=== PATIENT | male | born 1940 | race Caucasian/White ===

== ENCOUNTER 2021-04-29 02:09 | Observation (INO) ==
[2021-04-29] MEDS ORDERED: PANTOPRAZOLE 40 MG VIAL IV ONE (02:29)
--- NOTE | 2021-04-29 02:36 | Emergency Department Note ---
GI Bleed HPI General Chief complaint: Rectal Bleed Stated complaint: GI bleed Time Seen by Provider: 04/29/21 02:15 Source: patient Mode of arrival: ambulatory Limitations: no limitations History of Present Illness HPI Narrative: Narrative: 80 yo M w/ h/o mutiple GI polyps, AF on eliquis p/w GI bleeding. Pt reports onset of BRBPR around 1530 yesterday. Since onset, he has had 10-12 episodes of hematochezia that have filled the bowl. He feels generally unwell, but does not have lightheadedness, weakness, near-syncopal symptoms. He has never had any previous GI bleeding. He reports that he just underwent EGD and colonoscopy by Dr Billingsley on the and respectively, and had multiple polyps removed. He has had scopes done Q3-5 years for some time now 2/2 multiple polyps. Related Data Home Medications Medication Instructions Recorded Confirmed amiodarone 200 mg tablet 200 mg PO BID tab 10/22/17 01/23/21 amitriptyline 25 mg tablet 25 mg PO QDAY tab 10/22/17 01/23/21 amlodipine 10 mg tablet 10 mg PO QDAY 10/22/17 01/23/21 atorvastatin 20 mg tablet 20 mg PO QHS tab 10/22/17 01/23/21 doxazosin 4 mg tablet 4 mg PO QDAY 10/22/17 01/23/21 lisinopril 10 mg tablet 10 mg PO QDAY 10/22/17 01/23/21 magnesium oxide 420 mg tablet 420 mg PO QDAY tab 10/22/17 01/23/21 metoprolol tartrate 25 mg tablet 37.5 mg PO BID 10/22/17 01/23/21 multivitamin with minerals 1 cap PO QAM cap 10/22/17 01/23/21 naloxone 4 mg/actuation nasal spray 4 mg INTRANASAL ONCE PRN 10/22/17 01/23/21 warfarin 5 mg tablet 5 mg PO QDAY 10/22/17 01/23/21 Previous Rx's Medication Instructions Recorded finasteride 5 mg tablet 5 mg PO QDAY #90 tab 06/03/18 lidocaine 5 % topical patch 1 patch TOPICAL QDAY #15 ea 01/23/21 Allergies Allergy/AdvReac Type Severity Reaction Status Date / Time acetaminophen [From Percocet] Allergy Unknown Unknown Verified 04/29/21 02:13 codeine Allergy Unknown Unknown Verified 04/29/21 02:13 oxycodone [Oxycodone] Allergy Unknown Unknown Verified 04/29/21 02:13 Review of Systems ROS ROS Narrative: Narrative: All systems ED: reviewed and negative except as stated. [facility] Narrative Patient History Narrative: Narrative: Medical/Surgical/Family History All Active Problems (Updated 04/29/21 @ 04:25 by Ramesh Quiles MD) Hematochezia (Acute) Atrial fibrillation (Acute) Acute lower gastrointestinal bleeding (Acute) Intestinal polyps (Acute) Shingles outbreak (Acute) Finger laceration (Acute) Finger fracture, left (Acute) Chest pain (Acute) CHF (congestive heart failure) (Chronic) Dysrhythmias (Chronic) Atrial fibrillation (Chronic) Abnormal fasting glucose (Chronic) Insomnia, unspecified (Chronic) CVA (cerebral vascular accident) (Chronic) Benign prostatic hyperplasia (Chronic) Essential hypertension (Chronic) Polyp of colon (Chronic) Diverticulosis (Chronic) Urgency of urination (Chronic) Iatrogenic pulmonary embolism and infarction (Chronic) FPC current use of anticoagulant (Chronic) Osteoarthritis (Chronic) 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) Knee pain (Chronic) Skin lesion (Chronic) Actinic keratosis (Chronic) Hyperlipidemia (Chronic) Chest pain (Chronic) Pulmonary embolism (Chronic) Tachycardia (Chronic) Headache (Chronic) Microscopic hematuria (Chronic) Medical History (Updated 04/29/21 @ 04:25 by Ramesh Quiles MD) Abnormal fasting glucose Actinic keratosis Atrial fibrillation Benign prostatic hyperplasia 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 Chest pain CHF (congestive heart failure) CVA (cerebral vascular accident) Diverticulosis Dysrhythmias Essential hypertension Headache Hyperlipidemia Iatrogenic pulmonary embolism and infarction Insomnia, unspecified Knee pain FPC current use of anticoagulant Microscopic hematuria Neoplasm of uncertain behavior of skin Osteoarthritis Polyp of colon Pulmonary embolism Skin lesion Tachycardia Urgency of urination Surgical History History of knee surgery No pertinent past surgical history Family History Mother , at age 56 from lung cancer Lung cancer Heart disease Father , at age 54 of CAD CAD (coronary artery disease) Heart disease Brother Parkinson's disease Lung cancer Family/Other , at age 53 of lung cancer Lung cancer Nephew Other Family history of cardiac disorder Family history of rheumatic fever Social History Smoking Status: Former smoker Alcohol Intake Frequency: does not drink Substance Use: does not use Exam Narrative Narrative: Narrative: General Limitations: no limitations General appearance: Present alert and in no apparent distress Head Head: Present atraumatic and normocephalic ENT ENT: Present normal oropharynx and mucous membranes moist Chest Chest: Present normal inspection and symmetric chest wall rise Respiratory Respiratory: Present normal lung sounds bilaterally Cardiovascular Cardiovascular: Present regular rate, normal rhythm, +S1 and +S2 Adbominal Abdominal: Present soft, normal bowel sounds and other; Absent distention and tenderness Rectal Rectal: Present normal rectal tone, heme (+) stool and bloody stool Extremities Extremities: Absent pedal edema Neurological Neurological: Present alert and oriented X3 Psychiatric Psychiatric: Present normal affect Skin Skin: Present warm (WNL) and dry Course Vital Signs Vital signs: Vital Signs Temperature 96.9 F L 04/29/21 02:10 Pulse Rate 54 L 04/29/21 02:10 Respiratory Rate 16 04/29/21 02:10 Blood Pressure 136/113 04/29/21 02:10 Pulse Oximetry (%) 94 04/29/21 02:10 Temperature 96.9 F L 04/29/21 02:10 Pulse Rate 50 L 04/29/21 06:21 Respiratory Rate 16 04/29/21 02:10 Blood Pressure 123/65 04/29/21 06:21 Pulse Oximetry (%) 99 04/29/21 06:21 [facility] MDM Narrative Medical decision making narrative: Narrative: 80 yo M on eliquis p/w GI bleeding after EGD and colonoscopy. DDX - hemorrhagic shock, symptomatic anemia, GI bleed, coagulopathy, bowel perforation Pt presented stable, w/ no active bleeding, no hypotensive, negative shock index. Hemorrhagic shock was unlikely. GI bleed was confirmed w/ Hx, PE, and hemoccult. Most likely etiology was bleeding post polypectomy w/ underlying coagulopathy 2/2 eliquis. He had no abd pain, no TTP making bowel perforation unlikely. Hgb was 12.9, c/w anemia 2/2 GI bleed, although there is no recent comparison available. I reached out to Dr Detwiller w/o success. I then contacted Dr Barclay, who stated that he would be happy to consult on pt, and requested hospitalist admission. He stated that pt would not likely need repeat scope, but rather expected him to improve w/ a pause in his anticoagulation. I d/w the pt, and he is agreeable to local admission. At this time however, beds are not available. Will monitor pt in the ED until a bed opens up later this AM. Lab Data Lab results reviewed: Yes I reviewed the patient's lab results. Result diagrams: 04/29/21 02:43 04/29/21 02:43 Labs: Lab Results 04/29/21 04/29/21 04/29/21 Range/Units 02:43 02:43 02:43 WBC 10.3 (4.5-11.0) K/mcL RBC 3.93 L (4.50-5.90) M/mcL Hgb 12.9 L (13.5-16.5) g/dL Hct 38.0 L (41.0-55.0) % MCV 96.7 (80.0-100.0) fL MCH 32.8 (26.0-34.0) pg MCHC 33.9 (31.0-36.0) g/dL RDW 12.7 (11.5-14.5) % Plt Count 191 (140-440) K/mcL MPV 10.6 H (7.4-10.4) fL Neut % (Auto) 68.5 (38.0-78.0) % Lymph % (Auto) 17.9 (15.0-49.0) % [place] % (Auto) 10.8 (1.0-12.0) % Eos % (Auto) 2.4 (0.0-7.0) % Baso % (Auto) 0.4 (0.0-2.0) % Lymph # (Auto) 1.84 (1.50-4.80) K/mcL [place] # (Auto) 1.11 H (0.10-0.90) K/mcL Eos # (Auto) 0.25 (0.00-0.70) K/mcL Baso # (Auto) 0.04 (0.00-0.20) K/mcL Absolute Neutrophils 7.05 (1.80-8.00) K/mcL PT 17.8 H (11.9-14.5) sec INR 1.4 H (0.9-1.1) APTT 39.1 H (20.0-37.0) sec Sodium 143 (133-145) mmol/L Potassium 3.8 (3.3-5.1) mmol/L Chloride 108 (96-108) mmol/L Carbon Dioxide 26 (22-30) mmol/L Anion Gap 9.0 (8.0-16.0) BUN 31 H (8-23) mg/dL Creatinine 1.1 (0.7-1.2) mg/dL GFR Calculation 63 Glucose 93 (70-105) mg/dL Calcium 9.1 (8.6-10.4) mg/dL Total Bilirubin 0.6 (0.1-1.0) mg/dL AST 21 (<40) U/L ALT 11 (<40) U/L Alkaline Phosphatase 78 (39-117) U/L Total Protein 6.0 (5.9-8.4) gm/dL Albumin 3.7 (3.2-5.2) gm/dL Globulin 2.3 (2.2-3.7) gm/dL Albumin/Globulin Ratio 1.6 (1.0-2.3) ED POC Tests ED POC Tests: KRISTI - SARS Antigen Negative Discharge Plan Patient/Caregiver Discharge Instructions Pt seen by [employer]/PA only: No Clinical Impression: Hematochezia, Atrial fibrillation, Acute lower gastrointestinal bleeding, Intestinal polyps Patient Disposition: Xfer As Inpt ([facility]) Condition: Serious Follow up with: Robbin Horan ARNP [Primary Care Provider] - Prescriptions: No Action amiodarone 200 mg tablet 200 mg PO BID RF: 0 amitriptyline 25 mg tablet 25 mg PO QDAY RF: 0 amlodipine 10 mg tablet 10 mg PO QDAY RF: 0 atorvastatin 20 mg tablet 20 mg PO QHS RF: 0 doxazosin 4 mg tablet 4 mg PO QDAY RF: 0 lisinopril 10 mg tablet 10 mg PO QDAY RF: 0 metoprolol tartrate 25 mg tablet 37.5 mg PO BID RF: 0 naloxone 4 mg/actuation spray,non-aerosol 4 mg INTRANASAL ONCE PRNRF: 0 warfarin 5 mg tablet 5 mg PO QDAY RF: 0 magnesium oxide 420 mg tablet 420 mg PO QDAY RF: 0 multivitamin with minerals capsule 1 cap PO QAM RF: 0 lidocaine [Lidoderm] 5 % adhesive patch,medicated 1 patch topical QDAY Qty: 15 RF: 0 finasteride [Proscar] 5 mg tablet 5 mg PO QDAY Qty: 90 RF: 1
[2021-04-29 03:40] LABS: Basophils # (Auto) 0.04 K/mcL (0.00-0.20); Basophils % (Auto) 0.4 % (0.0-2.0); Eosinophils # (Auto) 0.25 K/mcL (0.00-0.70); Eosinophils % (Auto) 2.4 % (0.0-7.0); Hemoglobin 12.9 g/dL (13.5-16.5); Lymphocytes # (Auto) 1.84 K/mcL (1.50-4.80); Lymphocytes % (Auto) 17.9 % (15.0-49.0); Mean Cell Volume 96.7 fL (80.0-100.0); Mean Corpuscular HGB Conc 33.9 g/dL (31.0-36.0); Mean Platelet Volume 10.6 fL (7.4-10.4); Monocytes # (Auto) 1.11 K/mcL (0.10-0.90); Monocytes % (Auto) 10.8 % (1.0-12.0); Neutrophils % (Auto) 68.5 % (38.0-78.0); Platelet Count 191 K/mcL (140-440); RBC 3.93 M/mcL (4.50-5.90); Red Cell Distribution Width 12.7 % (11.5-14.5); WBC 10.3 K/mcL (4.5-11.0)
[2021-04-29 03:59] LABS: ALT/SGPT 11 U/L (<40); AST/SGOT 21 U/L (<40); Albumin 3.7 gm/dL (3.2-5.2); Albumin/Globulin Ratio 1.6 (1.0-2.3); Alkaline Phosphatase 78 U/L (39-117); Bilirubin,Total 0.6 mg/dL (0.1-1.0); Blood Urea Nitrogen 31 mg/dL (8-23); Calcium 9.1 mg/dL (8.6-10.4); Carbon Dioxide 26 mmol/L (22-30); Chloride 108 mmol/L (96-108); Globulin 2.3 gm/dL (2.2-3.7); Glomerular Filtration Rate 63; Glucose 93 mg/dL (70-105)
[2021-04-29 04:02] LABS: INR 1.4 (0.9-1.1); Partial Thromboplastin Time 39.1 sec (20.0-37.0); Prothrombin Time 17.8 sec (11.9-14.5)
[2021-04-29] MEDS ORDERED: DEXTROSE 5%-LR 1,000 ML IV SCH (04:30)
[2021-04-29 08:22] LABS: POC INR 1.2 (0.8-1.2); POC Pro Time 14.7 sec (11.9-14.5)
[2021-04-29] MEDS ORDERED: ONDANSETRON 4 MG/2 ML VIAL IV PRN (08:47)
[2021-04-29] MEDS: 0.9 % SODIUM CHLORIDE 1,000 ML IV SCH (09:09)
--- NOTE | 2021-04-29 09:48 | General Surg History&Physical ---
HPI History of Present Illness Patient information: Note initiated : 04/29/21 at 9:39 am Service Date, if different from initiated Date: 04/29/2021 Patient: Nirmala Zhong a 80 y/o M admitted on 04/29/21 for GI bleed. Chief Complaint: GI bleed History of present illness: Mr. Zhong is a 80 year old M who underwent an EGD and a colonoscopy over the last week. He reports he did well from this until last night when he started having hematochezia. He denies any nausea vomiting fevers or chills. He denies any dizziness when he stands but he does report multiple bowel movements. The emergency room attempted to contact the patient's provider unsuccessfully and so I was asked to consult on the patient. Patient does have a history of using Eliquis. Review of Systems Review of systems: All systems are reviewed, negative other than above PFSH PFSH All Active Problems Hematochezia (Acute) Atrial fibrillation (Acute) Acute lower gastrointestinal bleeding (Acute) Intestinal polyps (Acute) Shingles outbreak (Acute) Finger laceration (Acute) Finger fracture, left (Acute) Chest pain (Acute) CHF (congestive heart failure) (Chronic) Dysrhythmias (Chronic) Atrial fibrillation (Chronic) Abnormal fasting glucose (Chronic) Insomnia, unspecified (Chronic) CVA (cerebral vascular accident) (Chronic) Benign prostatic hyperplasia (Chronic) Essential hypertension (Chronic) Polyp of colon (Chronic) Diverticulosis (Chronic) Urgency of urination (Chronic) Iatrogenic pulmonary embolism and infarction (Chronic) detention current use of anticoagulant (Chronic) Osteoarthritis (Chronic) 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) Knee pain (Chronic) Skin lesion (Chronic) Actinic keratosis (Chronic) Hyperlipidemia (Chronic) Chest pain (Chronic) Pulmonary embolism (Chronic) Tachycardia (Chronic) Headache (Chronic) Microscopic hematuria (Chronic) Medical History Abnormal fasting glucose Actinic keratosis Atrial fibrillation Benign prostatic hyperplasia 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 Chest pain CHF (congestive heart failure) CVA (cerebral vascular accident) Diverticulosis Dysrhythmias Essential hypertension Headache Hyperlipidemia Iatrogenic pulmonary embolism and infarction Insomnia, unspecified 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 Microscopic hematuria Neoplasm of uncertain behavior of skin Osteoarthritis Polyp of colon Pulmonary embolism Skin lesion Tachycardia Urgency of urination Surgical History History of knee surgery No pertinent past surgical history Family History Mother , at age 56 from lung cancer Lung cancer Heart disease Father , at age 54 of CAD CAD (coronary artery disease) Heart disease Brother Parkinson's disease Lung cancer Family/Other , at age 53 of lung cancer Lung cancer Nephew Other Family history of cardiac disorder Family history of rheumatic fever Social History marital status: alcohol intake frequency: does not drink substance use type: does not use MEDS/ALLERGIES Home Medications and Allergies Home Medications Medication Instructions Recorded Confirmed Type amiodarone 200 mg tablet 200 mg PO BID tab 10/22/17 01/23/21 History amitriptyline 25 mg tablet 25 mg PO QDAY tab 10/22/17 01/23/21 History amlodipine 10 mg tablet 10 mg PO QDAY 10/22/17 01/23/21 History atorvastatin 20 mg tablet 20 mg PO QHS tab 10/22/17 01/23/21 History doxazosin 4 mg tablet 4 mg PO QDAY 10/22/17 01/23/21 History lisinopril 10 mg tablet 10 mg PO QDAY 10/22/17 01/23/21 History magnesium oxide 420 mg tablet 420 mg PO QDAY tab 10/22/17 01/23/21 History metoprolol tartrate 25 mg tablet 37.5 mg PO BID 10/22/17 01/23/21 History multivitamin with minerals 1 cap PO QAM cap 10/22/17 01/23/21 History naloxone 4 mg/actuation nasal spray 4 mg INTRANASAL ONCE PRN 10/22/17 01/23/21 History warfarin 5 mg tablet 5 mg PO QDAY 10/22/17 01/23/21 History finasteride 5 mg tablet 5 mg PO QDAY #90 tab 06/03/18 01/23/21 Rx lidocaine 5 % topical patch 1 patch TOPICAL QDAY #15 ea 01/23/21 01/23/21 Rx Allergies Allergy/AdvReac Type Severity Reaction Status Date / Time acetaminophen [From Percocet] Allergy Unknown Unknown Verified 04/29/21 02:13 codeine Allergy Unknown Unknown Verified 04/29/21 02:13 oxycodone [Oxycodone] Allergy Unknown Unknown Verified 04/29/21 02:13 Physical Examination Vital Signs Vital signs: Temp Pulse Resp BP Pulse Ox 96.7 F L 51 L 18 132/67 99 04/29/21 08:48 04/29/21 08:48 04/29/21 08:48 04/29/21 08:48 04/29/21 08:48 General physical appearance General physical exam: well developed, well nourished and no distress Eyes Eye exam: PERRL and normal ocular movement ENT ENT exam: normal pinna, normal nares, normal mucosa, no hearing loss and no congestion Head Head exam IM: Present atraumatic and normocephalic Neck Neck exam: no masses, no bruits, trachea midline, no lymphadenopathy and no venous distension Cardiovascular Cardiovascular exam IM: Present normal rate and rhythm Respiratory Respiratory exam: normal expansion, normal respiratory effort, clear to percussion and clear to auscultation Abdomen Abdomen: Present soft, non tender and bowel sounds Hernia: Present none Genitourinary Genitourinary (Male): Present normal penis with no external lesions Rectum Rectum: Present normal sphincter tone, no hemorrhoids, no tenderness, no masses and no bleeding Integumentary Integumentary: Present no rash, no growths and no abnormal pigmentation Neurologic Neurologic: Present normal coordination and normal sensation Musculoskeletal Musculoskeletal: Present normal gait and normal posture Psychiatric Psychiatric: Present oriented to time, oriented to person, oriented to place, speech is normal and memory intact Results Labs Result diagrams: 04/29/21 02:43 04/29/21 02:43 Labs: Abnormal lab results 04/29/21 04/29/21 04/29/21 Range/Units 02:43 02:43 02:43 RBC 3.93 L (4.50-5.90) M/mcL Hgb 12.9 L (13.5-16.5) g/dL Hct 38.0 L (41.0-55.0) % MPV 10.6 H (7.4-10.4) fL [place] # (Auto) 1.11 H (0.10-0.90) K/mcL POC PT 14.7 H (11.9-14.5) sec PT 17.8 H (11.9-14.5) sec INR 1.4 H (0.9-1.1) APTT 39.1 H (20.0-37.0) sec BUN 31 H (8-23) mg/dL Diabetes panel 04/29/21 Range/Units 02:43 Sodium 143 (133-145) mmol/L Potassium 3.8 (3.3-5.1) mmol/L Chloride 108 (96-108) mmol/L Carbon Dioxide 26 (22-30) mmol/L BUN 31 H (8-23) mg/dL Creatinine 1.1 (0.7-1.2) mg/dL Glucose 93 (70-105) mg/dL Calcium 9.1 (8.6-10.4) mg/dL AST 21 (<40) U/L ALT 11 (<40) U/L Alkaline Phosphatase 78 (39-117) U/L Total Protein 6.0 (5.9-8.4) gm/dL Albumin 3.7 (3.2-5.2) gm/dL Calcium panel 04/29/21 Range/Units 02:43 Calcium 9.1 (8.6-10.4) mg/dL Albumin 3.7 (3.2-5.2) gm/dL Pituitary panel 04/29/21 Range/Units 02:43 Sodium 143 (133-145) mmol/L Potassium 3.8 (3.3-5.1) mmol/L Chloride 108 (96-108) mmol/L Carbon Dioxide 26 (22-30) mmol/L BUN 31 H (8-23) mg/dL Creatinine 1.1 (0.7-1.2) mg/dL Glucose 93 (70-105) mg/dL Calcium 9.1 (8.6-10.4) mg/dL Adrenal panel 04/29/21 Range/Units 02:43 Sodium 143 (133-145) mmol/L Potassium 3.8 (3.3-5.1) mmol/L Chloride 108 (96-108) mmol/L Carbon Dioxide 26 (22-30) mmol/L BUN 31 H (8-23) mg/dL Creatinine 1.1 (0.7-1.2) mg/dL Glucose 93 (70-105) mg/dL Calcium 9.1 (8.6-10.4) mg/dL Total Bilirubin 0.6 (0.1-1.0) mg/dL AST 21 (<40) U/L ALT 11 (<40) U/L Alkaline Phosphatase 78 (39-117) U/L Total Protein 6.0 (5.9-8.4) gm/dL Albumin 3.7 (3.2-5.2) gm/dL All other labs normal. A/P Assessment and plan (1) Hematochezia: Status: Acute (2) Atrial fibrillation: Status: Acute (3) Intestinal polyps: Status: Acute Narrative A/P Narrative: This is a pleasant 80-year-old gentleman status post EGD and colonoscopy with polypectomy by Dr. Deshpande, patient presents with post polypectomy GI bleed on Eliquis. H&H is currently stable. Patient has no orthostatic signs. Recommendations: Clear for clear liquid diet, would trend H&H. Recommend contacting patient's GI physician. I will continue to follow if bleeding does not stop. Time Spent With Patient Time: Total time spent is greater than 50% in coordination of care (as gerda english) at patient's floor/unit and/or counseling patient:
--- NOTE | 2021-04-29 10:04 | Internal Med History&Physical ---
HPI History of Present Illness Patient information: Note initiated : 04/29/21 at 10:04 am Service Date, if different from initiated Date: [] Patient: Nirmala Zhong a 80 y/o M admitted on 04/29/21 for GI bleed. Chief Complaint: Bright red blood per rectum History of present illness: Mr. 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 Patient underwent what sounds like a screening colonoscopy by Dr. Deshpande on 04/20 at which time he had polypectomy. He has had polyps in the past and tells me he gets regular colonoscopies every 3 years. He subsequently had an EGD because of a "sour stomach" as well as history of cough and occasional wheezing. That was on 04/25. He has not yet heard if there were any significant findings, though nothing was mentioned to them immediately post procedure. During both of these procedures the patient remained on apixaban. This last did not feel quite as good Saturday afternoon passed a black clot with fresh blood in the commode. He continued to pass fresh blood into the commode every 30 to 45 minutes. Because of that overnight he presents to the emergency department. In the emergency department, hemodynamics were stable. He had mild anemia with a hemoglobin at 12.6. Dr. Deshpande was not on-call, Dr. Barclay was then consulted by the ED and would be available if any endoscopic procedure is needed. The patient is being admitted for management of post polypectomy GI bleed. I see the patient, his ride on the floor. He states that his frequency of bowel movements is starting to taper off. He denies any dark, tarry stools. Other than the dark clot at first, he is only reported fresh looking red blood. He denies any abdominal pain, no nausea or vomiting. No chest pain or tightness or squeezing. No shortness of breath, no cough or sputum production. No other bleeding noted. He does tend to bruise easily however secondary to anticoagulant use. Review of Systems All systems: reviewed and no additional remarkable complaints except as stated PFSH PFSH All Active Problems (Updated 04/29/21 @ 19:42 by Marilyn Denton MD) Hematochezia (Acute) Atrial fibrillation (Acute) Acute lower gastrointestinal bleeding (Acute) Intestinal polyps (Acute) Shingles outbreak (Acute) Finger laceration (Acute) Finger fracture, left (Acute) Chest pain (Acute) CHF (congestive heart failure) (Chronic) Dysrhythmias (Chronic) Atrial fibrillation (Chronic) Abnormal fasting glucose (Chronic) Insomnia, unspecified (Chronic) CVA (cerebral vascular accident) (Chronic) Benign prostatic hyperplasia (Chronic) Essential hypertension (Chronic) Polyp of colon (Chronic) Diverticulosis (Chronic) Urgency of urination (Chronic) Iatrogenic pulmonary embolism and infarction (Chronic) 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) Osteoarthritis (Chronic) 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) Knee pain (Chronic) Skin lesion (Chronic) Actinic keratosis (Chronic) Hyperlipidemia (Chronic) Chest pain (Chronic) Pulmonary embolism (Chronic) Tachycardia (Chronic) Headache (Chronic) Microscopic hematuria (Chronic) Medical History (Updated 04/29/21 @ 19:42 by Marilyn Denton MD) Abnormal fasting glucose Actinic keratosis Atrial fibrillation Benign prostatic hyperplasia 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 Chest pain CHF (congestive heart failure) Diverticulosis Dysrhythmias Essential hypertension Headache Hyperlipidemia Iatrogenic pulmonary embolism and infarction Insomnia, unspecified Knee pain 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 Microscopic hematuria Neoplasm of uncertain behavior of skin Osteoarthritis Polyp of colon Pulmonary embolism Skin lesion Tachycardia Urgency of urination Surgical History (Updated 04/29/21 @ 19:42 by Marilyn Denton MD) History of knee surgery Family History Mother , at age 56 from lung cancer Lung cancer Heart disease Father , at age 54 of CAD CAD (coronary artery disease) Heart disease Brother Parkinson's disease Lung cancer Family/Other , at age 53 of lung cancer Lung cancer Nephew Other Family history of cardiac disorder Family history of rheumatic fever Social History marital status: alcohol intake frequency: does not drink substance use type: does not use MEDS/ALLERGIES Home Medications and Allergies Home Medications Medication Instructions Recorded Confirmed Type amiodarone 200 mg tablet 200 mg PO BID tab 10/22/17 04/29/21 History amitriptyline 25 mg tablet 25 mg PO QDAY tab 10/22/17 04/29/21 History amlodipine 10 mg tablet 10 mg PO QDAY 10/22/17 04/29/21 History atorvastatin 20 mg tablet 20 mg PO QHS tab 10/22/17 04/29/21 History doxazosin 4 mg tablet 4 mg PO QDAY 10/22/17 04/29/21 History lisinopril 10 mg tablet 10 mg PO QDAY 10/22/17 04/29/21 History magnesium oxide 420 mg tablet 420 mg PO QDAY tab 10/22/17 04/29/21 History metoprolol tartrate 25 mg tablet 37.5 mg PO BID 10/22/17 04/29/21 History multivitamin with minerals 1 cap PO QAM cap 10/22/17 04/29/21 History naloxone 4 mg/actuation nasal spray 4 mg INTRANASAL ONCE PRN 10/22/17 04/29/21 History warfarin 5 mg tablet 2 mg PO QDAY 10/22/17 04/29/21 History finasteride 5 mg tablet 5 mg PO QDAY #90 tab 06/03/18 04/29/21 Rx lidocaine 5 % topical patch 1 patch TOPICAL QDAY #15 ea 01/23/21 04/29/21 Rx Allergies Allergy/AdvReac Type Severity Reaction Status Date / Time acetaminophen [From Percocet] Allergy Unknown Unknown Verified 04/29/21 02:13 codeine Allergy Unknown Unknown Verified 04/29/21 02:13 oxycodone [Oxycodone] Allergy Unknown Unknown Verified 04/29/21 02:13 EXAM Constitutional Vitals: Temp Pulse Resp BP Pulse Ox 96.7 F L 51 L 18 132/67 99 04/29/21 08:48 04/29/21 08:48 04/29/21 08:48 04/29/21 08:48 04/29/21 08:48 GENERAL: Alert, oriented, in no acute distress. Cooperative, appears stated age. HEENT: Atraumatic. Pupils equal, conjunctiva clear, no scleral icterus. Hearing grossly intact. Oropharynx with moist mucous membranes, no pharyngeal erythema or exudate. NECK: Supple without meningismus, no thyromegaly RESPIRATORY: Breath sounds clear bilaterally without wheezes or rhonchi. Respiratory effort is unlabored. CARDIOVASCULAR: Regular rate and rhythm, no murmur gallop or rub. No peripheral edema. Carotid pulses 2+. GI: Abdomen soft, obese, very mild diffuse discomfort with palpation, no guarding or rebound. Bowel sounds are present. MUSCULOSKELETAL: No joint erythema or swelling, normal range of motion in all extremities. SKIN: Intact, warm, dry. Skin turgor normal. NEUROLOGIC: Cranial nerves II through XII grossly intact. Muscle mass normal. Strength 5/5 in the upper and lower extremities. Sensation intact to light touch bilaterally. PSYCHIATRIC: Alert, oriented x3, normal mood and affect, normal insight. DATA Data Completed and Pending Labs: Labs from last 24 hours 04/29/21 04/29/21 04/29/21 02:43 02:43 02:43 WBC 10.3 RBC 3.93 L Hgb 12.9 L Hct 38.0 L MCV 96.7 MCH 32.8 MCHC 33.9 RDW 12.7 Plt Count 191 MPV 10.6 H Neut % (Auto) 68.5 Lymph % (Auto) 17.9 [place] % (Auto) 10.8 Eos % (Auto) 2.4 Baso % (Auto) 0.4 Lymph # (Auto) 1.84 [place] # (Auto) 1.11 H Eos # (Auto) 0.25 Baso # (Auto) 0.04 Absolute Neutrophils 7.05 POC PT 14.7 H PT 17.8 H POC INR 1.2 INR 1.4 H APTT 39.1 H Sodium 143 Potassium 3.8 Chloride 108 Carbon Dioxide 26 Anion Gap 9.0 BUN 31 H Creatinine 1.1 GFR Calculation 63 Glucose 93 Calcium 9.1 Total Bilirubin 0.6 AST 21 ALT 11 Alkaline Phosphatase 78 Total Protein 6.0 Albumin 3.7 Globulin 2.3 Albumin/Globulin Ratio 1.6 A/P Narrative A/P Narrative: 80-year-old male presents with acute GI bleeding in the setting of apixaban use and recent polypectomy. Acute lower GI hemorrhage/hematochezia -Suspect lower source with hematochezia -Suspect secondary to recent polypectomy, with clot passed -At risk for post polypectomy bleeding with apixaban anticoagulation -BUN mildly elevated but low suspicion for upper GI source Atrial fibrillation -Prior history of CVA in 2015 with minimal residual sequela -Previously on warfarin, currently on apixaban for stroke prophylaxis -Risk of anticoagulation currently outweigh benefits with acute GI hemorrhage -Rate is controlled, uses metoprolol Hypertension -On amlodipine and metoprolol History of pulmonary embolism -Provoked, occurred following TKA in 2007 -Had been off anticoagulation until resumed following CVA in 2014 Plan: Hospitalized Hold apixaban Follow serial H/H Type and screen General surgery consultation for possible endoscopic intervention if needed Attempt to contact Dr. Deshpande If hemoglobin remains stable and no need for sedation, begin clear liquid diet Hold amlodipine with GI bleed until hemoglobin stable Continue metoprolol for rate control Telemetry monitoring CODE STATUS: Full code Prophylaxis: SCDs, pharmacologic prophylaxis is absolutely contraindicated due to GI bleed Time Spent With Patient Time: Total time spent is greater than 50% in coordination of care (as documented) at patient's floor/unit and/or counseling patient:
[2021-04-29] MEDS: PANTOPRAZOLE 40 MG TABLET PO SCH (10:42)
[2021-04-29 11:40] LABS: Hematocrit 34.6 % (41.0-55.0); Hemoglobin 11.8 g/dL (13.5-16.5)
[2021-04-29] MEDS: 0.9 % SODIUM CHLORIDE 10 ML SYRINGE IV SCH ×2 (13:16→20:05)
[2021-04-29 16:46] LABS: Basophils # (Auto) 0.04 K/mcL (0.00-0.20); Basophils % (Auto) 0.5 % (0.0-2.0); Eosinophils # (Auto) 0.19 K/mcL (0.00-0.70); Eosinophils % (Auto) 2.2 % (0.0-7.0); Hematocrit 35.2 % (41.0-55.0); Hemoglobin 11.9 g/dL (13.5-16.5); Lymphocytes # (Auto) 1.23 K/mcL (1.50-4.80); Lymphocytes % (Auto) 14.3 % (15.0-49.0); Mean Cell Volume 96.2 fL (80.0-100.0); Mean Corpuscular HGB Conc 33.8 g/dL (31.0-36.0); Mean Platelet Volume 10.6 fL (7.4-10.4); Monocytes # (Auto) 1.02 K/mcL (0.10-0.90); Monocytes % (Auto) 11.9 % (1.0-12.0); Neutrophils % (Auto) 71.1 % (38.0-78.0); Platelet Count 162 K/mcL (140-440); RBC 3.66 M/mcL (4.50-5.90); Red Cell Distribution Width 12.8 % (11.5-14.5); WBC 8.6 K/mcL (4.5-11.0)
[2021-04-29 20:48] LABS: Hematocrit 32.3 % (41.0-55.0); Hemoglobin 11.1 g/dL (13.5-16.5)
[2021-04-30 01:51] LABS: Hematocrit 32.7 % (41.0-55.0); Hemoglobin 10.9 g/dL (13.5-16.5)
[2021-04-30] MEDS: 0.9 % SODIUM CHLORIDE 1,000 ML IV SCH ×2 (01:58)
[2021-04-30] MEDS: 0.9 % SODIUM CHLORIDE 10 ML SYRINGE IV SCH (04:13)
[2021-04-30 07:11] LABS: Hematocrit 31.4 % (41.0-55.0); Hemoglobin 10.6 g/dL (13.5-16.5)
[2021-04-30 07:21] LABS: ALT/SGPT 10 U/L (<40); AST/SGOT 21 U/L (<40); Albumin 3.1 gm/dL (3.2-5.2); Albumin/Globulin Ratio 1.4 (1.0-2.3); Alkaline Phosphatase 66 U/L (39-117); Bilirubin,Direct 0.3 mg/dL (<0.3); Bilirubin,Total 0.9 mg/dL (0.1-1.0); Blood Urea Nitrogen 20 mg/dL (8-23); Calcium 8.2 mg/dL (8.6-10.4); Carbon Dioxide 23 mmol/L (22-30); Chloride 112 mmol/L (96-108); Globulin 2.2 gm/dL (2.2-3.7); Glomerular Filtration Rate 89; Glucose 80 mg/dL (70-105); Lactate Dehydrogenase 183 U/L (135-225); Phosphorous 2.3 mg/dL (2.5-4.5); Triglycerides 88 mg/dL (<150)
[2021-04-30] MEDS: PANTOPRAZOLE 40 MG TABLET PO SCH (07:37)
[2021-04-30] MEDS ORDERED: NEUTRA PHOS 1 PACKET PO SCH (09:00)
--- NOTE | 2021-04-30 09:12 | General Surgery Progress Note ---
SUBJECTIVE Subjective Patient information: Note initiated : 04/30/21 at 9:10 am Service Date, if different from initiated Date: [] Patient: Nirmala Zhong a 80 y/o M admitted on 04/29/21 for GI bleed. Chief Complaint: [] Interval history: Patient feels well this morning, had a normal bowel movement overnight, repeat bowel movement this morning with couple flecks of blood. Constitutional Vitals: Vital Signs Temp Pulse Resp BP Pulse Ox 98.0 F 67 20 147/66 97 04/30/21 07:21 04/30/21 07:21 04/30/21 07:21 04/30/21 07:21 04/30/21 07:21 Period Temp Pulse Resp BP Sys/Coles Pulse Ox Last 24 Hr 96.9 F-98.0 F 58-69 16-20 136-170/66-76 93-98 Intake and Output 04/29/21 04/30/21 04/30/21 21:59 05:59 13:59 Intake Total 0 1000 Output Total 850 650 400 Balance -850 350 -400 Weight 196 lb Intake & Output: Intake & Output 04/29/21 04/30/21 04/30/21 21:59 05:59 13:59 Intake Total 0 1000 Output Total 850 650 400 Balance -850 350 -400 Weight 196 lb Intake: IV 1000 Sodium Chloride 0.9% 1,000 ml @ 1000 75 mls/hr IV .[id number] [facility] Rx#: [id number] Oral 0 Output: Void Amount 750 550 250 Stool 100 100 150 Other: Urine Appearance Clear Clear Clear Urine Color Bright Yellow Bright Yellow Bright Yellow Stool Size Large Moderate Stool Color Bright Red Blood Dark Red Blood Dark Red Blood Stool Consistency Watery Liquid Soft Liquid # Bowel Movements 1 0 General appearance: cooperative and no acute distress GI/Abdominal GI/Abdominal exam: Present soft; Absent distended, mass and tenderness A/P Narrative A/P Narrative: Lower GI bleed following colonoscopy with polypectomy by Dr. Deshpande. Patient remains stable, no current active bleed. Patient is clear for diet, normal activity, discharge from a surgical standpoint. Patient needs to follow-up with Dr. Deshpande for any further interventions. Time Spent With Patient Time: Total time spent is greater than 50% in coordination of care (as documented) at patient's floor/unit and/or counseling patient:
[2021-04-30] MEDS ORDERED: METOPROLOL TARTRATE 25 MG TABLET PO SCH (11:05)
[2021-04-30] MEDS ORDERED: LISINOPRIL 10 MG TABLET PO SCH (11:05)
[2021-04-30] MEDS ORDERED: amLODIPine 10 MG TABLET PO SCH (11:05)
--- NOTE | 2021-04-30 12:32 | Discharge Summary ---
Discharge Provider Provider Patient information: Note initiated : 04/30/21 at 12:29 pm Service Date, if different from initiated Date: [] Patient: Nirmala Zhong 80 y/o M admitted on 04/29/21 for GI bleed. Chief Complaint: Bright red blood per rectum Date of admission: 04/29/21 08:33 Discharge date: 04/30/21 Primary care physician: Robbin Horan Consults: 04/29/21 Consult to Physician [CONS] Stat Comment: Consulting Provider: Marilyn Denton Reason For Exam: Physician to Consult Consult to Physician [CONS] Stat Comment: Consulting Provider: Bob Barclay Reason For Exam: Physician to Consult Discharge Meds Discharge Medications Home Medications amiodarone 200 mg tablet 200 mg PO BID tab 10/22/17 [History Confirmed 04/29/21 Last Taken 04/28/21] amitriptyline 25 mg tablet 25 mg PO QDAY tab 10/22/17 [History Confirmed 04/29/21 Last Taken 04/28/21] amlodipine 10 mg tablet 10 mg PO QDAY 10/22/17 [History Confirmed 04/29/21 Last Taken 04/28/21] atorvastatin 20 mg tablet 20 mg PO QHS tab 10/22/17 [History Confirmed 04/29/21 Last Taken 04/28/21] doxazosin 4 mg tablet 4 mg PO QDAY 10/22/17 [History Confirmed 04/29/21 Last Taken 04/28/21] lisinopril 10 mg tablet 10 mg PO QDAY 10/22/17 [History Confirmed 04/29/21 Last Taken 04/28/21] magnesium oxide 420 mg tablet 420 mg PO QDAY tab 10/22/17 [History Confirmed 04/29/21 Last Taken 04/28/21] metoprolol tartrate 25 mg tablet 37.5 mg PO BID 10/22/17 [History Confirmed 04/29/21 Last Taken 04/28/21] multivitamin with minerals 1 cap PO QAM cap 10/22/17 [History Confirmed 04/29/21 Last Taken 04/28/21] naloxone 4 mg/actuation nasal spray 4 mg INTRANASAL ONCE PRN 10/22/17 [History Confirmed 04/29/21 Last Taken Unknown] finasteride 5 mg tablet 5 mg PO QDAY #90 tab 06/03/18 [Rx Confirmed 04/29/21 Last Taken 04/28/21] lidocaine 5 % topical patch 1 patch TOPICAL QDAY #15 ea 01/23/21 [Rx Confirmed 04/29/21 Last Taken Unknown] Eliquis 5 mg PO BID 04/30/21 [History Confirmed 04/30/21 Last Taken Unknown] COURSE Hospital Course Hospital course: History of present illness: Mr. 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 Patient underwent what sounds like a screening colonoscopy by Dr. Loving on 04/20 at which time he had polypectomy. He has had polyps in the past and tells me he gets regular colonoscopies every 3 years. He subsequently had an EGD because of a "sour stomach" as well as history of cough and occasional wheezing. That was on 04/25. He has not yet heard if there were any significant findings, though nothing was mentioned to them immediately post procedure. During both of these procedures the patient remained on apixaban. This last did not feel quite as good Saturday afternoon passed a black clot with fresh blood in the commode. He continued to pass fresh blood into the commode every 30 to 45 minutes. Because of that overnight he presents to the emergency department. In the emergency department, hemodynamics were stable. He had mild anemia with a hemoglobin at 12.6. Dr. Loving was not on-call, Dr. Barclay was then consulted by the ED and would be available if any endoscopic procedure is needed. The patient is being admitted for management of post polypectomy GI bleed. 8/1patient now having normal bowel movements without blood. Hemoglobin has drifted down mildly, 10.6 and 10.9 on the last 2 readings. Tolerating regular diet. Stable for discharge. We will plan to keep off Eliquis for 1 week. Advised the patient to contact Dr. Loving tomorrow, will also copy him on this document. Discharge diagnosis: Post polypectomy lower GI bleeding, resolved Procedures: None Complications: None Time Spent with Patient Time attestation: Total time spent providing and/or coordinating discharge services: Time spent: Greater than 30 minutes EXAM Constitutional Vitals: Temp Pulse Resp BP Pulse Ox 97.8 F 70 18 175/69 96 04/30/21 11:21 04/30/21 11:21 04/30/21 11:21 04/30/21 11:21 04/30/21 11:21 GENERAL: Sitting up in bed no acute distress RESPIRATORY: Clear bilaterally with good air movement CARDIOVASCULAR: Irregular, no murmur ABDOMEN: Soft, active bowel sounds, nontender EXTREMITIES: No edema NEURO: Alert, oriented x3, ambulatory Discharge Data Data Completed and Pending Labs on day of discharge: Labs from last 24 hours 04/30/21 04/30/21 04/30/21 05:39 05:39 00:38 WBC RBC Hgb 10.6 L 10.9 L Hct 31.4 L 32.7 L MCV MCH MCHC RDW Plt Count MPV Neut % (Auto) Lymph % (Auto) [place] % (Auto) Eos % (Auto) Baso % (Auto) Lymph # (Auto) [place] # (Auto) Eos # (Auto) Baso # (Auto) Absolute Neutrophils Sodium 143 Potassium 3.5 Chloride 112 H Carbon Dioxide 23 Anion Gap 8.0 BUN 20 Creatinine 0.7 GFR Calculation 89 Glucose 80 Uric Acid 4.0 Calcium 8.2 L Phosphorus 2.3 L Magnesium 2.2 Total Bilirubin 0.9 Direct Bilirubin 0.3 H GGT 15 AST 21 ALT 10 Alkaline Phosphatase 66 Lactate Dehydrogenase 183 Total Protein 5.3 L Albumin 3.1 L Globulin 2.2 Albumin/Globulin Ratio 1.4 Triglycerides 88 04/29/21 04/29/21 20:00 15:38 WBC 8.6 RBC 3.66 L Hgb 11.1 L 11.9 L Hct 32.3 L 35.2 L MCV 96.2 MCH 32.5 MCHC 33.8 RDW 12.8 Plt Count 162 MPV 10.6 H Neut % (Auto) 71.1 Lymph % (Auto) 14.3 L [place] % (Auto) 11.9 Eos % (Auto) 2.2 Baso % (Auto) 0.5 Lymph # (Auto) 1.23 L [place] # (Auto) 1.02 H Eos # (Auto) 0.19 Baso # (Auto) 0.04 Absolute Neutrophils 6.11 Sodium Potassium Chloride Carbon Dioxide Anion Gap BUN Creatinine GFR Calculation Glucose Uric Acid Calcium Phosphorus Magnesium Total Bilirubin Direct Bilirubin GGT AST ALT Alkaline Phosphatase Lactate Dehydrogenase Total Protein Albumin Globulin Albumin/Globulin Ratio Triglycerides Impressions Impressions: No imaging Discharge Plan Patient/Caregiver Discharge Instructions Activity: resume usual activities as tolerated Diet: Regular Diet Activity Restrictions/Additional Instructions: Do not take your Eliquis until this coming Saturday, 05/06. Prescriptions: Continued amiodarone 200 mg tablet 200 mg PO BID RF: 0 amitriptyline 25 mg tablet 25 mg PO QDAY RF: 0 amlodipine 10 mg tablet 10 mg PO QDAY RF: 0 atorvastatin 20 mg tablet 20 mg PO QHS RF: 0 doxazosin 4 mg tablet 4 mg PO QDAY RF: 0 lisinopril 10 mg tablet 10 mg PO QDAY RF: 0 metoprolol tartrate 25 mg tablet 37.5 mg PO BID RF: 0 naloxone 4 mg/actuation spray,non-aerosol 4 mg INTRANASAL ONCE PRN (Reason: Allergic Symptoms) RF: 0 magnesium oxide 420 mg tablet 420 mg PO QDAY RF: 0 multivitamin with minerals capsule 1 cap PO QAM RF: 0 lidocaine [Lidoderm] 5 % adhesive patch,medicated 1 patch topical QDAY Qty: 15 RF: 0 Eliquis 5 mg Tablet 5 mg PO BID RF: 0 finasteride [Proscar] 5 mg tablet 5 mg PO QDAY Qty: 90 RF: 1 Follow Up Plan Follow up with: Jerson Loving MD [Physician] - (Call office on Saturday) Robbin Horan ARNP [Primary Care Provider] - Patient Disposition: Home, Self-Care Prognosis: Good Overall status at discharge: patient is back to baseline Discharge Orders: Discharge Order (Routine); Ordered 04/30/21 Ordered By: Marilyn Denton
== END 2021-04-30 14:00 | disposition home or self-care (01) ==
LOC: ED 02:09 → INTOOBSV 08:33 → MEDSUR 08:33
PROVIDERS: ADMIT Internal Medicine; ATTEND Internal Medicine

== ENCOUNTER 2022-05-19 15:17 | Inpatient (IN) ==
--- OUTSIDE RECORDS SUMMARY | 2022-05-19 15:49 | External Medical Summary | Continuity of Care Document ---
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 It does not include entries that were removed or entered in error. Problem Status Onset Problem Date of Comments Source Date Type Resolution History of Active Condition serrated Ambulat ory colonoscopy(Confirm 018 adenoma X 1, Pharmacy ed)3 repeat 3 years 12/2020 History of Active Condition Jan 22, RAMONA Jeffers colonoscopy 018 2017 Entered WAINW RIGHT By: [facility] DONITA DAILEY Comment: serrated adenoma X 1, repeat 3 years 12/2020May 25, 2021 Entered By: DONITA DAILEY Comment: March 2021 -- Crcs updated by Dr Loving. Repeat in 2.5yrs (due 2023) AF- Atrial Active Condition Ambulator y Fibrillation (SCT 017 Ph armacy [id number])(Confirmed ) AF- Atrial Active Condition RAMONA M. 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 Keep BP 130-140 sys-
tolic , per Dr. Key neurologist at [facility].
D/C Plavix. Start ASA 325 mg daily, per Dr. Key. CVA - Active Condition Aug 11, [facility] Cerebrovascular 014 2013 Entered C LINIC accident By: YESSICA BLACKMAN Comment: Mild expressive and receptive aphasia. Keep BP 130-140 sys- Aug 11, 2014 Entered By: YESSICA BLACKMAN Comment: tolic, per Dr. Key neurologist at [facility]. Aug 11, 2014 Entered By: YESSICA BLACKMAN Comment: D/C Plavix. Start ASA 325 mg daily, per Dr. Key. Diverticulosis Active Condition Ambul atory (SNOMED CT 012 Pharmacy [id number])(Confirme d) Polyp of colon Active Condition Review in Am bulatory (SNOMED CT 012 2017 for Pharmacy [id number])(Confirmed surveillan ce )7 colonoscopy - due in 2020 Diverticulosis Active Condition JOSEMANUEL Jeffers (SNOMED CT 012 [place] T [id number]) [facility] Polyp of colon Active Condition Apr 15, MELVA Jeffers (SNOMED CT 012 2017 Entered WAINWR IGHT [id number]) By: [facility] DONITA DAILEY Comment: Review in 2016 for surveillance colonoscopy - due in 2020 Abnormality of Gait Active Condition Ambulatory (ICD-9-CM Pharmacy 781.2)(Confirmed) Actinic Active Condition Ambulatory keratosis(Confirmed Pharmacy ) Benign prostatic Active Condition Amb ulatory hyperplasia (SNOMED Pharmacy CT [id number])(Confirme d) Bradycardia * Active Condition Ambula tory (ICD-9-CM Pharmacy 427.89)(Confirmed) Coronary Active Condition Ambulatory arteriosclerosis(Co Pharmacy nfirmed) Dizziness * Active Condition Ambulato ry (ICD-9-CM Pharmacy 780.4)(Confirmed) Essential Active Condition Ambulatory hypertension Pharmac y (SNOMED CT 35874594)(Confirmed ) Gastro-oesophageal Active Condition 12/05/2017 ~ Ambulatory reflux disease EGD completed P reji without by Dr. yessi Loving ~ Dx (SNOMED CT Gastritis, [id number])(Confirme esophagiti s, d)2 gastric polyps. H/O: Deep vein Active Condition Ambul atory thrombosis(Confirme Pharmacy d) Headache(Confirmed) Active Condition Ambulatory Pharmacy Hyperlipidemia(Conf Active Condition Ambulatory irmed) Pharmacy Hypokalemia * Active Condition Ambula tory (ICD-9-CM Pharmacy 276.8)(Confirmed) Insomnia, Active Condition Ambulatory unspecified(Confirm Pharmacy ed) Knee Active Condition right knee Ambula tory pain(Confirmed)4 Pha rmacy Long-term current Active Condition 10/2011 -- Ambulatory use of Enrolled in Pharmacy [facility]agulant [facility] (SNOMED [facility] 627666654)(Confirme d)5 Chronic lower back Active Condition A mbulatory pain(Confirmed) Phar franki Microscopic Active Condition Ambulato ry Hematuria (ICD-9-CM Pharmacy 599.72)(Confirmed) Myalgia(Confirmed) Active Condition A mbulatory Pharmacy Neoplasm of Active Condition Ambulato ry uncertain behavior P harmacy of skin (SNOMED CT 48444130)(Confirmed ) Osteoarthritis Active Condition Right knee A mbulatory (SNOMED CT Pharmacy [id number])(Confirme d)6 Peripheral Active Condition Ambulator y edema(Confirmed) Pha rmacy Other Pulmonary Active Condition Ambu latory Embolism and Pharmac y Infarction(Confirme d) 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) Transient Ischemic Active Condition A mbulatory Attack * (ICD-9-CM P harmacy 435.9)(Confirmed) Urgency of Active Condition Ambulator y urination (ICD-9-CM Pharmacy 788.63)(Confirmed) Well male Active Condition Ambulatory adult(Confirmed) Pha rmacy Abnormality of Gait Active Condition CARABALLONancyBRENDON (ICD-9-CM 781.2) [facility] Actinic keratosis Active Condition RUPAL KABA [facility] ACTINIC KERATOSIS Active Condition MA NN-GRANDST AFF [facility] Back Strain Active Condition RASHMI-FAISAL NDST (ICD-9-CM AFF [facility] 847.9/729.9) Benign prostatic Active Condition [facility] hyperplasia (SNOMED CLINIC CT [id number]) Bradycardia * Active Condition RANDY BEYERST (ICD-9-CM 427.89) AF [facility] Cerebral small Active Condition [facility] vessel disease CLINI C Chest pain Active Condition [facility] Chest Pains * Active Condition CARABALLO-Roderick RANDST (ICD-9-CM 786.50) AF F [facility] Coronary Active Condition [facility]ID [facility] arteriosclerosis [facility] Dizziness * Active Condition RASHMI-FAISAL NDST (ICD-9-CM 780.4) [facility] Dyspnea Active Condition [facility] Dyspnea on exertion Active Condition [facility] Encounter for Active Condition CARABALLO-Roderick GONZALES Therapeutic Drug [facility] Monitoring (ICD-9-CM V58.83) Essential Active Condition [facility] hypertension CLINIC (SNOMED CT 28996680) Gastro-oesophageal Active Condition Dec 10, [facility] reflux disease 2018 Entered CL INIC without By: oesophagitis DONITA DAILEY (SNOMED CT Comment: [phone]) 12/05/2017 ~ EGD completed by Dr. Dettwiler ~ Dx Gastritis, esophagitis, gastric polyps. Gastroesophageal Active Condition MAN N-GRANDST Reflux Disorder * AF [facility] (ICD-9-CM 530.81) H/O: Deep vein Active Condition [place]O- BRENDON thrombosis AFF [facility] Hematoma of thigh Active Condition LE [facility] Hyperlipidemia Active Condition [place]- ST [facility] Hyperlipidemia Active Condition [facility]SEMANUEL RANJITH [facility] Hypertension * Active Condition DAVID OLIVAS (ICD-9-CM 401.9) [facility] Hypokalemia * Active Condition RANDY RANDST (ICD-9-CM 276.8) [facility] Iatrogenic Active Condition May 26, RAMONA Jeffers Pulmonary Embolism 2011 Entere d [place] and Infarction By: BEKA ABRAHAM [facility] A Comment: 2007 PE POST L TKR May 26, 2012 Entered By: BEKA ABRAHAM Comment: HAD PAROXYSMAL A FIB DURING THIS EPISODE - Knee: arthralgia * Active Condition M MARIANN-GRANDST (ICD-9-CM 719.46) AF [facility] [employer] Preas[employer]er (current) Active Condition MARLENE use of [facility] Anticoagulants (ICD-9-CM V58.61) Long-term current Active Condition Oct 24, Glendy Jeffers use of 2019 Entered [facility] anticoagulant By: [facility] (SNOMED CT DONITA DAILEY [id number]) Comment: 10/2011 -- [facility] Myalgia Active Condition RASHMI- ST [facility] Osteoarthritis Active Condition Apr 30, [facility] (SNOMED CT 2012 Entered CLINIC [id number]) By: YESSICA BLACKMAN Comment: Right knee Osteoarthritis * Active Condition MAN N-GRANDST (ICD-9-CM 715.90) AF F [facility] Osteoarthrosis Active Condition [facility] involving the knee M EDICAL (ICD-9-CM 715.98) CE NTER Other Pulmonary Active Condition CARABALLO -BRENDON Embolism and AFF [facility] Infarction Paroxysmal atrial Active Condition MA NN-GRANDST fibrillation AFF [facility] (ICD-9-CM 427.31) Peripheral edema Active Condition [facility] Rash Active Condition [facility] Transient Ischemic Active Condition M MARIANN-GRANDST Attack * (ICD-9-CM A [facility] 435.9) Well male adult Active Condition [facility] Chest pain (SNOMED Inactive Condition 11/12/[address] [facility] [address] [id number]) CLINIC Headache Inactive Condition 02/07/2018 [facility] Insomnia, Inactive Condition 02/07/2018 [facility] unspecified CLINIC Knee pain Inactive Condition 02/07/2018 Apr 12, [facility] 2015 Entered CLINIC By: YESSICA BLACKMAN Comment: right knee Microscopic Inactive Condition 02/07/2018 [facility] Hematuria (ICD-9-CM CLINIC 599.72) Neoplasm of Inactive Condition 02/07/2018 [facility] uncertain behavior C LINIC of skin (SNOMED CT 37268686) Skin lesion Inactive Condition 02/07/2018 [facility] CLINIC Tachycardia Inactive Condition 02/07/2018 [facility] CLINIC Urgency of Inactive Condition 02/07/2018 [facility] urination (ICD-9-CM CLINIC 788.63) Diagnosis: active Diagnosis [facility] ICD-10-CM Z00.00 CLI THERESA Encntr for general adult medical exam w/o abnormal findingswith Provider Comments: Well male adult (SCT 500626794) Diagnosis: active Diagnosis RAMONA MMathew ICD-10-CM Z23 [place] IGHT Encounter for [facility] immunizationwith Provider Comments: Encounter for Immunization Diagnosis: active Diagnosis [facility] ICD-10-CM I10 CLINIC Essential (primary) hypertensionwith Provider Comments: Essential hypertension (SCT 84469055) Diagnosis: active Diagnosis [facility] ICD-10-CM R06.00 CLI THERESA Dyspnea, unspecifiedwith Provider Comments: Dyspnea (SNOMED CT 230269319) Diagnosis: active Diagnosis RAMONA GalindoMathew ICD-10-CM Z51.81 TRAVIS NWRIGHT Encounter for [facility] therapeutic drug level monitoringwith Provider Comments: Encounter for Therapeutic Drug Level Monitoring Diagnosis: active Diagnosis [facility] ICD-10-CM R06.02 CLI THERESA Shortness of breathwith Provider Comments: Dyspnea on exertion (SNOMED CT 31934335) Diagnosis: active Diagnosis [facility] ICD-10-CM Z71.89 CLI THERESA Other specified counselingwith Provider Comments: Counseling,Oth Specified Diagnosis: active Diagnosis [facility] ICD-10-CM Z71.89 CLI THERESA Other specified counselingwith Provider Comments: Counseling,Other Specified Diagnosis: active Diagnosis RAMONA MMathew ICD-10-CM Z51.81 TRAVIS NWRIGHT Encounter for [facility] therapeutic drug level monitoringwith Provider Comments: Encounter For Therapeutic Drug Level Monitoring (ICD-10-CM Z51.81) Diagnosis: active Diagnosis [facility] ICD-10-CM R68.89 CLI THERESA Other general symptoms and signswith Provider Comments: General Symptoms & Signs Medications Combined list of outpatient medications from Department of Defense and Veterans Affairs facilities. Medications provided include 1) outpatient medications from the last 15 months, and 2) patient-reported medications. Medication Details Route Status Patient Prescription Prescription Last Ordering Order Source Instructions Expires Number Dispense Provider Date Date ACETAMINOPH TAKE ONE ORAL ACTIVE TIARAGlendy 02/24/ [place]O-GR EN 325MG TABLET EANINE R 2005 [place] TAB BY MOUTH F [facility] UD PRN albuterol Ordered 12/16/2022 Amb ulat 90 mcg/inh See dose instructions in com ments, # 8.5 g, 3 total refill(s), Acute, ASTON [Federal Rx: #8.5 last filled 12/18/21] ory inhalation Pharmac aerosol y ALBUTEROL INHALE 2 ORAL DISCONT 12/15/2021 [id number] POPOVI CH, 11/17/ JONATHA SO4 PUFFS BY INUED 2 LEONELA SAHNI 2021 N . 90MCG/ACTUA MOUTH WAINWRI T (CFC-F) EVERY 6 GHT INHL,ORAL,6 HOURS [facility] .7GM NEEDED FOR BREATHIN G, WHEEZING , SHORTNES S OF BREATH *BRING THIS WITH YOU TO YOUR LUNG FFUNCTIO N TEST* ALBUTEROL INHALE 2 ORAL DISCONT 12/19/2022 [id number] ZIEGL ER,M 12/18/ SEAN SO4 PUFFS BY INUED 2 ARK L 2021 N PR 90MCG/ACTUA MOUTH CLINIC T (CFC-F) EVERY 6 INHL,ORAL,6 HOURS .7GM NEEDED FOR BREATHIN G, WHEEZING , SHORTNES S OF BREATH *BRING THIS WITH YOU TO YOUR LUNG FUNCTION TEST* amiodarone Complet 01/14/2022 Am bulat 200 mg oral 200 MG BY MOUTH TWICE A DAY, # 180 EA, 1 total refill(s), Acute, ASTON [Federal Rx: #180 last filled 11/23/21] ed ory tablet Pharmac y AMIODARONE Oral Ordered Ambulat HCL 200 mg, Oral, BID, TAKE ONE TABLET BY MOUTH TWICE A DAY FOR HEART RHYTHM, 0 total refill(s) (given ory (PACERONE) by Pharmac 200MG TAB mouth) y AMIODARONE Oral Complet 07/28/2020 Am bulat HCL 200 mg, Oral, BID, TAKE ONE TABLET BY MOUTH TWICE A DAY FOR HEART RHYTHM, 0 total refill(s) (given ed ory (PACERONE) by Pharmac 200MG TAB mouth) y AMIODARONE Oral Discont 11/26/2019 Am bulat HCL 200 mg, Oral, BID, TAKE ONE TABLET BY MOUTH TWICE A DAY FOR HEART RHYTHM, 0 total refill(s), Physician Stop (given inued ory (PACERONE) by Pharmac 200MG TAB mouth) y AMIODARONE TAKE ONE ORAL DISCONT 01/17/2022 [id number] Josie FIGUEROA 01/17/ [place] HCL TABLET INUED 2 ARK L 2020 N [facility] (PACERONE) BY MOUTH CLINIC 200MG TAB TWICE A DAY FOR HEART RHYTHM amitriptyli Oral Ordered 07/03/2022 A mbulat ne 25 mg 25 MG, Oral, Daily, # 90 EA, 2 total refill(s), Hard Stop, ASTON [Last filled 04/03/22] (given ory tablet by Pharmac mouth) y AMITRIPTYLI Oral Discont 05/27/2018 A mbulat NE HCL 25MG 25 mg, Oral, Daily, TAKE ONE TABLET BY MOUTH EVERY DAY, 0 total refill(s), Physician Stop (given inued ory TAB by Pharmac mouth) y AMITRIPTYLI Oral Ordered Ambula t NE HCL 25MG 25 mg, Oral, Daily, TAKE ONE TABLET BY MOUTH EVERY DAY, 0 total refill(s) (given ory TAB by Pharmac mouth) y AMITRIPTYLI TAKE ONE ORAL DISCONT 07/14/2021 [id number] Josie DAILEY 07/13/ [place] NE HCL 25MG TABLET INUE 1 ARK L 2019 N [facility] TAB BY MOUTH CLINIC EVERY DAY AMITRIPTYLI TAKE ONE ORAL ACTIVE ALBRIGHT 10/12/ CARABALLO-GR NE HCL 25MG TABLET BRA M 2011 [place] TAB BY MOUTH F [facility] AT BEDTIME AMITRIPTYLI TAKE ONE ORAL DISCONT 07/06/2022 [id number] Josie DAILEY 07/06/ SEAN NE HCL 25MG TABLET INUED 1 ARK L 2020 N [facility] TAB BY MOUTH CLINIC EVERY DAY AMLODIPINE Oral Discont 02/06/2018 Am bulat BESYLATE 10 mg, Oral, Daily, TAKE ONE TABLET BY MOUTH EVERY DAY, 0 total refill(s), Physician Stop (given inued ory 10MG TAB by Pharmac mouth) y AMLODIPINE Oral Complet 07/28/2020 Am bulat BESYLATE 10 mg, Oral, Daily, TAKE ONE TABLET BY MOUTH EVERY DAY, 0 total refill(s) (given ed ory 10MG TAB by Pharmac mouth) y apixaban 5 Ordered 09/26/2022 Am bulat mg tablet See dose instructions in com ments, # 180 EA, 3 total refill(s), Hard Stop, ASTON [Federal Rx: #180 last filled 04/12/22] ory Pharmac y APIXABAN TAKE ONE ORAL DISCONT 01/31/2022 [id number] [place] 01/31/ JONATHA 5MG TAB TABLET INUE 1 ,ALEXIS 2020 N M. BY MOUTH RAVINOrly SOLIS TWICE A PHARM D GHT DAY FOR [facility] STROKE PREVENTI ON REPLAC ES WARFARIN (COUMADI N) APIXABAN TAKE ONE ORAL DISCONT 09/29/2022 [id number] Josie DAILEY 10/02/ SEAN 5MG TAB TABLET INUED 2 ARK L 2021 N [facility] BY MOUTH CLINIC TWICE A DAY FOR STROKE PREVENTI ON ASPIRIN TAKE ONE ORAL ACTIVE GEORGINA N-GR 81MG TAB,EC TABLET ,ZAIDA 2005 AND STAF BY MOUTH F F [facility] EVERY DAY atorvastati Ordered 08/19/2022 A mbulat n 20 mg 20 MG BY MOUTH AT BEDTIME, # 90 EA, 2 total refill(s), Acute, ASTON [Federal Rx: #90 last filled 12/04/21] ory oral tablet Pharmac y ATORVASTATI TAKE ONE ORAL DISCONT 08/12/2021 [id number] Josie DAILEY 08/12/ SEAN N CA 20MG TABLET INUE 1 ARK L 2019 N [facility] TAB BY MOUTH CLINIC AT BEDTIME FOR CHOLESTE ROL LDL GOAL LESS THAN 70. ATORVASTATI TAKE ONE ORAL DISCONT 08/22/2022 [id number] Josie DAILEY 08/22/ SEAN N CA 20MG TABLET INUED 2 ARK L 2020 N [facility] TAB BY MOUTH CLINIC AT BEDTIME FOR CHOLESTE ROL LDL GOAL LESS THAN 70. ATORVASTATI Oral Discont 05/27/2018 A mbulat N CALCIUM 20 mg, Oral, every day at be dtime, TAKE ONE TABLET BY MOUTH AT BEDTIME FOR CHOLESTEROL LDL GOAL LESS THAN 70., 0 total refill(s), Physician Stop (given inued ory 20MG TAB by Pharmac mouth) y ATORVASTATI Oral Ordered Ambula t N CALCIUM 20 mg, Oral, every day at be dtime, TAKE ONE TABLET BY MOUTH AT BEDTIME FOR CHOLESTEROL LDL GOAL LESS THAN 70., 0 total refill(s) (given ory 20MG TAB by Pharmac mouth) y cetirizine Ordered 11/05/2022 Am bulat 10 mg 10 MG BY MOUTH AT BEDTIME, # 90 EA, 3 total refill(s), Hard Stop, ASTON [Federal Rx: #90 last filled 02/21/22] ory tablet Pharmac y CETIRIZINE Oral Ordered Ambulat HCL 10MG 10 mg, Oral, every day at be dtime, TAKE ONE TABLET BY MOUTH AT BEDTIME FOR ALLERGIES, 0 total refill(s) (given ory TAB by Pharmac mouth) y CETIRIZINE TAKE ONE ORAL DISCONT 11/12/2021 [id number] Josie FIGUEROA 11/11/ [place] HCL 10MG TABLET INUE 1 ARK L 2020 N [facility] TAB BY MOUTH CLINIC AT BEDTIME FOR ALLERGIE S CETIRIZINE TAKE ONE ORAL DISCONT 11/08/2022 [id number] Josie FIGUEROA 11/07/ [place] HCL 10MG TABLET INUED 2 ARK L 2021 N [facility] TAB BY MOUTH CLINIC AT BEDTIME FOR ALLERGIE S CLOBETASOL Topica Complet 07/28/2020 A mbulat PROPIONATE Topical, BID, APPLY SMALL AM OUNT TO AFFECTED AREA TWICE A DAY DIRECTED: APPLY TO AFFECTED AREA OF SCALP TWICE A DAY FOR AT MOST 2 WEEKS ON, THEN OFF DIRECTED. AVOID FACE, 0 total refill(s) l (on ed ory 0.05% TOP the Pharmac SOLN skin) y COLON Complet 07/28/2020 Ambulat ELECTROLYTE MISCELLANEOUS, As Directed, MIX THE CONTENTS IN WATER DIRECTED -- DRINK CHILLED, 0 total refill(s) ed ory LAVAGE PWD Pharmac (GOLYTELY) y CYANOCOBALA TAKE ONE ORAL ACTIVE RAYMUNDO,BAY 10/31/ [place] MIN 500MCG TABLET U 2017 N [facility] TAB BY MOUTH CLINIC DAILY doxazosin 4 Oral Ordered Ambula t mg oral 1 tab(s), Oral, Daily, # 90 tab(s), 3 total refill(s), Maintenance, 1 tab(s) Oral Daily, Pharmacy: [facility] ANTONIO [facility] [Federal Rx: #90 last filled 05/07/22] (given ory tablet by Pharmac mouth) y doxazosin 4 Discont 05/06/2022 A mbulat mg tablet See dose instructions in com ments, # 90 EA, 1 total refill(s), Hard Stop, ASTON [Not active] inued ory Pharmac y DOXAZOSIN Oral Discont 05/07/2019 Amb ulat MESYLATE 4 mg, Oral, Daily, TAKE ONE TABLET BY MOUTH EVERY DAY FOR BLOOD PRESSURE / PROSTATE, 0 total refill(s), Physician Stop (given inued ory 4MG TAB by Pharmac mouth) y DOXAZOSIN Oral Ordered Ambulat MESYLATE 4 mg, Oral, Daily, TAKE ONE TABLET BY MOUTH EVERY DAY FOR BLOOD PRESSURE / PROSTATE, 0 total refill(s) (given ory 4MG TAB by Pharmac mouth) y DOXAZOSIN TAKE ONE ORAL DISCONT 05/11/2022 [id number] ZIEGL ER,M 05/11/ [place] MESYLATE TABLET INUED 2 ARK L 2020 N [facility] 4MG TAB BY MOUTH CLINIC EVERY DAY FOR BLOOD PRESSURE / PROSTATE ENOXAPARIN SubCut Discont 05/24/2017 A mbulat 100MG/ML SubCutaneous, BID, INJECT 1 ML UNDER SKIN TWICE A DAY TO PREVENT BLOOD CLOTS, 0 total refill(s), Physician Stop aneous inued ory INJ SYRINGE (under Pharmac 1ML the y skin) FINASTERIDE Oral Complet 07/28/2020 A mbulat 5MG TAB 5 mg, Oral, Daily, TAKE ONE TABLET BY MOUTH EVERY DAY FOR PROSTATE, 0 total refill(s) (given ed ory by Pharmac mouth) y FINASTERIDE Oral Discont 03/16/2019 A mbulat 5MG TAB 5 mg, Oral, Daily, TAKE ONE TABLET BY MOUTH EVERY DAY FOR PROSTATE, 0 total refill(s), Physician Stop (given inued ory by Pharmac mouth) y FISH OIL TAKE 500 ORAL ACTIVE GEORGINA 02/18/ MILA NN-GR (500MG MG BY ,[facility] M[facility] F F [facility] CAP,ORAL EVERY DAY FLUOROURACI Topica Complet 07/28/2020 Ambulat L 5% CREAM Topical, BID, APPLY THIN CÉSAR M TO AFFECTED AREA TWICE A DAY TO FACE AND SCALP FOR 2 WEEKS. *WASH OFF AT BEDTIME - AVOID EYES*, 0 total refill(s) l (on ed ory the Pharmac skin) y FLUOROURACI APPLY A TOPICA 12/13/2021 [id number] [place] LLOMAIRAMS, 11/13/ BERT L 5% SUFFICIE L 2 CATHIE L 2021 N M. CREAM,TOP NT MD SOLIS AMOUNT GHT TO COVER [facility] THE LESIONS TO AFFECTED AREA TWICE A DAY FOR 2 WEEKS, WASH OFF AT BEDTIME AVOID YOUR EYES fluorouraci Complet 12/13/2021 A mbulat l 5% See dose instructions in com ments, # 40 g, 0 total refill(s), Acute, ASTON [Not filled] ed ory topical Pharmac cream y FLUTICASONE Complet 07/28/2020 A mbulat PROP 50MCG NOSTRIL, Daily, INSTILL 1 SP RAY IN EACH NOSTRIL EVERY DAY FOR NASAL ALLERGIES, 0 total refill(s) ed ory 120D NASAL Pharmac INHL y GABAPENTIN Oral Discont 02/02/2020 Am bulat 100MG CAP Oral, TID, TAKE THREE CAPSUL ES BY MOUTH THREE TIMES A DAY FOR HEADACHES, 0 total refill(s), Physician Stop (given inued ory by Pharmac mouth) y HYDROCODONE Oral Complet 07/28/2020 A mbulat 10/ACETAMIN Oral, TAKE ONE TO TWO TABLET S BY MOUTH EVERY FOUR TO SIX HOURS NEEDED FOR PAIN NOT TO EXCEED 3000MG OF TYLENOL PER DAY., 0 total refill(s) (given ed ory OPHEN 325MG by Pharmac TAB mouth) y ketoconazol Complet 12/14/2021 A mbulat e 2% See dose instructions in Cymaxs, # 60 g, 3 total refill(s), Acute, ASTON [Not filled] ed ory topical Pharmac cream y LISINOPRIL TAKE ONE ORAL DISCONT 11/22/2021 [id number] Josie FIGUEROA [place] [facility] EVERY MORNING TO LOWER BLOOD PRESSURE LISINOPRIL Oral Complet 07/28/2020 Am bulat 10MG TABLET 10 mg, Oral, Daily, TAKE ONE TABLET BY MOUTH EVERY DAY TO LOWER BLOOD PRESSURE, 0 total refill(s) (given ed ory by Pharmac mouth) y LISINOPRIL Oral Discont 10/24/2018 Am bulat 10MG TABLET 10 mg, Oral, every morning, TAKE ONE TABLET BY MOUTH EVERY MORNING TO LOWER BLOOD PRESSURE, 0 total refill(s), Physician Stop (given inued ory by Pharmac mouth) y LISINOPRIL Oral Ordered Ambulat 10MG TABLET 10 mg, Oral, every morning, TAKE ONE TABLET BY MOUTH EVERY MORNING TO LOWER BLOOD PRESSURE, 0 total refill(s) (given ory by Pharmac mouth) y LORATADINE Oral Complet 07/28/2020 Am bulat 10MG TAB 10 mg, Oral, Daily, TAKE ONE TABLET BY MOUTH EVERY DAY FOR ALLERGIES, 0 total refill(s) (given ed ory by Pharmac mouth) y LOSARTAN TAKE ONE ORAL DISCONT 06/23/2022 [id number] Josie DAILEY 06/23/ [place] 25MG TAB TABLET INUED 1 ARK L 2020 N [facility] BY MOUTH (EDIT) CLINIC EVERY DAY CHANGED OVER TO ARB FROM LISINOPR IL ON 1 -- MLZ losartan 50 Ordered 09/24/2022 A mbulat mg tablet See dose instructions in Cymaxs, # 90 EA, 3 total refill(s), Hard Stop, ASTON [Federal Rx: #90 last filled 04/06/22] ory Pharmac y LOSARTAN TAKE ONE ORAL DISCONT 09/27/2022 [id number] Josie DAILEY 12/29/ [place] 50MG TAB TABLET INUED 1 ARK L 2020 N [facility] BY MOUTH CLINIC EVERY DAY INCREASE D TO 50MG EVERY DAY ON 09.26.20 -- MLZ. MAGNESIUM Oral Complet 07/28/2020 Amb ulat CITRATE Oral, As Directed, DRINK THE CONTENTS OF ONE BOTTLE BY MOUTH DIRECTED --DRINK CHILLED OR ON ICE, 0 total refill(s) (given ed ory LIQUID by Pharmac mouth) y MAGNESIUM TAKE ONE ORAL ACTIVE TYRESE FONSECA EWISTO OXIDE 420MG TABLET U 2016 N [facility] TAB BY MOUTH CLINIC DAILY METOPROLOL Oral Discont 02/02/2020 Am bulat TARTRATE 37.5 mg, Oral, BID, TAKE ONE AND ONE-HALF TABLETS BY MOUTH TWICE A DAY FOR HEART / BLOOD PRESSURE, 0 total refill(s), Physician Stop (given inued ory 25MG TAB by Pharmac mouth) y METOPROLOL TAKE ONE ORAL ACTIVE ALBRIGHT 12/29/ -GR TARTRATE TABLET BRA 2010 [place] 25MG TAB BY MOUTH F [facility] TWO TIMES DAILY WITH MEALS metoprolol Ordered 08/13/2022 Am bulat tartrate 50 See dose instructions in com ments, # 180 EA, 2 total refill(s), Hard StopASTON [Federal Rx: #180 last filled 02/21/22] ory mg tablet Pharmac y METOPROLOL Oral Discont 04/19/2020 Am bulat TARTRATE 50 mg, Oral, BID, TAKE ONE T ABLET BY MOUTH TWICE A DAY FOR HEART/BLOOD PRESSURE, 0 total refill(s), Physician Stop (given inued ory 50MG TAB by Pharmac mouth) y METOPROLOL Oral Ordered Ambulat TARTRATE 50 mg, Oral, BID, TAKE ONE T ABLET BY MOUTH TWICE A DAY FOR HEART/BLOOD PRESSURE, 0 total refill(s) (given ory 50MG TAB by Pharmac mouth) y METOPROLOL TAKE ONE ORAL DISCONT 04/19/2021 [id number] Josie FIGUEROA 07/22/ [place] TARTRATE TABLET INUE 1 ARK L 2019 N [facility] 50MG TAB BY MOUTH CLINIC TWICE A DAY FOR HEART/BL OOD PRESSURE METOPROLOL TAKE ONE ORAL DISCONT 08/16/2022 [id number] Josie STAPLETON 08/15/ [place] TARTRATE TABLET INUED 2 ARK L 2020 N [facility] 50MG TAB BY MOUTH CLINIC TWICE A DAY FOR HEART/BL OOD PRESSURE MULTIVITAMI TAKE BY ORAL ACTIVE RALEIGH ABRAHAM 11/23/ JONATHA NS W/ MIN. MOUTH N A 2011 N M. THERAPEUTIC EVERY WAINWRI TAB MORNING GHT [facility] NALOXONE Complet 07/28/2020 Ambu lat HCL NASAL, As Directed, SPRAY ON E DOSE IN NOSE DIRECTED NEEDED FOR ACCIDENTAL OPIOID (PAIN MEDICATION) OVERDOSE, MAY REPEAT IN OTHER NOSTRIL IN 3-5 MINUTES IF NEEDED, CALL 911, 0 total refill(s) ed ory 4MG/SPRAY Pharmac SOLN NASAL y SPRAY omeprazole Complet 06/02/2021 Am bulat 20 mg oral See dose instructions in com ments, # 30 EA, 0 total refill(s), Acute, ASTON [Not filled] ed ory delayed Pharmac release y capsule OMEPRAZOLE TAKE ONE ORAL 06/02/2021 [id number] DETTW ILER 05/08/ BERT 20MG CAP,EC CAPSULE 1 ,EVELIO 2020 N M. BY MOUTH WAINWRI ONCE A GHT DAY FOR [facility] STOMACH ACID, TAKE 15-30 MINUTES BEFORE MEAL OMEPRAZOLE TAKE 1 ORAL ACTIVE MOROCHO,VARUN 01/23/ MA NN-GR 20MG CAP,EC CAPSULE IN C 2010 ANDSTA F BY MOUTH F [facility] EVERY MORNING BEFORE BREAKFAS T OMEPRAZOLE Oral Discont 12/10/2017 Am bulat 20MG EC CAP 20 mg, Oral, BID, TAKE ONE C APSULE BY MOUTH TWICE A DAY FOR STOMACH, 0 total refill(s), Physician Stop (given inued ory by Pharmac mouth) y PANTOPRAZOL Oral Complet 07/28/2020 A mbulat E NA 40MG 40 mg, Oral, every morning, TAKE ONE TABLET BY MOUTH EVERY MORNING BEFORE BREAKFAST TAKE AT LEAST 30 MINUTES PRIOR TO EATING, 0 total refill(s) (given ed ory EC TAB by Pharmac mouth) y SIMVASTATIN TAKE ONE ORAL ACTIVE MOROCHO,VARUN 01/23/ CARABALLO-GR 80MG TAB TABLET IN C 2010 ANDSTAF BY MOUTH F [facility] AT BEDTIME TABLET Discont 05/24/2017 Ambula t CUTTER MISCELLANEOUS, Daily, USE TA BLET SPLITTER EVERY DAY USE NEEDED TO SPLIT WARFARIN TABLETS., 0 total refill(s), Physician Stop inued ory Pharmac y TRAMADOL Oral Discont 05/14/2018 Ambu lat HCL 50MG Oral, TID, TAKE ONE TABLET ( 50MG) BY MOUTH THREE TIMES A DAY NEEDED FOR PAIN UDS UPDATED 03/2017., 0 total refill(s), Physician Stop (given inued ory TAB by Pharmac mouth) y TRAMADOL Oral Complet 07/28/2020 Ambu lat HCL 50MG Oral, TID, TAKE ONE TABLET ( 50MG) BY MOUTH THREE TIMES A DAY NEEDED FOR NON ACUTE SEVERE CHRONIC PAIN, 0 total refill(s) (given ed ory TAB by Pharmac mouth) y TRAMADOL TAKE ONE ORAL ACTIVE VARUN MOROCHO NN-GR HCL 50MG TABLET IN C 2010 ANDSTAF TAB BY MOUTH F [facility] THREE TIMES A DAY NEEDED WARFARIN TAKE 6MG ORAL ACTIVE JUAREZ MAST NN-GR (COUMADIN) NIGHTLY NDA 2010 ANDSTAF 2MG TAB EXCEPT F [facility] 4MG MONDAYS AND FRIDAYS BY MOUTH AT BEDTIME WARFARIN NA Oral Discont 11/25/2017 A mbulat (EXELAN) 5 mg, Oral, Daily, TAKE ONE TABLET BY MOUTH EVERY DAY OR DIRECTED BY CLINIC (BLOOD THINNER), 0 total refill(s), Physician Stop (given inued ory 5MG TAB by Pharmac mouth) y Allergies, Adverse Reactions, Alerts Combined list of allergies from Department of Defense and Veterans Affairs facilities. It does not include entries that were removed or entered in error. Substance Category Reaction Severity Reaction Status Date Comments S ource type Reported acetaminop Drug Delirium <not Drug Active Ambu latory hen-oxycod allergy (disorder entered> allergy Ph armacy one ) CODEINE Propensity Itching Propensity active [facility] to adverse to adverse 8 ME DICAL reactions reactions [facility] to drug to drug (finding) (finding) CODEINE Propensity Propensity active [facility] to adverse to adverse 3 M. reactions reactions WAIN FRANKEL to drug to drug [facility] (finding) (finding) codeine Drug Itching <not Drug Active itchy all Ambula tory allergy of skin entered> allergy over Pharmac y (finding) OXYCODONE Propensity Delirium Propensity active [facility]ONA to adverse to adverse 7 M. reactions reactions SHARON FRANKEL to drug to drug [facility] (finding) (finding) oxyCODONE Drug Delirium <not Drug Active Ambul atory allergy (disorder entered> allergy Pharm acy ), Delirium (disorder ) PERCOCET Propensity Delirium Propensity active [facility] to adverse to adverse 7 M. reactions reactions SHARON FRANKEL to drug to drug [facility] (finding) (finding) Immunizations Combined list of available immunizations from the Department of Defense and Veterans Affairs facilities. 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 WAINWRI GHT [facility] COVID-19 3 complet RUPAL NATHA ([place]), 2020 ed N M. MRNA, LNP-S, W AINWRI PF, 30 GHT MCG/0.3 ML VAM C DOSE COVID-19 2 complet RUPAL NATHA ([place]), 2020 ed N M. MRNA, LNP-S, W AINWRI PF, 30 GHT MCG/0.3 ML VAM C DOSE COVID-19 1 complet RUPAL NATHA ([place]), 2020 ed N M. MRNA, LNP-S, W AINWRI PF, 30 GHT MCG/0.3 ML VAM C DOSE INFLUENZA, complet Partne r:[facility], 2019 ed CN4.Admin JESS QUADRIVALENT istered MO by:MOODY [facility] ENS DIVISIO #[id number].(1 [phone] [id number] ).[facility]:[phone]. Address:[address] [place] [address] ON.ID.[id number] Dosage: ML 0.7 INFLUENZA, complet [place] TRIVALENT, 2019 ed N V A ADJUVANTED CLI THERESA Influenza, complet Influe nza, trivlanent, adjuvanted, pf Ambulat trivlanent, 2019 ed 07/15/19 ory adjuvanted, Recorded Pharmac pf y INFLUENZA, complet LATHATO TRIVALENT, 2018 ed N V A ADJUVANTED CLI THERESA Influenza, complet Influe nza, trivlanent, adjuvanted, pf Ambulat trivlanent, 2018 ed 07/23/18 ory adjuvanted, Recorded Pharmac pf y INFLUENZA, complet JONATHA SEASONAL, 2016 ed N M. INJECTABLE, WA INWRI PRESERVATIVE G HT FREE [facility] influenza, complet influe nza, seasonal, injectable-pf Ambulat seasonal, 2016 ed 06/28/17 or y injectable-pf Record ed Pharmac y influenza, complet Result Ambulat seasonal, 2015 ed Comment: o ry injectable-pf Partne r: Pharmac [facility] y . Administe red by: Miki Clinician (NPI=Not Provided) . Partner 3 Lot#: [id number] Mfr: SEQIRUS INFLUENZA, complet Partne r: ST. SEASONAL, 2015 ed [facility] JESS INJECTABLE, . [place] PRESERVATIVE Adminis te [facility] FREE red by: LUCAS Livingston N Clinician (NPI=Not Provided) . Partner 3 Lot#: [id number] Mfr: SEQIRUS PNEUMOCOCCAL complet [place] CONJUGATE PCV 2014 ed N [facility] pneumococcal complet pneu mococcal 13-valent conjugate (PCV13) Ambulat 13-valent 2014 ed 08/18/15 o ry conjugate Recorded P harmac (PCV13) y INFLUENZA, complet JONATHA SEASONAL, 2014 ed N M. INJECTABLE, [place] INWRI PRESERVATIVE G HT FREE [facility] influenza, complet influe nza, seasonal, injectable-pf Ambulat seasonal, 2014 ed 07/20/15 o ry injectable-pf Record ed Pharmac y INFLUENZA, complet [place] SEASONAL, 2013 ed N [facility] INJECTABLE, CL INIC PRESERVATIVE FREE influenza, complet influe nza, seasonal, injectable-pf Ambulat seasonal, 2013 ed 07/14/14 o ry injectable-pf Record ed Pharmac y PNEUMOCOCCAL, complet [place] UNSPECIFIED 2013 ed N [facility] pneumococcal complet pneu mococcal vaccine, unspecified Ambulat vaccine, 2013 ed 11/11/13 ory unspecified Recorded Pharmac y INFLUENZA, complet [place] SEASONAL, 2012 ed N [facility] INJECTABLE, CL INIC PRESERVATIVE FREE influenza, complet influe nza, seasonal, injectable-pf Ambulat seasonal, 2012 ed 07/28/13 o ry injectable-pf Record ed Pharmac y FLU,3 YRS ,GUADALUPE M 89 complet [place] (HISTORICAL) 2011 ed N [facility] influenza complet influen za virus vaccine, inactivated Ambulat virus 2011 ed 07/23/12 ory vaccine, Recorded Ph armac inactivated y influenza complet influen za virus vaccine, inactivated Ambulat virus 2010 ed 06/30/11 ory vaccine, Recorded Ph armac inactivated y INFLUENZA complet M MARIANN-GR VACCINE 2010 ed ANDSTA F (HISTORICAL) F [facility] FLU,3 YRS complet M MARIANN-GR (HISTORICAL) 2009 ed A NDSTAF F [facility] influenza complet influen za virus vaccine, inactivated Ambulat virus 2009 ed 07/20/10 ory vaccine, Recorded Ph armac inactivated y FLU,3 YRS complet M MARIANN-GR (HISTORICAL) 2008 ed A NDSTAF F [facility] influenza complet influen za virus vaccine, inactivated Ambulat virus 2008 ed 07/05/09 ory vaccine, Recorded Ph armac inactivated y FLU,3 YRS 07/08/ MILDES,PETERSON 88 complet CARABALLO-GR (HISTORICAL) 2007 S ed A NDSTAF F [facility] influenza complet influen za virus vaccine, inactivated Ambulat virus 2007 ed 07/07/08 ory vaccine, Recorded Ph armac inactivated y FLU,3 YRS complet M MARIANN-GR (HISTORICAL) 2007 ed A NDSTAF F [facility] Td(adult) complet Td(adul t) unspecified formulation Ambulat unspecified 2007 ed 09/30/07 o ry formulation Recorded Pharmac y TD(ADULT) complet M MARIANN-GR UNSPECIFIED 2007 ed AN DSTAF FORMULATION F [facility] influenza complet influen za virus vaccine, inactivated Ambulat virus 2006 ed 08/06/07 ory vaccine, Recorded Ph armac inactivated y FLU,3 YRS complet M MARIANN-GR (HISTORICAL) 2006 ed A NDSTAF F [facility] INFLUENZA complet M MARIANN-GR TYPE A 2005 ed ANDSTAF (HISTORICAL) F [facility] INFLUENZA, complet CARABALLO-GR WHOLE 2005 ed ANDSTAF F [facility] influenza complet influen za virus vaccine, whole virus Ambulat virus 2005 ed 08/16/06 ory vaccine, Recorded Ph armac whole virus y influenza complet Result Ambulat virus 2005 ed Comment: ory vaccine, [place] and gros ventre tribes Pha rmac inactivated VA y INFLUENZA, complet spokan e [place] UNSPECIFIED 2005 ed [facility] FLU,3 YRS complet M MARIANN-GR (HISTORICAL) 2004 ed A NDSTAF F [facility] influenza complet influen za virus vaccine, inactivated Ambulat virus 2004 ed 08/06/05 ory vaccine, Recorded Ph armac inactivated y FLU,3 YRS complet M MARIANN-GR (HISTORICAL) 2004 ed A NDSTAF F [facility] PNEUMOCOCCAL, complet CARABALLO-GR UNSPECIFIED 2004 ed AN DSTAF FORMULATION F [facility] pneumococcal complet pneu mococcal vaccine, unspecified Ambulat vaccine, 2004 ed 10/10/04 ory unspecified Recorded Pharmac y influenza complet influen za virus vaccine, inactivated Ambulat virus 2004 ed 10/10/04 ory vaccine, Recorded Ph armac inactivated y FLU,3 YRS complet M MARIANN-GR (HISTORICAL) 2002 ed A NDSTAF F [facility] INFLUENZA, complet CARABALLO-GR WHOLE 2002 ed ANDSTAF F [facility] influenza complet influen za virus vaccine, whole virus Ambulat virus 2002 ed 08/09/03 ory vaccine, Recorded Ph armac whole virus y influenza complet influen za virus vaccine, inactivated Ambulat virus 2002 ed 08/09/03 ory vaccine, Recorded Ph armac inactivated y influenza complet influen za virus vaccine, inactivated Ambulat virus 2002 ed 06/30/03 ory vaccine, Recorded Ph armac inactivated y FLU,3 YRS complet M MARIANN-GR (HISTORICAL) 2002 ed A NDSTAF F [facility] influenza complet influen za virus vaccine, inactivated Ambulat virus 2001 ed 07/31/02 ory vaccine, Recorded Ph armac inactivated y FLU,3 YRS complet M MARIANN-GR (HISTORICAL) 2001 ed A NDSTAF F [facility] Td(adult) complet Td(adul t) unspecified formulation Ambulat unspecified 2000 ed 09/30/00 o ry formulation Recorded Pharmac y TD(ADULT) complet M MARIANN-GR UNSPECIFIED 2000 ed AN DSTAF FORMULATION F [facility] Td(adult) complet Td(adul t) unspecified formulation Ambulat unspecified 1995 ed 09/30/95 o ry formulation Recorded Pharmac y TD(ADULT) complet M MARIANN-GR UNSPECIFIED 1995 ed AN DSTAF FORMULATION F [facility] Results Combined list of recent chemistry, hematology and other laboratory results from Department of Defense and Veterans Affairs, ranging from 15 months to all on record, depending upon the facility. Order Results Value Reference Date Interpretation Specimen Commen ts Source Name Range VITAMIN 25-HYDROXY 31.9 30.0 - 100 12/13 Specimen T ype: SERUM [place] D VITAMIN D3 Comment: Hig h doses of Biotin supplements (>5 mg/day) may falsely increase Vitamin B-12, Vitamin D (25OH), Free T4, and Folate results. Test specimens should be collected at least 8 hrs after [facility] (25-HYDR [MASS/VOLU st ingestion of high dose biotin. For eGFR CKD-EPI: Race listed as 'Declined to answer'. If multiply by 1.159. OXY) ME] IN Ordering Provid er: DONITA DAILEY SERUM OR Report Release d Date/Time: Nov 07, 2021 09:14 AM PLASMA Reporting Lab: [facility] [address] [place] [address] Performing Lab: [facility] [address] [place] [address] THYROID THYROTROPI 3.11 0.300 - 12/13 Specimen Type : SERUM [place] STIMULAT N 4. Comment: High doses of Biotin supplements (>5 mg/day) may falsely increase Vitamin B-12, Vitamin D (25OH), Free T4, and Folate results. Test specimens should be collected at least 8 hrs after [facility] CLINIC ING [UNITS/VOL st ingestion of high dose biotin. For eGFR CKD-EPI: Race listed as 'Declined to answer'. If multiply by 1.159. HORMONE UME] IN Ordering Provid er: DONITA DAILEY SERUM OR Report Release d Date/Time: Nov 07, 2021 09:14 AM PLASMA Reporting Lab: RAMONA [facility]ers [address] [place] [address] Performing Lab: RAMONA Jeffers [address] [place] [address] LIPID CHOLESTERO 126 <199 - 199 12/13 Specimen T ype: SERUM [place] PANEL L /2021 Comment: High d oses of Biotin supplements (>5 mg/day) may falsely increase Vitamin B-12, Vitamin D (25OH), Free T4, and Folate results. Test specimens should be collected at least 8 hrs after [facility] CLINIC [MASS/VOLU st ingestion of high dose biotin. For eGFR CKD-EPI: Race listed as 'Declined to answer'. If multiply by 1.159. ME] IN Ordering Provid er: DONITA DAILEY SERUM OR Report Release d Date/Time: Nov 07, 2021 09:14 AM PLASMA Reporting Lab: RAMONA Jeffers [address] [place] [address] Performing Lab: RAMONA Jeffers [address] [place] [address] LIPID TRIGLYCERI 102 <149 - 149 12/13 Specimen T ype: SERUM [place] PANEL DE /2021 Comment: High d oses of Biotin supplements (>5 mg/day) may falsely increase Vitamin B-12, Vitamin D (25OH), Free T4, and Folate results. Test specimens should be collected at least 8 hrs after [facility] CLINIC [MASS/VOLU st ingestion of high dose biotin. For eGFR CKD-EPI: Race listed as 'Declined to answer'. If multiply by 1.159. ME] IN Ordering Provid er: DONITA DAILEY SERUM OR Report Release d Date/Time: Nov 07, 2021 09:14 AM PLASMA Reporting Lab: RAMONA Jeffers [address] [place] [place] [address] Performing Lab: RAMONA Jeffers [address] [place] [place] [address] LIPID CHOLESTERO 46 40 12/13 Specimen Type : SERUM [place] PANEL L IN HDL /2021 Comment: High doses of Biotin supplements (>5 mg/day) may falsely increase Vitamin B-12, Vitamin D (25OH), Free T4, and Folate results. Test specimens should be collected at least 8 hrs after [facility] CLINIC [MASS/VOLU st ingestion of high dose biotin. For eGFR CKD-EPI: Race listed as 'Declined to answer'. If multiply by 1.159. ME] IN Ordering Provid er: DONITA DAILEY SERUM OR Report Release d Date/Time: Nov 07, 2021 09:14 AM PLASMA Reporting Lab: RAMONA Jeffers [address] [place] [address] Performing Lab: RAMONA Jeffers [address] [place] [address] LIPID CHOLESTERO 80 <130 - 130 12/13 Specimen T ype: SERUM [place] PANEL L NON HDL /2021 Comment: High doses of Biotin supplements (>5 mg/day) may falsely increase Vitamin B-12, Vitamin D (25OH), Free T4, and Folate results. Test specimens should be collected at least 8 hrs after [facility] CLINIC [MASS/VOLU st ingestion of high dose biotin. For eGFR CKD-EPI: Race listed as 'Declined to answer'. If multiply by 1.159. ME] IN Ordering Provid er: DONITA DAILEY SERUM OR Report Release d Date/Time: Nov 07, 2021 09:14 AM PLASMA Reporting Lab: RAMONA Jeffers [address] [place] [address] Performing Lab: RAMONA Jeffers [address] [place] [place] [address] LIPID CHOLESTERO 68 0 - 129 12/13 Specimen Type : SERUM [place] PANEL L IN LDL /2021 Comment: High doses of Biotin supplements (>5 mg/day) may falsely increase Vitamin B-12, Vitamin D (25OH), Free T4, and Folate results. Test specimens should be collected at least 8 hrs after [facility] [MASS/VOLU st ingestion of high dose biotin. For eGFR CKD-EPI: Race listed as 'Declined to answer'. If multiply by 1.159. ME] IN Ordering Provid er: DONITA DAILEY SERUM OR Report Release d Date/Time: Nov 07, 2021 09:14 AM PLASMA BY Reporting Lab : RAMONA Jeffers [address] [place] [address] ASSAY Performing Lab: RAMONA Jeffers [address] [place] [address] HEMOGLOB HEMOGLOBIN 5.8 0 - 5.6 12/13 H Specimen Typ e: BLOOD [place] IN A1C A1C/HEMOGL /2021 Comment: Tar get A1C values should be individualized. Better understanding of A1C test result accuracy is essential if clinicians are to interpret results for Veterans, and discuss treatment options thr [facility] CLINIC OBIN.TOTAL ough the proc ess of Shared Decision Making. For questions regarding the performance characteristics of this test, providers should contact the main laboratory. Patients should contact their healthcare provider. IN BLOOD Ordering Provi redd: DONITA DAILEY Report Released Date/Time: Nov 07, 2021 09:14 AM Reporting Lab: RAMONA Jeffers [address] [place] [address] Performing Lab: RAMONA Jeffers [address] [place] [address] URINALYS COLOR OF Yellow 12/13 Specimen Type: URINE [place] IS URINE /[address] [facility] ([facility]) Ordering Provid er: DONITA DAILEY Report Released Date/Time: Nov 07, 2021 09:14 AM Reporting Lab: RAMONA Jeffers [address] [place] [place] [address] Performing Lab: RAMONA JosieMathew [address] [place] [address] URINALYS SPECIFIC 1.024 1.003 - 12/13 Specimen Type: URINE [place] IS GRAVITY OF 1.030 /[address] tered. [facility] ([facility]) URINE BY Ordering Provi redd: DONITA DAILEY TEST STRIP Report Relea sed Date/Time: Nov 07, 2021 09:14 AM Reporting Lab: RAMONA JosieMathew [address] [place] [address] Performing Lab: RAMONA Jeffers [address] [place] [address] URINALYS BILIRUBIN. NEGATIVE 12/13 Specimen Ty pe: URINE [place] IS TOTAL /[address] ed[address] [facility] ([facility]) [[facility]] Ordering Pro vider: DONITA DAILEY IN URINE Report Release d Date/Time: Nov 07, 2021 09:14 AM Reporting Lab: RAMONA Jeffers [address] [place] [place] [address] Performing Lab: RAMONA Jeffers [address] [place] [address] URINALYS KETONES NEGATIVE 12/13 Specimen Type: URINE [place] IS [MASS/VOLU /[address] [facility] ([facility]) UT] IN Ordering Provid er: DONITA DAILEY URINE BY Report Release d Date/Time: Nov 07, 2021 09:14 AM TEST STRIP Reporting La b: RAMONA Jeffers [address] [place] [address] Performing Lab: RAMONA Jeffers [address] [place] [address] URINALYS GLUCOSE NEGATIVE 12/13 Specimen Type: URINE [place] IS [MASS/VOLU /[address] [facility] ([facility]) ME] IN Ordering Provid er: DONITA DAILEY URINE Report Released Date/Time: Nov 07, 2021 09:14 AM Reporting Lab: RAMONA Jeffers [address] [place] [facility] [address] Performing Lab: RAMONA Jeffers [address] [place] [address] URINALYS PROTEIN NEGATIVE 12/13 Specimen Type: URINE [place] IS [MASS/VOLU /[address] [facility] ([facility]) ME] IN Ordering Provid er: DONITA DAILEY URINE BY Report Release d Date/Time: Nov 07, 2021 09:14 AM TEST STRIP Reporting La b: RAMONA Jeffers [address] [place] [facility] [address] Performing Lab: RAMONA Jeffers [address] [facility] [facility] [address] URINALYS PH OF 6.5 5.0 - 8.0 12/13 Specimen Type : URINE [place] IS URINE BY /[address]e red. [facility] ([facility] TEST STRIP Ordering Pro vider: DONITA DAILEY Report Released Date/Time: Nov 07, 2021 09:14 AM Reporting Lab: RAMONA Jeffers [address] [address] Performing Lab: RAMONA Jeffers [address] [facility] [facility] [address] URINALYS LEUKOCYTES <1 0 - 5 12/13 Specimen Typ e: URINE [place] IS [#/AREA] No comment ente red. [facility] ([facility]) IN URINE Ordering Provi redd: DONITA DAILEY SEDIMENT Report Release d Date/Time: Nov 07, 2021 09:14 AM BY Reporting Lab: RAMONA Jeffers [address] [place] [address] HIGH POWER Performing L ab: RAMONA Jeffers [address] [place] [address] URINALYS MUCUS RARE 03/16 Specimen Type: URINE [place] IS [PRESENCE] /[address] [facility] ([facility]) IN URINE Ordering Provi redd: DONITA DAILEY SEDIMENT Report Release d Date/Time: Nov 07, 2021 09:14 AM BY LIGHT Reporting Lab: RAMONA Jeffers [facility] MICROSCOPY [address] [facility] [address] Performing Lab: RAMONA Jeffers [address] [facility] [address] [facility] [address] URINALYS ERYTHROCYT 3 0 - 3 12/13 Specimen Typ e: URINE [place] IS ES No comment enter ed. [facility] ([facility]) [#/AREA] Ordering Provi redd: DONITA DAILEY IN URINE Report Release d Date/Time: Nov 07, 2021 09:14 AM SEDIMENT Reporting Lab: RAMONA Jeffers [facility] BY [address] [place], [place] [address]E [facility] [address] MICROSCOPY Performing L ab: RAMONA Jeffers [facility] HIGH POWER [address] [place] [address] FIELD URINALYS APPEARANCE CLEAR 12/13 Specimen Typ e: URINE [place] IS OF URINE /2021 No comment ente red. [facility] Ordering Provid er: DONITA DAILEY Report Released Date/Time: Nov 07, 2021 09:14 AM Reporting Lab: RAMONA Jeffers [address] [place] [facility] [address] Performing Lab: RAMONA Jeffers [address] [place] [facility] [address] URINALYS EPITHELIAL <1 0 - 4 12/13 Specimen Typ e: URINE [place] IS CELLS.SQUA /2021 No comment en tered. [facility] MOUS Ordering Provid er: DONITA DAILEY [PRESENCE] Report Relea sed Date/Time: Nov 07, 2021 09:14 AM IN URINE Reporting Lab: RAMONA Jeffers [facility] SEDIMENT [address] [place] [address] BY LIGHT Performing Lab : RAMONA Jeffers [place] [address] [facility] [place] [address] URINALYS HEMOGLOBIN NEGATIVE 12/13 Specimen Ty pe: URINE [place] IS [PRESENCE] No comment en tered. [facility] ([facility]) IN URINE Ordering Provi redd: DONITA DAILEY BY TEST Report Released Date/Time: Nov 07, 2021 09:14 AM STRIP Reporting Lab: RAMONA Jeffers [address] [place] [address] Performing Lab: RAMONA Jeffers [address] [place] [address] URINALYS NITRITE NEGATIVE 12/13 Specimen Type: URINE [place] IS [PRESENCE] No comment en tered. [facility] ([facility]) IN URINE Ordering Provi redd: DONITA DAILEY BY TEST Report Released Date/Time: Nov 07, 2021 09:14 AM STRIP Reporting Lab: RAMONA Jeffers [address] [place] [facility] [address] Performing Lab: RAMONA Jeffers [address] [place] [address] URINALYS LEUKOCYTE NEGATIVE 12/13 Specimen Typ e: URINE LEWISTON IS ESTERASE No comment ente red. [facility] ([facility]) [PRESENCE] Ordering Pro vider: DONITA DAILEY IN URINE Report Release d Date/Time: Nov 07, 2021 09:14 AM BY TEST Reporting Lab: RAMONA Jeffers [address] [place] [address] Performing Lab: RAOMNA Jeffers [address] [place] [address] URINALYS UROBILINOG NORMAL <2 - 2 12/13 Specimen Typ e: URINE LEWISTON IS EN No comment enter ed. [facility] ([facility]) [MASS/VOLU Ordering Pro vider: DONITA DAILEY ME] IN Report Released Date/Time: Nov 07, 2021 09:14 AM URINE BY Reporting Lab: RAMONA Jeffers [facility] [place] [address] Performing Lab: RAMONA Jeffers [address] [address] [place] [address] COMPREHE GLUCOSE 86 71 - 109 12/13 Specimen Type: SERUM LEWISTON NSIVE [MASS/VOLU /2021 Comment: Hig h doses of Biotin supplements (>5 mg/day) may falsely increase Vitamin B-12, Vitamin D (25OH), Free T4, and Folate results. Test specimens should be collected at least 8 hrs after [facility] METABOLI ME] IN st ingestion of high dose biotin. For eGFR CKD-EPI: Race listed as 'Declined to answer'. If multiply by 1.159. C PANEL SERUM OR Ordering Provi redd: DONITA DAILEY PLASMA Report Released Date/Time: Nov 07, 2021 09:14 AM Reporting Lab: RAMONA Jeffers [address] [place] [address] Performing Lab: RAMONA Zeyad [address] [place] [address] COMPREHE UREA 15 7 - 23 12/13 Specimen Type: SERUM LEWISTON NSIVE NITROGEN Comment: High doses of Biotin supplements (>5 mg/day) may falsely increase Vitamin B-12, Vitamin D (25OH), Free T4, and Folate results. Test specimens should be collected at least 8 hrs after [facility] METABOLI [MASS/VOLU st ingestion of high dose biotin. For eGFR CKD-EPI: Race listed as 'Declined to answer'. If multiply by 1.159. C PANEL ME] IN Ordering Provid er: DONITA DAILEY SERUM OR Report Release d Date/Time: Nov 07, 2021 09:14 AM PLASMA Reporting Lab: RAMONA Jeffers [address] [place] [address] Performing Lab: RAMONA JosieMathew [address] [place] [address] COMPREHE CREATININE 0.9 .7 - 1.2 12/13 Specimen Ty pe: SERUM LEWISTON NSIVE [MASS/VOLU Comment: Hig h doses of Biotin supplements (>5 mg/day) may falsely increase Vitamin B-12, Vitamin D (25OH), Free T4, and Folate results. Test specimens should be collected at least 8 hrs after [facility] METABOLI ME] IN st ingestion of high dose biotin. For eGFR CKD-EPI: Race listed as 'Declined to answer'. If multiply by 1.159. C PANEL SERUM OR Ordering Provi redd: DONITA DAILEY PLASMA Report Released Date/Time: Nov 07, 2021 09:14 AM Reporting Lab: RAMONA Jeffers [address] [place] [address] Performing Lab: RAMONA Jeffers [address] [place] [address] COMPREHE SODIUM 142 131 - 142 12/13 Specimen Type : SERUM LEWISTON NSIVE [MOLE/ Comment: Hig h doses of Biotin supplements (>5 mg/day) may falsely increase Vitamin B-12, Vitamin D (25OH), Free T4, and Folate results. Test specimens should be collected at least [facility] hrs [facility] IN st ingestion of high dose biotin. For eGFR CKD-EPI: Race listed as 'Declined to answer'. If multiply by 1.159. C PANEL SERUM OR Ordering Provi redd: DONITA DAILEY PLASMA Report Released Date/Time: Nov 07, 2021 09:14 AM Reporting Lab: RAMONA Jeffers [address] [place] [address] Performing Lab: RAMONA Jeffers [address] [place] [address] COMPREHE POTASSIUM 4.3 3.6 - 5.4 12/13 Specimen Ty pe: SERUM LEWISTON NSIVE [MOLE/ Comment: Hig h doses of Biotin supplements (>5 mg/day) may falsely increase Vitamin B-12, Vitamin D (25OH), Free T4, and Folate results. Test specimens should be collected at least 8 hrs after [facility] METABOLI UME] IN st ingestion of high dose biotin. For eGFR CKD-EPI: Race listed as 'Declined to answer'. If multiply by 1.159. C PANEL SERUM OR Ordering Provi redd: DONITA DAILEY PLASMA Report Released Date/Time: Nov 07, 2021 09:14 AM Reporting Lab: RAMONA JosieMathew [address] [place] [address] Performing Lab: RAMONA M. [address] [place] [address] COMPREHE CHLORIDE 107 95 - 108 12/13 Specimen Type : SERUM LEWISTON NSIVE [MOLES/VOL /2021 Comment: Hig h doses of Biotin supplements (>5 mg/day) may falsely increase Vitamin B-12, Vitamin D (25OH), Free T4, and Folate results. Test specimens should be collected at least 8 hrs after [facility] METABOLI UME] IN st ingestion of high dose biotin. For eGFR CKD-EPI: Race listed as 'Declined to answer'. If multiply by 1.159. C PANEL SERUM OR Ordering Provi redd: DONITA DAILEY PLASMA Report Released Date/Time: Nov 07, 2021 09:14 AM Reporting Lab: RAMONA Zeyad [address] [place] [address] Performing Lab: RAMONA Zeyad [address] [place] [address] COMPREHE CARBON 27 21 - 32 12/13 Specimen Type: SERUM LEWISTON NSIVE Comment: High doses of Biotin supplements (>5 mg/day) may falsely increase Vitamin B-12, Vitamin D (25OH), Free T4, and Folate results. Test specimens should be collected at least 8 hrs after [facility] METABOLI TOTAL st ingestion of high dose biotin. For eGFR CKD-EPI: Race listed as 'Declined to answer'. If multiply by 1.159. C PANEL [MOLES/VOL Ordering Pro vider: DONITA DAILEY UME] IN Report Released Date/Time: Nov 07, 2021 09:14 AM SERUM OR Reporting Lab: RAMONA Jeffers [facility] PLASMA [address] [place] [address] [place] [address] Performing Lab: RAMONA Zeyad [address] [place] [address] COMPREHE CALCIUM 9.3 8.4 - 10.5 12/13 Specimen Typ e: SERUM LEWISTON NSIVE [MASS/VOLU /2021 Comment: Hig h doses of Biotin supplements (>5 mg/day) may falsely increase Vitamin B-12, Vitamin D (25OH), Free T4, and Folate results. Test specimens should be collected at least 8 hrs after [facility]] IN ingestion of high dose biotin. For eGFR CKD-EPI: Race listed as 'Declined to answer'. If multiply by 1.159. C PANEL SERUM OR Ordering Provi redd: DONITA DAILEY PLASMA Report Released Date/Time: Nov 07, 2021 09:14 AM Reporting Lab: RAMONA Zeyad [address] [place] [address] Performing Lab: RAMONA Jeffers [address] [place] [address] COMPREHE PROTEIN 6.6 5.8 - 7.9 12/13 Specimen Type : SERUM LEWISTON NSIVE [MASS/VOLU /2021 Comment: Hig h doses of Biotin supplements (>5 mg/day) may falsely increase Vitamin B-12, Vitamin D (25OH), Free T4, and Folate results. Test specimens should be collected at least 8 hrs after [facility]] IN ingestion of high dose biotin. For eGFR CKD-EPI: Race listed as 'Declined to answer'. If multiply by 1.159. C PANEL SERUM OR Ordering Provi redd: DONITA DAILEY PLASMA Report Released Date/Time: Nov 07, 2021 09:14 AM Reporting Lab: RAMONA Jeffers [address] [place] [address] Performing Lab: RAMONA JosieMathew [address] [place] [address] COMPREHE ALBUMIN 4.2 3.8 - 5.2 12/13 Specimen Type : SERUM LEWISTON NSIVE [MASS/VOLU /2021 Comment: Hig h doses of Biotin supplements (>5 mg/day) may falsely increase Vitamin B-12, Vitamin D (25OH), Free T4, and Folate results. Test specimens should be collected at least 8 hrs after [facility] METABOLI ME] IN st ingestion of high dose biotin. For eGFR CKD-EPI: Race listed as 'Declined to answer'. If multiply by 1.159. C PANEL SERUM OR Ordering Provi redd: DONITA DAILEY PLASMA Report Released Date/Time: Nov 07, 2021 09:14 AM Reporting Lab: RAMONA Jeffers [address] [place] [address] Performing Lab: RAMONA Jeffers [address] [place] [address] COMPREHE GLOBULIN 2.4 1.5 - 3.2 12/13 Specimen Typ e: SERUM LEWISTON NSIVE [MASS/VOLU /2021 Comment: Hig h doses of Biotin supplements (>5 mg/day) may falsely increase Vitamin B-12, Vitamin D (25OH), Free T4, and Folate results. Test specimens should be collected at least 8 hrs [facility]] IN st ingestion of high dose biotin. For eGFR CKD-EPI: Race listed as 'Declined to answer'. If multiply by 1.159. C PANEL SERUM Ordering Provid er: DONITA DAILEY Report Released Date/Time: Nov 07, 2021 09:14 AM Reporting Lab: RAMONA Jeffers [address] [place] [address] Performing Lab: RAMONA Jeffers [address] [place] [address] COMPREHE ASPARTATE 27 14 - 44 12/13 Specimen Type : SERUM LEWISTON NSIVE AMINOTRANS Comment: Hig h doses of Biotin supplements (>5 mg/day) may falsely increase Vitamin B-12, Vitamin D (25OH), Free T4, and Folate results. Test specimens should be collected at least 8 hrs after [facility] METABOLI FERASE st ingestion of high dose biotin. For eGFR CKD-EPI: Race listed as 'Declined to answer'. If multiply by 1.159. C PANEL [ENZYMATIC Ordering Pro vider: DONITA DAILEY ACTIVITY/V Report Rele ased Date/Time: Nov 07, 2021 09:14 AM OLUME] IN Reporting Lab : RAMONA Jeffers [facility] SERUM OR [address] [place] [address] PLASMA Performing Lab: RAMONA Jeffers [address] Jorge [place] [facility] [address] COMPREHE ALANINE 13 9 - 57 12/13 Specimen Type: SERUM LEWISTON NSIVE AMINOTRANS /2021 Comment: Hig h doses of Biotin supplements (>5 mg/day) may falsely increase Vitamin B-12, Vitamin D (25OH), Free T4, and Folate results. Test specimens should be collected at least 8 hrs [facility] ingestion of high dose biotin. For eGFR CKD-EPI: Race listed as 'Declined to answer'. If multiply by 1.159. C PANEL [ENZYMATIC Ordering Pro vider: DONITA DAILEY ACTIVITY/V Report Relea sed Date/Time: Nov 07, 2021 09:14 AM OLUME] IN Reporting Lab : RAMONA Jeffers [facility] SERUM OR [address] [place] [address] PLASMA Performing Lab: RAMONA Jeffers [address] Jorge [place] [facility] [address] COMPREHE ALKALINE 103 45 - 129 12/13 Specimen Type : SERUM LEWISTON NSIVE PHOSPHATAS /2021 Comment: Hig h doses of Biotin supplements (>5 mg/day) may falsely increase Vitamin B-12, Vitamin D (25OH), Free T4, and Folate results. Test specimens should be collected at least 8 hrs after [facility] METABOLI E st ingestion of high dose biotin. For eGFR CKD-EPI: Race listed as 'Declined to answer'. If multiply by 1.159. C PANEL [ENZYMATIC Ordering Pro vider: DONITA DAILEY ACTIVITY/V Report Relea sed Date/Time: Nov 07, 2021 09:14 AM OLUME] IN Reporting Lab : RAMONA Jeffers [facility] SERUM OR [facility] [place] [address] PLASMA Performing Lab: RAMONA Jeffers [address] [address] [place] [address] COMPREHE BILIRUBIN. 0.6 0.2 - 1.3 12/13 Specimen T ype: SERUM LEWISTON NSIVE TOTAL /2021 Comment: High d oses of Biotin supplements (>5 mg/day) may falsely increase Vitamin B-12, Vitamin D (25OH), Free T4, and Folate results. Test specimens should be collected at least 8 hrs after [facility] METABOLI [MASS/VOLU st ingestion of high dose biotin. For eGFR CKD-EPI: Race listed as 'Declined to answer'. If multiply by 1.159. C PANEL ME] IN Ordering Provid er: DONITA DAILEY SERUM OR Report Release d Date/Time: Nov 07, 2021 09:14 AM PLASMA Reporting Lab: RAMONA Jeffers [address] [place] [address] Performing Lab: RAMONA Jeffers [address] [address] [place] [address] COMPREHE ANION GAP 12 7 - 21 12/13 Specimen Type : SERUM LEWISTON NSIVE 4 IN SERUM /2021 Comment: Hig h doses of Biotin supplements (>5 mg/day) may falsely increase Vitamin B-12, Vitamin D (25OH), Free T4, and Folate results. Test specimens should be collected at least 8 hrs after [facility] METABOLI OR PLASMA st ingestion of high dose biotin. For eGFR CKD-EPI: Race listed as 'Declined to answer'. If multiply by 1.159. C PANEL Ordering Provid er: DONITA DAILEY Report Released Date/Time: Nov 07, 2021 09:14 AM Reporting Lab: RAMONA Jeffers [address] [place] [address] Performing Lab: RAMONA Jeffers [address] [place] [address] COMPREHE GLOMERULAR 80 90 12/13 L Specimen Typ e: SERUM LEWISTON NSIVE FILTRATION /2021 Comment: Hig h doses of Biotin supplements (>5 mg/day) may falsely increase Vitamin B-12, Vitamin D (25OH), Free T4, and Folate results. Test specimens should be collected at least [address] [facility] METABOLI RATE/1.73 st ingestion of high dose biotin. For eGFR CKD-EPI: Race listed as 'Declined to answer'. If multiply by 1.159. C PANEL SQ Ordering Provid er: DONITA DAILEYPREDICTOrly Report Relea sed Date/Time: Nov 07, 2021 09:14 AM D [VOLUME Reporting Lab : RAMONA Jeffers [facility] RATE/AREA] [address] [facility] [address] IN SERUM, Performing La b: RAMONA Jeffers [facility] PLASMA OR [address] [facility] [address] BLOOD BY CREATININE -BASED FORMULA (CKD-EPI) CBC & LEUKOCYTES 10.1 3.0 - 10.6 12/13 Specimen T ype: BLOOD ORLANDO MORPHOLO [#/VOLUME] /[address] No [address] e ntered. [facility] GY (WITH IN BLOOD Ordering Prov ider: DONITA DAILEY) BY Report Released Date/Time: Nov 07, 2021 09:14 AM AUTOMATED Reporting Lab : RAMONA Jeffers [facility] COUNT [address] [facility] [address] Performing Lab: RAMONA Jeffers [facility] [address] [facility] [address] CBC & ERYTHROCYT 4.74 3.86 - 12/13 Specimen Type : BLOOD LEWISTON MORPHOLO ES 5.70 /[address]e red. [facility] GY (WITH [#/VOLUME] Ordering Pr ovider: DONITA DAILEY) IN BLOOD Report Release d Date/Time: Nov 07, 2021 09:14 AM BY Reporting Lab: RAMONA Jeffers [facility] AUTOMATED [address] [facility] [address] COUNT Performing Lab: RAMONA Jeffers [address] [place] [address] CBC & HEMOGLOBIN 12.8 11.8 - 12/13 Specimen Type : BLOOD LEWISTON MORPHOLO [MASS/VOLU 17.[address] e ntered. [facility] GY (WITH ME] IN Ordering Provi redd: DONITA DAILEY) BLOOD Report Released Date/Time: Nov 07, 2021 09:14 AM Reporting Lab: RAMONA Jeffers [address] [place] Luis [facility] [address] Performing Lab: RAMONA Jeffers [address] [place] Luis [facility] [address] CBC & HEMATOCRIT 40.4 36 - 51 12/13 Specimen Type : BLOOD LEWISTON MORPHOLO [VOLUME /[address]e red[address] [facility] GY (WITH FRACTION] Ordering Pro vider: DONITA DAILEY DIFF) OF BLOOD Report Release d Date/Time: Nov 07, 2021 09:14 AM BY Reporting Lab: RAMONA Jeffers [address] NEETA [facility] [address] COUNT Performing Lab: RAMONA Jeffers [address] [place] Luis [facility] [address] CBC & MCV 85.2 81 - 102 12/13 Specimen Type: BLOOD LEWISTON MORPHOLO [ENTITIC No comment ent ered. [facility] GY (WITH VOLUME] BY Ordering Pr ovider: DONITA DAILEY DIFF) AUTOMATED Report Releas ed Date/Time: Nov 07, 2021 09:14 AM COUNT Reporting Lab: RAMONA Jeffers [address] Jorge Luis [facility] [address] Performing Lab: RAMONA Jeffers [address] [place] [facility] [address] CBC & MCH 27.0 27 - 31 12/13 Specimen Type: B LOOD LEWISTON MORPHOLO [ENTITIC /2021 No [address] ered. [facility] (WITH MASS] BY Ordering Prov ider: DONITA DAILEY DIFF) AUTOMATED Report Releas ed Date/Time: Nov 07, 2021 09:14 AM COUNT Reporting Lab: RAMONA Jeffers [address] [place] [address] Performing Lab: RAMONA Jeffers [address] [place] [address] CBC & MCHC 31.7 32 - 36 12/13 L Specimen Type: B LOOD LEWISKRAIG MORPHOLO [MASS/VOLU /2021 No comment e ntered. [facility] (WITH ME] BY Ordering Provi redd: DONITA DAILEY) AUTOMATED Report Releas ed Date/Time: Nov 07, 2021 09:14 AM COUNT Reporting Lab: RAMONA Jeffers [address] Jorge Luis [facility] [address] Performing Lab: RAMONA Jeffers [address] Jorge Luis [facility] [address] CBC & PLATELETS 233 150 - 400 12/13 Specimen Typ e: BLOOD LEWISKRAIG MORPHOLO [#/VOLUME] /2021 No comment e ntered. [facility] (WITH IN BLOOD Ordering Prov ider: DONITA DAILEY DIFF) BY Report Released Date/Time: Nov 07, 2021 09:14 AM AUTOMATED Reporting Lab : RAMONA Jeffers [address] [place] [address] Performing Lab: RAMONA Jeffers [address] Jorge Luis [facility] [address] CBC & ERYTHROCYT 16.4 11.2 - 12/13 H Specimen Type : BLOOD LEWISTON MORPHOLO E 16. No comment ente red. [facility] (WITH DISTRIBUTI Ordering Pr ovider: DONITA DAILEY DIFF) ON WIDTH Report Release d Date/Time: Nov 07, 2021 09:14 AM [RATIO] BY Reporting La b: RAMONA Jeffers [address] [facility] [address] COUNT Performing Lab: RAMONA Jeffers [address] Jorge Luis [facility] [address] CBC & NEUTROPHIL 71.6 44 - 74 12/13 Specimen Type : BLOOD LEWISTON MORPHOLO S/ No comment ente red. [facility] (WITH LEUKOCYTES Ordering Pr ovider: DONITA DAILEY L DIFF) IN BLOOD Report Release d Date/Time: Nov 07, 2021 09:14 AM BY Reporting Lab: RAMONA Jeffers [facility] AUTOMATED [facility] [address] COUNT Performing Lab: RAMONA Jeffers [address] [facility] [address] CBC & LYMPHOCYTE 13.9 15 - 42 12/13 L Specimen Type : BLOOD LEWISTON MORPHOLO S No comment ente red. [facility] (WITH LEUKOCYTES Ordering Pr ovider: DONITA DAILEY L DIFF) IN BLOOD Report Release d Date/Time: Nov 07, 2021 09:14 AM BY Reporting Lab: RAMONA Jeffers [facility] AUTOMATED [facility] [address] COUNT Performing Lab: RAMONA Jeffers [address]WRADVENTHEALTH WESLEY CHAPELOrly [facility] [address] CBC & MONOCYTES/ 9.2 4 - 13 12/13 Specimen Type : BLOOD LEWISTON MORPHOLO No comment ente red. [facility] (WITH LEUKOCYTES Ordering Pr ovider: DONITA DAILEY L DIFF) IN BLOOD Report Release d Date/Time: Nov 07, 2021 09:14 AM BY Reporting Lab: RAMONA Jeffers [facility] AUTOMATED [facility] [address] COUNT Performing Lab: RAMONA Jeffers [address] [facility]ENTER[facility] [address] CBC & EOSINOPHIL 4.2 0 - 7 12/13 Specimen Type : BLOOD LEWISTON MORPHOLO S No comment ente red. [facility] (WITH LEUKOCYTES Ordering Pr ovider: DONITA DAILEY L DIFF) IN BLOOD Report Release d Date/Time: Nov 07, 2021 09:14 AM BY Reporting Lab: RAMONA Jeffers [facility] [address] [place] [address] COUNT Performing Lab: RAMONA Jeffers [address] [address] CBC & BASOPHILS/ 0.5 0 - 2 12/13 Specimen Type : BLOOD LEWISTON MORPHOLO 100 /[address]e red. [facility] (WITH LEUKOCYTES Ordering Pr ovider: DONITA DAILEY L DIFF) IN BLOOD Report Release d Date/Time: Nov 07, 2021 09:14 AM BY Reporting Lab: RAMONA Jeffers [facility] AUTOMATED [address] [place] [address] COUNT Performing Lab: RAMONA Jeffers [address] [address] CBC & NEUTROPHIL 7.2 1.2 - 7.0 12/13 H Specimen Ty pe: BLOOD LEWISTON MORPHOLO S /[address]e red. [facility] (WITH [#/VOLUME] Ordering Pr ovider: DONITA DAILEY L DIFF) IN BLOOD Report Release d Date/Time: Nov 07, 2021 09:14 AM BY Reporting Lab: RAMONA Jeffers [facility] AUTOMATED [address] [place] [address] COUNT Performing Lab: RAMONA Jeffers [address] [address] CBC & LYMPHOCYTE 1.4 0.6 - 3.4 12/13 Specimen Ty pe: BLOOD LEWISTON MORPHOLO /[address]e red. [facility] (WITH [#/VOLUME] Ordering Pr ovider: DONITA DAILEY L DIFF) IN BLOOD Report Release d Date/Time: Nov 07, 2021 09:14 AM BY Reporting Lab: RAMONA Jeffers [facility] AUTOMATED [address] [place] [address] COUNT Performing Lab: RAMONA Jeffers [address] [address] CBC & MONOCYTES 0.9 0.2 - 1.0 12/13 Specimen Typ e: BLOOD LEWISTON MORPHOLO [#/VOLUME] /2021 No comment e ntered. [facility] (WITH IN BLOOD Ordering Prov ider: DONITA DAILEY L DIFF) BY Report Released Date/Time: Nov 07, 2021 09:14 AM AUTOMATED Reporting Lab : RAMONA Jeffers [facility] COUNT [address] [place] [facility] [address] Performing Lab: RAMONA Jeffers [place] [address] [address] RIVOrly JACKSONA [facility] [address] CBC & EOSINOPHIL 0.4 0.0 - 0.5 12/13 Specimen Ty pe: BLOOD LEWISTON MORPHOLO S /[address]e red[address] [facility] (WITH [#/VOLUME] Ordering Pr ovider: DONITA DAILEY DIFF) IN BLOOD Report Release d Date/Time: Nov 07, 2021 09:14 AM BY Reporting Lab: RAMNOA Jeffers [facility] AUTOMATED [address] MARISELA [facility] [address] COUNT Performing Lab: RAMONA Jeffers [place] [address] [address] [place] JACKSONA [facility] [address] CBC & BASOPHILS 0.1 0.0 - 0.2 12/13 Specimen Typ e: BLOOD LEWISTON MORPHOLO [#/VOLUME] /2021 No comment e ntered. [facility] (WITH IN BLOOD Ordering Prov ider: DONITA DAILEY L DIFF) BY Report Released Date/Time: Nov 07, 2021 09:14 AM AUTOMATED Reporting Lab : RAMONA Jeffers [facility] COUNT [address] [place] [address] Performing Lab: RAMONA Jeffers [facility] [address] [place] [facility] [address] CBC & IMMATURE 0.6 0 - 0.9 12/13 Specimen Type: BLOOD LEWISTON MORPHOLO GRANULOCYT /2021 No comment e ntered. [facility] (WITH ES/100 Ordering Provi redd: DONITA DAILEY DIFF) LEUKOCYTES Report Relea sed Date/Time: Nov 07, 2021 09:14 AM IN BLOOD Reporting Lab: RAMONA Jeffers [facility] BY [address] [place] [address] AUTOMATED Performing La b: RAMONA Jeffers [facility] COUNT [address] [place] [address] CBC & IMMATURE 0.06 0 - 0.07 12/13 Specimen Type: BLOOD LEWISTON MORPHOLO GRANULOCYT /2021 No comment e [facility]tered. [facility] (WITH ES Ordering Provi redd: DONITA DAILEY DIFF) [#/VOLUME] Report Relea sed Date/Time: Nov 07, 2021 09:14 AM IN BLOOD Reporting Lab: RAMONA Jeffers [facility] BY [address] [place] [address] AUTOMATED Performing La b: RAMONA Jeffers [facility] COUNT [address] [place] [address] CREATINI CREATININE 1.0 .7 - 1.2 05/19 Specimen Ty pe: SERUM RAMONA [place] [MASS/VOLU /2020 Comment: For eGFR: Race unknown, if multiply result by 1.210 For eGFR CKD-EPI: Race listed as 'Declined to answer'. If multiply by 1.159. M. (INCLUDE ME] IN Ordering Provi redd: SYMONE TREVIÑO EGFR) SERUM OR Report Release d Date/Time: May 15, 2021 08:28 AM [facility] PLASMA Reporting Lab: RAMONA Jeffers [address] [place] [address] Performing Lab: RAMONA Jeffers [address] [place] [address] CREATINI GLOMERULAR 72.1 60 05/19 Specimen Typ e: SERUM RAMONA NE FILTRATION /2020 Comment: For eGFR: Race unknown, if multiply result by 1.210 For eGFR CKD-EPI: Race listed as 'Declined to answer'. If multiply by 1.159. M. (INCLUDE RATE/1.73 Ordering Pro vider: SYMONE TREVIÑO EGFR) SQ Report Released Date/Time: May 15, 2021 08:28 AM T [facility] M.PREDICTE Reporting La b: [facility] [VOLUME 77 [facility] [address] RATE/AREA] Performing L ab: [facility] IN SERUM 77 [facility] [address] OR PLASMA BY CREATININE -BASED FORMULA (MDRD) CREATINI GLOMERULAR 71 90 05/19 L Specimen Typ e: SERUM RAMONA NE Comment: For eGFR: Race unknown, if multiply result by 1.210 For eGFR CKD-EPI: Race listed as 'Declined to answer'. If multiply by 1.159. M. (INCLUDE RATE/1.73 Ordering Pro vider: SYMONE TREVIÑO EGFR) SQ Report Released Date/Time: May 15, 2021 08:28 AM T [facility] SELVIN Reporting La b: [facility] [VOLUME 77 [facility] [address] RATE/AREA] Performing L ab: [facility] IN SERUM, [address] [place] [id number] PLASMA OR BLOOD BY CREATININE -BASED FORMULA (CKD-EPI) ANCILLAR INR IN 2.0 01/30 Specimen Type: BLOOD RAMONA Y INR BLOOD BY Comment: Test performed by: Jorge Kelsi B Meter #: [id number] M. COAGULATIO Ordering Pro vider: SYMONE TREVIÑO ASSAY Report Released Date/Time: January 30, 2021 01:41 PM T [facility] Reporting Lab: [place] [facility] [address] [place] [address] Performing Lab: [place] [facility] [address], [address], [facility] [address] [place] [id number] ANCILLAR INR IN 2.2 12/14 Specimen Type: BLOOD RAMONA Y INR BLOOD BY Comment: Test performed by: Ania Kelsi B Meter #: [id number] M. COAGULATIO Ordering Pro vider: SYMONE TREVIÑO ASSAY Report Released Date/Time: Dec 14, 2020 01:14 PM T [facility] Reporting Lab: [place] [facility] [address] [place] [address] Performing Lab: [place] [facility] [address], [address], [facility] [address] [place] [id number] Vital Signs Combined list of inpatient and outpatient Vital Signs from Department of Defense and Veterans Affairs, ranging from 12 months to all on record, depending upon the facility. Vital Sign Value Date Comments Source Systolic Blood Pressure 126mm[Hg] 02/11/2019 [facility] 18:25:05 Diastolic Blood Pressure 70mm[Hg] 02/11/2019 [facility] 18:25:05 Systolic Blood Pressure 188mm[Hg] 12/11/2019 [facility] 18:25:59 Diastolic Blood Pressure 75mm[Hg] 12/11/2019 [facility] 18:25:59 Systolic Blood Pressure 196mm[Hg] 12/16/2020 [facility] 19:31:31 Diastolic Blood Pressure 96mm[Hg] 12/16/2020 [facility] 19:31:31 Systolic Blood Pressure 162mm[Hg] 11/11/2019 [facility] 21:34:42 Diastolic Blood Pressure 68mm[Hg] 11/11/2019 [facility] 21:34:42 Systolic Blood Pressure 132mm[Hg] 02/06/2019 [facility] 16:54:28 Diastolic Blood Pressure 65mm[Hg] 02/06/2019 [facility] 16:54:28 Systolic Blood Pressure 130mm[Hg] 04/12/2022 [facility] 17:50:00 Diastolic Blood Pressure 71mm[Hg] 04/12/2022 [facility] 17:50:00 Mean Arterial Pressure, 91mm[Hg] 04/12/2022 [facility] 17:50:00 Peripheral Pulse Rate 67bpm 04/12/2022 [facility] 17:50:00 Temperature Tympanic 35.8Cel 04/12/2022 [facility] 17:50:00 BP Site 04/12/2022 Ambulatory Phar franki 17:50:00 Blood Pressure Manual 04/12/2022 [facility] 17:50:00 Systolic Blood Pressure 133mm[Hg] 01/24/2022 [facility] 19:28:00 Diastolic Blood Pressure 75mm[Hg] 01/24/2022 [facility] 19:28:00 Mean Arterial Pressure, 94mm[Hg] 01/24/2022 [facility] 19:28:00 Peripheral Pulse Rate 56bpm 01/24/2022 [facility] 19:28:00 Respiratory Rate 16br/min 01/24/2022 [facility]ulatory [facility] 19:28:00 Temperature Temporal 36.0Cel 01/24/2022 [facility] 19:28:00 Systolic Blood Pressure 167mm[Hg] 12/16/2020 [facility] 19:46:38 Diastolic Blood Pressure 68mm[Hg] 12/16/2020 [facility] 19:46:38 Systolic Blood Pressure 145mm[Hg] 02/04/2019 [facility] 18:32:33 Diastolic Blood Pressure 73mm[Hg] 02/04/2019 [facility] 18:32:33 Systolic Blood Pressure 149mm[Hg] 04/27/2022 [facility] 23:06:00 Diastolic Blood Pressure 69mm[Hg] 04/27/2022 [facility] 23:06:00 Mean Arterial Pressure, 96mm[Hg] 04/27/2022 [facility] 23:06:00 SYSTOLIC BLOOD PRESSURE 139 12/18/2021 [facility] 12:56:03 DIASTOLIC BLOOD PRESSURE 55 12/18/2021 [facility] 12:56:03 PULSE OXIMETRY 95% 12/18/2021 [facility] 12:56:03 WEIGHT 196 12/18/2021 [facility] 12:56:03 BMI 30kg/m2 12/18/2021 [facility] 12:56:03 PAIN 0 12/18/2021 [facility] 12:56:03 TEMPERATURE 97.1 12/18/2021 [facility] 12:56:03 PULSE 50 12/18/2021 [facility] 12:56:03 RESPIRATION 16 12/18/2021 [facility] 12:56:03 SYSTOLIC BLOOD PRESSURE 149 11/17/2021 [facility] 14:46:24 DIASTOLIC BLOOD PRESSURE 73 11/17/2021 [facility] 14:46:24 PULSE OXIMETRY 95% 11/17/2021 [facility] 14:46:24 WEIGHT 199 11/17/2021 [facility] 14:46:24 BMI 30kg/m2 11/17/2021 [facility] 14:46:24 PAIN 5 11/17/2021 [facility] 14:46:24 TEMPERATURE 97.6 11/17/2021 [facility] 14:46:24 PULSE 54 11/17/2021 [facility] 14:46:24 RESPIRATION 19 11/17/2021 [facility] 14:46:24 SYSTOLIC BLOOD PRESSURE 177 07/18/2021 [facility] 13:29:37 DIASTOLIC BLOOD PRESSURE 74 07/18/2021 [facility] 13:29:37 PULSE OXIMETRY 95% 07/18/2021 [facility] 13:29:37 WEIGHT 198 07/18/2021 [facility] 13:29:37 BMI 30kg/m2 07/18/2021 [facility] 13:29:37 PAIN 0 07/18/2021 [facility] 13:29:37 TEMPERATURE 97.2 07/18/2021 [facility] 13:29:37 PULSE 56 07/18/2021 [facility] 13:29:37 RESPIRATION 18 07/18/2021 [facility] 13:29:37 SYSTOLIC BLOOD PRESSURE 145 06/22/2021 [facility] 14:54:23 DIASTOLIC BLOOD PRESSURE 73 06/22/2021 [facility] 14:54:23 PULSE OXIMETRY 93% 06/22/2021 [facility] 14:54:23 WEIGHT 198.8 06/22/2021 [facility] 14:54:23 BMI 30kg/m2 06/22/2021 [facility] 14:54:23 TEMPERATURE 97.4 06/22/2021 [facility] 14:54:23 PULSE 53 06/22/2021 [facility] 14:54:23 Encounters Combined list of: 1) Encounters from Department of Veterans Affairs facilities going back up to the last 18 months, not all VA inpatient encounters are included; 2) Encounters from the Department of Defense facilities going back up to 280 months. Location Location Encounter Encounter Reason Attending ADM DC Stat us Disposition Source Details Type Number For Provider Date Date Visit Outpatient 11/24 MELVA IVANA Encounter [id number] N Zeyad HERRERAANASTACIAHoward [facility] Outpatient 97900-011/26 MELVA IVANA Encounter [id number] N Zeyad SOLIS [facility] Outpatient 65690-811/29 MELVA IVANA Encounter [id number] N Zeyad SOLIS [facility] Outpatient 23648-312/02 MELVA IVANA Encounter [id number] N Zeyad TONGLISA [facility] Outpatient 48489-7 Diagnos MILA KERR 12/14 JONATHA Encounter [id number] is: INDY A /2020 N Zeyad ICD-10- [facility]br/ >with Provide r Comment s[facility]ICD-10 -CM Z51.81) Outpatient 12/16 MELVA IVANA Encounter [id number] N Zeyad TONGLISA [facility] OFFICE O/P Diagnos MILA DAILEY 12/16 [place] EST MOD [id number] is: INDY L /2020 N [place] 30-39 MIN 9 ICD-10- CLINIC CM Z00.00 Encntr for general adult medical exam w/o abnorma l finding s
w ith Provide r Comment s: Well male adult (SCT 2825218 08) Outpatient 12/21 MELVA IVANA Encounter [id number] N Zeyad HNANAH [facility] Outpatient 21931-712/26 MELVA IVANA Encounter [id number] N Zeyad HANNAH [facility] Outpatient 37289-501/11 MELVA IVANA Encounter [id number] N Zeyad SOLIS T [facility] Outpatient 99991-301/18 MELVA IVANA Encounter [id number] N Zeyad SOLIS T [facility] Outpatient 95676-701/18 MELVA IVANA Encounter [id number] N Zeyad SOLIS T [facility] Outpatient 70817-301/23 MELVA IVANA Encounter [id number] N Zeyad SOLIS T [facility] Outpatient 73655-201/23 MELVA IVANA Encounter [id number] N Zeyad SOLIS [facility] HC PRO 08774-1 Diagnos NYASIA, 01/23 L [place] PHONE CALL [id number] is: ANE R N [place] 5-10 MIN 0 ICD-10- CLINIC CM R68.89 Other general symptom s and signs<b r/>with Provide r Comment s: General Symptom s & Signs Outpatient 12330-001/[address] [facility] Encounter [id number] /2021 N Zeyad SOLIS [facility] Outpatient Diagnos MILA KERR 01/30 JONAT Encounter [id number] is: INDY N M. ICD-10- RANINWRI CM T Z51.81 [facility]br/ >with Provide r Comment s: [facility] For Therape utic Drug Level Monitor ing (ICD-10 -CM Z51.81) PRO Diagnos LIBERTY, 01/30 J ONATHA PHONE CALL [id number] is: ALEXIS N M . 21-30 MIN ICD-10- RAVIN SOLIS CM PHARM D GHT Z51.81 [facility] Encount er for therape utic drug level monitor ing<br/ >with Provide r Comment s: Encount er for Therape utic Drug Level Monitor ing OFFICE O/P Diagnos XIMENA RESENDEZ 02/02 [place] EST [id number] is: LA G N [place] MINIMAL 6 ICD-10- CLINIC PROB CM Z71.89 Other specifi ed grief counselor ing<br/ >with Provide r Comment s: Recruitment Consultant ing,Oth er Specifi ed Outpatient 55736-0.68 03/15 MELVA IVANA Encounter [id number] /2021 N Zeyad SOLIS [facility] Outpatient 94276-3.68 04/18 MELVA IVANA Encounter [id number] N Zeyad SOLIS [facility] Outpatient 91899-6.68 04/18 MELVA IVANA Encounter [id number] N Zeyad SOLIS [facility] Outpatient 37705-5.68 04/18 MELVA IVANA Encounter [id number] N Zeyad SOLIS [facility] Outpatient 34952-3.68 04/18 MELVA IVANA Encounter [id number] /2021 N Zeyad SOLIS [facility] Outpatient 97183-7.68 04/19 MELVA IVANA Encounter [id number] /2021 N Zeyad SOLIS [facility] Outpatient 15656-8.68 04/25 MELVA IVANA Encounter [id number] N Zeyad SOLIS [facility] Outpatient 56615-3.68 04/25 MELVA IVANA Encounter [id number] N Zeyad SOLIS [facility] Outpatient 30757-6.68 04/26 MELVA IVANA Encounter [id number] N Zeyad SOLIS [facility] Outpatient 11387-8.68 05/01 MELVA IVANA Encounter [id number] /2021 N Zeyad SOLIS [facility] Outpatient 88291-4.68 05/01 MELVA IVANA Encounter [id number] /2021 N Zeyad SOLIS [facility] HC PRO 80178-8. GRAEME Weinstein 05/03 Rony FISH PHONE CALL [id number] is: ANE R /2020 N [place] 5-10 MIN 97 ICD-10- CLINIC CM Z71.89 Other specifi ed grief counselor ing<br/ >with Provide r Comment s: Recruitment Consultant ing,Oth Specifi ed Outpatient 81484-5.68 05/12 MELVA IVANA Encounter [id number] N Zeyad SOLIS [facility] Outpatient 14722-405/15 MELVA IVANA Encounter [id number] N Zeyad SOLIS [facility] Outpatient 99039-505/15 MELVA IVANA Encounter [id number] N Zeyad SOLIS [facility] [place] [address]-3 Diagnos MARIA G TREVIÑO 05/19 JONATHA DIG [id number] is: HLEY N /2020 N Josie. ASSMT&MGMT ICD-10- WAINWRI 5-10 CM T Z51.81 [facility] Encount er for therape utic drug level monitor ing<br/ >with Provide r Comment s: Encount er for Therape utic Drug Level Monitor ing Outpatient 37368-505/22 MELVA IVANA Encounter [id number] N Zeyad SOLIS [facility] Outpatient 52556-205/[address] [facility] Encounter [id number] /2021 N Zeyad SOILS [facility] Outpatient 67400-605/[address] [facility] Encounter [id number] N Zeyad SOLIS [facility] Outpatient 26323-306/02 LEWI STO Encounter [id number] N [place] [facility] CLINIC Outpatient 84410-106/[address] [facility] Encounter [id number] N Zeyad HERRERAANASTACIAHoward [facility] OFFICE O/P Diagnos MILA DAILEY 06/22 [place] EST LOW [id number] is: RK L /2020 N [place] 20-29 MIN 32 ICD-10- CLINIC CM R06.02 Shortne ss of breath< br/>wit h Provide r Comment s: Dyspnea on exertio n (SNOMED CT 3576133 6) Outpatient 09638-206/22 MELVA IVNAA Encounter [id number] N Zeyad TONGLISA [facility] Outpatient 33885-407/02 MELVA IVANA Encounter [id number] /2021 N Zeyad SOLIS [facility] HC PRO 61059-0. Diagnos MARIA G TREVIÑO 07/12 J FARHEENANILSrini PHONE CALL [id number] is: XIOMARA N N M . 11-20 MIN ICD-10- WAINWRI CM T Z51.81 [facility]br/ >with Provide r Comment s: Encount er for Therape utic Drug Level Monitor ing OFFICE O/P 46569-2 Diagnos MILA DAILEY 07/18 [place] EST SF [id number] is: RK L /2020 N [place] 10-19 MIN 21 ICD-10- CLINIC CM I10 Essenti al (primar y) hyperte nsion<b r/>with Provide r Comment s: Santos al hyperte nsion (SCT 8718961 0) Outpatient 52241-207/21 [facility] Encounter [id number] /2020 N Zeyad SOLIS [facility] Outpatient 24417-507/21 [facility] Encounter [id number] /2020 N Zeyad SOLIS [facility] Outpatient 70204-5.07/21 [facility] Encounter [id number] /2020 N Zeyad SOLIS [facility] Outpatient 09174-9.07/24 [facility] Encounter [id number] /2020 N Zeyad SOLIS [facility] Outpatient 26737-3.07/24 [facility] Encounter [id number] N Zeyad SOLIS [facility] Outpatient 15537-9.07/26 [facility] Encounter [id number] /2020 N Zeyad SOLIS [facility] Outpatient 65674-6.07/[address] [facility] Encounter [id number] /2020 N Zeyad SOLIS [facility] Outpatient 72516-0. Addy DAILEY MA 08/02 [place] Encounter [id number] is: RK L /2020 N [place] 67 ICD-10- CLINIC CM R06.00 Dyspnea , unspeci fied
with Provide r Comment s: Dyspnea (SNOMED CT 2571867 07) Outpatient 16730-5.68 08/09 MELVA IVANA Encounter [id number] N Zeyad SOLIS [facility] Outpatient 09515-1.68 09/05 MELVA IVANA Encounter [id number] N Zeyad SOLIS [facility] Outpatient 29748-0.68 Diagnos MILA DAILEY 09/26 [place] Encounter [id number] is: RK L /2020 N [place] 32 ICD-10- CLINIC CM I10 Essenti al (primar y) hyperte nsion<b r/>with Provide r Comment s: Essenti al hyperte nsion (SCT 5293192 0) Outpatient 51280-7.09/26 MELVA IVANA Encounter [id number] N Zeyad SOLIS [facility] Outpatient 41690-1.68 10/05 MELVA IVANA Encounter [id number] /2022 N Zeyad SOLIS [facility] Outpatient 05190-7.68 10/06 MELVA IVANA Encounter [id number] N Zeyad SOLIS [facility] Outpatient 23440-3.68 10/13 MELVA IVANA Encounter [id number] /2022 N Zeyad SOLIS [facility] Outpatient 42665-3.68 10/13 MELVA IVANA Encounter [id number] N Zeyad SOLIS [facility] Outpatient 42266-8.68 10/13 MELVA IVANA Encounter [id number] N Zeyad SOLIS [facility] Outpatient 03943-8.68 10/18 MELVA IVANA Encounter [id number] N Zeyad SOLIS [facility] Outpatient 33421-7.68 10/27 MELVA IVANA Encounter [id number] N Zeyad SOLIS [facility] Outpatient 23520-5.68 11/10 MELVA IVANA Encounter [id number] N Zeyad SOLIS [facility] Outpatient 32037-0.68 11/10 MELVA IVANA Encounter [id number] Christ Zeyad SOLIS [facility] Outpatient 27684-0.68 02/18 MELVA IVANA Encounter [id number] N Zeyad HANNAH [facility] OFFICE O/P Diagnos MILA DAILEY 11/17 [place] EST SF [id number] is: RK L /2021 N [place] 10-19 MIN 41 ICD-10- CLINIC CM I10 Essenti al (primar y) hyperte nsion<b r/>with Provide r Comment s: Essenti al hyperte nsion (SCT 0866867 0) Outpatient 11/[address] [facility] Encounter [id number] N Zeyad HANNAH [facility] OFFICE O/P Diagnos GRAEME MURRELL 11/17 JONATHA EST [id number] is: ANE R /2021 N Zeyad MINIMAL ICD-10- RANINWRI PROB CM Z23 [facility] er for immuniz ation<b r/>with Provide r Comment s: [facility] er for Immuniz ation Outpatient 12/13 [facility] Encounter [id number] N Zeyad HANNAH [facility] OFFICE O/P Diagnos MILA DAILEY 12/18 [place] EST LOW [id number] is: RK L /2021 N VA 20-29 MIN 52 ICD-10- CLINIC CM Z00.00 Encntr for general adult medical exam w/o abnorma l finding s
w ith Provide r Comment s: Well male adult (SCT 0752561 08) Outpatient 12/18 [facility] Encounter [id number] /2022 N JosieMathew SOLIS [facility] Between [id number] 05/08 05/08 Discharge 687 Visit /2021 Disposition: [place] Home [place] Self n [facility]ie [facility] [place] [facility] Outside [id number] 05/09 05/09 687 Documentat /2021 [place] ion Only n [facility]ie [facility] [place] [facility] Between [id number] 05/10 05/10 Discharge 687GB Visit /2021 Disposition: [place] Home or Self n ID [facility] Between [id number] 05/10 05/10 Discharge 687GB Visit /2021 Disposition: [place] Home or Self n ID [facility] Outpatient 92746-3.43 05/11 [place] Encounter [id number] [facility] Between [id number] 05/14 05/14 Discharge 687 Visit /2021 Disposition: [place] [facility] Outpatient 20312-8.43 05/14 [place] Encounter [id number] [facility] Procedures Combined list of: 1) Procedures from Department of Veterans Affairs facilities going back up to the last 18 months, not all [place] non-surgical procedures are included; 2) All procedures from the Department of [facility] facilities. Procedure Procedure Type Code Date Perfomer Comments Sourc e ESOPHAGOGASTROD [place] [address] Ambu latory UODENOSCOPY, gastrointestinal 012 Pharmacy FLEXIBLE, endoscopy including TRANSORAL; WITH esophagus, stomach, BIOPSY, SINGLE and either the OR MULTIPLE duodenum and/or jejunum as appropriate; with biopsy, single or multiple COLONOSCOPY, Colonoscopy, 81692 Ambu latory FLEXIBLE; WITH flexible, proximal 012 Pharmacy REMOVAL OF to splenic flexure; TUMOR(S), with removal of POLYP(S), OR tumor(s), polyp(s), OTHER LESION(S) or other lesion(s) BY SNARE by snare technique TECHNIQUE ARTHROPLASTY, Arthroplasty, knee, 20515 Ambulatory KNEE, CONDYLE condyle and 008 Phar franki AND PLATEAU; plateau; medial AND MEDIAL AND lateral LATERAL compartments with COMPARTMENTS or without patella WITH OR WITHOUT resurfacing (total PATELLA knee arthroplasty) RESURFACING (TOTAL KNEE ARTHROPLASTY) Total knee Arthroplasty of [id number] Amb ulatory replacement knee (procedure) 008 P harmacy COLONOSCOPY, Colonoscopy, 17407 Private Deb SAHNI bulvalerie FLEXIBLE; flexible, proximal 000 Normal P harmacy DIAGNOSTIC, to splenic flexure; INCLUDING diagnostic, with or COLLECTION OF without collection SPECIMEN(S) BY of specimen(s) by BRUSHING OR brushing or WASHING, WHEN washing, with or PERFORMED without colon (SEPARATE decompression PROCEDURE) (separate procedure) Social History Combined list of available smoking, tobacco, and other social history [facility]. Social History Type Response Date Comment Source Tobacco smoking [facility] FORMER 11/17/2021 [facility] status [facility] USER History of tobacco VA-TOBACCO QUIT 15 11/17/2021 [facility] OR MORE History of tobacco VA-TOBACCO FORMER 12/16/2020 [facility] use USER History of tobacco VA-TOBACCO QUIT 15 10/30/2019 [facility] MORE History of tobacco VA-TOBACCO FOR[facility] 10/09/2018 [facility] History of tobacco TOBACCO SCREEN 09/12/2017 QUIT JUN [facility] use COMPLETED History of tobacco QUIT TOBACCO >7 10/29/2011 [facility] use [facility] A[facility] History of tobacco TOBACCO INPT USER= 04/11/2008 MAN [facility] use QUIT MORE THAN 1Y [facility] AGO History of tobacco QUIT TOBACCO >7 02/20/2007 [facility] History of tobacco QUIT TOBACCO >7 11/27/2006 [place] use YEARS AGO [facility] History of tobacco TOBACCO COUNSELING 01/25/2003 MAN [facility] use OFFERED [facility] History of tobacco FORMER TOBACCO USER 12/24/2002 30 years MA NN-[facility] use [facility] Exposure to Exposure to Ambulatory Phar franki Secondhand Smoke: Secondhand Smoke: No. Former-cigarette No. user Cigarette use:. Former-cigarette 32 Stopped user Cigarette cigarettes age:. use:. 32 Stopped Never-other tobacco cigarettes age:. user (not Never-other tobacco cigarettes) Other user (not Tobacco use:. cigarettes) Other Tobacco use:. Assessment and Plan Combined list of future care activities from Department of Defense and Veterans Affairs facilities (e.g., assessment and plan notes, appointments, orders, and referrals). Additional future care activities may be listed in the Plan of Care section. Result Assessment and Plan Date Source Assessment and Plan Extracted from:Title: Primar y Care OP Note -- f/up on referrals for PT and Neurology. 05/19/2022 Ambulatory Pharmacy Author: Donita Dailey NP Date: 04/12/22 1.Dizziness * (ICD-9-CM 780.4) - Referral for Neurologist was placed 03.01.2022. - Reached out to [facility] and requested that this referral and the PT referrals be expedited as "time sensitive". 2.Chronic lower back pain - Referral for Neurologist was placed .. - Reached out to [facility] and requested that this referral and the PT referrals be expedited as "time sensitive". Future Appointments Appointment Date: 12/12/2022 10:00:00 AM Scheduled Provider: Location: [facility] Lab Appointment Type: Lab Visit Appointment Date: 12/19/2022 03:30:00 PM Scheduled Provider: Donita Dailey NP Location: 687 PC Appointment Type: PC Established Patient Future Scheduled TestsPatient CareFollow Up - [facility] Functional Status Combined list of recent functional and cognitive assessments recorded at [facility] Functional [place] Measurement (FIM) Scale: 1 = Total Assistance (Subject = 0% +), 2 = Maximal Assistance (Subject = 25% +), 3 = Moderate Assistance (Subject = 50% +), 4 = Mi nimal Assistance (Subject = 75% +), 5 = Supervision, 6 = Modified [place] (Device), 7 = Complete [place] (Timely, Safely). Assessment Source Assessment Type Assessment Assessment Assessmen t Date/Time Skill Score Details No data available for this section
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
--- OUTSIDE RECORDS SUMMARY | 2022-05-19 15:50 | External Medical Summary | Encounter Summary ---
:1940 Author Organization [facility] rs Address [address] [place] [address] Support Name Relationship Address Phone NICHOLE THOMAS Unavailable [address] [place] [address] NICHOLE THOMAS Unavailable [address] [place] [address] CUCA CHAU Unavailable [address] [place] [address] CUCA CHAU Unavailable [address] [place] [address] Insurance Providers: All historical and current Section [...] MEDICARE MEDICARE PART May 31, PART A [id number] Jeremias THOMAS PATIENT (WNR) (M) A 2005 78A [id number] ORTUNATE MEDICARE MEDICARE PART May 31, PART A [id number] Jeremias THOMAS PATIENT (WNR) (M) A 2005 [id number] [id number] Selected Encounter This section includes the information on record at [place] for the Encounter. Date/Time Encounter Type Encounter Description Reason Provider Source Jun 02, 2021 01:00 Outpatient Encounter PRIMARY CARE/MEDICINE PM IHE Encounter Template Text not used by [place] Plan of Treatment: Future Appointments (+ 6 [...] 20 appointments. The data comes from all [facility]. Appointment Date/Time Appointment Type Appointment Facili ty Name Jun 22, 2021 01:30 PM AMBULATORY - MEDICINE [facility] Jul 18, 2021 01:30 PM AMBULATORY - MEDICINE [facility] Jul 21, 2021 01:45 PM AMBULATORY - NONE [facility] Jul 21, 2021 02:00 PM AMBULATORY - NONE [facility] Jul 21, 2021 02:30 PM AMBULATORY - NONE [facility] Aug 02, 2021 12:30 PM AMBULATORY - MEDICINE [facility] Sep 05, 2021 11:30 AM AMBULATORY - MEDICINE [facility] Sep 26, 2021 02:00 PM AMBULATORY MEDICINE [facility] Nov 09, 2021 03:00 PM AMBULATORY - NONE [facility] Nov 17, 2021 03:00 PM AMBULATORY - MEDICINE [facility] Active, Pending, and Scheduled Orders This section includes a listing of several types of active, pending, and scheduled orders, including clinic medications orders, diagnostic test orders, procedure orders and consult orders; where the start date of the order is 45 days before the date of the Encounter or 45 days after the date of the Encounter. The data comes from all [facility]. Test Date/Time Test Type Test Details Facility Name Jun 22, 2021 02:25 PM Consult Order [facility]-CT SCAN Con s [facility] Lab Results: +/- 30 days of the encounter This section includes the Chemistry and Hematology Lab Results on record with [place] for the patient. Radiology Reports and Pathology Reports are provided separately, in subsequent sections.Lab Results This section contains the Chemistry/Hematology Results that were resulted 30 days before or 30 daysafter the date of the Encounter. Date/Time Source Result Type Result - Unit Interpretation Reference Range Comment May 19, 2021 [facility] REAIGHT CREATININE (INCLUDES Spe cimen Type: SERUM 09:11 AM [facility] EGFR) Comment: For eG FR: Race unknown, if multiply result by 1.210 For eGFR CKD-EPI: Race listed as 'Declined to answer'. If multiply by 1.159. Ordering Provid er: SYMONE TREVIÑO Report Released Date/Time: May 15, 2021 08:28 AM Reporting Lab: [facility] [place] [address] Performing Lab: [facility] [address] [place] [address] CREATININE, SERUM 1.0 .7-1.2 GFR ESTIMATION 72.1 >60 GFR ESTIMATION (CKD-EPI) 71 L >90 Social History: Smoking Status (Most current) and Tobacco Use (All prior to encounter date) This section includes the most current, and the historical, smoking and tobacco-related health factors from the [place] facility where the Encounter took place.Current Smoking Status This section includes the most current smoking, or tobacco-related health factor, from the [place] facility where the Encounter took place. Date/Time Current Smoking Status Comment Facility Dec 16, 2020 12:30 PM VA-TOBACCO FORMER USER [facility] Tobacco Use History This section includes a history of the smoking, or tobacco- related health factors, that were collected on or before the date of the Encounter. The data comes from the [place] facility where the Encounter took place. Date/Time Smoking Status/Tobacco Use Comment [facility] Dec 16, 2020 12:30 PM VA-TOBACCO QUIT 15 YRS OR MORE [facility] Oct 30, 2019 09:41 AM VA-TOBACCO FORMER USER [facility] Oct 30, 2019 09:41 AM VA-TOBACCO QUIT 15 YRS OR MORE [facility] Oct 09, 2018 11:23 AM VA-TOBACCO FORMER USER [facility] Oct 09, 2018 11:23 AM VA-TOBACCO QUIT 15 YRS OR MORE [facility] Sep 12, 2017 09:25 AM QUIT TOBACCO >7 YEARS AGO [facility] Sep 12, 2017 09:25 AM TOBACCO SCREEN COMPLETED [facility] QUIT J[facility] 1972 Oct 29, 2011 09:59 AM QUIT TOBACCO >7 YEARS AGO [facility] Oct 29, 2011 09:59 AM TOBACCO SCREEN COMPLETED [facility] Encounter Notes: All associated encounter notes This section contains the clinical notes associated to the Encounter. Date/Time Encounter Note(s) Provider Source Jun 02, 2021 02:06 PM NO SHOW NOTE: DONITA DAILEY [facility] LOCAL TITLE: NO SHOW NOTE STANDARD TITLE: NO SHOW NOTE DATE OF NOTE: JUN 02, 2021@14:06 ENTRY DATE: JUN 02, 2021@14:06:23 AUTHOR: DONITA DAILEY EXP COSIGNER: URGENCY: STATUS: COMPLETED SUBJECT: No showed for 2nd time, f2f. NO SHOW NOTE Has ADDENDA LOCAL TITLE: NO SHOW NOTE STANDARD TITLE: NO SHOW NOTE DATE OF NOTE: JUN 02, 2021@13:50 ENTRY DATE: JUN 02, 2021@13:50:21 AUTHOR: DONITA DAILEY EXP COSIGNER: URGENCY: STATUS: UNSIGNED SUBJECT: No showed for 2nd time, f2f visit. PROVIDER VISIT -- NO SHOW NOTE FORTUNATE DECICIO 80 year old MALE. Patient identification is confirmed by full name , date of and the last four of their social security number was verifie d prior to interview & discussion at the start of today's appointment. APPOINTMENT TYPE: Office visit REASON FOR TODAY'S VISIT: No showed f2f appt, se cond time. NO ANSWER: This scheduled visit resulted in a No Answer/No Show, see below for reason(s). /sonia/ DONITA DAILEY Nurse Practitioner Signed: 06/02/2021 14:06 Receipt Acknowledged By: * AWAITING SIGNATURE * NICK SCHMIDT * AWAITING SIGNATURE * KIRA RESENDEZ 06/02/2021 14:46 /es/ MITA MURRELL RN 06/02/2021 ADDENDUM STATUS: COMPLETED Forwarded to [facility] for assistance. Will check at future date/time. /es/ Jorge Luis HANNA MSA Signed: 06/02/2021 15:18
--- OUTSIDE RECORDS SUMMARY | 2022-05-19 15:50 | External Medical Summary | Encounter Summary ---
:1940 Author Organization [facility] rs Address [address] [place] [address] Support Name Relationship Address Phone NICHOLE THOMAS Unavailable [phone] [phone] [place] [address] NICHOLE THOMAS Unavailable [address] [phone] [place] [address] CUCA CHAU Unavailable [address] [place] [address] CUCA CHAU Unavailable [address] [place] [address] Insurance Providers: All historical and current Section [...] MEDICARE MEDICARE PART May 31, PART A [id number] DECICIOF PATIENT (WNR) (M) A 2005 78A [id number] ORTUNATE MEDICARE MEDICARE PART May 31, PART A [id number] DECICIO,F PATIENT (WNR) (M) A 2005 78A [id number] Selected Encounter This section includes the information on record at [place] for the [place]counter. Date/Time Encounter Type Encounter Reason Provider Source Description Jun 22, 2021 OFFICE O/P EST PRIMARY ICD-10-CM ASIMDONITA FRIAS Rony 01:30 PM LOW 20-29 MIN CARE/MEDICINE R06.02 Shortness of breath with Provider Comments: Dyspnea on exertion (SNOMED CT 00823251) IHE Encounter Template Text not used by [facility] Assessments - Encounter Diagnoses This section includes the primary and secondary diagnoses documented for the Encounter. Date/Time Primary/Secondary Diagnosis Name Provider Source Diagnosis Jun 25, 2021 PRIMARY Shortness of DONITA DAILEY [facility] 11:35 AM breath CLINIC Jun 25, 2021 SECONDARY Chest pain, DONITA DAILEY [facility] 11:35 AM unspecified CLINIC Plan of Treatment: Future Appointments (+ 6 months) and Future Tests (+/- 45 days) The Plan of Treatment section includes future care activities for the patient from all [place] treatmentfacilities. This section includes future appointments and future orders which are active, pending orscheduled.Future Appointments This section includes appointments that were scheduled to occur 6 months from the date of the Encounter, up to a maximum of 20 appointments. The data comes from all [place] treatment facilities. Appointment Date/Time Appointment Type Appointment Facili ty Name Jul 18, 2021 01:30 PM AMBULATORY - MEDICINE [facility] Jul 21, 2021 01:45 PM AMBULATORY - NONE [facility] Jul 21, 2021 02:00 PM AMBULATORY - NONE [facility] Jul 21, 2021 02:30 PM AMBULATORY - NONE [facility] Aug 02, 2021 12:30 PM AMBULATORY - MEDICINE [facility] Sep 05, 2021 11:30 AM AMBULATORY - MEDICINE [facility] Sep 26, 2021 02:00 PM AMBULATORY - MEDICINE [facility] Nov 09, 2021 03:00 PM AMBULATORY - NONE [facility] Nov 17, 2021 03:00 PM AMBULATORY - MEDICINE [facility] IC Dec 13, 2021 01:15 PM AMBULATORY - MEDICINE [facility] Dec 18, 2021 01:00 PM AMBULATORY [facility] Active, Pending, and Scheduled Orders This section includes a listing of several types of active, pending, and scheduled orders, including clinic medications orders, diagnostic test orders, procedure orders and consult orders; where the start date of the order is 45 days before the date of the Encounter or 45 days after the date of the Encounter. The data comes from all [place] treatment [facility]. Test Date/Time Test Type Test Details Facility Name Jun 22, 2021 02:25 PM Consult Order COMMUNITY CARE-CT SCAN Con s [facility] Store Specialist's Choice Vital Signs: All taken on the encounter date This section contains inpatient and outpatient Vital Signs collected on the date of the Encounter. Date/Time Temperature Pulse Blood Respiratory SP02 Pain Height Weight Adal dy Source Pressure Rate Mass Index Sep 23, 97.4 F 53 145/73 93 % 198.8 2020 02:54 /min mm[Hg] lb N [facility] Social History: Smoking Status (Most current) and Tobacco Use (All prior to encounter date) This section includes the most current, and the historical, smoking and tobacco-related health factors from the [facility] where the Encounter took place.Current Smoking Status This section includes the most current smoking, or tobacco-related health factor, from the [place] facility where the Encounter took place. Date/Time Current Smoking Status Comment Facility Dec 16, 2020 12:30 PM [place]-TOBACCO QUIT 15 YRS OR MORE [facility] Tobacco Use History This section includes a history of the smoking, or tobacco- related health factors, that were collected on or before the date of the Encounter. The data comes from the [facility] where the Encounter took place. Date/Time Smoking Status/Tobacco Use Comment [facility] Dec 16, 2020 12:30 PM [place]-TOBACCO QUIT 15 YRS OR MORE [facility] Oct 30, 2019 09:41 AM VA-TOBACCO FORMER USER [facility] Oct 30, 2019 09:41 AM [place]-TOBACCO QUIT 15 YRS OR MORE [facility] Oct 09, 2018 11:23 AM VA-TOBACCO FORMER USER [facility] Oct 09, 2018 11:23 AM [place]-TOBACCO QUIT 15 YRS OR MORE [facility] Sep 12, 2017 09:25 AM QUIT TOBACCO >7 YEARS AGO [facility] Sep 12, 2017 09:25 AM TOBACCO SCREEN COMPLETED [facility] QUIT JUN 1973 Oct 29, 2011 09:59 AM QUIT TOBACCO >7 YEARS AGO [facility] Oct 29, 2011 09:59 AM TOBACCO SCREEN COMPLETED [facility] Radiology Reports: +/- 30 days of the [...] the Encounter. The data comes from all [place] treatment facilities. Date/Time Radiology Report Provider Source Jul 21, 2021 02:00 PM ECHOCARDIOGRAM, TRANSTHORACIC, COMPLETE: RAMONA REAJENNIFER CORNELL [id number] -JUN 09 1 M [facility] Exm Date: JUL 21, 2021@14:00 Req Phys: SUDHA METCALF Pat Loc: OUTSIDE [facility] US- X (Req'g Loc) Img Loc: OUTSIDE WWW US Service: Unknown (Case [id number] COMPLETE) ECHOCARDIOGRAM, TRANSTHORACIC , CO(US Detailed) CPT:72806 Reason for Study: Non-VA Import Clinical History: Non-VA Import Report Status: Electronically Filed Date Report ed: Report: Impression: OUTSIDE STUDY IMPORTED VERIFIED BY: / *ELECTRONICALLY FILED* Encounter Notes: All associated encounter notes This section contains the clinical notes associated to the Encounter. Date/Time Encounter Note(s) Provider Source Jun 22, 2021 02:54 PM PRIMARY CARE NURSING NOTE: KIRA RESENDEZ [facility] LOCAL TITLE: [employer] SENIOR OFFICER NURSING NOTE (T) STANDARD TITLE: PRIMARY CARE NURSING NOTE DATE OF NOTE: JUN 22, 2021@14:54 ENTRY DATE: JUN 22, 2021@14:54:54 AUTHOR: KIRA RESENDEZ EXP COSIGNER: URGENCY: STATUS: COMPLETED Patient identification is confirmed by full name , date of and social security number prior to interview and examinati on. Hand washing is completed prior to interview and examination. Age:81 Height:68 in [172.7 cm] (12/16/2020 12:31) Weight:198.8 lb [90.4 kg] (06/22/2021 14:54) VITALS Temperature:97.4 F [36.3 C] (06/22/2021 14:54) BP:145/73 (06/22/2021 14:54) Pulse:53 (06/22/2021 14:54) Resp:18 (12/11/2019 11:25) SpO2:93% DATE: SEP 23,2021@14:54:45; [X]On room air [ ]On L/min. 02 BMI:30* PAIN (scale 0-10):6 (12/16/2020 12:31) Is this pain level tolerable? Pain Location: CC:sob, chest pain 1+ month. Allergies/ADR: CODEINE, OXYCODONE, PERCOCET Allergy list correct (if no, update)? MEDICATION RECONCILIATION Patient taking ASA? Medication information in the form of a was obtained from the and compared to the medications listed for the p atient in CPRS including: Active and Recently Outpatient Medicatio ns (excluding Supplies): Active Outpatient Medications Status 1) AMIODARONE HCL (PACERONE) 200MG TAB TAKE ONE TABLET ACTIVE BY MOUTH TWICE A DAY FOR HEART RHYTHM 2) AMITRIPTYLINE HCL 25MG TAB TAKE ONE TABLET BY MOUTH ACTIVE EVERY DAY 3) APIXABAN 5MG TAB TAKE [...] AFFEC NUNO AREAS IN GROIN DIRECTED. 9) TRIAMCINOLONE ACETONIDE 0.1% CREAM APPLY SPAR INGLY TO ACTIVE AFFECTED AREA TWICE A DAY NEEDED FOR SKIN RA SH ON ANTERIOR CHEST. APPLY DIRECTED. Pending Outpatient Medications Status 1) LOSARTAN POTASSIUM 25MG TAB TAKE ONE TABLET B Y MOUTH PENDING EVERY DAY Inactive Outpatient Medications Status 1) OMEPRAZOLE 20MG EC CAP TAKE ONE CAPSULE BY [facility] ONCE A DAY FOR STOMACH ACID, TAKE 15-30 MINUTES BEFO RE MEAL Active Non-VA Medications Status 1) Non-VA CYANOCOBALAMIN 500MCG TAB 500MCG BY [facility] ACTIVE DAILY 2) Non-VA MAGNESIUM OXIDE 420MG TAB 420MG BY [facility] DAILY ACTIVE 3) Non-VA MULTIVITAMINS W/ MIN. THERAPEUTIC TAB BY ACTIVE MOUTH EVERY MORNING 14 Total Medications No Active Remote Medications for this patient IDENTIFIED MEDICATION DISCREPANCIES INCLUDED AND PROVIDER NOTIFIED: None, the patient is only taking the medication s listed in CPRS as prescribed. defer to PCP Clinical Reminders Done Today Herpes Zoster (Shingles) Vaccine: Deferred due to a precaution: Other significant precaution Details: getting covid vaccine booster soon Influenza Immunization: Deferred due to a precaution: Other precaution: Comment: getting covid booster soon Pneumococcal PPSV23 (Pneumovax): Other precaution: Comment: getting booster soon Travel and Symptom Screen: The patient indicated that they and their close contacts have not traveled outside of the [place] in the past 21 day s. The patient reports the following symptoms: No symptoms present The patient is not immunocompromised. It is unknown if the patient has a history of M ulti Drug Resistant Organism (MDRO) within the last five years. The patient does not report having been exposed to measles, chickenpox, or zoster in last 30 days. /sonia/ KIRA RESENDEZ LPN Signed: 06/22/2021 14:57 Jun 22, 2021 02:26 PM PRIMARY CARE [facility]ARE PROVIDER NOTE STANDARD TITLE: PRIMARY CARE E & M NOTE DATE OF NOTE: JUN 22, 2021@14:26 ENTRY DATE: JUN 22, 2021@14:26:53 AUTHOR: DONITA DAILEY EXP COSIGNER: URGENCY: STATUS: COMPLETED SUBJECT: Review c/o sob & cp. JENNIFER THOMAS is a 81 year old MALE . Patient identification confirmed by the followin g items: Full Name, Date of , & SSN prior to intervi ew and examination. Hand washing is completed prior to interview and examination. Both [place] & [facility] adhered to Covid-19 recomm ended precautions & safety measures as per [place] policies & procedures. Protec tive face masks were worn throughtout this appointment. VITAL SIGNS: Blood Pressure: 159/78 (02/02/2021 16:14) Respiration: 18 (12/11/2019 11:25) Temperture: 96.6 F [35.9 C] (12/16/2020 12:31) Weight: 206.9 lb [94.0 kg] (12/16/2020 12:31) Pulse: 54 (12/16/2020 12:31) Pain Ratin (12/16/2020 12:31) ALLERGIES: CODEINE, OXYCODONE, PERCOCET Allergies reviewed with patient and/or guardian. Chief Complaint: Exertional SOB w/o chest pain. History of Present Illness: reports that for the past couple months Computerized Problem List is the source for the followin. Rash 2. AF- Atrial Fibrillation (SCT [id number]), Onset 3. Well male adult 4. Hematoma of thigh 5. Cerebral small vessel disease 6. Peripheral edema 7. History of colonoscopy, Onset 01/15/18 serrated adenoma X 1, repeat 3 years 12/2020March 2021 -- Crcs updated by Dr Loving. Repe at in 2.5yrs (due 2023) 8. Hyperlipidemia 9. Actinic keratosis 10. CVA - Cerebrovascular accident, Onset Mild expressive and receptive aphasia. Keep BP 130-140 sys- tolic, per Dr. Key neurologist at [facility]. D/C Plavix. Start ASA 325 mg daily, per Dr. Nacho icd. 11. Osteoarthritis (SNOMED CT 169462598) Right knee 12. Long-term current use of anticoagulant (SN ED CT 802132537) 10/2011 -- [facility] 13. Iatrogenic Pulmonary Embolism and Infarction 2007 PE POST L TKR HAD PAROXYSMAL A FIB DURING THIS EPISODE - 14. Diverticulosis (SNOMED CT 099036824), Onset 12/03/11 15. Polyp of colon (SNOMED CT 62252630), Onset 12/03/11 Review in 2016 for surveillance colonoscopy - d ue in 2020 16. Essential hypertension (SNOMED CT 81346484) 17. Benign prostatic hyperplasia (SNOMED CT 230104435) 18. Gastro-oesophageal reflux disease without oesophagitis (SNOMED CT 273624809) 12/05/2017 ~ EGD completed by Dr. Loving ~ Dx Gastritis, esophagitis, gastric polyps. Active and Recently Outpatient Medicatio ns (including Supplies): Active Outpatient Medications Status 1) AMIODARONE HCL (PACERONE) 200MG TAB TAKE ONE TABLET ACTIVE BY MOUTH TWICE A DAY FOR HEART RHYTHM 2) AMITRIPTYLINE HCL 25MG TAB TAKE ONE TABLET BY MOUTH ACTIVE EVERY DAY 3) APIXABAN 5MG TAB TAKE [...] AFFEC NUNO AREAS IN GROIN DIRECTED. 9) TRIAMCINOLONE ACETONIDE 0.1% CREAM APPLY SPAR INGLY TO ACTIVE AFFECTED AREA TWICE A DAY NEEDED FOR SKIN RA SH ON ANTERIOR CHEST. APPLY DIRECTED. Pending Outpatient Medications Status 1) LOSARTAN POTASSIUM 25MG TAB TAKE ONE TABLET B Y MOUTH PENDING EVERY DAY Inactive Outpatient Medications Status 1) OMEPRAZOLE 20MG EC CAP TAKE ONE CAPSULE BY [facility] ONCE A DAY FOR STOMACH ACID, TAKE 15-30 MINUTES BEFO RE MEAL Active Non-VA Medications Status 1) Non-VA CYANOCOBALAMIN 500MCG TAB 500MCG BY [facility] ACTIVE DAILY 2) Non-VA MAGNESIUM OXIDE 420MG TAB 420MG BY [facility] DAILY ACTIVE 3) Non-VA MULTIVITAMINS W/ MIN. THERAPEUTIC TAB BY ACTIVE MOUTH EVERY MORNING 14 Total Medications No Active Remote Medications for this patient Notes: Medication reconciliation was completed a t this visit. Health Maintenance: ROS: Constitutional: No fever, chills, sweats or kristine ght loss. HEENT: No changes in vision or hearing, no head aches. RECEPTIONIST SECRETARY: No chronic headaches, dizziness of faintin g spells. CVS: No chest pain, no orthopnea or leg edema Resp: SEE HPI. GI: No chronic diarrhea or constipation, colono scopy: see reminder : No frequency, urgency, hesitancy, dysuria, hematuria or incontinence. MUSK: No muscle pain, weakness, joint instabili ty, or swelling. Skin: Rash, bruising, itching, dryness, new or changing moles, lesions. Neuro: No loss of sensation, numbness, tremors or weakness. Psychiatric: No changes in mood, depression or anxiety. Reproductive: No reported concerns. Rectal: No reported concerns. OBJECTIVE: CURRENT VITAL: Temperature: 96.6 F [35.9 C] (12/16/2020 12:31) Respirations: 18 (12/11/2019 11:25) Pulse: 54 (12/16/2020 12:31) Blood Pressure: 159/78 (02/02/2021 16:14) Weight: 206.9 lb [94.0 kg] (12/16/2020 12:31) Height: 68 in [172.7 cm] (12/16/2020 12:31) BMI: BMI: 32 SAO2: 93% DATE: Nov@12:37:28 Pain: 6 (12/16/2020 12:31) GA - alert, oriented x3, well developed, in no d istress, mentally clear and cooperative HEENT - normal cephalic Eyes - no pallor or icterus, pupils equal and ro und, normal light reflex Nose - no perforated septum Mouth - no lesions Throat - clear pharynx Neck - thyroid normal, no adenopathy, carotids: full, no JVD Chest - clear to auscultation bilaterally, hiram l resp effort. Heart - regular rhythm, without murmur or gallop , no rub Abdomen- active bowel sounds, no organomegaly, n o masses, no tenderness Extremities - no edema or deformities, no muscle wasting RECEPTIONIST SECRETARY - cranial nerves II - XII intact, motor inta ct 5/5 in all 4 limbs. Gait - normal w/o assistive devices. Skin - no rash, petechiae, or moles Psych: Oriented to person, place, and time. Mood & affect normal. Recent and remote memory normal, judgment hiram l. Reproductive: Deferred. Rectal: Deferred. Labs: A1C: 5.4 (11/07/20 13:17) CBC:LAB CUMULATIVE SELECTED 1 Collection DT Spec WBC RBC HGB HCT MCV MCH MCHC 11/07/2020 13:17 BLOOD 8.3 4.66 14.8 43.9 94.2 31.8 H 33.7 07/12/2020 08:49 BLOOD 7.0 5.08 15.6 47.6 93.7 30.7 32.8 a 11/06/2019 09:20 BLOOD 7.1 5.10 15.0 48.3 94.7 29.4 31.1 L LAB CUMULATIVE SELECTED 2 Collection DT Spec PLT PLT.E RDW % NEUT % LYMPH % MONO 11/07/2020 13:17 BLOOD 147 L 12.3 74.0 14.2 L 9 .5 07/12/2020 08:49 BLOOD 179 13.0 67.1 19.0 10.6 a 11/06/2019 09:20 BLOOD 170 ADEQ. 13.5 66.0 15. 3 11.2 LAB CUMULATIVE SELECTED 3 Collection DT Spec % EOS % BASO 11/07/2020 13:17 BLOOD 1.3 0.5 07/12/2020 08:49 BLOOD 2.3 0.6 a 11/06/2019 09:20 BLOOD 1.8 0.7 UA:Collection DT Spec UrCOLOR UR. BLD GLU PROTEI N RBC/HPF WBC/HPF 11/07/2020 13:16 URINE Light-Yellow 1+ NEGATIVE NEGATIVE 4 H <1 CHEMISTRY: Sodium...........: 141 (11/07/20 13:17) Potassium........: 3.9 (11/07/20 13:17) Bun..............: 14 (11/07/20 13:17) Creatinine.......: 1.0 mg/dL (05/19/2021 09:11) Calcium..........: 9.0 (11/07/20 13:17) LIPIDS: Collection DT Spec CHOL AST TRIG HDL LDLcalc zCH L/HD NON-HDL a 11/07/2020 13:17 SERUM 130 25 134 47 83 b 07/12/2020 08:49 SERUM 146 25 104 55 2.7 L 91 c 11/06/2019 09:20 SERUM 140 33 78 54 2.6 L 86 PSA: <0.060 (11/07/20 13:17) TSH: 2.46 (11/07/20 13:17) VITAMIN B12: 363 (11/07/20 13:17) VITAMIN D: Collection DT Spec [id number] a 11/07/2020 13:17 SERUM 12.3 L All recent labs and radiology reports were revie wed with the patient, copy of all labs provided and all questions answered. Caesar franco demonstrated good understanding. Diagnosis: 1) SOB on exertion. 2) Vitamin D Deficiency. Plan of Care: 1) Referral for CXR. 2) Referral for Echocardiogram. 3) Referral for Chest CT scan. was advised during todays visit to ann-marie hernandez w/ current plan of care, except for stated changes above, which have been discussed w/ the the during today's appointment. Todays orders: Item Ordered START DATE STOP DATE ENTERED COMMUNITY CARE-CARDIAC JUN 22, 2021 JUN 22, 2021 @14:24 COMMUNITY CARE-CT SCAN JUN 22, 2021 JUN 22, 2021 @14:21:19 CT A/FEE BASED OUTSIDE JUN 22, 2021 JUN 22, 2021 @14:21:19 COMMUNITY CARE-RADIOLO JUN 22, 2021 JUN 22, 2021 @14:19:38 XRAY (RAD) A/FEE BASED JUN 22, 2021 JUN 22, 2021 @14:19:38 LOSARTAN TAB JUN 22, 2021@14:19 LISINOPRIL TAB NOV 22, 2020 JUN 22, 2021 NOV 21, 2020@11:16 I reviewed patient's plan of care with patient w ho verbalized understanding of recommendations and any/all changes as detail ed in plan above. I have reviewed all imported/copied information and it is up to date, accurate and relevant to today's visit. I reviewed medication list with patient, it is u p to date as of this appointment, a printed copy will be given to the patient/caregiver and the patient/caregiver understood my instructions. The above was discussed with the who sta danie understanding and agreement with current plan. Questions sought an d answered during this visit. Return To Clinic: and as needed. Time Spent: minutes was the total amount of time that was spent in counseling & coordination of 's care associated with today's visit. AVS (After Visit Summary): This AVS was entered & printed at the end of tod kirk's visit. Medication & Treatments & Referral Orders were reviewed for i ndication, dosing, duration, and adverse reactions/side effects with the Vete ran during today's visit. voiced understanding current plan of car e and is in agreement with today's plan. was involved with the deci karthikeyan making during this visit. Questions & Concerns were addressed and a nswered. /sonia/ DONITA DAILEY Nurse Practitioner Signed: 06/25/2021 11:35
--- OUTSIDE RECORDS SUMMARY | 2022-05-19 15:50 | External Medical Summary | Encounter Summary ---
:1940 Author Organization [facility] rs Address [address] [place] [id number] Support Name Relationship Address Phone NICHOLE THOMAS Unavailable [id number] [phone] [place] [address] NICHOLE THOMAS Unavailable [address] [address] [phone] [place] [address] CUCA CHAU Unavailable [address] [place] [address] CUCA CHAU Unavailable [address] [place] [address] Insurance Providers: All historical and current Section [...] MEDICARE MEDICARE PART May 31, PART A [id number] Jeremias THOMAS PATIENT (WNR) (M) A 2005 78A [id number] ORTUNATE MEDICARE MEDICARE PART May 31, PART A [id number] DIEUDONNEOJeremias PATIENT (WNR) (M) A 2005 78A [id number] Selected Encounter This section includes the information on record at [place] for the Encounter. Date/Time Encounter Type Encounter Description Reason Provider Source May 22, 2021 10:37 Outpatient Encounter PRIMARY CARE/MEDICINE AM I[facility] Encounter Template Text not used by [place] Plan of Treatment: Future Appointments (+ 6 [...] 20 appointments. The data comes from all [facility]. Appointment Date/Time Appointment Type Appointment Facili ty Name May 31, 2021 02:00 PM AMBULATORY - MEDICINE [facility] Jun 02, 2021 01:00 PM AMBULATORY - MEDICINE [facility] Jun 22, 2021 01:30 PM AMBULATORY MEDICINE [facility] Jul 18, 2021 01:30 PM AMBULATORY [facility] Jul 21, 2021 01:45 PM AMBULATORY - NONE [facility] Jul 21, 2021 02:00 PM AMBULATORY - NONE [facility] Jul 21, 2021 02:30 PM AMBULATORY - NONE [facility] Aug 02, 2021 12:30 PM AMBULATORY - MEDICINE [facility] Sep 05, 2021 11:30 AM AMBULATORY - MEDICINE [facility] Sep 26, 2021 02:00 PM AM[facility]ULATORY - [facility] Nov 09, 2021 03:00 PM AMBULATORY - NONE [facility] Nov 17, 2021 03:00 PM [facility] Active, Pending, and Scheduled Orders This section includes a listing of several types of active, pending, and scheduled orders, including clinic medications orders, diagnostic test orders, procedure orders and consult orders; where the start date of the order is 45 days before the date of the Encounter or 45 days after the date of the Encounter. The data comes from all [facility]. Test Date/Time Test Type Test Details Facility Name Jun 22, 2021 02:25 PM Consult Order COMMUNITY CARE-CT SCAN Con s [facility] Lab Results: +/- 30 days of the encounter This section includes the Chemistry and Hematology Lab Results on record with [place] for the patient. Radiology Reports and Pathology Reports are provided separately, in subsequent sections.Lab Results This section contains the Chemistry/Hematology Results that were resulted 30 days before or 30 daysafter the date of the Encounter. Date/Time Source Result Type Result - Unit Interpretation Reference Range Comment May 19, 2021 [facility] CREATININE (INCLUDES Spe cimen Type: SERUM 09:11 AM [facility] EGFR) Comment: For eG FR: Race unknown, if multiply result by 1.210 For eGFR CKD-EPI: Race listed as 'Declined to answer'. If multiply by 1.159. Ordering Provid er: SYMONE TREVIÑO Report Released Date/Time: May 15, 2021 08:28 AM Reporting Lab: [facility] [address] [place] [address] Performing Lab: [facility] [address] [address] CREATININE, SERUM 1.0 .7-1.2 GFR ESTIMATION 72.1 >60 GFR ESTIMATION (CKD-EPI) 71 L >90 Encounter Notes: All associated encounter notes This section contains the clinical notes associated to the Encounter. Date/Time Encounter Note(s) Provider Source May 22, 2021 10:37 AM NURSING NOTE: DONITA DAILEY [facility] LOCAL TITLE: NURSING NOTE STANDARD TITLE: NURSING NOTE DATE OF NOTE: MAY 22, 2021@10:37 ENTRY DATE: MAY 22, 2021@10:38:03 AUTHOR: DONITA DAILEY EXP COSIGNER: URGENCY: STATUS: COMPLETED Clinical Reminders Done Today Colonoscopy GAP Reminder: Recommendations are needed in the clinical jed nder system following the patient's most recent colorectal cancer screeni ng/surveillance test (Colonoscopy, Sigmoidoscopy or CT Colonography) Colonoscopy reminder set 2.5 years from MAY 22, 2021. Comments (optional): Due March [address] Tanvir martinez /sonia/ DONITA DAILEY Nurse Practitioner Signed: 05/25/2021 18:41
--- OUTSIDE RECORDS SUMMARY | 2022-05-19 15:50 | External Medical Summary | Encounter Summary ---
:1940 Author Organization [facility] rs Address [address] [place] [address] Support Name Relationship Address Phone NICHOLE THOMAS Unavailable [phone] [phone] [place] [address] NICHOLE THOMAS Unavailable [address] [phone] [place] [address] CUCA CHAU Unavailable [address] [place] [address] CUCA CHAU Unavailable [address] [place] [address] Insurance Providers: All historical and current Section [...] MEDICARE MEDICARE PART May 31, PART A [id number] KHAIICIOJeremias PATIENT (WNR) (M) A 2005 78A 8431 ORTUNATE MEDICARE MEDICARE PART May 31, PART A [id number] DECICIOF PATIENT (WNR) (M) A 2005 [id number] [id number] Selected Encounter This section includes the information on record at [place] for the Encounter. Date/Time Encounter Type Encounter Description Reason Provider Source Jul 02, 2021 12:00 Outpatient Encounter EVENT (HISTORICAL) AM IHE Encounter Template Text not used by [place] Plan of Treatment: Future Appointments (+ 6 [...] 20 appointments. The data comes from all [facility]. Appointment Date/Time Appointment Type Appointment Facili ty Name Jul 18, 2021 01:30 PM AMBULATORY - MEDICINE [facility] IC Jul 21, 2021 01:45 PM AMBULATORY - NONE [facility] Jul 21, 2021 02:00 PM AMBULATORY - NONE [facility] Jul 21, 2021 02:30 PM AMBULATORY - NONE [facility] Aug 02, 2021 12:30 PM AMBULATORY - MEDICINE [facility] IC Sep 05, 2021 11:30 AM AMBULATORY - MEDICINE [facility] Sep 26, 2021 02:00 PM AMBULATORY - MEDICINE [facility] IC Nov 09, 2021 03:00 PM AMBULATORY - NONE [facility] Nov 17, 2021 03:00 PM AMBULATORY - MEDICINE [facility] Dec 13, 2021 01:15 PM AMBULATORY - MEDICINE [facility] IC Dec 18, 2021 01:00 PM AMBULATORY - MEDICINE [facility] Dec 29, 2021 01:15 PM AMBULATORY - NONE [facility] Active, Pending, and Scheduled Orders This section includes a listing of several types of active, pending, and scheduled orders, including clinic medications orders, diagnostic test orders, procedure orders and consult orders; where the start date of the order is 45 days before the date of the Encounter or 45 days after the date of the Encounter. The data comes from all [facility]. Test Date/Time Test Type Test Details Facility Name Jun 22, 2021 02:25 PM Consult Order COMMUNITY CARE-CT SCAN Con s [facility] Aug 15, 2021 08:01 AM Consult Order COMMUNITY [facility]-PULMONOLOGY [facility] Cons [facility] Immunizations: All administered on the encounter date This section contains immunizations associated to the Encounter. Immunization Series Date Issued Reaction Comments COVID-19 (PFIZER), MRNA, LNP-S, PF, 30 MCG/0.3 3 Jul 02, 2021 ML DOSE Radiology Reports: +/- 30 days of the [...] the Encounter. The data comes from all [place] treatment facilities. Date/Time Radiology Report Provider Source Jul 21, 2021 02:00 PM ECHOCARDIOGRAM, TRANSTHORACIC, COMPLETE: RAMONA KABA JENNIFER THOMAS [id number] -[id number] [id number] 1 M [facility] Exm Date: JUL 21, 2021@14:00 Req Phys: SUDHA METCALF Loc: OUTSIDE US- X (Req'g Loc) Img Loc: OUTSIDE [facility] US Service: Unknown (Case 55 COMPLETE) ECHOCARDIOGRAM, TRANSTHORACIC , CO(US Detailed) CPT:33973 Reason for Study: Non-VA Import Clinical History: Non-VA Import Report Status: Electronically Filed Date Report ed: Report: Impression: OUTSIDE STUDY IMPORTED VERIFIED BY: / *ELECTRONICALLY FILED*
--- OUTSIDE RECORDS SUMMARY | 2022-05-19 15:50 | External Medical Summary | Encounter Summary ---
:1940 Author Organization [facility] rs Address [address] [place] [address] Support Name Relationship Address Phone NICHOLE THOMAS Unavailable [address] [place] [address] NICHOLE THOMAS Unavailable [address] [place] [address] CUCA CHAU Unavailable [address] [place] [address] CUCA CHAU Unavailable [address] [place] [address] Insurance Providers: All historical and current Section [...] MEDICARE MEDICARE PART May 31, PART A [id number] Jeremias THOMAS PATIENT (WNR) (M) A 2005 78A 8431 ORTUNATE MEDICARE MEDICARE PART May 31, PART A [id number] DECICIOF PATIENT (WNR) (M) A 2005 [id number] [id number] Selected Encounter This section includes the information on record at [place] for the Encounter. Date/Time Encounter Type Encounter Description Reason Provider Source May 31, 2021 02:00 Outpatient Encounter PRIMARY CARE/MEDICINE PM IHE Encounter Template Text not used by [place] Plan of Treatment: Future Appointments (+ 6 [...] 20 appointments. The data comes from all [place] treatment [facility]. Appointment Date/Time Appointment Type Appointment Facili ty Name Jun 02, 2021 01:00 PM AMBULATORY - MEDICINE [facility] Jun 22, 2021 01:30 PM AMBULATORY - MEDICINE [facility] Jul 18, 2021 01:30 PM AMBULATORY - MEDICINE [facility] Jul 21, 2021 01:45 PM AMBULATORY - NONE [facility] Jul 21, 2021 02:00 PM AMBULATORY - NONE [facility] Jul 21, 2021 02:30 PM AMBULATORY - NONE [facility] Aug 02, 2021 12:30 PM AMBULATORY - MEDICINE [facility] Sep 05, 2021 11:30 AM AMBULATORY - MEDICINE [facility] Sep 26, 2021 02:00 PM AMBULATORY - MEDICINE [facility] Nov 09, 2021 03:00 PM AMBULATORY - NONE [facility] Nov 17, 2021 03:00 PM AMBULATORY - MEDICINE [facility] Active, Pending, and Scheduled Orders This section includes a listing of several types of active, pending, and scheduled orders, including clinic medications orders, diagnostic test orders, procedure orders and consult orders; where the start date of the order is 45 days before the date of the Encounter or 45 days after the date of the Encounter. The data comes from all [facility]. Test Date/Time Test Type Test Details Facility Name Jun 22, 2021 02:25 PM Consult Order COMMUNITY CARE-CT SCAN Con s [facility] [employer] [facility] Lab Results: +/- 30 days of the encounter This section includes the Chemistry and Hematology Lab Results on record with [place] for the patient. Radiology Reports and Pathology Reports are provided separately, in subsequent sections.Lab Results This section contains the Chemistry/Hematology Results that were resulted 30 days before or 30 daysafter the date of the Encounter. Date/Time Source Result Type Result - Unit Interpretation Reference Range Comment May 19, 2021 RAMONA REAIGHT CREATININE (INCLUDES Spe cimen Type: SERUM 09:11 AM [facility] EGFR) Comment: For eG FR: Race unknown, if multiply result by 1.210 For eGFR CKD-EPI: Race listed as 'Declined to answer'. If multiply by 1.159. Ordering Provid er: SYMONE TREVIÑO Report Released Date/Time: May 15, 2021 08:28 AM Reporting Lab: [place] [address] [place] [address] Performing Lab: [facility] REA[address] [place] [address] CREATININE, SERUM 1.0 .7-1.2 GFR ESTIMATION 72.1 >60 GFR ESTIMATION (CKD-EPI) 71 L >90 Encounter Notes: All associated encounter notes This section contains the clinical notes associated to the Encounter. Date/Time Encounter Note(s) Provider Source May 31, 2021 02:46 PM NO SHOW NOTE: DONITA DAILEY [facility] Srini [facility] LOCAL TITLE: NO SHOW NOTE STANDARD TITLE: NO SHOW NOTE DATE OF NOTE: MAY 31, 2021@14:46 ENTRY DATE: MAY 31, 2021@14:46:19 AUTHOR: DONITA DAILEY EXP COSIGNER: URGENCY: STATUS: COMPLETED SUBJECT: No showed f2f appt. PROVIDER VISIT -- NO SHOW NOTE FORTUNATE DECICIO 80 year old MALE. Patient identification is confirmed by full name , date of and the last four of their social security number was verifie d prior to interview & discussion at the start of today's appointment. APPOINTMENT TYPE: Office visit REASON FOR TODAY'S VISIT: Pain & SOB x 2 months. NO ANSWER: This scheduled visit resulted in a No Answer/No Show, see below for reason(s). /sonia/ DONITA DAILEY Nurse Practitioner Signed: 05/31/2021 14:47 Receipt Acknowledged By: * AWAITING SIGNATURE * NICK SCHMIDT * AWAITING SIGNATURE * KIRA RESENDEZ * AWAITING SIGNATURE * MITA MURRELL
--- OUTSIDE RECORDS SUMMARY | 2022-05-19 15:51 | External Medical Summary | Encounter Summary ---
:1940 Author Organization [facility] rs Address [address] [place] [address] Support Name Relationship Address Phone NICHOLE THOMAS Unavailable [address] [address] [phone] [place] [address] NICHOLE THOMAS Unavailable [address] [address] [phone] [place] [address] CUCA CHAU Unavailable [address] [place] [address] CUCA CHAU Unavailable [address] [place] [address] Insurance Providers: All historical and current Section [...] MEDICARE MEDICARE PART May 31, PART A [id number] DECICIO,F PATIENT (WNR) (M) A 2005 78A [id number] ORTUNATE MEDICARE MEDICARE PART May 31, PART A [id number] DECICIO,F PATIENT (WNR) (M) A 2005 [id number] [id number] Selected Encounter This section includes the information on record at [place] for the Encounter. Date/Time Encounter Type Encounter Reason Provider Source Description May 19, 2021 [facility] ICD-10-CM Z51.81 Srini TREVIÑO 03:31 PM ASSMT&MGMT 5-10 Encounter for N therapeutic drug level monitoring with Provider Comments: Encounter for Therapeutic Drug Level Monitoring IHE Encounter Template Text not used by [place] Assessments - Encounter Diagnoses This section includes the primary and secondary diagnoses documented for the Encounter. Date/Time Primary/Secondary Diagnosis Name Provider Source Diagnosis May 19, 2021 PRIMARY Encounter for JACKELYN TREVIÑO. 03:33 PM therapeutic drug Y N [facility] level monitoring May 19, 2021 SECONDARY half-way (current) JACKELYN TREVIÑO 03:33 PM use of Y N [facility] anticoagulants May 19, 2021 SECONDARY Unspecified atrial JACKELYN TREVIÑO 03:33 PM fibrillation Y N [facility] Plan of Treatment: Future Appointments (+ 6 months) and Future Tests (+/- 45 days) The Plan of Treatment section includes future care activities for the patient from all [place] treatmentfacilities. This section includes future appointments and future orders which are active, pending orscheduled.Future Appointments This section includes appointments that were scheduled to occur 6 months from the date of the Encounter, up to a maximum of 20 appointments. The data comes from all [place] treatment facilities. Appointment Date/Time Appointment Type Appointment Facili ty Name May 31, 2021 02:00 PM AMBULATORY - MEDICINE [facility] Jun 02, 2021 01:00 PM AMBULATORY - MEDICINE [facility] Jun 22, 2021 01:30 PM AMBULATORY - MEDICINE [facility] Jul 18, 2021 01:30 PM AMBULATORY - MEDICINE [facility] Jul 21, 2021 01:45 PM AMBULATORY - NONE [facility] Jul 21, 2021 02:00 PM AMBULATORY - NONE [facility] Jul 21, 2021 02:30 PM AMBULATORY - NONE [facility] Aug 02, 2021 12:30 PM AMBULATORY - MEDICINE [facility] Sep 05, 2021 11:30 AM AMBULATORY - MEDICINE [facility] Sep 26, 2021 02:00 PM AMBULATORY - MEDICINE [facility] Nov 09, 2021 03:00 PM AMBULATORY - NONE [facility] Nov 17, 2021 03:00 PM AMBULATORY [...] the Encounter. The data comes from all [place] treatment facilities. Test Date/Time Test Type Test Details Facility Name Jun 22, 2021 02:25 PM Consult Order COMMUNITY CARE-CT SCAN Con [facility] [employer] [facility] Lab Results: +/- 30 days of the encounter This section includes the Chemistry and Hematology Lab Results on record with [place] for the patient. Radiology Reports and Pathology Reports are provided separately, in subsequent sections.Lab Results This section contains the Chemistry/Hematology Results that were resulted 30 days before or 30 daysafter the date of the Encounter. Date/Time Source Result Type Result - Unit Interpretation Reference Range Comment May 19, 2021 RAMONA KABA CREATININE (INCLUDES Spe cimen Type: SERUM 09:11 AM [facility] EGFR) Comment: For eG FR: Race unknown, if multiply result by 1.210 For eGFR CKD-EPI: Race listed as 'Declined to answer'. If multiply by 1.159. Ordering Provid er: SYMONE TREVIÑO Report Released Date/Time: May 15, 2021 08:28 AM Reporting Lab: RAMONA KABA [address] [place] [address] Performing Lab: [facility] KABA [address] [address] CREATININE, SERUM 1.0 .7-1.2 GFR ESTIMATION 72.1 >60 GFR ESTIMATION (CKD-EPI) 71 L >90 Encounter Notes: All associated encounter notes This section contains the clinical notes associated to the Encounter. Date/Time Encounter Note(s) Provider Source May 19, 2021 03:31 PM PHARMACY LETTERS: SYMONE TREVIÑO LOCAL TITLE: ANTICOAGULATION LETTER [facility] STANDARD TITLE: PHARMACY LETTERS DATE OF NOTE: MAY 19, 2021@15:31 ENTRY DATE: MAY 19, 2021@15:31:26 AUTHOR: SYMONE TREVIÑO EXP COSIGNER: URGENCY: STATUS: COMPLETED Ramona [address] [place] [address] FORTUNATE DECICIO [address] [address] [address] Dear JENNIFER THOMAS, The results of your recent lab work for the pur pose of monitoring your anticoagulant are as follows: CREATININE: 1.0 mg/dL (05/19/2021 09:11) Your creatinine, a measure of kidney function, is stable. Please continue to take APIXABAN (ELIQUIS) 5 MG EVERY 12 HOURS FOR STROKE PREVENTION. If you have any questions regarding your antico agulant therapy or need assistance with refilling your blood thinner pr escription, please contact us at the following: [facility] ([facility]) [address] [place] [address] Clinic Hours: Saturday through Saturday: 8 am - 4 p m Sincerely, Symone Treviño PharmD Anticoagulation Clinical Nightclub Manager Call 911 for UNCONTROLLABLE bleeding, head injur y or fall. Call 911 for any signs of a stroke (weakness on one side of your body, facial droop, slurred speech). Report signs of [facility] a [facility] Nurse at and press option 1 for primary care. Chart review time: 5 minutes Clinical Reminders Done Today PBM PharmD Pharmacotherapy Rem V8: ASSESSMENT AND PLAN: ANTICOAGULATION THERAPY DIRECT ORAL ANTICOAGULANT (DOAC) MANAGEMENT Medication monitoring, no dosage change require d, continue to monitor and assess /sonia/ SYMONE TREVIÑO ANTICOAGULATION CLINICAL PHARMACIST PROVIDER Signed: 05/19/2021 15:33 Receipt Acknowledged By: 05/19/2021 15:35 /sonia/ DONITA KERR Clinical sleeve sewer Anticoagulation
--- OUTSIDE RECORDS SUMMARY | 2022-05-19 15:53 | External Medical Summary | Encounter Summary ---
:1940 Author Organization [facility] rs Address [address] [place] [id number] Support Name Relationship Address Phone NICHOLE THOMAS Unavailable [address] [place] [address] NICHOLE THOMAS Unavailable [address] [place] [address] CUCA CHAU Unavailable [address] [place] [address] CUCA CHAU Unavailable [address] [place] [address] Insurance Providers: All historical and current Section [...] MEDICARE MEDICARE PART May 31, PART A [id number] Jeremias THOMAS PATIENT (WNR) (M) A 2005 78A [id number] ORTUNATE MEDICARE MEDICARE PART May 31, PART A [id number] KHAIICIOF PATIENT (WNR) (M) A 2005 [id number] [id number] Selected Encounter This section includes the information on record at [place] for the Encounter. Date/Time Encounter Type Encounter Description Reason Provider Source Aug 09, 2021 01:31 Outpatient Encounter COMMUNITY CARE PM CONSULT IHE Encounter Template Text not used by [place] Plan of Treatment: Future Appointments (+ 6 [...] 20 appointments. The data comes from all [facility] Appointment Date/Time Appointment Type Appointment Facili ty Name Sep 05, 2021 11:30 AM AMBULATORY - MEDICINE [facility] Sep 26, 2021 02:00 PM AMBULATORY - MEDICINE [facility] Nov 09, 2021 03:00 PM AMBULATORY - NONE [facility] Nov 17, 2021 03:00 PM AMBULATORY - MEDICINE [facility] Dec 13, 2021 01:15 PM AMBULATORY - MEDICINE [facility] Dec 18, 2021 01:00 PM AMBULATORY - MEDICINE [facility] Dec 29, 2021 01:15 PM AMBULATORY - NONE [facility] RE[facility] February 06, 2022 02:00 PM AMBULATORY - NONE [facility] RE[facility] Active, Pending, and Scheduled Orders This section includes a listing of several types of active, pending, and scheduled orders, including clinic medications orders, diagnostic test orders, procedure orders and consult orders; where the start date of the order is 45 days before the date of the Encounter or 45 days after the date of the Encounter. The data comes from all [facility]. Test Date/Time Test Type Test Details Facility Name Aug 15, 2021 08:01 AM Consult Order COMMUNITY CARE-PULMONOLOGY [facility] Cons [facility] Radiology Reports: +/- 30 days of [...] the Encounter. The data comes from all [facility]. Date/Time Radiology Report Provider Source Jul 21, 2021 02:00 PM ECHOCARDIOGRAM, TRANSTHORACIC, COMPLETE: JENNIFER MULLEN [id number] -JUN 09 [id number] 1 M [facility] Exm Date: JUL 21, 2021@14:00 Req Phys: SUDHA METCALF Loc: OUTSIDE [facility] US- X (Req'g Loc) Img Loc: OUTSIDE [facility] US Service: Unknown (Case 55 COMPLETE) ECHOCARDIOGRAM, TRANSTHORACIC , CO(US Detailed) CPT:48326 Reason for Study: Non-VA Import Clinical History: Non-VA Import Report Status: Electronically Filed Date Report ed: Report: Impression: OUTSIDE STUDY IMPORTED VERIFIED BY: / *ELECTRONICALLY FILED* Encounter Notes: All associated encounter notes This section contains the clinical notes associated to the Encounter. Date/Time Encounter Note(s) Provider Source Jul 05, 2021 01:31 PM NONVA CONSULT: CUCA POLLARD LOCAL TITLE: COMMUNITY CARE-CONSULT RESULT NOTE [facility] STANDARD TITLE: NONVA CONSULT DATE OF NOTE: JUL 05, 2021@13:31 ENTRY DATE: AUG 09, 2021@13:32 AUTHOR: CUCA POLLARD EXP COSIGNER: URGENCY: STATUS: COMPLETED The following Non VA Care consult has be en completed. See scanned document for report. NON VA Care Consult Results Rehabilitation Comment: PT DC F/LOW BACK /es/ CUCA POLLARD HIM DIRECTOR OF CAPITAL GIVING Signed: 08/09/2021 13:33
--- OUTSIDE RECORDS SUMMARY | 2022-05-19 15:53 | External Medical Summary | Encounter Summary ---
:1940 Author Organization [facility] rs Address [address] [place] [address] Support Name Relationship Address Phone NICHOLE THOMAS Unavailable [address] [place] [address] NICHOLE THOMAS Unavailable [address] [place] [address] CUCA CHAU Unavailable [address] [place] [address] CUCA CHAU Unavailable [address] [place] [address] Insurance Providers: All historical and current Section [...] MEDICARE MEDICARE PART May 31, PART A [id number] Jeremias THOMAS PATIENT (WNR) (M) A 2005 78A [id number] ORTUNATE MEDICARE MEDICARE PART May 31, PART A [id number] KHAIICIOF PATIENT (WNR) (M) A 2005 [id number] [id number] Selected Encounter This section includes the information on record at [place] for the Encounter. Date/Time Encounter Type Encounter Description Reason Provider Source Dec 18, 2021 01:18 Outpatient Encounter COMMUNITY CARE PM CONSULT IHE [...] Date/Time Appointment Type Appointment Facili ty Name Dec 29, 2021 01:15 PM AMBULATORY [facility] NONE [facility] February 06, 2022 02:00 PM AMBULATORY - NONE RAMONA Zeyad [facility] Lab Results: +/- 30 days of the encounter This section includes the Chemistry and Hematology Lab Results on record with [place] for the patient. Radiology Reports and Pathology Reports are provided separately, in subsequent sections.Lab Results This section contains the Chemistry/Hematology Results that were resulted 30 days before or 30 daysafter the date of the Encounter. Date/Time Source Result Type Result - Unit Interpretation Reference Range Comment Dec 13, 2021 12:54 [facility] THYROID STIMULATING Speci men Type: SERUM PM HORMONE Comment: High d oses of Biotin supplements (>5 mg/day) may falsely increase Vitamin B-12, Vitamin D (25OH), Free T4, and Folate results. Test specimens should be collected at least 8 hrs after last i ngestion of high dose biotin. For eGFR CKD-EPI: Race listed as 'Declined to answer'. If multiply by 1.159. Ordering Provid er: DONITA DAILEY Report Released Date/Time: Nov 07, 2021 09:14 AM Reporting Lab: [facility] [address] [address] Performing Lab: RAMONA [address]ERRERA[address] [address] THYROID STIMULATING HORMONE 3.11 0. 300-4.25 Dec 13, 2021 12:[address] [facility] LIPID PANEL Specim en Type: SERUM Comment: High d oses of Biotin supplements (>5 mg/day) may falsely increase Vitamin B-12, Vitamin D (25OH), Free T4, and Folate results. Test specimens should be collected at least 8 hrs after last i ngestion of high dose biotin. For eGFR CKD-EPI: Race listed as 'Declined to answer'. If multiply by 1.159. Ordering Provid er: DONITA DAILEY Report Released Date/Time: Nov 07, 2021 09:14 AM Reporting Lab: [facility] [place] [address] [place] [address] Performing Lab: RAMONA Jeffers [place] [address] [place] [address] CHOLESTEROL 126 <199 TRIGLYCERIDE 102 <149 HDL CHOLESTEROL 46 >40 NON-HDL CHOLESTEROL 80 <130 LDL, DIRECT 68 0-129 Dec 13, 2021 12:54 [facility] VITAMIN D (25-HYDROXY) Sp ecimen Type: SERUM PM Comment: High d oses of Biotin supplements (>5 mg/day) may falsely increase Vitamin B-12, Vitamin D (25OH), Free T4, and Folate results. Test specimens should be collected at least 8 hrs after last i ngestion of high dose biotin. For eGFR CKD-EPI: Race listed as 'Declined to answer'. If multiply by 1.159. Ordering Provid er: DONITA DAILEY Report Released Date/Time: Nov 07, 2021 09:14 AM Reporting Lab: RAMONA [address]ONG[address] [place] [address] Performing Lab: RAMONA Jeffers [address] [place] [address] VITAMIN D (25-HYDROXY) 31.9 30.0-10 0 Dec 13, 2021 12:[address] [facility] HEMOGLOBIN A1C Specim en Type: BLOOD Comment: Target A1C values should be individualized. Better understanding of A1C test result accuracy is essential if clinicians are to interpret results for Veterans, and discuss treatment options thr ough the process of Shared Decision Making. For questions regarding the performance characteristics of this test, providers should contact the main laboratory. Patients should contact their healthcare provider. Ordering Provid er: DONITA DAILEY Report Released Date/Time: Nov 07, 2021 09:14 AM Reporting Lab: [facility] [place] [address] [place] [address] Performing Lab: RAMONA Jeffers [address] [address] HEMOGLOBIN A1C 5.8 H 0-5.6 Dec 13, 2021 12:[address] [facility] URINALYSIS (IRIS) Spec imen Type: URINE No comment enter ed. Ordering Provid er: DONITA DAILEY Report Released Date/Time: Nov 07, 2021 09:14 AM Reporting Lab: RAMONA Jeffers [address] [address] Performing Lab: RAMONA Jeffers [address] [address] URINE COLOR Yellow SPECIFIC GRAVITY 1.024 1.003-1.030 URINE BILIRUBIN NEGATIVE Neg URINE KETONES NEGATIVE Neg URINE GLUCOSE NEGATIVE Neg URINE PROTEIN NEGATIVE Neg URINE PH 6.5 5.0-8.0 URINE WBC/HPF <1 0-5 URINE MUCUS RARE URINE RBC/HPF 3 0-3 APPEARANCE CLEAR SQUAMOUS EPITHELIAL <1 0-4 URINE BLOOD NEGATIVE Neg NITRITE, URINE NEGATIVE Neg LEUKOCYTE ESTERASE, URINE NEGATIVE NEGA TIVE URINE UROBILINOGEN (IRIS) NORMAL <2 Dec 13, 2021 [facility] COMPREHENSIVE METABOLIC Spec imen Type: SERUM 12:54 PM PANEL Comment: High d oses of Biotin supplements (>5 mg/day) may falsely increase Vitamin B-12, Vitamin D (25OH), Free T4, and Folate results. Test specimens should be collected at least 8 hrs after last i ngestion of high dose biotin. For eGFR CKD-EPI: Race listed as 'Declined to answer'. If multiply by 1.159. Ordering Provid er: DONITA DAILEY Report Released Date/Time: Nov 07, 2021 09:14 AM Reporting Lab: RAMONA Jeffers [address] [place] [address] Performing Lab: RAMONA Jeffers [address] [place] [address] GLUCOSE 86 71-109 BUN/UREA (BLOOD UREA NITROGEN) 15 7-23 CREATININE, SERUM 0.9 .7-1.2 SODIUM 142 131-142 POTASSIUM 4.3 3.6-5.4 CHLORIDE 107 95-108 CARBON DIOXIDE 27 21-32 CALCIUM 9.3 8.4-10.5 TOTAL PROTEIN 6.6 5.8-7.9 ALBUMIN 4.2 3.8-5.2 GLOBULIN 2.4 1.5-3.2 AST/SGOT 27 14-44 ALT/SGPT 13 9-57 ALKALINE PHOSPHATASE 103 45-129 TOTAL BILIRUBIN 0.6 0.2-1.3 ANION GAP 12 7-21 GFR ESTIMATION (CKD-EPI) 80 L >90 Dec 13, 2021 12:54 [facility] CBC & MORPHOLOGY (WITH Sp ecimen Type: BLOOD PM DIFF) No comment enter ed. Ordering Provid er: DONITA DAILEY Report Released Date/Time: Nov 07, 2021 09:14 AM Reporting Lab: RAMONA KABA [address] [address] Performing Lab: RAMONA KABA [address] [address] WBC (TOTAL WBC COUNT) 10.1 3.0-10.6 RBC 4.74 3.86-5.70 HEMOGLOBIN 12.8 11.8-17.1 HCT 40.4 36-51 MCV 85.2 81-102 MCH 27.0 27-31 MCHC 31.7 L 32-36 PLT 233 150-400 RDW 16.4 H 11.2-16.2 NEUT % 71.6 44-74 LYMP % 13.9 L 15-42 MONO % 9.2 4-13 EOS % 4.2 0-7 BASO % 0.5 0-2 NEUTROPHILS, ABSOLUTE 7.2 H 1.2-7.0 LYMPHOCYTES, ABSOLUTE 1.4 0.6-3.4 MONOCYTES, ABSOLUTE 0.9 0.2-1.0 EOSINOPHILS, ABSOLUTE 0.4 0.0-0.5 BASOPHILS, ABSOLUTE 0.1 0.0-0.2 IMMATURE GRANULOCYTE % 0.6 0-0.9 IMMATURE GRANULOCYTES, ABSOLUTE 0.06 0-0.07 Encounter Notes: All associated encounter notes This section contains the clinical notes associated to the Encounter. Date/Time Encounter Note(s) Provider Source Dec 18, 2021 01:19 PM INFECTIOUS DISEASE RISK ASSESSMENT SCR EENING NOTE: SYMONE SCHROEDERIGHT LOCAL TITLE: SCREENING COVID [facility] STANDARD TITLE: INFECTIOUS DISEASE RISK ASSESSME NT SCREENING NOT DATE OF NOTE: DEC 18, 2021@13:19 ENTRY DATE: DEC 18, 2021@13:19:06 AUTHOR: SYMONE SCHROEDER EXP COSIGNER: URGENCY: STATUS: COMPLETED Coronavirus Disease 2019 (COVID-19) Screen The patient was asked if in the last 14 days the y have had new onset of any COVID-19 symptoms. They report the following: No symptoms Within the past 14 days, the patient reports no exposure to someone with a febrile/respiratory illness or someone with a kn own or suspected case of COVID-19 (within 6 feet for > 15 minutes). Result: Screen is negative. /sonia/ SYMONE SCHROEDER MSA Signed: 12/18/2021 13:19
--- OUTSIDE RECORDS SUMMARY | 2022-05-19 15:53 | External Medical Summary | Encounter Summary ---
:1940 Author Organization [facility] rs Address [address] [place] [id number] Support Name Relationship Address Phone NICHOLE THOMAS Unavailable [address] [place] [address] NICHOLE THOMAS Unavailable [address] [place] [address] CUCA CHAU Unavailable [address] [place] [address] CUCA CHAU Unavailable [address] [place] [address] Insurance Providers: All historical and current Section [...] MEDICARE MEDICARE PART May 31, PART A [id number] Jeremias THOMAS PATIENT (WNR) (M) A 2005 [id number] [id number] ORTUNATE MEDICARE MEDICARE PART May 31, PART A [id number] KHAIICIOF PATIENT (WNR) (M) A 2005 [id number] [id number] Selected Encounter This section includes the information on record at [place] for the Encounter. Date/Time Encounter Type Encounter Description Reason Provider Source Nov 10, 2021 09:26 Outpatient Encounter COMMUNITY CARE AM CONSULT IHE Encounter Template Text not used [...] 20 appointments. The data comes from all [facility]. Appointment Date/Time Appointment Type Appointment Facili ty Name Nov 17, 2021 03:00 PM [facility] Dec 13, 2021 01:15 PM [facility] Dec 18, 2021 01:00 PM [facility] Dec 29, 2021 01:15 PM AMBULATORY - NONE RAMONA REA [facility] February 06, 2022 02:00 PM AMBULATORY - NONE RAMONA REA [facility] Active, Pending, and Scheduled Orders This section includes a listing of several types of active, pending, and scheduled orders, including clinic medications orders, diagnostic test orders, procedure orders and consult orders; where the start date of the order is 45 days before the date of the Encounter or 45 days after the date of the Encounter. The data comes from all [facility]. Test Date/Time Test Type Test Details Facility Name Sep 26, 2021 02:52 PM Consult Order [facility] [place] [facility] EMERGENCY DEPARTMENT-CARDIOLOGY GENERAL [facility] Maintenance Planner's Choice Oct 05, 2021 02:05 PM Consult Order [facility] RAMONA KABA [facility]-DERMATOLOGY [facility] Maintenance Planner's Choice Encounter Notes: All associated encounter notes This section contains the clinical notes associated to the Encounter. Date/Time Encounter Note(s) Provider Source Nov 10, 2021 09:27 AM ADMINISTRATIVE NOTE: NICK SCHMIDT LOCAL TITLE: ADMINISTRATIVE NOTE [facility] STANDARD TITLE: ADMINISTRATIVE NOTE DATE OF NOTE: NOV 10, 2021@09:27 ENTRY DATE: NOV 10, 2021@09:27:09 AUTHOR: NICK SCHMIDT EXP COSIGNER: URGENCY: STATUS: COMPLETED 3rd attempt to contact to schedule DEONTE P ACT TELE [employer] [facility] COORDINATOR rtc, no answer- left voice message. /sonia/ NICK SCHMIDT [employer]VANCED AUTOMATION TECHNICIAN Signed: 11/10/2021 09:27
--- OUTSIDE RECORDS SUMMARY | 2022-05-19 15:53 | External Medical Summary | Encounter Summary ---
:1940 Author Organization [facility] rs Address [address] [place] [id number] Support Name Relationship Address Phone NICHOLE THOMAS Unavailable [id number] [place] [address] NICHOLE THOMAS Unavailable [phone] [place] [address] CUCA CHAU Unavailable [address] [place] [address] CUCA CHAU Unavailable [address] [place] [address] Insurance Providers: All historical and current Section [...] MEDICARE MEDICARE PART May 31, PART A [id number] KHAIICIOJeremias PATIENT (WNR) (M) A 2005 78A [id number] ORTUNATE MEDICARE MEDICARE PART May 31, PART A [id number] DECICIO,F PATIENT (WNR) (M) A 2005 78A [id number] Selected Encounter This section includes the information on record at PA for the Encounter. Date/Time Encounter Type Encounter Reason Provider Source Description Dec 18, 2021 OFFICE O/P EST PRIMARY ICD-10-CM DONITA DAILEY 01:00 PM LOW 20-29 MIN CARE/MEDICINE Z00.00 Encntr for general adult medical exam w/o abnormal findings with Provider Comments: Well male adult (SCT [id number]) IHE Encounter Template Text not used by PA Assessments - Encounter Diagnoses This section includes the primary and secondary diagnoses documented for the Encounter. 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 This section includes future appointments and future orders which are active, pending orscheduled.Future Appointments This section includes appointments that were scheduled to occur 6 months from the date of the Encounter, up to a maximum of 20 appointments. The data comes from all PA treatment facilities. Appointment Date/Time Appointment Type Appointment Facili ty Name Dec 29, 2021 01:15 PM AMBULATORY - NONE RAMONA REA [facility] February 06, 2022 02:00 PM AMBULATORY - NONE RAMONA JosieMathew REA [facility] Lab Results: +/- 30 days of the encounter This section includes the Chemistry and Hematology Lab Results on record with PA for the patient. Radiology Reports and Pathology Reports are provided separately, in subsequent sections.Lab Results This section contains the Chemistry/Hematology Results that were resulted 30 days before or 30 daysafter the date of the Encounter. Date/Time Source Result Type Result - Unit Interpretation Reference Range Comment Dec 13, 2021 12:54 [facility] VITAMIN D (25-HYDROXY) Sp ecimen Type: SERUM [...] 07, 2021 09:14 AM Reporting Lab: [facility] [place] [address] [place] [address] Performing Lab: RAMONA Jeffers [address] [place] [address] VITAMIN D (25-HYDROXY) 31.9 30.0-10 0 Dec 13, 2021 12:54 [facility] THYROID STIMULATING Speci men Type: SERUM PM [...] 07, 2021 09:14 AM Reporting Lab: RAMONA [address] [place] [address] Performing Lab: RAMONA Jeffers [address] [place] [address] THYROID STIMULATING HORMONE 3.11 0. 300-4.25 Dec 13, 2021 12:54 PM [facility] HEMOGLOBIN A1C Specim en Type: BLOOD Comment: [...] 2021 09:14 AM Reporting Lab: [facility] [place] [address] [place] [address] Performing Lab: RAMONA Jeffers [address] [place] [address] HEMOGLOBIN A1C 5.8 H 0-5.6 Dec 13, 2021 12:54 PM [facility] LIPID PANEL Specim en Type: SERUM Comment: [...] 07, 2021 09:14 AM Reporting Lab: RAMONA [address] [place] [address] Performing Lab: RAMONA Jeffers [address] [address] CHOLESTEROL 126 <199 TRIGLYCERIDE 102 <149 HDL CHOLESTEROL 46 >40 NON-HDL CHOLESTEROL 80 <130 LDL, DIRECT 68 0-129 Dec 13, 2021 12:54 PM [facility] URINALYSIS (IRIS) Spec imen Type: URINE No comment enter ed. Ordering Provid er: DONITA DAILEY Report Released Date/Time: Nov 07, 2021 09:14 AM Reporting Lab: RAMONA [address] [place] [address] Performing Lab: RAMONA Jeffers [address] [place] [address] URINE COLOR Yellow SPECIFIC GRAVITY 1.024 1.003-1.030 [...] UROBILINOGEN (IRIS) NORMAL <2 Dec 13, 2021 [facility] COMPREHENSIVE METABOLIC Spec imen Type: SERUM 12:54 [...] 2021 09:14 AM Reporting Lab: [facility] [place] [address] [place] [address] Performing Lab: [facility] [place] [address] [place] [address] GLUCOSE 86 71-109 BUN/UREA (BLOOD UREA NITROGEN) [...] 80 L >90 Dec 13, 2021 12:54 [facility] CBC & MORPHOLOGY (WITH Sp ecimen Type: BLOOD PM DIFF) No comment enter ed. Ordering Provid er: DONITA DAILEY Report Released Date/Time: Nov 07, 2021 09:14 AM Reporting Lab: [facility] [place] [address] [place] [address] Performing Lab: [facility] [place] [address] [place] [address] WBC (TOTAL WBC COUNT) 10.1 3.0-10.6 RBC [...] 0.6 0-0.9 IMMATURE GRANULOCYTES, ABSOLUTE 0.06 0-0.07 Vital Signs: All taken on the encounter date This section contains inpatient and outpatient Vital Signs collected on the date of the Encounter. Date/Time Temperature Pulse Blood Respiratory SP02 Pain Height Weight Adal dy Source Pressure Rate Mass Index Dec 18, 97.1 F 50 139/55 16 /min 95 % 0 196 lb 30 2021 12:56 /min mm[Hg] N [facility] Social History: Smoking Status (Most current) and Tobacco Use (All prior to encounter date) This section includes the most current, and the historical, smoking and tobacco-related health factors from the PA facility where the Encounter took place.Current Smoking Status This section includes the most current smoking, or tobacco-related health factor, from the PA facility where the Encounter took place. Date/Time Current Smoking Status Comment Facility Nov 17, 2021 03:00 PM VA-TOBACCO FORMER USER [facility] Tobacco Use History This section includes a history of the smoking, or tobacco- related health factors, that were collected on or before the date of the Encounter. The data comes from the PA facility where the Encounter took place. Date/Time Smoking Status/Tobacco Use Comment [facility] Nov 17, 2021 03:00 PM VA-TOBACCO QUIT 15 YRS OR MORE [facility] Dec 16, 2020 12:30 PM VA-TOBACCO FORMER USER [facility] Dec 16, 2020 12:30 PM VA-TOBACCO QUIT 15 YRS OR MORE [facility] Oct 30, 2019 09:41 AM VA-TOBACCO FORMER USER [facility] Oct 30, 2019 09:41 AM VA-TOBACCO QUIT 15 YRS OR MORE [facility] Oct 09, 2018 11:23 AM VA-TOBACCO FORMER USER [facility] Oct 09, 2018 11:23 AM VA-TOBACCO QUIT 15 YRS OR MORE [facility] Sep 12, 2017 09:25 AM QUIT TOBACCO >7 YEARS AGO [facility] Sep 12, 2017 09:25 AM TOBACCO SCREEN COMPLETED [facility] QUIT JUN 1973 Oct 29, 2011 09:59 AM QUIT TOBACCO >7 YEARS AGO [facility] Oct 29, 2011 09:[address] COM[address] [facility] Encounter Notes: All associated encounter notes This section contains the clinical notes associated to the Encounter. Date/Time Encounter Note(s) Provider Source Dec 18, 2021 01:35 PM ADMINISTRATIVE NOTE: [facility] LOCAL TITLE: AFTER VISIT SUMMARY STANDARD TITLE: ADMINISTRATIVE NOTE DATE OF NOTE: DEC 18, 2021@13:35:07 ENTRY DATE: DEC 18, 2021@13:35:07 AUTHOR: DONITA DAILEYER: URGENCY: STATUS: COMPLETED The patient was provided with a copy of an after -visit summary at the conclusion of the visit. The after-visit summary includes information per taining to the patient's encounter, including diagnoses, vital signs, med ications, and new orders, as well as a list of any any upcoming appointmen ts and information regarding the patient's ongoing care. The patient's medications were reviewed with the patient by the provider and were provided to the patient as an updated l ist of medications. The patient was instructed to inform the provider of any medication changes or discrepancies that were noted. Otherwise, the patient was instructed to continue the medications as prescribed. A copy of the after-visit summary provided to th e patient is available in [employer]. SCANNED DOCUMENT SIGNATURE NOT REQUIRED Electronically Filed: 12/18/2021 by: DONITA DAILEY Nurse Practitioner Dec 18, 2021 01:35 PM PRIMARY CARE E & M NOTE: DONITA DAILEY [facility] LOCAL TITLE: PRIMARY CARE PROVIDER NOTE STANDARD TITLE: PRIMARY CARE E & M NOTE DATE OF NOTE: DEC 18, 2021@13:35 ENTRY DATE: DEC 18, 2021@13:41:39 AUTHOR: ASIM,DONITA L EXP COSIGNER: URGENCY: STATUS: COMPLETED SUBJECT: Annual Wellness Visit. PRIMARY CARE PROVIDER (PCP VISIT) JENNIFER THOMAS is a 81 year old MALE . Patient identification confirmed by the followin g items: Full Name, Date of , & SSN prior to intervi ew and examination. Hand washing is completed prior to interview and examination. Both & VA Provider & Staff adhered to Covid-19 recomm ended precautions & safety measures as per VA policies & procedures. PPEs & social distancing were adhered to throughtout this medical encounter. Primary Healthcare Provider is DONITA DAILEY Appointment Type: Face to face was accompanied: Alone [place] History Provided By: Patient CHIEF COMPLAINT: Annual wellness visit. HISTORY OF PRESENT ILLNESS: [place]'s appt today is for annual wellness vis it w/ review & updates to medication list, diagnosis list & discussion/re view of recent lab results, if completed prior to today's appointm ent. reports that they have experienced no c hanges in their healthcare status since their last visit with me. Reports no changes in medications / treatments since their last visit. presents his BP log for the past couple of weeks. It is noted that his BP's are averaging 150/85, but in the clini c today he was 139/55. [place] got a new bp cuff a couple weeks ago th at the PA had given him, but he couldn't get it to work, so he's still b een using his old one and thinks maybe it is worn out. Advised to try the new one again and if unable to get working, then he's to bring it in for one of us to check it out. Has upcoming specialist appt scheduled in the n ext 2 months. One for the Budget Analyst & the other is for the Pulmonary S pecialist. Computerized Problem List is the source for the followin. Dyspnea 2. Dyspnea on exertion 3. Chest pain 4. Rash 5. AF- Atrial Fibrillation (SCT 19207691), Onset 6. Well male adult 7. Hematoma of thigh 8. Cerebral small vessel disease 9. Peripheral edema 10. History of colonoscopy, Onset 01/15/18 serrated adenoma X 1, repeat 3 years 12/2020March 2021 -- Crcs updated by Dr Loving. Repe at in 2.5yrs (due 2023) 11. Hyperlipidemia 12. Actinic keratosis 13. CVA - Cerebrovascular accident, Onset Mild expressive and receptive aphasia. Keep BP 130-140 sys-tolic, per Dr. Key neurologist at [facility]. D/C Plavix. Start ASA 325 mg daily, per Dr. Nacho cid. 14. Osteoarthritis (SNOMED CT 361174102) Right knee 15. Long-term current use of anticoagulant (SNOM EDCT 283839855) 10/2011 -- [facility] 16. Iatrogenic Pulmonary Embolism and Infarction 2007 PE POST L TKR HAD PAROXYSMAL A FIB DURING THIS EPISODE - 17. Diverticulosis (SNOMED CT 903622689), Onset0 12/03/11 18. Polyp of colon (SNOMED CT 42895637), Onset Review in 2016 for surveillance colonoscopy - d ue in 2020 19. Essential hypertension (SNOMED CT 94771378) 20. Benign prostatic hyperplasia (SNOMED [id number]) 21. Gastro-oesophageal reflux disease without oe sophagitis (SNOMED CT 590012662) 12/05/2017 ~ EGD completed by Dr. Loving ~ Dx Gastritis, esophagitis, gastric polyps. ALLERGIES: CODEINE, OXYCODONE, PERCOCET MEDICATION RECONCILIATION: Active and Recently Outpatient Medicatio ns (including Supplies): Active Outpatient Medications Status 1) AMIODARONE HCL (PACERONE) 200MG TAB TAKE ONE TABLET ACTIVE BY MOUTH TWICE A DAY FOR HEART RHYTHM 2) AMITRIPTYLINE HCL 25MG TAB TAKE ONE TABLET BY MOUTH ACTIVE EVERY DAY 3) APIXABAN 5MG TAB TAKE ONE TABLET BY MOUTH TWI CE A DAY ACTIVE FOR STROKE PREVENTION 4) ATORVASTATIN CALCIUM 20MG TAB TAKE ONE TABLET BY ACTIVE MOUTH AT BEDTIME FOR CHOLESTEROL LDL GOAL LESS THAN 70. 5) CETIRIZINE HCL 10MG TAB TAKE ONE TABLET BY MO UTH AT ACTIVE BEDTIME FOR ALLERGIES 6) DOXAZOSIN MESYLATE 4MG TAB TAKE ONE TABLET BY MOUTH ACTIVE EVERY DAY FOR BLOOD PRESSURE / PROSTATE 7) LOSARTAN POTASSIUM 50MG TAB TAKE ONE TABLET B Y MOUTH ACTIVE EVERY DAY INCREASED TO 50MG EVERY DAY ON 09.26.2021 -- MLZ. 8) METOPROLOL TARTRATE 50MG TAB TAKE ONE TABLET BY MOUTH ACTIVE TWICE A DAY FOR HEART/BLOOD PRESSURE Pending Outpatient Medications Status 1) ALBUTEROL 90MCG (CFC-F) 200D ORAL INHL INHALE 2 PUFFS PENDING BY MOUTH EVERY 6 HOURS NEEDED FOR BREATHING, WHEEZING, SHORTNESS OF BREATH *BRING THIS WITH YOU TO YOUR LUNG FFUNCTION TEST* Inactive Outpatient Medications Status 1) ALBUTEROL 90MCG (CFC-F) 200D ORAL INHL INHALE 2 PUFFS BY MOUTH EVERY 6 HOURS NEEDED FOR BREATHING, WHEEZING, SHORTNESS OF BREATH *BRING THIS WITH YOU TO YOUR LUNG FFUNCTION TEST* 2) FLUOROURACIL 5% CREAM APPLY A SUFFICIENT AMOU NT TO COVER THE LESIONS TO AFFECTED AREA TWICE A DAY FOR 2 WEEKS, WASH OFF AT BEDTIME AVOID YOUR EY ES 3) KETOCONAZOLE 2% CREAM APPLY SPARINGLY TO AFFE CTED AREA THREE TIMES A DAY NEEDED APPLY TO AFFEC NUNO AREAS IN GROIN DIRECTED. Active Non-VA Medications Status 1) Non-VA CYANOCOBALAMIN 500MCG TAB 500MCG BY MO [facility] ACTIVE DAILY 2) Non-VA MAGNESIUM OXIDE 420MG TAB 420MG BY JEANETTE TH DAILY ACTIVE 3) Non-VA MULTIVITAMINS W/ MIN. THERAPEUTIC TAB BY ACTIVE MOUTH EVERY MORNING 15 Total Medications Med reconciliation was completed at this visi t: YES Reminder(s) Reviewed & Updated: YES Clinical Reminders Done Today Fall Intervention Plan: Positive Fall Risk Screening evaluation complet ed. Reviewed recent history of fall(s) and/or fall risk for possible relationship to current medication(s) use, visi on changes/problems, gait & balance changes/problems, lower limb joints pro blems, neurological problems, or cardiovascular problems, relevant chronic conditions. Counseling has been provided to the patient/car egiver regarding fall risk and fall prevention education given. RECOMMENDED SCREENING(s): MALE SCREENING(s): Diabetes Screening(s): Fasting Blood Glucose: 86 (12/13/21 12:54) Hemoglobin A1c: 5.8 (12/13/21 12:54) [place]-Rectal Cancer Screening is up to date: N/A Date of last screening: Due Again, if needed: Dx, if available: Provider, if known: [ ] Dr Loving. [ ] Dr Almonte. [ ] Dr Alejandro. [ ] Other - Cohort: Reminder Term: [facility] GAP TRIGGERS Exam: Colonoscopy 01/15/2018 result - ABNORMAL Comments: serrated adenomatous polyp, repeat 3 years, 12/2020 [place]/Rectal Cancer Screening ([facility]) is no longe r recommended due to [place]'s age. This was communicated with the Mary Lou moore during today's visit and they have been advised on conservative junior toring. If s/sx were to arise they have been informed to Rtc for review & neris luation. COVID-19 Vaccination Has Been Received: Yes PREVIOUS IMMUNIZATIONS: Immunization Series Date Facility Reaction Info COVID-19 (Crocs), MRNA, LNP-S, P* 3 07/02/2021 [facility] 2 12/02/2020 [facility] 1 11/11/2020 [facility] FLU,3 YRS (HISTORICAL) 07/23/2012 [place] [facility]* INFLUENZA VACCINE (HISTORICAL) 06/30/2011 [facility]* INFLUENZA, HIGH-DOSE, QUADRIVALEN* 08/15/2020 No Site <C> INFLUENZA, SEASONAL, INJECTABLE,* 06/28/2017 [facility] TERRAZAS M* 06/29/2016 [facility] * <C> 07/20/2015 [facility] M* 07/14/2014 [place] [facility]* 07/28/2013 [place] [facility]* INFLUENZA, TRIVALENT, ADJUVANTED 07/15/2019 [facility] V* 07/23/2018 [place] V* PNEUMOCOCCAL CONJUGATE PCV 13 08/18/2015 [facility] N V* PNEUMOCOCCAL, UNSPECIFIED FORMULA* 11/11/2013 [facility] V* ZOSTER RECOMBINANT 1 11/17/2021 No Site REVIEW OF SYSTEMS (ROS): GENERAL/CONSTITUTION: Denies: Fever, unexplained weight loss, chills, swollen gland, fatigue, weakness, or trouble sleeping. EYES: Denies: Eye drainage, redness, pain, flashing lights, sp ecks or vision change HEENT: Denies: Hearing loss, tinnitus, ear drainage, or pain Nasal bleeding, congestion, sinus pressure or di scharge Mouth dryness, ulcers, toothache, or sore throat CARDIOVASCULAR: Denies: Chest pain, dyspnea, orthopnea, paroxysmal noctu rnal dyspnea, palpitations, edema. RESPIRATORY: Denies: shortness of breath, cough, hemoptysis, sputum p roduction, painful breathing or wheezing. GASTROINTESTINAL: Denies: Abdominal pain, nausea, vomiting, diarrhea, or c onstipation GENITOURINARY: Denies: Burning, frequency, hesitency, urgency, incontin ence, or blood in urine. MUSCULOSKELETAL: Denies: Stiffness, weakness, swollen/painful ilene nts, trauma, muscle aches or cramping. NEUROLOGICAL: C/O: [ ] Vertigo [ ] Recent Falls [X] Memory Changes [ ] Dizziness [ ] Numbness, Hands [ ] Tingling, Hands [ ] Numbness, Feet [ ] Tingling, Feet [ ] Acute Headaches [X] Chronic Headaches [ ] Paresthesias [ ] Seizures [ ] See HPI SKIN: Denies: Enlarged lymph nodes, rash, bruising, itching, n ew or changing moles, or lesions. ENDOCRINE: Denies: Temperature intolerance, polyuria, polydipsia, p olyphagia, excessive sweating, or changes in hair or nails HEMATOLOGIC: Denies: Bleeding, bruising, lymphadenopathy. PSYCHIATRIC: Denies: Depression, nervousness, stress, memory loss, SI /HI or mood swings REPRODUCTIVE: Denies: Changes in urinary stream, ED, penile lesions, m asses or discharge, testicular or scrotal tenderness or masses, stephania ia or STDs ALLERGIES/IMMUNOLOGIC: No Complaints OBJECTIVE: CURRENT VITAL SIGNS: Blood Pressure: 139/55 (12/18/2021 12:56) Respiration: 16 (12/18/2021 12:56) Temperture: 97.1 F [36.2 C] (12/18/2021 12:56) Height: 68 in [172.7 cm] (12/16/2020 12:31) Weight: 196 lb [88.90 kg] (12/18/2021 12:56) BMI: BMI: 30 SAO2: 95% DATE: Nov@12:58:33 Pulse: 50 (12/18/2021 12:56) Pain: 0 (12/18/2021 12:56) GENERAL: Alert & oriented x 3, Well-developed, well-nour ished, and in no acute distress. HEENT: PERRL, EOMI, scleral icterus, ptosis External ear and TMs clear. Nose and nasal mucosa normal. Pharynx without erythema, swelling, or exudate. Head is normalcephalic, atraumatic, symmetrical . NECK: Neck is symmetrical, trachea is midline, no lym phadenopathy, thyroid w/no palpable masses, neck is supple. CHEST: Clear to auscultation bilaterally. Normal respi ratory effort. HEART: Regular rate and rhythm. Normal S1 and S2. No m urmurs, gallops, thrills, or rubs. ABDOMEN: Bowel sounds normal. No masses or tenderness. EXTREMITIES: No edema, clubbing, cyanosis. Palpable pulses. MSKL: Full range of motion. No redness, swelling, ecch ymosis, warmth, or deformities. Non-tender. NEURO: Cranial nerves II-XII grossly intact. Strength equal and adequate bilaterally. Sensation to light touch intact. G ait normal. Deep tendon reflexes bilaterally symmetrical. VASCULAR: Pulses palable of BUE's Normal. Pulses palable of BLE's Normal. SKIN: No rashes or suspicious lesions, induration, pet echiae, or nodules. Normal turgor. Skin is warm to touch. PSYCH: Oriented to person, place, and time. Mood & aff ect normal. Recent and remote memory normal, judgment normal. REPRODUCTIVE: Not examined RECTAL: Not examined ALLERGIC/IMMUNOLOGIC: Normal LABS: *Lab/Radiology results related to today's visit were reviewed & discussed with [place] in detail, & their questions answe red. RESULTS: GLUCOSE: 86 (12/13/21 12:54) A1C: Collection DT Specimen Test Name Result Units Re f Range 12/13/2021 12:54 BLOOD HEMOGLOBIN A1C 5.8 H % 0 - 5.6 11/07/2020 13:17 BLOOD HEMOGLOBIN A1C 5.4 % 0 - 5.6 07/12/2020 08:49 BLOOD HEMOGLOBIN A1C 5.5 % 0 - 5.6 CBC: Collection DT Spec WBC RBC HGB HCT MCV MCH MCHC 12/13/2021 12:54 BLOOD 10.1 4.74 12.8 40.4 85.2 27.0 31.7 L 11/07/2020 13:17 BLOOD 8.3 4.66 14.8 43.9 94.2 31.8 H 33.7 07/12/2020 08:49 BLOOD 7.0 5.08 15.6 47.6 93.7 30.7 32.8 Collection DT Spec PLT RDW % NEUT % LYMPH % MONO % EOS % BASO 12/13/2021 12:54 BLOOD 233 16.4 H 71.6 13.9 L 9 .2 4.2 0.5 11/07/2020 13:17 BLOOD 147 L 12.3 74.0 14.2 L 9 .5 1.3 0.5 07/12/2020 08:49 BLOOD 179 13.0 67.1 19.0 10.6 2.3 0.6 CHEMISTRY: Sodium...........: 142 (12/13/21 12:54) Potassium........: 4.3 (12/13/21 12:54) Bun..............: 15 (12/13/21 12:54) Creatinine.......: 0.9 mg/dL (12/13/2021 12:54) Calcium..........: 9.3 (12/13/21 12:54) LIVER LABS: Collection DT Spec PROT,T ALB GLOB AST ALT ALP T GOLD a 12/13/2021 12:54 SERUM 6.6 4.2 2.4 27 13 103 0 .6 LIPIDS: Collection DT Spec CHOL TRIG HDL LDLcalc LDLdire a 12/13/2021 12:54 SERUM 126 102 46 68 b 11/07/2020 13:17 SERUM 130 134 47 70 c 07/12/2020 08:49 SERUM 146 104 55 86 d 11/06/2019 09:20 SERUM 140 78 54 75 e 02/18/2019 10:51 SERUM 129 124 48 56 f 10/17/2018 09:10 SERUM 150 103 48 81 g 09/10/2017 08:28 SERUM 147 110 45 80 PSA: <0.060 (11/07/20 13:17) TSH: 3.11 (12/13/21 12:54) UA:Collection DT Spec UrCOLOR UR. BLD GLU PROTEI N RBC/HPF WBC/HPF 12/13/2021 12:54 URINE Yellow NEGATIVE NEGATIVE NEGATIVE 3 <1 VITAMIN B12: 363 (11/07/20 13:17) VITAMIN D: Collection DT Spec [id number] a 12/13/2021 12:54 SERUM 31.9 DIAGNOSIS:: 1. Annual wellness visit. 2. HTN - needs improvement. 3. Dyspnea - stable, has upcoming appt w/ Speci alist. 4. Afib - continues, has upcoming heart special ist appt. 5. HLD - wnl, stable w/ statin. 6. FDC anticoagulant - stable. 7. GERD - stable. ACTIVE PROBLEM LIST: Active Problem Dyspnea R06.00 08/15/2021 DONITA DAILEY Dyspnea on exertion R06.02 06/25/2021 MILA DAILEY Chest pain R07.9 06/25/2021 DONITA DAILEY Rash R21. 12/16/2020 DONITA DAILEY AF- [facility] [id number] 12/29 ALEXIS KOENIG [facility]ARM D Well male adult Z00.00 11/22/2019 DONITA DAILEY Hematoma of thigh M79.89 02/04/2019 DONITA DAILYE Cerebral small vessel disease I67.8 01/09/2019 DONITA FIGUEROA Peripheral edema R60.9 04/15/2018 DONITA DAILEY History of colonoscopy R69., Onset 05/25/2021 DONITA SELBY Hyperlipidemia E78.2 03/05/2016 RAYMUNDOMONA MORA Actinic keratosis L57.0 03/05/2016 RAYMUNDOMONA MORA CVA - Cerebrovascular accident I69. 11/12/2018 DONITA FIGUEROA Osteoarthritis (SNOMED CT 186759853 12/28/2015 T EKLUMONA Long-term current use of anticoagul 10/24/2018 DONITA FIGUEROA Iatrogenic Pulmonary Embolism and I 05/26/2012 B OW,BEKA A Diverticulosis (SNOMED CT 162377954 05/21/2017 DONITA FIGUEROA Polyp of colon (SNOMED CT 45776510) 04/15/2018 Z DONITA STAPLETON Essential hypertension (SNOMED CT 5 03/05/2016 T MONA LAUGHLIN Benign prostatic hyperplasia (SNOME 05/21/2017 Z DONITA STAPLETON Gastro-oesophageal reflux disease w 11/12/2018 Z DONITA STAPLETON PLAN OF CARE: Med Adjustments/Tests/Consults ordered: 1. Upcoming Specialist appts w/o changes. 2. Advised to trial the new bp cuff when he returns home, if unable, he's been directed to rtc and bring the cuff with him, so we could trouble shoot the issues. 3. Encouraged to do 30 min daily aerobic activit y. Discussed variety of options. Emphasized that this may be part of no rmal daily activities. 4. No change in prescription medications. DISCUSSION: Blood pressure/sugar/lipids control advised Labs/Xrays/Pathology was discussed with the franco ent DIET: CALORIC INTAKE, FOOD CHANGES, PORTION SIZE S Item Ordered START DATE STOP DATE ENTERED ALBUTEROL INHL,ORAL DEC 18, 2021 DEC 19, 2022 [facility] 2021@13:29 Text Order: Return to [facility] on or around ( Dec 18, 2022 ) for a total of 1 appointment(s) Prerequisites: Non-fasting Labs, Appt. duration 30 min Rtc for annual wellness visit w/ labs prior to visit. Text Order: Return to [facility] on or around ( Dec 18, 2022 ) for a total of 1 appointment(s) Prerequisites: Non-fasting Labs, Appt. duration 30 min Rtc for annual wellness visit w/ labs prior to visit. RETURN TO THE CLINIC: Return to the clinic in 1 year with Provider and as needed. Primary Care Provider: DONITA DAILEY Total of 23 minutes was the amount of time that was spent in counseling & coordination of [place]'s care. Vet ilda verbalizes understanding of today's clinical course & Plan of Care that w as discuss & reviewed with them today. All questions & concerns were answer ed and addressed. [place] actively participated in today's Plan of Care & agrees to proceed forward w/ POC. AVS (After Visit Summary): The AVS provided to [place] in the form of an Af terVisit Summary AVS entered, updated & completed regarding today 's visit with . Medication & Treatments & Referral Orders which were reviewed for indication, dosing, duration, and adverse reactions/side eff ects, during the appt with . voiced understanding the plan o f care and is in agreement with today's plan. was involved with the decision making during this visit. Questions & Concerns were addressed and a nswered. /sonia/ DONITA DAILEY Nurse Practitioner Signed: 12/18/2021 14:10 Dec 18, 2021 12:59 PM PRIMARY CARE NURSING NOTE: [facility] LOCAL TITLE: [employer] NURSING NOTE (T) STANDARD TITLE: PRIMARY CARE NURSING NOTE DATE OF NOTE: DEC 18, 2021@12:59 ENTRY DATE: DEC 18, 2021@12:59:14 AUTHOR: JOESPH SR EXP COSIGNER: URGENCY: STATUS: COMPLETED Patient identification is confirmed by full name , date of and social security number prior to interview and examinati on. Hand washing is completed prior to interview and examination. Age:81 Height:68 in [172.7 cm] (12/16/2020 12:31) Weight:196 lb [88.90 kg] (12/18/2021 12:56) VITALS Temperature:97.1 F [36.2 C] (12/18/2021 12:56) BP:139/55 (12/18/2021 12:56) Pulse:50 (12/18/2021 12:56) Resp:16 (12/18/2021 12:56) SpO2:95% DATE: Nov@12:58:33; [X]On room air [ ]On L/min. 02 BMI:30* PAIN (scale 0-10):0 (12/18/2021 12:56) Is this pain level tolerable? Yes Pain Location:0/10 PAIN CC:Donita Dailey [facility] is PCP. is here for a nnual visit. Allergies/ADR: CODEINE, OXYCODONE, PERCOCET Allergy list correct (if no, update)? Yes MEDICATION RECONCILIATION Patient taking ASA? No Medication information in the form of a Interview was obtained from the Patient and compared to the medications listed for [...] CE A DAY ACTIVE FOR STROKE PREVENTION 4) ATORVASTATIN CALCIUM 20MG TAB TAKE ONE TABLET BY ACTIVE MOUTH AT BEDTIME FOR CHOLESTEROL LDL GOAL LESS THAN 70. 5) CETIRIZINE HCL 10MG TAB TAKE ONE TABLET BY MO UTH AT ACTIVE BEDTIME FOR ALLERGIES 6) DOXAZOSIN MESYLATE 4MG TAB TAKE ONE TABLET BY MOUTH ACTIVE EVERY DAY FOR BLOOD PRESSURE / PROSTATE 7) LOSARTAN POTASSIUM 50MG TAB TAKE ONE TABLET B Y MOUTH ACTIVE EVERY DAY INCREASED TO 50MG EVERY DAY ON 09.26.2021 -- MLZ. 8) METOPROLOL TARTRATE 50MG TAB TAKE ONE TABLET BY MOUTH ACTIVE TWICE A DAY FOR HEART/BLOOD PRESSURE Inactive Outpatient Medications Status 1) ALBUTEROL 90MCG (CFC-F) 200D ORAL INHL INHALE 2 PUFFS BY MOUTH EVERY 6 HOURS NEEDED FOR BREATHING, WHEEZING, SHORTNESS OF BREATH *BRING THIS WITH YOU TO YOUR LUNG FFUNCTION TEST* 2) FLUOROURACIL 5% CREAM APPLY A SUFFICIENT AMOU NT TO COVER THE LESIONS TO AFFECTED AREA TWICE A DAY FOR 2 WEEKS, WASH OFF AT BEDTIME AVOID YOUR EY ES 3) KETOCONAZOLE 2% CREAM APPLY SPARINGLY TO AFFE CTED AREA THREE TIMES A DAY NEEDED APPLY TO AFFEC NUNO AREAS IN GROIN DIRECTED. Active Non-VA Medications Status 1) Non-VA CYANOCOBALAMIN 500MCG TAB 500MCG BY [facility] ACTIVE DAILY 2) Non-VA MAGNESIUM OXIDE 420MG TAB 420MG BY JEANETTE TH DAILY ACTIVE 3) Non-VA MULTIVITAMINS W/ MIN. THERAPEUTIC TAB BY ACTIVE MOUTH EVERY MORNING 14 Total Medications No Active Remote Medications for this patient IDENTIFIED MEDICATION DISCREPANCIES INCLUDED AND PROVIDER NOTIFIED: None, the patient is only taking the medication s listed in CPRS as prescribed. defer to provider Clinical Reminders Done Today Alcohol Use Screen (AUDIT-C): Alcohol Screen: SCREEN FOR ALCOHOL (AUDIT-C) An alcohol screening test (AUDIT-C) was negativ e (score=0). 1. How often did you have a drink containing al cohol in the past year? Never 2. How many drinks containing alcohol did you h ave on a typical day when you were drinking in the past year? Response not required due to responses to other questions. 3. How often did you have six or more drinks on one occasion in the past year? Response not required due to responses to other questions. Depression Screening: Perform PHQ-2 A PHQ-2 screen was performed. The score was 0 w hich is a negative screen for depression. Over the past two weeks, how often have you bee n bothered by the following problems? 1. Little interest or pleasure in doing things Not at all 2. Feeling down, depressed, or hopeless Not at all Relationship Health & Safety Screen: RELATIONSHIP HEALTH & SAFETY SCREEN ENVIRONMENTAL SAFETY CHECK: Environment is safe to proceed INFORMED CONSENT TO SCREEN & DOCUMENT: Individual consents to documentation? Yes Individual consents to proceed with screening? Yes PRIMARY SCREEN: In the past 12 months, how often did a current or former intimate partner (e.g., boyfriend, girlfriend, , , se xual partner): Scream or curse at you: Never Insult or talk down to you: Never Threaten you with harm: Never Physically hurt you: Never In the past 12 months, how often did a current or former intimate partner force or pressure you to have sexual co ntact against your will, or when you were unable to say no? Never PRIMARY SCREEN RESULTS: The individual denied all forms of IPV above (i .e., answered "never" to all 5 items above). The HITS tool is US copyright protected by Zach Loo MD, and the user has full rights to use it throughout the [employer] system. DISPOSITION: Provided general IPV education. Suicide Screen: C-SSRS Screening [place]-Suicide Severity Rating Scale (C-SSRS Screener) 1. Over the past month, have you wished you wer e or wished you could go to sleep and not wake up? No 2. Over the past month, have you had any actual thoughts of killing yourself? No 3. Over the past month, have you been thinking about how you might do this? Response not required due to responses to other questions. 4. Over the past month, have you had these thou ghts and had some intention of acting on them? Response not required due to responses to other questions. 5. Over the past month, have you started to wor k out or worked out the details of how to kill yourself? Response not required due to responses to other questions. 6. If yes, at any time in the past month did yo u intend to carry out this plan? Response not required due to responses to other questions. 7. In your lifetime, have you ever done anythin g, started to do anything, or prepared to do anything to end you r life (for example, collected pills, obtained a gun, gave away valu anju, went to the roof but didn't jump)? No 8. If YES, was this within the past 3 months? Response not required due to responses to other questions. Travel and Symptom Screen: The patient indicated that they and their close contacts have not traveled outside of the [place] in the past 21 day s. The patient reports the following symptoms: No symptoms present The patient is not immunocompromised. The patient does not report having a history of Multi Drug Resistant Organism (MDRO) within the last five years. The patient does not report having been exposed to measles, chickenpox, or zoster in last 30 days. /sonia/ JOESPH Cao [employer] Signed: 12/18/2021 13:11
--- OUTSIDE RECORDS SUMMARY | 2022-05-19 15:54 | External Medical Summary | Encounter Summary ---
:1940 Author Organization [facility] rs Address [address] [place] [address] Support Name Relationship Address Phone NICHOLE THOMAS Unavailable [address] [place] [address] NICHOLE THOMAS Unavailable [address] [place] [address] CUCA CHAU Unavailable [address] [place] [address] CUCA CHAU Unavailable [address] [place] [address] Insurance Providers: All historical and current Section [...] MEDICARE MEDICARE PART May 31, PART A [id number] Jeremias THOMAS PATIENT (WNR) (M) A 2005 78A [id number] ORTUNATE MEDICARE MEDICARE PART May 31, PART A [id number] KHAIICIOF PATIENT (WNR) (M) A 2005 [id number] [id number] Selected Encounter This section includes the information on record at [place] for the Encounter. Date/Time Encounter Type Encounter Description Reason Provider Source Dec 13, 2021 01:59 Outpatient Encounter COMMUNITY CARE PM CONSULT IHE [...] 20 appointments. The data comes from all [place] treatment facilities. Appointment Date/Time Appointment Type Appointment Facili ty Name Dec 18, 2021 01:00 PM AMBULATORY - MEDICINE [facility] Dec 29, 2021 01:15 PM AMBULATORY - NONE [facility] February 06, 2022 02:00 PM AMBULATORY - NONE [facility] Lab Results: +/- 30 days of the encounter This section includes the Chemistry and Hematology Lab Results on record with [place] for the patient. Radiology Reports and Pathology Reports are provided separately, in subsequent sections.Lab Results This section contains the Chemistry/Hematology Results that were resulted 30 days before or 30 daysafter the date of the Encounter. Date/Time Source Result Type Result - Unit Interpretation Reference Range Comment Dec 13, 2021 12:54 [facility] THYROID STIMULATING Speci men Type: SERUM [...] 2021 09:14 AM Reporting Lab: [facility] KABA [address] [place] [address] Performing Lab: [facility]ONA REA[address] [place] [address] THYROID STIMULATING HORMONE 3.11 0. 300-4.25 Dec 13, 2021 12:54 [facility] VITAMIN D (25-HYDROXY) Sp ecimen Type: [...] 07, 2021 09:14 AM Reporting Lab: [place] [place] [address] [place] [address] Performing Lab: [facility] [place] [address] [place] [address] VITAMIN D (25-HYDROXY) 31.9 30.0-10 0 Dec 13, 2021 12:54 PM [facility] LIPID PANEL Specim en Type: SERUM [...] 07, 2021 09:14 AM Reporting Lab: [place] [place] [address] [place] [address] Performing Lab: [facility] Jeffers [address] [address] CHOLESTEROL 126 <199 TRIGLYCERIDE 102 <149 HDL CHOLESTEROL 46 >40 NON-HDL CHOLESTEROL 80 <130 LDL, DIRECT 68 0-129 Dec 13, 2021 12:54 PM [facility] HEMOGLOBIN A1C Specim en Type: BLOOD [...] 07, 2021 09:14 AM Reporting Lab: [place] [address] [place] [address] Performing Lab: [facility] [place] [address] [place] [address] HEMOGLOBIN A1C 5.8 H 0-5.6 Dec 13, 2021 12:54 PM [facility] URINALYSIS (IRIS) Spec imen Type: URINE No comment enter ed. Ordering Provid er: DONITA DAILEY Report Released Date/Time: Nov 07, 2021 09:14 AM Reporting Lab: [facility] [place] [address] [place] [address] Performing Lab: [place] [address] [place] [address] URINE COLOR Yellow SPECIFIC GRAVITY 1.024 1.003-1.030 [...] UROBILINOGEN (IRIS) NORMAL <2 Dec 13, 2021 [facility] COMPREHENSIVE METABOLIC Spec imen Type: SERUM [...] 2021 09:14 AM Reporting Lab: [facility] K[facility] [place] [address] [place] [address] Performing Lab: [facility] Jeffers [address] [place] [address] GLUCOSE 86 71-109 BUN/UREA (BLOOD UREA NITROGEN) [...] 80 L >90 Dec 13, 2021 12:54 [facility] CBC & MORPHOLOGY (WITH Sp ecimen Type: BLOOD PM DIFF) No comment enter ed. Ordering Provid er: DONITA DAILEY Report Released Date/Time: Nov 07, 2021 09:14 AM Reporting Lab: [facility] [address] [address] Performing Lab: [facility] REA[address] [address] WBC (TOTAL WBC COUNT) 10.1 3.0-10.6 RBC [...] Encounter. Date/Time Encounter Note(s) Provider Source Dec 13, 2021 01:59 PM INFECTIOUS DISEASE RISK ASSESSMENT SCR EENING NOTE: SYMONE SCHROEDER LOCAL TITLE: SCREENING COVID [facility] STANDARD TITLE: INFECTIOUS DISEASE RISK ASSESSME NT SCREENING NOT DATE OF NOTE: DEC 13, 2021@13:59 ENTRY DATE: DEC 13, 2021@13:59:09 AUTHOR: SYMONE SCHROEDER EXP COSIGNER: URGENCY: STATUS: [...] is negative. /sonia/ SYMONE SCHROEDER MSA Signed: 12/13/2021 13:59
--- OUTSIDE RECORDS SUMMARY | 2022-05-19 15:54 | External Medical Summary | Encounter Summary ---
:1940 Author Organization [facility] rs Address [address] [place] [address] Support Name Relationship Address Phone NICHOLE THOMAS Unavailable [address] [phone] [place] [address] NICHOLE THOMAS Unavailable [address] [phone] [place] [address] CUCA CHAU Unavailable [address] [place] [address] CUCA CHAU Unavailable [address] [place] [address] Insurance Providers: All historical and current Section [...] MEDICARE MEDICARE PART May 31, PART A [id number] [place]ICIO,F PATIENT (WNR) (M) A 2005 78A [id number] ORTUNATE MEDICARE MEDICARE PART May 31, PART A [id number] DECICIO,F PATIENT (WNR) (M) A 2005 [id number] [id number] Selected Encounter This section includes the information on record at [place] for the Encounter. Date/Time Encounter Type Encounter Reason Provider Source Description Nov 17, 2021 OFFICE O/P EST PRIMARY ICD-10-CM Z23 MITA MURRELL 03:14 PM MINIMAL PROB CARE/MEDICINE Encounter for R immunization with Provider Comments: Encounter for Immunization IHE Encounter Template Text not used by [facility] Assessments - Encounter Diagnoses This section includes the primary and secondary diagnoses documented for the Encounter. Date/Time Primary/Secondary Diagnosis Name Provider Source Diagnosis Nov 17, 2021 PRIMARY Encounter for MITA MURRELL 03:14 PM immunization R [facility] Plan of Treatment: Future Appointments (+ 6 months) and Future Tests (+/- 45 days) The Plan of Treatment section includes future care activities for the patient [facility] [place] [facility] This section includes future appointments and future orders which are active, pending orscheduled.Future Appointments This section includes appointments that were scheduled to occur 6 months from the date of the Encounter, up to a maximum of 20 appointments. The data comes from all [place] treatment [facility]. Appointment Date/Time Appointment Type Appointment Facili ty Name Dec 13, 2021 01:15 PM AMBULATORY - MEDICINE [facility] Dec 18, 2021 01:00 PM AMBULATORY - MEDICINE [facility] Dec 29, 2021 01:15 PM AMBULATORY - NONE [facility] Jeffesr [facility] February 06, 2022 02:00 PM AMBULATORY - NONE [facility] Active, Pending, and Scheduled Orders This section includes a listing of several types of active, pending, and scheduled orders, including clinic medications orders, diagnostic test orders, procedure orders and consult orders; where the start date of the order is 45 days before the date of the Encounter or 45 days after the date of the Encounter. The data comes from all [facility]. Test Date/Time Test Type Test Details Facility Name Oct 05, 2021 02:05 PM Consult Order [facility] Lab Results: +/- 30 days of the encounter This section includes the Chemistry and Hematology Lab Results on record with [place] for the patient. Radiology Reports and Pathology Reports are provided separately, in subsequent sections.Lab Results This section contains the Chemistry/Hematology Results that were resulted 30 days before or 30 daysafter the date of the Encounter. Date/Time Source Result Type Result - Unit Interpretation Reference Range Comment Dec 13, 2021 12:54 [facility] THYROID STIMULATING Speci men Type: SERUM PM [...] 07, 2021 09:14 AM Reporting Lab: [facility] [place] [address] [address] [address] Performing Lab: [place] [address] [place] [address] THYROID STIMULATING HORMONE 3.11 0. 300-4.25 Dec 13, 2021 12:54 [facility] VITAMIN D (25-HYDROXY) Sp ecimen Type: SERUM [...] 2021 09:14 AM Reporting Lab: [facility] KABA [address] [address] Performing Lab: RAMONA [address] [place] [address] VITAMIN D (25-HYDROXY) 31.9 30.0-10 0 Dec 13, 2021 12:54 PM [facility] HEMOGLOBIN A1C Specim en Type: BLOOD Comment: [...] 2021 09:14 AM Reporting Lab: [facility] K[facility] [place] [address] [address] [address] Performing Lab: RAMONA Jeffers [address] [place] [address] HEMOGLOBIN A1C 5.8 H 0-5.6 Dec 13, 2021 12:54 PM [facility] LIPID PANEL Specim en Type: SERUM Comment: [...] 07, 2021 09:14 AM Reporting Lab: RAMONA TONG[address] [place] [address] Performing Lab: [facility] Jeffers [address] [address] CHOLESTEROL 126 <199 TRIGLYCERIDE 102 <149 HDL CHOLESTEROL 46 >40 NON-HDL CHOLESTEROL 80 <130 LDL, DIRECT 68 0-129 Dec 13, 2021 12:54 PM [facility] URINALYSIS (IRIS) Spec imen Type: URINE No comment enter ed. Ordering Provid er: DONITA DAILEY Report Released Date/Time: Nov 07, 2021 09:14 AM Reporting Lab: RAMONA [address]ERRERA[address] [place] [address] Performing Lab: RAMONA Jeffers [address] [place] [address] URINE COLOR Yellow SPECIFIC GRAVITY 1.024 1.003-1.030 [...] UROBILINOGEN (IRIS) NORMAL <2 Dec 13, 2021 [facility] COMPREHENSIVE METABOLIC Spec imen Type: SERUM 12:54 [...] 2021 09:14 AM Reporting Lab: [facility] K[facility] [place] [address] [address] [address] Performing Lab: [facility] K[facility] [place] [address] [place] [address] GLUCOSE 86 71-109 BUN/UREA (BLOOD UREA NITROGEN) [...] 80 L >90 Dec 13, 2021 12:54 [facility] CBC & MORPHOLOGY (WITH Sp ecimen Type: BLOOD PM DIFF) No comment enter ed. Ordering Provid er: DONITA DAILEY Report Released Date/Time: Nov 07, 2021 09:14 AM Reporting Lab: [facility] K[facility] [place] [address] [place] [address] Performing Lab: [facility] [place] [address] [place] [address] WBC (TOTAL WBC COUNT) 10.1 3.0-10.6 RBC [...] 0.6 0-0.9 IMMATURE GRANULOCYTES, ABSOLUTE 0.06 0-0.07 Immunizations: All administered on the encounter date This section contains immunizations associated to the Encounter. Immunization Series Date Issued Reaction Comments ZOSTER RECOMBINANT 1 Nov 17, 2021 Encounter Notes: All associated encounter notes This section contains the clinical notes associated to the Encounter. Date/Time Encounter Note(s) Provider Source Nov 17, 2021 03:14 PM NURSING IMMUNIZATION NOTE: MITA MURRELL [facility] LOCAL TITLE: IMMUNIZATIONS/PPD NOTE STANDARD TITLE: NURSING IMMUNIZATION NOTE DATE OF NOTE: NOV 17, 2021@15:14 ENTRY DATE: NOV 17, 2021@15:14:10 AUTHOR: MITA MURRELL EXP COSIGNER: URGENCY: STATUS: COMPLETED Clinical Reminders Done Today Herpes Zoster (Shingles) Vaccine: see orders The patient received recombinant zoster vaccine (RZV) 0.5 ml IM in Right deltoid. Ic Design Engineer: [employer] Lot#s and Expiration Date: [id number], 01/17/23. 5f9s 3,01/17/23. Administered by protocol/policy Complications: None The VIS for the recombinant zoster vaccine (RZV ) dated Jun was given to the patient. /sonia/ MITA MURRELL RN Signed: 11/17/2021 15:16
--- OUTSIDE RECORDS SUMMARY | 2022-05-19 15:54 | External Medical Summary | Encounter Summary ---
:1940 Author Organization [facility] rs Address [address] [place] [address] Support Name Relationship Address Phone NICHOLE THOMAS Unavailable [address] [place] [address] NICHOLE THOMAS Unavailable [address] [place] [address] CUCA CHAU Unavailable [address] [place] [address] CUCA CHAU Unavailable [address] [place] [address] Insurance Providers: All historical and current Section [...] MEDICARE MEDICARE PART May 31, PART A [id number] Jeremias THOMAS PATIENT (WNR) (M) A 2005 78A [id number] ORTUNATE MEDICARE MEDICARE PART May 31, PART A [id number] KHAIICIOF PATIENT (WNR) (M) A 2005 [id number] [id number] Selected Encounter This section includes the information on record at [place] for the Encounter. Date/Time Encounter Type Encounter Description Reason Provider Source Nov 10, 2021 03:03 Outpatient Encounter COMMUNITY CARE PM CONSULT IHE [...] 20 appointments. The data comes from all [facility]. Appointment Date/Time Appointment Type Appointment Facili ty Name Nov 17, 2021 03:00 PM AMBULATORY - MEDICINE [facility] Dec 13, 2021 01:15 PM AMBULATORY - MEDICINE [facility] Dec 18, 2021 01:00 PM AMBULATORY - MEDICINE [facility] Dec 29, 2021 01:15 PM AMBULATORY - NONE [facility] February 06, 2022 02:00 PM AMBULATORY - NONE [facility] Active, Pending, and Scheduled Orders This section includes a listing of several types of active, pending, and scheduled orders, including clinic medications orders, diagnostic test orders, procedure orders and consult orders; where the start date of the order is 45 days before the date of the Encounter or 45 days after the date of the Encounter. The data comes from all [facility]. Test Date/Time Test Type Test Details Facility Name Sep 26, 2021 02:52 PM Consult Order [facility] EMERGENCY DEPARTMENT-CARDIOLOGY GENERAL [facility] Oct 05, 2021 02:05 PM Consult Order [facility] Encounter Notes: All associated encounter notes This section contains the clinical notes associated to the Encounter. Date/Time Encounter Note(s) Provider Source Nov 10, 2021 03:03 PM INFECTIOUS DISEASE RISK ASSESSMENT [facility] NOTE: SYMONE SCHROEDER LOCAL TITLE: SCREENING COVID [facility] STANDARD TITLE: INFECTIOUS DISEASE RISK ASSESSME NT SCREENING NOT DATE OF NOTE: NOV 10, 2021@15:03 ENTRY DATE: NOV 10, 2021@15:03:56 AUTHOR: SYMONE SCHROEDER EXP COSIGNER: URGENCY: STATUS: [...] is negative. /sonia/ SYMONE SCHROEDER MSA Signed: 11/10/2021 15:04
--- OUTSIDE RECORDS SUMMARY | 2022-05-19 15:54 | External Medical Summary | Encounter Summary ---
:1940 Author Organization [facility] rs Address [address] [place] [address] Support Name Relationship Address Phone NICHOLE THOMAS Unavailable [address] [place] [address] NICHOLE THOMAS Unavailable [address] [place] [address] CUCA CHAU Unavailable [address] [place] [address] CUCA CHAU Unavailable [address] [place] [address] Insurance Providers: All historical and current Section [...] MEDICARE MEDICARE PART May 31, PART A [id number] Jeremias THOMAS PATIENT (WNR) (M) A 2005 78A [id number] ORTUNATE MEDICARE MEDICARE PART May 31, PART A [id number] KHAIICIOF PATIENT (WNR) (M) A [id number] Selected Encounter This section includes the information on record at [place] for the Encounter. Date/Time Encounter Type Encounter Description Reason Provider Source Nov 17, 2021 03:09 Outpatient Encounter COMMUNITY CARE PM CONSULT IHE [...] 20 appointments. The data comes from all [facility]. Appointment Date/Time Appointment Type Appointment Facili ty Name Dec 13, 2021 01:15 PM AMBULATORY - MEDICINE [facility] Dec 18, 2021 01:00 PM AMBULATORY - MEDICINE [facility] Dec 29, 2021 01:15 PM AMBULATORY - NONE [facility] February 06, 2022 02:00 PM AMBULATORY - NONE [facility] Active, Pending, and Scheduled Orders This section includes a listing of several types of active, pending, and scheduled orders, including clinic medications orders, diagnostic test orders, procedure orders and consult orders; where the start date of the order is 45 days before the date of the Encounter or 45 days after the date of the Encounter. The data comes from all [facility]. Test Date/Time Test Type Test Details Facility Name Oct 05, 2021 02:05 PM Consult Order [facility] CARE-DERMATOLOGY [facility] Battery Charger Tester's Choice Lab Results: +/- 30 days of the encounter This section includes the Chemistry and Hematology Lab Results on record with [place] for the patient. Radiology Reports and Pathology Reports are provided separately, in subsequent sections.Lab Results This section contains the Chemistry/Hematology Results that were resulted 30 days before or 30 daysafter the date of the Encounter. Date/Time Source Result Type Result - Unit Interpretation Reference Range Comment Dec 13, 2021 12:54 [facility] VITAMIN D (25-HYDROXY) Sp ecimen Type: [...] 2021 09:14 AM Reporting Lab: [facility] [address] [address] Performing Lab: [facility] [place] [address] [address] VITAMIN D (25-HYDROXY) 31.9 30.0-10 0 Dec 13, 2021 12:54 [facility] THYROID STIMULATING Speci men Type: SERUM [...] 2021 09:14 AM Reporting Lab: [facility] [place] [address] [address] [address] Performing Lab: RAMONA [address]ERRERA[address] [place] [address] THYROID STIMULATING HORMONE 3.11 0. 300-4.25 Dec 13, 2021 12:54 PM [facility] LIPID PANEL Specim en Type: SERUM [...] 2021 09:14 AM Reporting Lab: [facility] K[facility] [address] [place] [address] Performing Lab: [facility] [address] [address] CHOLESTEROL 126 <199 TRIGLYCERIDE 102 <149 HDL CHOLESTEROL 46 >40 NON-HDL CHOLESTEROL 80 <130 LDL, DIRECT 68 0-129 Dec 13, 2021 12:54 PM [facility] HEMOGLOBIN A1C Specim en Type: BLOOD [...] 07, 2021 09:14 AM Reporting Lab: [facility]ONA [address]ONG[address] [address] Performing Lab: [facility] [place] [address] [place] [address] HEMOGLOBIN A1C 5.8 H 0-5.6 Dec 13, 2021 12:54 PM [facility] URINALYSIS (IRIS) Spec imen Type: URINE No comment enter ed. Ordering Provid er: DONITA DAILEY Report Released Date/Time: Nov 07, 2021 09:14 AM Reporting Lab: RAMONA REA[address] [place] [address] Performing Lab: [facility] Jeffers [address] [address] URINE COLOR Yellow SPECIFIC GRAVITY 1.024 1.003-1.030 [...] UROBILINOGEN (IRIS) NORMAL <2 Dec 13, 2021 [facility] COMPREHENSIVE METABOLIC Spec imen Type: SERUM [...] 2021 09:14 AM Reporting Lab: RAMONA Jeffers [address] [address] Performing Lab: [facility] Jeffers [address] [place] [address] GLUCOSE 86 71-109 BUN/UREA (BLOOD UREA NITROGEN) [...] 80 L >90 Dec 13, 2021 12:54 [facility] CBC & MORPHOLOGY (WITH Sp ecimen Type: BLOOD PM DIFF) No comment enter ed. Ordering Provid er: DONITA DAILEY Report Released Date/Time: Nov 07, 2021 09:14 AM Reporting Lab: [facility]ONA Jeffers [address] [place] [address] Performing Lab: [facility] Jeffers [address] [place] [address] WBC (TOTAL WBC COUNT) 10.1 3.0-10.6 RBC [...] Encounter Note(s) Provider Source Nov 17, 2021 03:09 PM INFECTIOUS DISEASE RISK ASSESSMENT SCR EENING NOTE: SYMONE SCHROEDER LOCAL TITLE: SCREENING COVID [facility] STANDARD TITLE: INFECTIOUS DISEASE RISK ASSESSME NT SCREENING NOT DATE OF NOTE: NOV 17, 2021@15:09 ENTRY DATE: NOV 17, 2021@15:09:24 AUTHOR: SYMONE SCHROEDER EXP COSIGNER: URGENCY: STATUS: [...] is negative. /sonia/ SYMONE SCHROEDER MSA Signed: 11/17/2021 15:09
--- OUTSIDE RECORDS SUMMARY | 2022-05-19 15:54 | External Medical Summary | Encounter Summary ---
:1940 Author Organization [facility] rs Address [address] [place] [address] Support Name Relationship Address Phone NICHOLE THOMAS Unavailable [address] [place] [address] NICHOLE THOMAS Unavailable [address] [place] [address] CUCA CHAU Unavailable [address] [place] [address] CUCA CHAU Unavailable [address] [place] [address] Insurance Providers: All historical and current Section [...] MEDICARE MEDICARE PART May 31, PART A [id number] Jeremias THOMAS PATIENT (WNR) (M) A 2005 78A [id number] ORTUNATE MEDICARE MEDICARE PART May 31, PART A [id number] DECICIOF PATIENT (WNR) (M) A 2005 [id number] [id number] Selected Encounter This section includes the information on record at [place] for the Encounter. Date/Time Encounter Type Encounter Description Reason Provider Source Nov 17, 2021 03:00 Outpatient Encounter PRIMARY CARE/MEDICINE PM [facility] Encounter Template Text not used by [place] Plan of Treatment: Future Appointments (+ 6 [...] 20 appointments. The data comes from all [facility]. Appointment Date/Time Appointment Type Appointment Facili ty Name Dec 13, 2021 01:15 PM AMBULATORY - MEDICINE [facility] Dec 18, 2021 01:00 PM AMBULATORY - MEDICINE [facility] Dec 29, 2021 01:15 PM AMBULATORY - NONE [facility] RE[facility] February 06, 2022 02:00 PM AMBULATORY - NONE [facility] Active, Pending, and Scheduled Orders This section includes a listing of several types of active, pending, and scheduled orders, including clinic medications orders, diagnostic test orders, procedure orders and consult orders; where the start date of the order is 45 days before the date of the Encounter or 45 days after the date of the Encounter. The data comes from all [facility]. Test Date/Time Test Type Test Details Facility Name Oct 05, 2021 02:05 PM Consult Order [facility] CARE-DERMATOLOGY [facility] Dental Chairside Assistant's Choice Lab Results: +/- 30 days of [...] Reference Range Comment Dec 13, 2021 12:54 [facility] THYROID STIMULATING Speci men Type: SERUM PM [...] 2021 09:14 AM Reporting Lab: [facility] [address] [place] [address] Performing Lab: [facility] [place] [address] [address] THYROID STIMULATING HORMONE 3.11 0. 300-4.25 Dec 13, 2021 12:54 [facility] VITAMIN D (25-HYDROXY) Sp ecimen Type: SERUM [...] 07, 2021 09:14 AM Reporting Lab: [facility] [place] [address] [address] Performing Lab: [facility] [address] [place] [address] VITAMIN D (25-HYDROXY) 31.9 30.0-10 0 Dec 13, 2021 12:54 PM [facility] LIPID PANEL Specim en Type: SERUM Comment: [...] 2021 09:14 AM Reporting Lab: [facility] [place] [address] [address] [address] Performing Lab: RAM[facility] Jeffers [address] [address] CHOLESTEROL 126 <199 TRIGLYCERIDE 102 <149 HDL CHOLESTEROL 46 >40 NON-HDL CHOLESTEROL 80 <130 LDL, DIRECT 68 0-129 Dec 13, 2021 12:54 PM [facility] HEMOGLOBIN A1C Specim en Type: BLOOD Comment: [...] 07, 2021 09:14 AM Reporting Lab: RAMONA [address] [address] Performing Lab: RAMONA Jeffers [address] [address] HEMOGLOBIN A1C 5.8 H 0-5.6 Dec 13, 2021 12:54 PM [facility] URINALYSIS (IRIS) Spec imen Type: URINE No comment enter ed. Ordering Provid er: DONITA DAILEY Report Released Date/Time: Nov 07, 2021 09:14 AM Reporting Lab: RAMONA REA[address] [place] [address] Performing Lab: RAMONA Jeffers [address] [address] URINE COLOR Yellow SPECIFIC GRAVITY 1.024 1.003-1.030 [...] UROBILINOGEN (IRIS) NORMAL <2 Dec 13, 2021 [facility] COMPREHENSIVE METABOLIC Spec imen Type: SERUM 12:54 [...] 07, 2021 09:14 AM Reporting Lab: RAMONA TONG[address] [address] Performing Lab: RAMONA [address]ONG[address] [place] [address] GLUCOSE 86 71-109 BUN/UREA (BLOOD UREA NITROGEN) [...] 80 L >90 Dec 13, 2021 12:54 [facility] CBC & MORPHOLOGY (WITH Sp ecimen Type: BLOOD PM DIFF) No comment enter ed. Ordering Provid er: DONITA DAILEY Report Released Date/Time: Nov 07, 2021 09:14 AM Reporting Lab: RAMONA TONG[address] [place] [address] Performing Lab: RAM[facility] Jeffers [address] [place] [place] [address] WBC (TOTAL WBC COUNT) 10.1 3.0-10.6 RBC [...] Encounter Note(s) Provider Source Nov 17, 2021 03:45 PM ORTHOTICS PROSTHETICS NOTE: MITA MURRELL [facility] LOCAL TITLE: PROSTHETIC NOTE STANDARD TITLE: ORTHOTICS PROSTHETICS NOTE DATE OF NOTE: NOV 17, 2021@15:45 ENTRY DATE: NOV 17, 2021@15:46:05 AUTHOR: MITA MURRELL EXP COSIGNER: URGENCY: STATUS: COMPLETED Pt issued [facility] BP monitor by PCP. /sonia/ MITA MURRELL RN Signed: 11/17/2021 15:46
--- OUTSIDE RECORDS SUMMARY | 2022-05-19 15:54 | External Medical Summary | Encounter Summary ---
:1940 Author Organization [facility] rs Address [address] [place] [id number] Support Name Relationship Address Phone NICHOLE THOMAS Unavailable [id number] [place] [address] NICHOLE THOMAS Unavailable [address] [place] [address] CUCA CHAU Unavailable [address] [place] [address] CUCA CHAU Unavailable [address] [place] [address] Insurance Providers: All historical and current Section [...] MEDICARE MEDICARE PART May 31, PART A [id number] DECICIOJeremias PATIENT (WNR) (M) A 2005 78A [id number] ORTUNATE MEDICARE MEDICARE PART May 31, PART A [id number] DECICIO,F PATIENT (WNR) (M) A 2005 78A [id number] Selected Encounter This section includes the information on record at [place] for the Encounter. Date/Time Encounter Type Encounter Reason Provider Source Description Nov 17, 2021 OFFICE O/P EST PRIMARY ICD-10-CM I10 DONITA DAILEY 03:00 PM SF 10-19 MIN CARE/MEDICINE Essential L (primary) hypertension with Provider Comments: Essential hypertension (SCT 17529231) IHE Encounter Template Text not used by [facility] Assessments - Encounter Diagnoses This section includes the primary and secondary diagnoses documented for the Encounter. Date/Time Primary/Secondary Diagnosis Name Provider Source Diagnosis Nov 27, 2021 PRIMARY Essential DONITA DAILEY [facility] 05:23 PM (primary) CLINIC hypertension Plan of Treatment: Future Appointments (+ 6 months) and Future Tests (+/- 45 days) The Plan of Treatment section includes future care activities for the patient from all [place] treatmentfacilities. This section includes future appointments and future orders which are active, pending orscheduled.Future Appointments This section includes appointments that were scheduled to occur 6 months from the date of the Encounter, up to a maximum of 20 appointments. The data comes from all [place] treatment facilities. Appointment Date/Time Appointment Type Appointment Facili ty Name Dec 13, 2021 01:15 PM AMBULATORY - MEDICINE [facility] Dec 18, 2021 01:00 PM AMBULATORY - MEDICINE [facility] Dec 29, 2021 01:15 PM AMBULATORY - NONE [facility] February 06, 2022 02:00 PM AMBULATORY - NONE [facility] Active, Pending, and Scheduled Orders This section includes a listing of several types of active, pending, and scheduled orders, including clinic medications orders, diagnostic test orders, procedure orders and consult orders; where the start date of the order is 45 days before the date of the Encounter or 45 days after the date of the Encounter. The data comes from all [facility]. Test Date/Time Test Type Test Details Facility Name Oct 05, 2021 02:05 PM Consult Order [facility] Lab Results: +/- 30 days of the encounter This section includes the Chemistry and Hematology Lab Results on record with [place] for the patient. Radiology Reports and Pathology Reports are provided separately, in subsequent sections.Lab Results This section contains the Chemistry/Hematology Results that were resulted 30 days before or 30 daysafter the date of the Encounter. Date/Time Source Result Type Result - Unit Interpretation Reference Range Comment Dec 13, 2021 12:54 [facility] THYROID [...] 2021 09:14 AM Reporting Lab: [facility] [address] [place] [address] Performing Lab: [facility] [address] THYROID STIMULATING HORMONE 3.11 0. 300-4.25 Dec 13, 2021 12:54 [facility] VITAMIN [...] 2021 09:14 AM Reporting Lab: [facility] [address] [place] [address] Performing Lab: [facility] [place] [address] VITAMIN D (25-HYDROXY) 31.9 30.0-10 0 Dec 13, 2021 12:54 PM [facility] [...] 07, 2021 09:14 AM Reporting Lab: [facility]. [address] [address] Performing Lab: [facility]ers [address] [address] CHOLESTEROL 126 <199 TRIGLYCERIDE 102 <149 HDL [...] 2021 09:14 AM Reporting Lab: [facility] [address] [address] Performing Lab: [facility] [address] [address] HEMOGLOBIN A1C 5.8 H 0-5.6 Dec 13, 2021 12:54 PM [facility] URINALYSIS (IRIS) Spec imen Type: URINE No comment enter ed. Ordering Provid er: DONITA DAILEY Report Released Date/Time: Nov 07, 2021 09:14 AM Reporting Lab: [facility] [address] [address] Performing Lab: [facility] [address] [address] URINE COLOR Yellow SPECIFIC GRAVITY 1.024 1.003-1.030 [...] 2021 09:14 AM Reporting Lab: [facility] [place] [address] [address] [address] Performing Lab: [facility] [place] [address] [place] [address] GLUCOSE 86 71-109 BUN/UREA (BLOOD UREA NITROGEN) [...] 2021 09:14 AM Reporting Lab: [facility] [place] [address] [place] [address] Performing Lab: [facility] [place] [address] [place] [address] WBC (TOTAL WBC COUNT) 10.1 3.0-10.6 RBC [...] Adal dy Source Pressure Rate Mass Index Nov 17, 139/69 [facility] 2021 03:01 mm[Hg] [facility] Nov 17, 97.6 F 54 149/73 19 /min 95 % 5 199 lb 30 [facility] 2021 02:46 /min mm[Hg] N [facility] Social History: Smoking Status (Most current) and Tobacco Use (All prior to encounter date) This section includes the most current, and the historical, smoking and tobacco-related health factors from the [facility] where the Encounter took place.Current Smoking Status This section includes the most current smoking, or tobacco-related health factor, from the [place] facility where the Encounter took place. Date/Time Current Smoking Status Comment Facility Nov 17, 2021 03:00 PM VA-TOBACCO FORMER USER [facility] Tobacco Use History This section includes a history of the smoking, or tobacco- related health factors, that were collected on or before the date of the Encounter. The data comes from the [place] facility where the Encounter took place. Date/Time Smoking Status/Tobacco Use Comment Stas noriega Nov 17, 2021 03:00 PM [place]-TOBACCO QUIT 15 YRS OR MORE [facility] Dec 16, 2020 12:30 PM VA-TOBACCO FORMER USER [facility] Dec 16, 2020 12:30 PM VA-TOBACCO QUIT 15 YRS OR MORE [facility] Oct 30, 2019 09:41 AM VA-TOBACCO FORMER USER [facility] Oct 30, 2019 09:41 AM VA-TOBACCO QUIT 15 YRS OR MORE [facility] Oct 09, 2018 11:23 AM VA-TOBACCO FORMER USER [facility] Oct 09, 2018 11:23 AM VA-TOBACCO QUIT 15 YRS OR MORE [facility] Sep 12, 2017 09:25 AM QUIT TOBACCO >7 YEARS AGO [facility] Sep 12, 2017 09:25 AM TOBACCO SCREEN COMPLETED [facility] QU[facility] 1972 Oct 29, 2011 09:59 AM QUIT TOBACCO >7 YEARS AGO [facility] Oct 29, 2011 09:59 AM TOBACCO SCREEN COMPLETED [facility] Encounter Notes: All associated encounter notes This section contains the clinical notes associated to the Encounter. Date/Time Encounter Note(s) Provider Source Nov 17, 2021 05:50 PM PRIMARY CARE E & M NOTE: DONITA DAILEY [facility] LOCAL TITLE: PRIMARY CARE PROVIDER NOTE STANDARD TITLE: PRIMARY CARE E & M NOTE DATE OF NOTE: NOV 17, 2021@17:50 ENTRY DATE: NOV 17, 2021@17:50:22 AUTHOR: DONITA DAILEY EXP COSIGNER: URGENCY: STATUS: COMPLETED SUBJECT: BP check & review. PRIMARY CARE PROVIDER (PCP VISIT) CARMENANGELA MARTHA is a 81 year old MALE . Patient identification confirmed by the followin g items: Full Name, Date of , & SSN prior to intervi ew and examination. Hand washing is completed prior to interview and examination. Both [facility] & [facility] Provider & Staff adhered to Covid-19 recomm ended precautions & safety measures as per VA policies & procedures. PPEs & social distancing were adhered to throughtout this medical encounter. Primary Healthcare Provider is DONITA DAILEY Appointment Type: Face to face [facility] was accompanied: Alone History Provided By: Patient CHIEF COMPLAINT: BP Check. HISTORY OF PRESENT ILLNESS: here today for f/up on HTN, BP check, e xcept for he forgot to bring in his BP log. He does state that his readings at home are very similar to the readings we got today in the clinic. States his are a little lower probably. HPI Hypentension: 139/69 (11/17/2021 15:01) Stab le Med Compliance: Takes his medication daily. Headaches: NO Epitaxis: NO Chest Pain: NO Dizziness: NO Patient's Perception of HTN: Good DISCUSSION: Exercise: - Not very often Instructed/Educated On The Following: Encouraged to do 30 min daily aerobic activity. Discussed variety of options. Emphasized that this may be part of nor mal daily activities. DISCUSSION: HTN OR DM WITH BP>XJ=028/90 monitor BP and pulse regularly as instructed, ca ll me if BP > 150/90 or < 110/60 consistently, call me if pulse >100 or <5 0 consistently Computerized Problem List is the source for the followin. Dyspnea 2. Dyspnea on exertion 3. Chest pain 4. Rash 5. AF- Atrial Fibrillation (SCT 24791841), Onset 6. Well male adult 7. Hematoma [...] sys- tolic, per Dr. Key neurologist at [facility]. D/C Plavix. Start ASA 325 mg daily, per Dr. Nacho cid. 14. Osteoarthritis (SNOMED CT 736331761) Right knee 15. Long-term current use of anticoagulant (SNOM ED CT 432565887) 10/2011 -- [facility] 16. Iatrogenic Pulmonary Embolism and Infarction 2007 PE POST L TKR HAD PAROXYSMAL A FIB DURING THIS EPISODE - 17. Diverticulosis (SNOMED CT 795918778), Onset 12/03/11 18. Polyp of colon (SNOMED CT 20087050), Onset 12/03/11 Review in 2016 for surveillance colonoscopy - d ue in 2020 19. Essential hypertension (SNOMED CT 77370580) 20. Benign prostatic hyperplasia (SNOMED CT 768774787) 21. Gastro-oesophageal reflux disease without oesophagitis (SNOMED CT 203269627) 12/05/2017 ~ EGD completed by Dr. Loving ~ Dx Gastritis, esophagitis, gastric polyps. ALLERGIES: CODEINE, OXYCODONE, PERCOCET MEDICATION RECILIATION: Active and Recently Outpatient Medicatio ns (including Supplies): Active Outpatient Medications Status 1) ALBUTEROL 90MCG (CFC-F) 200D ORAL INHL INHALE 2 PUFFS ACTIVE BY MOUTH EVERY 6 HOURS NEEDED FOR BREATHING, WHEEZING, SHORTNESS OF BREATH *BRING THIS WITH YOU TO YOUR LUNG FFUNCTION TEST* 2) AMIODARONE HCL (PACERONE) 200MG TAB TAKE ONE TABLET ACTIVE BY MOUTH TWICE A DAY FOR HEART RHYTHM 3) AMITRIPTYLINE HCL 25MG TAB TAKE ONE TABLET BY MOUTH ACTIVE EVERY DAY 4) APIXABAN 5MG TAB TAKE ONE TABLET BY MOUTH TWI CE A DAY ACTIVE FOR STROKE PREVENTION 5) ATORVASTATIN CALCIUM 20MG TAB TAKE ONE TABLET BY ACTIVE MOUTH AT BEDTIME FOR CHOLESTEROL LDL GOAL LESS THAN 70. 6) CETIRIZINE HCL 10MG TAB TAKE ONE TABLET BY MO UTH AT ACTIVE BEDTIME FOR ALLERGIES 7) DOXAZOSIN MESYLATE 4MG TAB TAKE ONE TABLET BY MOUTH ACTIVE EVERY DAY FOR BLOOD PRESSURE / PROSTATE 8) FLUOROURACIL 5% CREAM APPLY A SUFFICIENT AMOU NT TO ACTIVE COVER THE LESIONS TO AFFECTED AREA TWICE A DAY FOR 2 WEEKS, WASH OFF AT BEDTIME AVOID YOUR EY ES 9) KETOCONAZOLE 2% CREAM APPLY SPARINGLY TO AFFE CTED ACTIVE AREA THREE TIMES A DAY NEEDED APPLY TO AFFEC NUNO AREAS IN GROIN DIRECTED. 10) LOSARTAN POTASSIUM 50MG TAB TAKE ONE TABLET BY MOUTH ACTIVE EVERY DAY INCREASED TO 50MG EVERY DAY ON 09.26.2021 -- MLZ. 11) METOPROLOL TARTRATE 50MG TAB TAKE ONE TABLET BY MOUTH ACTIVE TWICE A DAY FOR HEART/BLOOD PRESSURE Active Non-VA Medications Status 1) Non-VA CYANOCOBALAMIN 500MCG TAB 500MCG BY MO UTH ACTIVE DAILY 2) Non-VA MAGNESIUM OXIDE 420MG TAB 420MG BY JEANETTE TH DAILY ACTIVE 3) Non-VA MULTIVITAMINS W/ MIN. THERAPEUTIC TAB BY ACTIVE MOUTH EVERY MORNING 14 Total Medications Med reconciliation was completed at this visi t: YES REVIEW OF SYSTEMS: GENERAL: NO WEIGHT LOSS NO NIGHT SWEATS NO FEVER/CHILLS NO WEIGHT CHANGES NO INSOMNIA NO MALAISE NO FATIGUE NO LOSS OF APPETITE NO BODY ACHES HEENT: NO VISION CHANGES NO HEADACHES NO DIPLOPIA NO BLURRY VISION NO EYE PAIN NO CHANGES IN HEARING NO TINNITUS NO VERTIGO NO HEARING LOSS NO DYSPHAGIA CRA: NO chronic headaches, NO dizziness of fainting spells. CVS: NO chest pain NO palpitations NO orthopnea NO leg edema. RESP: NO SOB NO chronic cough NO phlegm NO hemoptysis GI: NO abdominal/pelvic pain NO constipation NO incontinence NO bloody stool : NO Incontinence NO Frequency Changes NO Urgency NO Hesitancy NO Dysuria NO Hematuria MUSK: NO muscle pain, NO weakness NO joint instability NO swelling. NEURO: NO loss of sensation NO numbness NO tremors NO weakness PSYCH: NO depression NO anxiety NO SI/HI/AVH NO mood changes OBJECTIVE: CURRENT VITAL SIGNS: Blood Pressure: 139/69 (11/17/2021 15:01) Respiration: 19 (11/17/2021 14:46) Temperture: 97.6 F [36.4 C] (11/17/2021 14:46) Height: 68 in [172.7 cm] (12/16/2020 12:31) Weight: 199 lb [90.5 kg] (11/17/2021 14:46) BMI: BMI: 30 SAO2: 95% DATE: Oct@14:53:26 Pulse: 54 (11/17/2021 14:46) Pain: 5 (11/17/2021 14:46) GENERAL: Alert & oriented x 3, Well-developed, well-nour ished, and in no acute distress. HEENT: Head is normocephalic, atraumatic, symmetrical. Pupils equal and round, no scleral icterus, react to light. NECK: Neck is symmetrical, trachea is midline, no lym phadenopathy, thyroid w/no palpable masses, neck is supple. CHEST: Chest is symmetrical w/no deformity. Clear to au scultation bilaterally. No rales, rhonchi or wheezing. Normal respirator y effort. HEART: Regular rate and rhythm. Normal S1 and S2. No m urmurs, gallops, thrills, or rubs. ABDOMEN: Bowel sounds normal. No masses, organmegaly, gua rding or rigidity. Soft, nontender, non-distended. EXTREMITIES: No edema, clubbing, cyanosis. Palpable pulses. NEURO: Cranial nerves II-XII grossly intact. Strength equal and adequate bilaterally. Sensation to light touch intact. G ait normal. PSYCH: Oriented to person, place, and time. Mood & aff ect normal. Recent and remote memory normal, judgment normal. LABS &/OR IMAGING STUDIE S lab/radiology results from today were reviewed w ith in detail, questions answered RESULTS: GLUCOSE: 84 (11/07/20 13:17) A1C: Collection DT Specimen Test Name Result Units Re f Range 11/07/2020 13:17 BLOOD HEMOGLOBIN A1C 5.4 % [...] LYMPH % MONO % EOS % BASO 11/07/2020 13:17 BLOOD 147 L 12.3 74.0 14.2 L 9 .5 1.3 0.5 07/12/2020 08:49 BLOOD 179 13.0 67.1 19.0 10.6 2.3 0.6 CHEMISTRY: Sodium...........: 141 (11/07/20 13:17) Potassium........: 3.9 (11/07/20 13:17) Bun..............: 14 (11/07/20 13:17) Creatinine.......: 1.0 mg/dL (05/19/2021 09:11) Calcium..........: 9.0 (11/07/20 13:17) LIVER LABS: Collection DT Spec PROT,T ALB GLOB AST ALT ALP T GOLD a 11/07/2020 13:17 SERUM 6.0 3.8 2.2 25 13 94 0. 7 LIPIDS: Collection DT Spec CHOL TRIG HDL LDLcalc LDLdire a 11/07/2020 13:17 SERUM 130 134 47 70 b 07/12/2020 08:49 SERUM 146 104 55 86 c 11/06/2019 09:20 SERUM 140 78 54 75 d 02/18/2019 10:51 SERUM 129 124 48 56 e 10/17/2018 09:10 SERUM 150 103 48 81 f 09/10/2017 08:28 SERUM 147 110 45 80 PSA: <0.060 (11/07/20 13:17) TSH: 2.46 (11/07/20 13:17) DIAGNOSIS:: 1. HTN - stable @ this time. No changes. ACTIVE PROBLEM LIST: Active Problem Dyspnea R06.00 08/15/2021 DONITA DAILEY Dyspnea on exertion R06.02 06/25/2021 MILA DAILEY Chest pain R07.9 06/25/2021 DONITA DAILEY Rash R21. 12/16/2020 DONITA DAILEY AF- Atrial Fibrillation ([facility] 731809 12/29 [facility] D Well male adult Z00.00 11/22/2019 DONITA DAILEY Hematoma of thigh M79.89 02/04/2019 DONITA DAILEY Cerebral small vessel disease I67.8 01/09/2019 DONITA FIGUEROA Peripheral edema R60.9 04/15/2018 DONITA DAILEY History of colonoscopy R69., Onset 05/25/2021 DONITA SELBY Hyperlipidemia E78.2 03/05/2016 RAYMUNDO,MONA Actinic keratosis L57.0 03/05/2016 RAYMUNDOMONA CVA - Cerebrovascular accident I69. 11/12/2018 DONITA FIGUEROA Osteoarthritis (SNOMED CT 473750384 12/28/2015 T EKLUTYRESEU Long-term current use of anticoagul 10/24/2018 DONITA FIGUEROA Iatrogenic Pulmonary Embolism and I 05/26/2012 B OWBEKA A Diverticulosis (SNOMED CT 354837616 05/21/2017 DONITA FIGUEROA Polyp of colon (SNOMED CT 71638786) 04/15/2018 DONITA FIGUEROA Essential hypertension (SNOMED CT 5 03/05/2016 T EKLUMONA Benign prostatic hyperplasia (SNOME 05/21/2017 DONITA FIGUEROA Gastro-oesophageal reflux disease w 11/12/2018 DONITA FIGUEROA PLAN OF CARE: Med Adjustments/Tests/Consults ordered: No change in prescription medications. ORDERS TODAY - NONE FOUND DISCUSSION: Encouraged to do 30 min daily aerobic activity. Discussed variety of options. Emphasized that this may be part of nor mal daily activities. Blood pressure/sugar/lipids control advised RETURN TO CLINIC (RTC): [facility]: Is in recall. I reviewed patient's plan of care with patient w ho verbalized understanding of recommendations and any/all changes as detail ed in plan above. Total of 14 minutes was the amount of time that was spent in counseling & coordination of 's care. [facility] verbal izes understanding of today's clinical course & Plan of Care that was discuss & reviewed with them today. All questions & concerns were answered and addre ssed. actively participated in today's Plan of Care & agrees to proceed forward w/ POC. AVS (After Visit Summary): The AVS provided to [facility] in the form of an Af terVisit Summary AVS entered, updated & completed regarding today 's visit with [facility]. Medication & Treatments & Referral Orders which were reviewed for indication, dosing, duration, and adverse reactions/side eff ects, during the appt with [facility]. voiced understanding the plan o f care and is in agreement with today's plan. [facility] was involved with the decision making during this visit. Questions & Concerns were addressed and a nswered. /sonia/ DONITA DAILEY Nurse Practitioner Signed: 11/27/2021 17:23 Nov 17, 2021 02:53 PM PRIMARY CARE NURSING NOTE: DMITRI [facility] LOCAL TITLE: ENGRAVER LETTER NURSING NOTE (T) STANDARD TITLE: PRIMARY CARE NURSING NOTE DATE OF NOTE: NOV 17, 2021@14:53 ENTRY DATE: NOV 17, 2021@14:53:41 AUTHOR: JOESPH SR COSIGNER: URGENCY: STATUS: COMPLETED Patient identification is confirmed by full name , date of and social security number prior to interview and examinati on. Hand washing is completed prior to interview and examination. Age:81 Height:68 in [172.7 cm] (12/16/2020 12:31) Weight:199 lb [90.5 kg] (11/17/2021 14:46) VITALS Temperature:97.6 F [36.4 C] (11/17/2021 14:46) BP:149/73 (11/17/2021 14:46) Pulse:54 (11/17/2021 14:46) Resp:19 (11/17/2021 14:46) SpO2:95% DATE: Oct@14:53:26; [X]On room air [ ]On L/min. 02 BMI:30* PAIN (scale 0-10):5 (11/17/2021 14:46) Is this pain level tolerable? Yes Pain Location:5/10 Chronic back pain CC:Donita Dailey LEAD BURNER is PCP. here for b/p follow-up Allergies/ADR: CODEINE, OXYCODONE, PERCOCET Allergy list correct (if no, update)? Yes MEDICATION RECONCILIATION Patient taking ASA? No Medication information in the form of a Interview was obtained from the Patient and compared to the medications listed for the p atient in CPRS including: Active and Recently Outpatient Medicatio ns (excluding Supplies): Active Outpatient Medications Status 1) ALBUTEROL 90MCG (CFC-F) 200D ORAL INHL INHALE 2 PUFFS ACTIVE BY MOUTH EVERY 6 HOURS NEEDED FOR BREATHING, WHEEZING, SHORTNESS OF BREATH *BRING THIS WITH YOU TO YOUR LUNG FFUNCTION TEST* 2) AMIODARONE HCL (PACERONE) 200MG TAB TAKE ONE TABLET ACTIVE BY MOUTH TWICE A DAY FOR HEART RHYTHM 3) AMITRIPTYLINE HCL 25MG TAB TAKE ONE TABLET BY MOUTH ACTIVE EVERY DAY 4) APIXABAN 5MG TAB TAKE ONE TABLET BY MOUTH TWI CE A DAY ACTIVE FOR STROKE PREVENTION 5) ATORVASTATIN CALCIUM 20MG TAB TAKE ONE TABLET BY ACTIVE MOUTH AT BEDTIME FOR CHOLESTEROL LDL GOAL LESS THAN 70. 6) CETIRIZINE HCL 10MG TAB TAKE ONE TABLET BY MO UTH AT ACTIVE BEDTIME FOR ALLERGIES 7) CHOLECALCIF 50MCG (D3-2,000UNIT) TAB TAKE TWO TABLETS ACTIVE BY MOUTH EVERY DAY FOR VITAMIN D SUPPLEMENT 8) DOXAZOSIN MESYLATE 4MG TAB TAKE ONE TABLET BY MOUTH ACTIVE EVERY DAY FOR BLOOD PRESSURE / PROSTATE 9) FLUOROURACIL 5% CREAM APPLY A SUFFICIENT AMOU NT TO ACTIVE COVER THE LESIONS TO AFFECTED AREA TWICE A DAY FOR 2 WEEKS, WASH OFF AT BEDTIME AVOID YOUR EY ES 10) KETOCONAZOLE 2% CREAM APPLY SPARINGLY TO AFF ECTED ACTIVE AREA THREE TIMES A DAY NEEDED APPLY TO AFFEC NUNO AREAS IN GROIN DIRECTED. 11) LOSARTAN POTASSIUM 50MG TAB TAKE ONE TABLET BY MOUTH ACTIVE EVERY DAY INCREASED TO 50MG EVERY DAY ON 09.26.2021 -- MLZ. 12) METOPROLOL TARTRATE 50MG TAB TAKE ONE TABLET BY MOUTH ACTIVE TWICE A DAY FOR HEART/BLOOD PRESSURE 13) TRIAMCINOLONE ACETONIDE 0.1% CREAM APPLY SPA RINGLY TO ACTIVE AFFECTED AREA TWICE A DAY NEEDED FOR SKIN RA SH ON ANTERIOR CHEST. APPLY DIRECTED. Active Non-VA Medications Status 1) Non-VA CYANOCOBALAMIN 500MCG TAB 500MCG BY MO UT ACTIVE DAILY 2) Non-VA MAGNESIUM OXIDE 420MG TAB 420MG BY JEANETTE TH DAILY ACTIVE 3) Non-VA MULTIVITAMINS W/ MIN. THERAPEUTIC TAB BY ACTIVE MOUTH EVERY MORNING 16 Total Medications No Active Remote Medications for this patient IDENTIFIED MEDICATION DISCREPANCIES INCLUDED AND PROVIDER NOTIFIED: None, the patient is only taking the medication s listed in CPRS as prescribed. Defer to provider Clinical Reminders Done Today Advance Directive Education: Patient has Advance Directive but is not on arianne e here. Patient was instructed to bring in. Fall Risk Screen and Evaluation: Have you fallen in the last year? Yes. Are you or your family concerned that you may f all? No. Does the patient appear to have gait, balance o r strength problems? No. The patient is at risk for falls and has been r eferred to the provider for further assessment. The patient and/or family w ere educated on fall prevention. The Get Up and Go assessment tool h as been performed. COMMENT: saw a PT provider. No longer w alking with a cane. Herpes Zoster (Shingles) Vaccine: see orders Homelessness/Food Insecurity Screen: In the past 2 months, have you been living in s table housing that you own, rent, or stay in as part of a household? Y es - Living in stable housing. Are you worried or concerned that in the next 2 months you may NOT have stable housing that you own, rent, or stay in a s part of a household? No - Not worried about housing near future The [facility] reports the following: Within the past 12 months, you worried whether your food would run out before you got money to buy more. Never true Within the past 12 months, the food you bought just didn't last and you didn't have money to get more. Never true Influenza Immunization: Deferred due to a precaution: Other precaution: Comment: states he recevied flu vaccine in 2020 Learning Assessment: Ability to Learn: Patient indicates interest in learning. Learning Preferences/Potential Barriers: Patient prefers learning in a one to one, direc t instruction method. Pamphlets are an acceptable learning tool for t his patient. Are you registered for My [employer] ([facility])? No - Are you interested in registering? No If ' yes' please hand My [employer] brochure. Degree of Understanding: /caregiver verbalized understanding of i nformation given. Primary Language and Language Preference: Divehi Pneumococcal PPSV23 (Pneumovax): The patient declines to receive the recommended dose of pneumococcal polysaccharide vaccine PPSV23 (Pneumovax). Comment: Declines. receiving shingles vaccine t ike. PTSD Screening: PC-PTSD-5 A PTSD screening test (PC-PTSD-5) was negative (score=0). Have you ever had any experience that was so fr ightening, horrible or upsetting that, IN THE PAST MONTH, you: Have you ever experienced this kind of event? NO 1. Had nightmares about the event(s) or thought about the event(s) when you did not want to? Response not required due to responses to other questions. 2. Tried hard not to think about the event(s) o r went out of your way to avoid situations that reminded you of the ev ent(s)? Response not required due to responses to other questions. 3. Been constantly on guard, watchful, or easil y startled? Response not required due to responses to other questions. 4. [place] numb or detached from people, activitie s, or your surroundings? Response not required due to responses to other questions. 5. [place] guilty or unable to stop blaming yourse lf or others for the event(s) or any problems the event(s) may have caused? Response not required due to responses to other questions. Tobacco Use Screening: The patient is a former tobacco user. The patient quit fifteen or more years ago. Travel and Symptom Screen: The patient indicated [...] in last 30 days. /sonia/ JOESPH Cao [employer] Signed: 11/17/2021 15:01
--- OUTSIDE RECORDS SUMMARY | 2022-05-19 15:55 | External Medical Summary | Encounter Summary ---
:1940 Author Organization [facility] rs Address [address] [place] [address] Support Name Relationship Address Phone NICHOLE THOMAS Unavailable [address] [place] [address] NICHOLE THOMAS Unavailable [address] [place] [address] CUCA CHAU Unavailable [address] [place] [address] CUCA CHAU Unavailable [address] [place] [address] Insurance Providers: All historical and current Section [...] MEDICARE MEDICARE PART May 31, PART A [id number] Jeremias THOMAS PATIENT (WNR) (M) A 2005 78A [id number] ORTUNATE MEDICARE MEDICARE PART May 31, PART A [id number] DECICIOF PATIENT (WNR) (M) A 2005 [id number] Selected Encounter This section includes the information on record at [place] for the Encounter. Date/Time Encounter Type Encounter Description Reason Provider Source Oct 18, 2021 10:36 Outpatient Encounter PRIMARY CARE/MEDICINE AM IHE Encounter [...] 20 appointments. The data comes from all [facility]. Appointment Date/Time Appointment Type Appointment Facili ty Name Nov 09, 2021 03:00 PM AMBULATORY - NONE [facility] RE[facility] Nov 17, 2021 03:00 PM AMBULATORY - MEDICINE [facility] Dec 13, 2021 01:15 PM AMBULATORY - MEDICINE [facility] Dec 18, 2021 01:00 PM AMBULATORY - MEDICINE [facility] Dec 29, 2021 01:15 PM AMBULATORY - NONE [facility] February 06, 2022 02:00 PM AMBULATORY NONE [facility] RE[facility] Active, Pending, and Scheduled Orders This section includes a listing of several types of active, pending, and scheduled orders, including clinic medications orders, diagnostic test orders, procedure orders and consult orders; where the start date of the order is 45 days before the date of the Encounter or 45 days after the date of the Encounter. The data comes from all [facility]. Test Date/Time Test Type Test Details Facility Name Sep 26, 2021 02:52 PM Consult Order [facility]igan [facility]-CARDIOLOGY GENERAL [facility] Treating And Pumping Supervisor's Choice Oct 05, 2021 02:05 PM Consult Order [facility] Treating And Pumping Supervisor's Choice Encounter Notes: All associated encounter notes This section contains the clinical notes associated to the Encounter. Date/Time Encounter Note(s) Provider Source Oct 18, 2021 10:36 AM PHYSICIAN NOTE: KIRA RESENDEZ [facility] LOCAL TITLE: OUTSIDE MEDICAL RECORD - SUMMARY STANDARD TITLE: PHYSICIAN NOTE DATE OF NOTE: OCT 18, 2021@10:36 ENTRY DATE: OCT 18, 2021@10:36:32 AUTHOR: KIRA RESENDEZ EXP COSIGNER: URGENCY: STATUS: COMPLETED Urgent Care visit [facility] 1.14.22 c/o congestion x 2 weeks impression: cough. Covid test ordered. /sonia/ KIRA RESENDEZ LPN Signed: 10/18/2021 10:37
--- OUTSIDE RECORDS SUMMARY | 2022-05-19 15:56 | External Medical Summary | Encounter Summary ---
:1940 Author Organization [facility] rs Address [address] [place] [address] Support Name Relationship Address Phone NICHOLE THOMAS Unavailable [address] [place] [address] NICHOLE THOMAS Unavailable [address] [place] [address] CUCA CHAU Unavailable [address] [place] [address] CUCA CHAU Unavailable [address] [place] [address] Insurance Providers: All historical and current Section [...] MEDICARE MEDICARE PART May 31, PART A [id number] Jeremias THOMAS PATIENT (WNR) (M) A 2005 78A [id number] ORTUNATE MEDICARE MEDICARE PART May 31, PART A [id number] DECICIOF PATIENT (WNR) (M) A 2005 [id number] Selected Encounter This section includes the information on record at [place] for the Encounter. Date/Time Encounter Type Encounter Description Reason Provider Source Oct 13, 2021 12:13 Outpatient Encounter PRIMARY CARE/MEDICINE PM IHE Encounter Template Text not used by [place] Plan of Treatment: Future Appointments (+ 6 [...] 20 appointments. The data comes from all [facility]. Appointment Date/Time Appointment Type Appointment Facili ty Name Nov 09, 2021 03:00 PM AMBULATORY - NONE [facility] RE[facility] Nov 17, 2021 03:00 PM AMBULATORY - MEDICINE [facility] Dec 13, 2021 01:15 PM AMBULATORY - MEDICINE [facility] Dec 18, 2021 01:00 PM AMBULATORY - MEDICINE [facility] Dec 29, 2021 01:15 PM AMBULATORY - NONE [facility] RE[facility] February 06, 2022 02:00 PM AMBULATORY NONE [facility] RE[facility] Active, Pending, and Scheduled Orders This section includes a listing of several types of active, pending, and scheduled orders, including clinic medications orders, diagnostic test orders, procedure orders and consult orders; where the start date of the order is 45 days before the date of the Encounter or 45 days after the date of the Encounter. The data comes from all [facility]. Test Date/Time Test Type Test Details Facility Name Sep 26, 2021 02:52 PM Consult Order [facility] GENER[facility] Grease Refiner Operator's Choice Oct 05, 2021 02:05 PM Consult Order [facility] Grease Refiner Operator's Choice Encounter Notes: All associated encounter notes This section contains the clinical notes associated to the Encounter. Date/Time Encounter Note(s) Provider Source Oct 13, 2021 12:13 PM NURSING NOTE: KIRA RESENDEZ [facility] LOCAL TITLE: NURSING NOTE STANDARD TITLE: NURSING NOTE DATE OF NOTE: OCT 13, 2021@12:13 ENTRY DATE: OCT 13, 2021@12:13:34 AUTHOR: KIRA RESENDEZ EXP COSIGNER: URGENCY: STATUS: COMPLETED Patient to clinic today. Cough, congestion with mucous x 2 weeks. Patient states he feels like it is going in to chest and he was wondering if he theresa uld go to Urgent Care. This nurse spoke with Provider and he suggested patient go to Urgent Care. Advised patient he could go to 3 visits at urgent care under the mission act and then there may be a small co-pay. Patient appreciative and will go to Urgent Care. /sonia/ KIRA RESENDEZ LPN Signed: 10/13/2021 12:15
--- OUTSIDE RECORDS SUMMARY | 2022-05-19 15:56 | External Medical Summary | Encounter Summary ---
:1940 Author Organization [facility] rs Address [address] [place] [address] Support Name Relationship Address Phone NICHOLE THOMAS Unavailable [address] [place] [address] NICHOLE THOMAS Unavailable [address] [place] [address] CUCA CHAU Unavailable [address] [place] [address] CUCA CHAU Unavailable [address] [place] [address] Insurance Providers: All historical and current Section [...] MEDICARE MEDICARE PART May 31, PART A [id number] Jeremias THOMAS PATIENT (WNR) (M) A 2005 78A [id number] ORTUNATE MEDICARE MEDICARE PART May 31, PART A [id number] KHAIICIOF PATIENT (WNR) (M) A 2005 [id number] [id number] Selected Encounter This section includes the information on record at [place] for the Encounter. Date/Time Encounter Type Encounter Description Reason Provider Source Oct 13, 2021 11:55 Outpatient Encounter COMMUNITY CARE AM CONSULT IHE [...] 20 appointments. The data comes from all [facility]. Appointment Date/Time Appointment Type Appointment Facili ty Name Nov 09, 2021 03:00 PM AMBULATORY - NONE [facility] Nov 17, 2021 03:00 PM AMBULATORY - MEDICINE [facility] Dec 13, 2021 01:15 PM AMBULATORY - MEDICINE [facility] Dec 18, 2021 01:00 PM AMBULATORY - MEDICINE [facility] Dec 29, 2021 01:15 PM AMBULATORY - NONE [facility] February 06, 2022 02:00 PM AMBULATORY NONE [facility] Active, Pending, and Scheduled Orders This section includes a listing of several types of active, pending, and scheduled orders, including clinic medications orders, diagnostic test orders, procedure orders and consult orders; where the start date of the order is 45 days before the date of the Encounter or 45 days after the date of the Encounter. The data comes from all [facility]. Test Date/Time Test Type Test Details Facility Name Sep 26, 2021 02:52 PM Consult Order [facility] Milligan [facility]-CARDIOLOGY GENERAL [facility] Tie Tram Loader's Choice Oct 05, 2021 02:05 PM Consult Order [facility] RAMONA KABA [facility]-DERMATOLOGY [facility] Cross Tie Tram Loader's Choice Encounter Notes: All associated encounter notes This section contains the clinical notes associated to the Encounter. Date/Time Encounter Note(s) Provider Source Oct 13, 2021 11:55 AM INFECTIOUS DISEASE RISK ASSESSMENT SCR EENING NOTE: SYMONE SCHROEDER LOCAL TITLE: SCREENING COVID [facility] STANDARD TITLE: INFECTIOUS DISEASE RISK ASSESSME NT SCREENING NOT DATE OF NOTE: OCT 13, 2021@11:55 ENTRY DATE: OCT 13, 2021@11:55:44 AUTHOR: SYMONE SCHROEDER EXP COSIGNER: URGENCY: STATUS: COMPLETED Coronavirus Disease 2019 (COVID-19) Screen The patient was asked if in the last 14 days the y have had new onset of any COVID-19 symptoms. They report the following: Cough Within the past 14 days, the patient reports no exposure to someone with a febrile/respiratory illness or someone with a kn own or suspected case of COVID-19 (within 6 feet for > 15 minutes). Result: Patient has a positive symptom or exposure and requires further evaluation. Nurse/Provider/Other notified: Caty teague/ SYMONE SCHROEEDR MSA Signed: 10/13/2021 11:56
--- OUTSIDE RECORDS SUMMARY | 2022-05-19 15:56 | External Medical Summary | Encounter Summary ---
:1940 Author Organization [facility] rs Address [address] [place] [address] Support Name Relationship Address Phone NICHOLE THOMAS Unavailable [address] [place] [address] NICHOLE THOMAS Unavailable [address] [place] [address] CUCA CHAU Unavailable [address] [place] [address] CUCA CHAU Unavailable [address] [place] [address] Insurance Providers: All historical and current Section [...] MEDICARE MEDICARE PART May 31, PART A [id number] Jeremias THOMAS PATIENT (WNR) (M) A 2005 78A [id number] ORTUNATE MEDICARE MEDICARE PART May 31, PART A [id number] KHAIICIOF PATIENT (WNR) (M) A 2005 [id number] [id number] Selected Encounter This section includes the information on record at [place] for the Encounter. Date/Time Encounter Type Encounter Description Reason Provider Source Oct 06, 2021 12:04 Outpatient Encounter COMMUNITY CARE PM CONSULT IHE [...] 20 appointments. The data comes from all [facility]. Appointment Date/Time Appointment Type Appointment Facili ty Name Nov 09, 2021 03:00 PM [facility] Nov 17, 2021 03:00 PM [facility]ULAT[facility] - [facility]ICINE [facility] Dec 13, 2021 01:15 PM AMBULATORY - MEDICINE [facility] Dec 18, 2021 01:00 PM AMBULATORY - MEDICINE [facility] Dec 29, 2021 01:15 PM AMBULATORY - NONE [facility] February 06, 2022 02:00 PM AMBULATORY [facility] RAMONA [facility] Active, Pending, and Scheduled Orders This section includes a listing of several types of active, pending, and scheduled orders, including clinic medications orders, diagnostic test orders, procedure orders and consult orders; where the start date of the order is 45 days before the date of the Encounter or 45 days after the date of the Encounter. The data comes from all [facility]. Test Date/Time Test Type Test Details Facility Name Sep 26, 2021 02:52 PM Consult Order [facility] Milligan [facility]-CARDIOLOGY GENERAL [facility] Accounting Machine Mechanic's Choice Oct 05, 2021 02:05 PM Consult Order [facility] RAMONA Carmona [facility]-DERMATOLOGY [facility] Accounting Machine Mechanic's Choice Encounter Notes: All associated encounter notes This section contains the clinical notes associated to the Encounter. Date/Time Encounter Note(s) Provider Source Oct 06, 2021 12:04 PM ADMINISTRATIVE NOTE: NICK SCHMIDT [facility] TITLE: ADMINISTRATIVE NOTE [facility] STANDARD TITLE: ADMINISTRATIVE NOTE DATE OF NOTE: OCT 06, 2021@12:04 ENTRY DATE: OCT 06, 2021@12:04:45 AUTHOR: NICK SCHMIDT EXP COSIGNER: URGENCY: STATUS: COMPLETED ADMINISTRATIVE NOTE Has ADDENDA Called to schedule DEONTE PACT TELE PAUL EMISSIONS ENGINEER rtc, no answer-lvm. /sonia/ NICK SCHMIDT [employer] CARPET INSTALLER Signed: 10/06/2021 12:05 11/01/2021 ADDENDUM STATUS: COMPLETED 2nd attempt to schedule DEONTE PACT TELE PAMELAY EMISSIONS ENGINEER , no answer and unable to lvm d/t "mailbox is full". /sonia/ NICK SCHMIDT [employer] WALL TO WALL CARPET INSTALLER Signed: 11/01/2021 08:58
--- OUTSIDE RECORDS SUMMARY | 2022-05-19 15:56 | External Medical Summary | Encounter Summary ---
:1940 Author Organization [facility] rs Address [address] [place] [address] Support Name Relationship Address Phone NICHOLE THOMAS Unavailable [address] [phone] [place] [address] NICHOLE THOMAS Unavailable [address] [phone] [place] [address] CUCA CHAU Unavailable [address] [place] [address] CUCA CHAU Unavailable [address] [place] [address] Insurance Providers: All historical and current Section [...] MEDICARE MEDICARE PART May 31, PART A [id number] Jeremias THOMAS PATIENT (WNR) (M) A 2005 78A [id number] ORTUNATE MEDICARE MEDICARE PART May 31, PART A [id number] Jeremias THOMAS PATIENT (WNR) (M) A [id number] Selected Encounter This section includes the information on record at [place] for the Encounter. Date/Time Encounter Type Encounter Description Reason Provider Source Oct 13, 2021 12:00 Outpatient Encounter COMMUNITY CARE PM CONSULT IHE [...] 20 appointments. The data comes from all [facility]. Appointment Date/Time Appointment Type Appointment Facili ty Name Nov 09, 2021 03:00 PM AMBULATORY - NONE [facility] Nov 17, 2021 03:00 PM AMBULATORY - MEDICINE [facility] Dec 13, 2021 01:15 PM AMBULATORY - MEDICINE [facility] Dec 18, 2021 01:00 PM AMBULATORY - MEDICINE [facility] Dec 29, 2021 01:15 PM AMBULATORY - NONE [facility] February 06, 2022 02:00 PM AMBULATORY [facility] Active, Pending, and [...] the Encounter. The data comes from all [facility]. Test Date/Time Test Type Test Details Facility Name Sep 26, 2021 02:52 PM Consult Order [facility] Milligan [facility] C[facility]-CARDIOLOGY GENERAL [facility] Core Machine Tender's Choice Oct 05, 2021 02:05 PM Consult Order [facility]ONA KABA [facility]-DERMATOLOGY [facility] Core Machine Tender's Choice Encounter Notes: All associated encounter notes This section contains the clinical notes associated to the Encounter. Date/Time Encounter Note(s) Provider Source Oct 13, 2021 12:00 PM NONVA REPORT: CORDELL TURPIN LOCAL TITLE: NON-VA REPORT OTHER [facility] STANDARD TITLE: NONVA REPORT DATE OF NOTE: OCT 13, 2021@12:00 ENTRY DATE: DEC 01, 2021@16:56:08 AUTHOR: CORDELL TURPIN EXP COSIGNER: URGENCY: STATUS: COMPLETED See scanned report in [employer]. NON VA Care Consult Results [facility] YOSVANY REDDING D.O. DOS: 10/13/21 /sonia/ CORDELL TURPIN Signed: 12/01/2021 16:56
--- OUTSIDE RECORDS SUMMARY | 2022-05-19 15:57 | External Medical Summary | Encounter Summary ---
:1940 Author Organization [facility] rs Address [address] [place] [address] Support Name Relationship Address Phone NICHOLE THOMAS Unavailable [address] [phone] [place] [address] NICHOLE THOMAS Unavailable [address] [phone] [place] [address] CUCA CHAU Unavailable [address] [place] [address] CUCA CHAU Unavailable [address] [place] [address] Insurance Providers: All historical and current Section [...] MEDICARE MEDICARE PART May 31, PART A [id number] Jeremias THOMAS PATIENT (WNR) (M) A 2005 78A [id number] ORTUNATE MEDICARE MEDICARE PART May 31, PART A [id number] Jeremias THOMAS PATIENT (WNR) (M) A [id number] [id number] Selected Encounter This section includes the information on record at [place] for the Encounter. Date/Time Encounter Type Encounter Description Reason Provider Source Oct 05, 2021 01:54 Outpatient Encounter TELEPHONE/ANCILLARY PM IHE Encounter Template Text not used by [place] Plan of Treatment: Future Appointments (+ 6 [...] 20 appointments. The data comes from all [facility]. Appointment Date/Time Appointment Type Appointment Facili ty Name Nov 09, 2021 03:00 PM AMBULATORY - NONE [facility] REA [facility] Nov 17, 2021 03:00 PM AMBULATORY - MEDICINE [facility] Dec 13, 2021 01:15 PM AMBULATORY - MEDICINE [facility] Dec 18, 2021 01:00 PM AMBULATORY - MEDICINE [facility] Dec 29, 2021 01:15 PM AMBULATORY - NONE [facility] RE[facility] February 06, 2022 02:[address] [facility] Active, Pending, and Scheduled [...] the Encounter. The data comes from all [facility]. Test Date/Time Test Type Test Details Facility Name Sep 26, 2021 02:52 PM Consult Order [facility] Strategy Execution Consultant's Choice Oct 05, 2021 02:05 PM Consult Order [facility]ONA Carmona [facility]-DERMATOLOGY [facility] Strategy Execution Consultant's Choice Encounter Notes: All associated encounter notes This section contains the clinical notes associated to the Encounter. Date/Time Encounter Note(s) Provider Source Oct 05, 2021 02:13 LETTERS: JUS HAMPTON LOCAL TITLE: [facility]-REQUEST FOR SERVICES (RFS) RHINA IRVING [facility] STAND[facility] TITLE: LETTERS DATE OF NOTE: OCT 05, 2021@14:13 ENTRY DATE: OCT 05, 2021@14:13:59 AUTHOR: JUS MELO MA EXP COSIGNER: URGENCY: STATUS: COMPLETED Nirmal Power F: Dear Provider, [place] Information: Patient Name: JENNIFER THOMAS Date of : May The office of care in the community has received the request RFS submitted by community care Dermatology provider Nirmal edwards located [facility] requesting continuation of ca re from you for services that were not originally authoriz ed in the [employer] for this [place]. Upon review, the following determination has bee n made: Service has been approved. Should you have questions, please contact us at [phone] to speak with a patient check services clerk. As a reminder, if applicable, return medical records within 30 days for routin e services. Sincerely, Rhina Milligan RN
--- OUTSIDE RECORDS SUMMARY | 2022-05-19 15:57 | External Medical Summary | Encounter Summary ---
:1940 Author Organization [facility] rs Address [address] [place] [address] Support Name Relationship Address Phone NICHOLE THOMAS Unavailable [phone] [phone] [place] [address] NICHOLE THOMAS Unavailable [phone] [phone] [place] [address] CUCA CHAU Unavailable [address] [place] [address] CUCA CHAU Unavailable [address] [place] [address] Insurance Providers: All historical and current Section [...] MEDICARE MEDICARE PART May 31, PART A [id number] Jeremias THOMAS PATIENT (WNR) (M) A 2005 78A [id number] ORTUNATE MEDICARE MEDICARE PART May 31, PART A [id number] KHAIICIOF PATIENT (WNR) (M) A 2005 [id number] [id number] Selected Encounter This section includes the information on record at [place] for the Encounter. Date/Time Encounter Type Encounter Reason Provider Source Description Sep 26, 2021 Outpatient TELEPHONE PRIMARY ICD-10-CM I10 DONITA DAILEY 02:00 PM Encounter CARE Essential L (primary) hypertension with Provider Comments: Essential hypertension (SCT 09123775) IHE Encounter Template Text not used by [facility] Assessments - Encounter Diagnoses This section includes the primary and secondary diagnoses documented for the Encounter. Date/Time Primary/Secondary Diagnosis Name Provider Source Diagnosis Sep 26, 2021 PRIMARY Essential DONITA DAILEY [place] 02:[place] PM (primary) CLINIC hypertension Sep 26, 2021 SECONDARY Dyspnea, DONITA DAILEY [place] 02:00 PM unspecified CLINIC Sep 26, 2021 SECONDARY Other general DONITA DAILEY [place] 02:[place] PM symptoms and signs CLINIC Sep 26, 2021 SECONDARY Person consulting DONITA DAILEY [place] 02:[place] PM for explanation of CLINIC exam or test findings Sep 26, 2021 SECONDARY Unspecified atrial DONITA DAILEY N [place] 02:00 PM fibrillation CLINIC Plan of Treatment: Future Appointments (+ 6 months) and Future Tests (+/- 45 days) The Plan of Treatment section includes future care activities for the patient from [facility] [place] [facility] This section includes future appointments and future orders which are active, pending orscheduled.Future Appointments This section includes appointments that were scheduled to occur 6 months from the date of the Encounter, up to a maximum of 20 appointments. The data comes from all [place] treatment facilities. Appointment Date/Time Appointment Type Appointment Facili ty Name Nov 09, 2021 03:00 PM AMBULATORY - NONE RAMONA RE[facility] Nov 17, 2021 03:00 PM AMBULATORY - MEDICINE [facility] CLIN IC Dec 13, 2021 01:15 PM AMBULATORY - MEDICINE [facility] CLIN IC Dec 18, 2021 01:00 PM AMBULATORY - MEDICINE [facility] CLIN IC Dec 29, 2021 01:15 PM AMBULATORY - NONE [facility]ONA RE[facility] February 06, 2022 02:00 PM [facility] Active, Pending, and Scheduled Orders This section includes a listing of several types of active, pending, and scheduled orders, including clinic medications orders, diagnostic test orders, procedure orders and consult orders; where the start date of the order is 45 days before the date of the Encounter or 45 days after the date of the Encounter. The data comes from all [place] treatment facilities. Test Date/Time Test Type Test Details Facility Name Aug 15, 2021 08:01 AM Consult Order DASHA PERRY A [facility]IC [facility]-PULMONOLOGY Cons [employer] [facility] Operator[facility] Choice Sep 26, 2021 02:52 PM Consult Order DASHA PERRY A CLINIC CARE-CARDIOLOGY GENERAL Cons [facility] Operator[facility] Choice Oct 05, 2021 02:05 PM Consult Order [facility] Fertilizing Machine Operator's Choice Social History: Smoking Status (Most current) and Tobacco Use (All prior to encounter date) This section includes the most current, and the historical, smoking and tobacco-related health factors from the [facility] where the Encounter took place.Current Smoking Status This section includes the most current smoking, or tobacco-related health factor, from the [place] facility where the Encounter took place. Date/Time Current Smoking Status Comment Facility Dec 16, 2020 12:30 PM VA-TOBACCO FORMER USER [facility] Tobacco Use History This section includes a history of the smoking, or tobacco- related health factors, that were collected on or before the date of the Encounter. The data comes from the [facility] where the Encounter took place. Date/Time Smoking Status/Tobacco Use Comment [facility] Dec 16, 2020 12:30 PM VA-TOBACCO QUIT 15 YRS OR MORE [facility] Oct 30, 2019 09:41 AM VA-TOBACCO FORMER USER [facility] Oct 30, 2019 09:41 AM VA-TOBACCO QUIT 15 YRS OR MORE [facility] Oct 09, 2018 11:23 AM VA-TOBACCO FORMER USER [facility] Oct 09, 2018 11:23 AM [place]-TOBACCO QUIT 15 YRS OR MORE [facility] Sep 12, 2017 09:25 AM QUIT TOBACCO >7 YEARS AGO [facility] Sep 12, 2017 09:25 AM TOBACCO SCREEN COMPLETED [facility] QUIT JUN 1973 Oct 29, 2011 09:59 AM QUIT TOBACCO >7 YEARS AGO [facility] Oct 29, 2011 09:59 AM TOBACCO SCREEN COMPLETED [facility] Encounter Notes: All associated encounter notes This section contains the clinical notes associated to the Encounter. Date/Time Encounter Note(s) Provider Source Sep 26, 2021 02:45 PM PRIMARY CARE TELEPHONE ENCOUNTER NOTE: DONITA SHAIKH [facility] LOCAL TITLE: PROVIDER TELEPHONE NOTE STANDARD TITLE: PRIMARY CARE TELEPHONE ENCOUNTER NOTE DATE OF NOTE: SEP 26, 2021@14:45 ENTRY DATE: SEP 26, 2021@14:45:39 AUTHOR: DONITA DAILEY EXP COSIGNER: URGENCY: STATUS: COMPLETED SUBJECT: F/up on bp med chgs & dyspnea. FORTUNATE DECICIO 81 year old MALE. Patient identification is confirmed by full name , date of and the last four of their social security number was verifie d prior to interview & discussion at the start of today's appointment. APPOINTMENT TYPE: Telephone Appointment. CHIEF COMPLAINT: Follow-up on HTN. HISTORY OF PRESENT ILLNESS: [place]'s BP med chgd from ACEI to ARB. States b p's still running >160 over 80-90's. Continues losartan @ 25mg qday. Has hx of HTN & Afib. He is on multiple heart/bp medications. Currently not hoang ng followed by Admissions Evaluator. Also reports that he hasn't been contacted by OC C regarding the Pulmonary referral that was submitted in Jul. He hasn't co ntacted OCC. I informed him that I would contact [facility] for status. REVIEW OF SYSTEMS (ROS): Denies any sob, chest pains or palpitations. Den ies any vision changes or concerns. Denies any n/v/c/d. No changes in janis l/bladder habits. Denies any noted blood in their urine or stools. Denies any neurological changes. Denies any numbness/tingling or paresthesias of their extremities. Reports taking & tolerating medications w/o issues or co ncerns @ this time. Objective: The [place] sounded well w/o any noted d yspnea. [place] sounded & acted alert, oriented x 3. Their congnition was intact. Veter an was calm, cooperative, had linear thoughts & was pleasant during today' s visit. MEDICATIONS: Medication List Reviewed, Discussed & Updated w/ [place] Today. [place] Reports No Medication/Treatment Complain ts &/or Concerns. Active Medication List: Active and Recently Outpatient Medicatio ns (including [...] LISINOPRIL O N 06.22.2021 -- MLZ 10) METOPROLOL TARTRATE 50MG TAB TAKE ONE TABLET BY MOUTH ACTIVE TWICE A DAY FOR HEART/BLOOD PRESSURE 11) TRIAMCINOLONE ACETONIDE 0.1% CREAM APPLY SPA RINGLY TO ACTIVE AFFECTED AREA TWICE A DAY NEEDED FOR SKIN RA SH ON ANTERIOR CHEST. APPLY DIRECTED. Active Non-VA Medications Status 1) Non-VA CYANOCOBALAMIN 500MCG TAB 500MCG BY [facility] ACTIVE DAILY 2) Non-VA MAGNESIUM OXIDE 420MG TAB 420MG BY JEANETTE TH DAILY ACTIVE 3) Non-VA MULTIVITAMINS W/ MIN. THERAPEUTIC TAB BY ACTIVE MOUTH EVERY MORNING 14 Total Medications No Active Remote Medications for this patient *ALLERGIES: CODEINE, OXYCODONE, PERCOCET DIAGNOSIS: HTN AFIB SOB Problem List Reviewed, Discussed & Updated Today w/ . ACTIVE/HISTORICAL PROBLEM LIST: Active Problem Dyspnea R06.00 08/15/2021 DONITA DAILEY Dyspnea on exertion R06.02 06/25/2021 MILA DAILEY Chest pain R07.9 06/25/2021 DONITA DAILEY Rash R21. 12/16/2020 DONITA DAILEY AF- Atrial Fibrillation (SCT 207532 12/29 ALEXIS KOENIG D Well male adult Z00.00 11/22/2019 DONITA DAILEY Hematoma of thigh M79.89 02/04/2019 DONITA DAILEY Cerebral small vessel disease I67.8 01/09/2019 DONITA FIGUEROA Peripheral edema R60.9 04/15/2018 DONITA DAILEY History of colonoscopy R69., Onset 05/25/2021 DONITA SELBY Hyperlipidemia E78.2 03/05/2016 RAYMUNDOMONA MORA Actinic keratosis L57.0 03/05/2016 RAYMUNDOMONA MORA CVA - Cerebrovascular accident I69. 11/12/2018 DONITA FIGUEROA Osteoarthritis (SNOMED CT 244487018 12/28/2015 T EKMONA MORA Long-term current use of anticoagul 10/24/2018 DONITA FIGUEROA Iatrogenic Pulmonary Embolism and I 05/26/2012 B OWBEKA A Diverticulosis (SNOMED CT 595041232 05/21/2017 DONITA FIGUEROA Polyp of colon (SNOMED CT 96850689) 04/15/2018 DONITA FIGUEROA Essential hypertension (SNOMED CT 5 03/05/2016 T MONA LAUGHLIN Benign prostatic hyperplasia (SNOME 05/21/2017 DONITA FIGUEROA Gastro-oesophageal reflux disease w 11/12/2018 DONITA FIGUEROA PLAN: INCREASE LOSARTAN TO 50MG QDAY CONTINUE WITH CHECKING BP DIRECTED, F/UP IN O NE MONTH W/ READINGS. REFERRAL TO PLAST[facility]ER FOREM[facility]. PCP TO REACH OUT TO OCC ABOUT STATUS OF PULMONAR Y REFERRAL. was advised during todays visit to ann-marie hernandez w/ current plan of are, except for stated additions and/or changes noted below during today's appointment. ORDERS ENTERED: Item Ordered START DATE STOP DATE ENTERED COMMUNITY CARE-CARDIOL SEP 26, 2021@14:44 LOSARTAN TAB SEP 26, 2021@14:41 has been advised to Rtc if s/sx change, worsen, or persist. Instructed to Rtca & F/up on an as needed basis. Time Spent: 13 minutes was the total amount of t yash that was spent in counseling & coordination of 's care associated with today's visit. Return To Clinic (RTC): RTC orders have been submitted during a previous appt/visit & remain active & unchanged @ this time. /sonia/ DONITA DAILEY Nurse Practitioner Signed: 09/26/2021 14:51
--- OUTSIDE RECORDS SUMMARY | 2022-05-19 15:57 | External Medical Summary | Encounter Summary ---
:1940 Author Organization [facility] rs Address [address] [place] [address] Support Name Relationship Address Phone NICHOLE THOMAS Unavailable [phone] [place] [address] NICHOLE THOMAS Unavailable [address] [place] [address] CUCA CHAU Unavailable [address] [place] [address] CUCA CHAU Unavailable [address] [place] [address] Insurance Providers: All historical and current Section [...] MEDICARE MEDICARE PART May 31, PART A [id number] Jeremias THOMAS PATIENT (WNR) (M) A 2005 78A [id number] ORTUNATE MEDICARE MEDICARE PART May 31, PART A [id number] DECICIOF PATIENT (WNR) (M) A 2005 [id number] Selected Encounter This section includes the information on record at [place] for the Encounter. Date/Time Encounter Type Encounter Description Reason Provider Source Sep 26, 2021 02:00 Outpatient Encounter TELEPHONE PRIMARY PM CARE IHE Encounter Template Text not used by [...] 20 appointments. The data comes from all [facility]. Appointment Date/Time Appointment Type Appointment Facili ty Name Nov 09, 2021 03:00 PM AMBULATORY - NONE [facility] RE[facility] Nov 17, 2021 03:00 PM AMBULATORY - MEDICINE [facility] CLIN IC Dec 13, 2021 01:15 PM AMBULATORY - MEDICINE [facility] CLIN IC Dec 18, 2021 01:00 PM AMBULATORY - MEDICINE [facility] CLIN IC Dec 29, 2021 01:15 PM AMBULATORY - NONE [facility] RE[facility] February 06, 2022 02:00 PM AMBULATORY NONE [facility] RE[facility] Active, Pending, and Scheduled Orders This section includes a listing of several types of active, pending, and scheduled orders, including clinic medications orders, diagnostic test orders, procedure orders and consult orders; where the start date of the order is 45 days before the date of the Encounter or 45 days after the date of the Encounter. The data comes from all [facility]. Test Date/Time Test Type Test Details Facility Name Aug 15, 2021 08:01 AM Consult Order DASHA Milligan [facility]-PULMONOLOGY [facility] T[facility] Sep 26, 2021 02:52 PM Consult Order DASHA Milligan [facility]-CARDIOLOGY GENERAL [facility] Oct 05, 2021 02:05 PM Consult Order [facility] RAMONA KABA [facility]-DERMATOLOGY Critical access hospital [facility] Encounter Notes: All associated encounter notes This section contains the clinical notes associated to the Encounter. Date/Time Encounter Note(s) Provider Source Sep 26, 2021 02:15 PM NO SHOW NOTE: DONITA DAILEY [facility] LOCAL TITLE: NO SHOW NOTE STANDARD TITLE: NO SHOW NOTE DATE OF NOTE: SEP 26, 2021@14:15 ENTRY DATE: SEP 26, 2021@14:15:59 AUTHOR: DONITA DAILEY EXP COSIGNER: URGENCY: STATUS: COMPLETED SUBJECT: No show for f/up review of imaging res ults. NO SHOW NOTE Has ADDENDA PROVIDER VISIT -- NO SHOW NOTE FORTUNATE DECICIO 81 year old MALE. Patient identification is confirmed by full name , date of and the last four of their social security number was verifie d prior to interview & discussion at the start of today's appointment. APPOINTMENT TYPE: Telephone REASON FOR TODAY'S VISIT: F/up on imaging result s. - No show. NO ANSWER: This scheduled visit resulted in a No Answer/No Show, see below for reason(s). Generic message was left on 's voicemail. Instructed on to call [phone] to resched ule this Tele-Visit Appt. /es/ DONITA DAILEY Nurse Practitioner Signed: 09/26/2021 14:22 Receipt Acknowledged By: 09/26/2021 14:33 /es/ JOESPH Cao [employer] [facility] * AWAITING SIGNATURE * NICK SCHMIDT 09/26/2021 14:28 /es/ KIRA RESENDEZ LPN * AWAITING SIGNATURE * MITA MURRELL 09/26/2021 ADDENDUM STATUS: COMPLETED ended up returning call that was transfe rred to this provider. Please visit notes. /es/ DONITA DAILEY Nurse Practitioner Signed: 09/26/2021 14:45 Receipt Acknowledged By: * AWAITING SIGNATURE * NICK SCHMIDT
--- OUTSIDE RECORDS SUMMARY | 2022-05-19 15:57 | External Medical Summary | Encounter Summary ---
:1940 Author Organization [facility] rs Address [address] [place] [address] Support Name Relationship Address Phone NICHOLE THOMAS Unavailable [phone] [phone] [place] [address] NICHOLE THOMAS Unavailable [address] [phone] [place] [address] CUCA CHAU Unavailable [address] [place] [address] CUCA CHAU Unavailable [address] [place] [address] Insurance Providers: All historical and current Section [...] MEDICARE MEDICARE PART May 31, PART A [id number] Jeremias THOMAS PATIENT (WNR) (M) A 2005 78A [id number] ORTUNATE MEDICARE MEDICARE PART May 31, PART A [id number] DIEUDONNEOF PATIENT (WNR) (M) A 2005 [id number] [id number] Selected Encounter This section includes the information on record at [place] for the Encounter. Date/Time Encounter Type Encounter Description Reason Provider Source Sep 05, 2021 01:36 Outpatient Encounter PRIMARY CARE/MEDICINE PM IHE Encounter Template Text not used by [place] Plan of Treatment: Future Appointments (+ 6 [...] appointments. The data comes from all [facility]. Appointment Date/Time Appointment Type Appointment Facili ty Name Sep 26, 2021 02:00 PM AMBULATORY - MEDICINE [facility] CLIN IC Nov 09, 2021 03:00 PM AMBULATORY - NONE [facility] Nov 17, 2021 03:00 PM AMBULATORY - MEDICINE [facility] CLIN IC Dec 13, 2021 01:15 PM AMBULATORY - MEDICINE [facility] CLIN IC Dec 18, 2021 01:00 PM AMBULATORY - MEDICINE [facility] CLIN IC Dec 29, 2021 01:15 PM AMBULATORY - NONE [facility] February 06, 2022 02:00 PM AMBULATORY - NONE [facility] Active, Pending, and Scheduled Orders This section includes a listing of several types of active, pending, and scheduled orders, including clinic medications orders, diagnostic test orders, procedure orders and consult orders; where the start date of the order is 45 days before the date of the Encounter or 45 days after the date of the Encounter. The data comes from all [facility]. Test Date/Time Test Type Test Details Facility Name Aug 15, 2021 08:01 AM Consult Order [facility] Milligan [facility]-PULMONOLOGY [facility] Traffic Administrator's Choice Sep 26, 2021 02:52 PM Consult Order [facility] Milligan [facility]-CARDIOLOGY GENERAL [facility] Traffic Administrator's Choice Oct 05, 2021 02:05 PM Consult Order [facility] RAMONA KABA [facility]-DERMATOLOGY [facility] Traffic Administrator's Choice Encounter Notes: All associated encounter notes This section contains the clinical notes associated to the Encounter. Date/Time Encounter Note(s) Provider Source Sep 05, 2021 01:36 PM NO SHOW NOTE: DONITA DAILEY [facility] LOCAL TITLE: NO SHOW NOTE STANDARD TITLE: NO SHOW NOTE DATE OF NOTE: SEP 05, 2021@13:36 ENTRY DATE: SEP 05, 2021@13:36:26 AUTHOR: DONITA DAILEY EXP COSIGNER: URGENCY: STATUS: COMPLETED SUBJECT: No showed f2f appt for imaging results . NO SHOW NOTE Has ADDENDA PROVIDER VISIT -- NO SHOW NOTE FORTUNATE DECICIO 81 year old MALE. Patient identification is confirmed by full name , date of and the last four of their social security number was verifie d prior to interview & discussion at the start of today's appointment. APPOINTMENT TYPE: Office visit REASON FOR TODAY'S VISIT: Imaging results. NO ANSWER: This scheduled visit resulted in a No Answer/No Show, see below for reason(s). /es/ DONITA DAILEY Nurse Practitioner Signed: 09/05/2021 13:37 Receipt Acknowledged By: 09/05/2021 14:04 /es/ JOESPH Cao [employer] 09/06/2021 09:28 /es/ NICK SCHMIDT MSA 09/05/2021 14:22 /es/ MITA MURRELL RN for KIRA RESNEDEZ 09/05/2021 14:22 /es/ MITA MURRELL RN 09/06/2021 ADDENDUM STATUS: COMPLETED Called to reschedule NO-Show, unable to lvm "Mailbox not set up" /sonia/ NICK SCHMIDT MSA Signed: 09/06/2021 09:29
--- OUTSIDE RECORDS SUMMARY | 2022-05-19 15:57 | External Medical Summary | Encounter Summary ---
:1940 Author Organization [facility] rs Address [address] [place] [address] Support Name Relationship Address Phone NICHOLE THOMAS Unavailable [address] [phone] [place] [address] NICHOLE THOMAS Unavailable [address] [phone] [place] [address] CUCA CHAU Unavailable [address] [place] [address] CUCA CHAU Unavailable [address] [place] [address] Insurance Providers: All historical and current Section [...] MEDICARE MEDICARE PART May 31, PART A [id number] Jeremias THOMAS PATIENT (WNR) (M) A 2005 78A [id number] ORTUNATE MEDICARE MEDICARE PART May 31, PART A [id number] DECICIOF PATIENT (WNR) (M) A 2005 [id number] [id number] Selected Encounter This section includes the information on record at [place] for the Encounter. Date/Time Encounter Type Encounter Reason Provider Source Description Aug 02, 2021 Outpatient TELEPHONE PRIMARY ICD-10-CM R06.00 MILA DAILEY 12:30 PM Encounter CARE Dyspnea, L unspecified with Provider Comments: Dyspnea (SNOMED CT 807911245) IHE Encounter Template Text not used by [facility] Assessments - Encounter Diagnoses This section includes the primary and secondary diagnoses documented for the Encounter. Date/Time Primary/Secondary Diagnosis Name Provider Source Diagnosis Aug 02, 2021 PRIMARY Dyspnea, DONITA DAILEY [facility] 12:30 PM unspecified CLINIC Aug 02, 2021 SECONDARY Other general DONITA DAILEY [facility] 12:30 PM symptoms and signs CLINIC Aug 02, 2021 SECONDARY [facility] for explanation of [facility] exam or test findings Aug 02, 2021 SECONDARY Persons DONITA DAILEY [facility] 12:30 PM encountering health CLINIC services in oth circumstances Plan of Treatment: Future Appointments (+ 6 months) and Future Tests (+/- 45 days) The Plan of Treatment section includes future care activities for the patient from all [place] [facility]. This section includes future appointments and future orders which are active, pending orscheduled.Future Appointments This section includes appointments that were scheduled to occur 6 months from the date of the Encounter, up to a maximum of 20 appointments. The data comes from all [facility]. Appointment Date/Time Appointment Type Appointment Facili ty Name Sep 05, 2021 11:30 AM AMBULATORY - MEDICINE [facility] IC Sep 26, 2021 02:00 PM AMBULATORY - MEDICINE [facility] IC Nov 09, 2021 03:00 PM AMBULATORY - NONE [facility] Nov 17, 2021 03:00 PM AMBULATORY - MEDICINE [facility] CL[facility] IC Dec 13, 2021 01:15 PM AMBULATORY - MEDICINE [facility] IC Dec 18, 2021 01:00 PM AMBULATORY - MEDICINE [facility] IC Dec 29, 2021 01:15 PM AMBULATORY - NONE [facility] Active, Pending, and Scheduled Orders This section includes a listing of several types of active, pending, and scheduled orders, including clinic medications orders, diagnostic test orders, procedure orders and consult orders; where the start date of the order is 45 days before the date of the Encounter or 45 days after the date of the Encounter. The data comes from all [place] treatment [facility]. Test Date/Time Test Type Test Details Facility Name Jun 22, 2021 02:25 PM Consult Order COMMUNITY CARE-CT SCAN Con s [facility] Band Cutting Machine Operator's Choice Aug 15, 2021 08:01 AM Consult Order COMMUNITY [facility]-PULMONOLOGY [facility] Cons Band Cutting Machine Operator's Choice Social History: Smoking Status (Most current) and Tobacco Use (All prior to encounter date) This section includes the most current, and the historical, smoking and tobacco-related health factors from the [place] facility where the Encounter took place.Current Smoking Status This section includes the most current smoking, or tobacco-related health factor, from the [facility] where the Encounter took place. Date/Time Current Smoking Status Comment Facility Dec 16, 2020 12:30 PM VA-TOBACCO FORMER USER [facility] Tobacco Use History This section includes a history of the smoking, or tobacco- related health factors, that were collected on or before the date of the Encounter. The data comes from the [facility] where the Encounter took place. Date/Time Smoking Status/Tobacco Use Comment [facility] Dec 16, 2020 12:30 PM VA-TOBACCO QUIT [address] [facility] Oct 30, 2019 09:41 AM VA-TOBACCO FORMER USER [facility] Oct 30, 2019 09:41 AM VA-TOBACCO QUIT [address] [facility] Oct 09, 2018 11:23 AM VA-TOBACCO FORMER USER [facility] Oct 09, 2018 11:23 AM VA-TOBACCO QUIT [address] [facility] Sep 12, 2017 09:25 AM QUIT TOBACCO >[address] [facility] Sep 12, 2017 09:25 AM TOBACCO SCREEN COMPLETED [facility] QUIT JUN 1973 Oct 29, 2011 09:59 AM QUIT TOBACCO >[address] [facility] Oct 29, 2011 09:59 [address]CO SCREEN COMPLE[address] [facility] Radiology Reports: +/- 30 days of the [...] the Encounter. The data comes from all [place] treatment facilities. Date/Time Radiology Report Provider Source Jul 21, 2021 02:00 PM ECHOCARDIOGRAM, TRANSTHORACIC, COMPLETE: JENNIFER MULLEN [id number] -[birth year], 194 1 M [facility] Exm Date: JUL 21, 2021@14:00 Req Phys: SUDHA METCALF Loc: OUTSIDE WW US- X (Req'g Loc) Img Loc: OUTSIDE WWW US Service: Unknown (Case 55 COMPLETE) ECHOCARDIOGRAM, TRANSTHORACIC , CO(US Detailed) CPT:11965 Reason for Study: Non-VA Import Clinical History: Non-VA Import Report Status: Electronically Filed Date Report ed: Report: Impression: OUTSIDE STUDY IMPORTED VERIFIED BY: / *ELECTRONICALLY FILED* Encounter Notes: All associated encounter notes This section contains the clinical notes associated to the Encounter. Date/Time Encounter Note(s) Provider Source Aug 02, 2021 06:36 PM PRIMARY CARE TELEPHONE ENCOUNTER NOTE: DONITA SHAIKH [facility] LOCAL TITLE: PROVIDER TELEPHONE NOTE STANDARD TITLE: PRIMARY CARE TELEPHONE ENCOUNTER NOTE DATE OF NOTE: AUG 02, 2021@18:36 ENTRY DATE: AUG 02, 2021@18:36:44 AUTHOR: DONITA DAILEY EXP COSIGNER: URGENCY: STATUS: COMPLETED SUBJECT: Echo & Chest CT Results Review FORTUNATE DECICIO 81 year old MALE. Patient identification is confirmed by full name , date of and the last four of their social security number was verifie d prior to interview & discussion at the start of today's appointment. APPOINTMENT TYPE: Telephone Appointment. Chief Complaint: Follow-up RESULTS APPT. History of Present Illness: TELE-VISIT TO REVIEW & DISCUSS HIS ECHOCARDIOGRA M RESULTS & NEXT STEP IN PLAN OF CARE. REVIEW OF SYSTEMS (ROS): Denies any sob, chest pains or palpitations. Den ies any vision changes or concerns. Denies any n/v/c/d. No changes in janis l/bladder habits. Denies any noted blood in their urine or stools. Denies any neurological changes. Denies any numbness/tingling or paresthesias of their extremities. Reports taking & tolerating medications w/o issues or co ncerns @ this time. Objective: The [place] sounded well w/o any noted d yspnea. sounded & acted alert, oriented x 3. Their congnition was intact. Veter an was calm, cooperative, had linear thoughts & was pleasant during today' s visit. Imaging Studies Results Reviewed & Discussed Dur ing Today's Visit. Abnormals, if any, were further reviewed, discussed and add ressed during today's visit w/ . MEDICATIONS: Medication List Reviewed, Discussed & Updated w/ Today. Reports No Medication/Treatment Complain ts &/or Concerns. [...] FOR STROKE PREVENTION REPLACES WARFARIN (COUMADIN) 4) CETIRIZINE HCL 10MG TAB TAKE ONE TABLET BY MO UTH AT ACTIVE BEDTIME FOR ALLERGIES 5) CHOLECALCIF 50MCG (D3-2,000UNIT) TAB TAKE TWO TABLETS ACTIVE BY MOUTH EVERY DAY FOR VITAMIN D SUPPLEMENT 6) DOXAZOSIN MESYLATE 4MG TAB TAKE ONE TABLET BY MOUTH ACTIVE EVERY DAY FOR BLOOD PRESSURE / PROSTATE 7) KETOCONAZOLE 2% CREAM APPLY SPARINGLY TO AFFE CTED ACTIVE AREA THREE TIMES A DAY NEEDED APPLY TO AFFEC NUNO AREAS IN GROIN DIRECTED. 8) LOSARTAN POTASSIUM 25MG TAB TAKE ONE TABLET B Y MOUTH ACTIVE EVERY DAY CHANGED OVER TO ARB FROM LISINOPRIL O N 9. -- MLZ 9) TRIAMCINOLONE ACETONIDE 0.1% CREAM APPLY SPAR INGLY TO ACTIVE AFFECTED AREA TWICE A DAY NEEDED FOR SKIN RA SH ON ANTERIOR CHEST. APPLY DIRECTED. Inactive Outpatient Medications Status 1) ATORVASTATIN CALCIUM 20MG TAB TAKE ONE TABLET BY MOUTH AT BEDTIME FOR CHOLESTEROL LDL GOAL LESS THAN 70. Active Non-VA Medications Status 1) Non-VA CYANOCOBALAMIN 500MCG TAB 500MCG BY MO UTH ACTIVE DAILY 2) Non-VA MAGNESIUM OXIDE 420MG TAB 420MG BY [facility] DAILY ACTIVE 3) Non-VA MULTIVITAMINS W/ MIN. THERAPEUTIC TAB BY ACTIVE MOUTH EVERY MORNING 13 Total Medications No Active Remote Medications for this patient *ALLERGIES: CODEINE, OXYCODONE, PERCOCET DIAGNOSIS: DYSPNEA W/ EXERTION. Problem List Reviewed, Discussed & Updated Today w/ [place]. ACTIVE/HISTORICAL PROBLEM LIST: Active Problem Dyspnea on exertion R06.02 06/25/2021 MILA DAILEY Chest pain R07.9 06/25/2021 DONITA DAILEY Rash R21. 12/16/2020 DONITA DAILEY AF- Atrial Fibrillation (SCT 472234 0401/2020 ALEXIS KOENIG PHARM D Well male adult Z00.00 11/22/2019 DONITA DAILEY Hematoma of thigh M79.89 02/04/2019 DONITA DAILEY Cerebral small vessel disease I67.8 01/09/2019 DONITA FIGUEROA Peripheral edema R60.9 04/15/2018 DONITA DAILEY History of colonoscopy R69., Onset 05/25/2021 DONITA SELBY Hyperlipidemia E78.2 03/05/2016 RAYMUNDOMONA MORA Actinic keratosis L57.0 03/05/2016 RAYMUNDOMONA MORA CVA - Cerebrovascular accident I69. 11/12/2018 DONITA FIGUEROA Osteoarthritis (SNOMED CT 989512894 12/28/2015 T EKMONA MORA Long-term current use of anticoagul 10/24/2018 DONITA FIGUEROA Iatrogenic Pulmonary Embolism and I 05/26/2012 B OW,BEKA A Diverticulosis (SNOMED CT 840388712 05/21/2017 DONITA FIGUEROA Polyp of colon (SNOMED CT 62905047) 04/15/2018 Z DONITA STAPLETON Essential hypertension (SNOMED CT 5 03/05/2016 T MONA LAUGHLIN Benign prostatic hyperplasia (SNOME 05/21/2017 Z DONITA STAPLETON Gastro-oesophageal reflux disease w 11/12/2018 Z DONITA STAPLETON PLAN: REFERRAL TO [employer] FOR FURTHER JJ LUATION & TREATMENT. was advised during todays visit to ann-marie hernandez w/ current plan of are, except for stated additions and/or changes noted below during today's appointment. ORDERS ENTERED: ORDERS TODAY - NONE FOUND has been advised to Rtc if s/sx change, worsen, or persist. Instructed to Rtca & F/up on an as needed basis. Time Spent: 12 minutes was the total amount of t yash that was spent in counseling & coordination of 's care associated with today's visit. Return To Clinic (RTC): RTC orders have been submitted during a previous appt/visit & remain active & unchanged @ this time. /es/ DONITA DAILEY Nurse Practitioner Signed: 08/15/2021 08:04
--- OUTSIDE RECORDS SUMMARY | 2022-05-19 15:58 | External Medical Summary | Encounter Summary ---
:1940 Author Organization [facility] rs Address [address] [place] [address] Support Name Relationship Address Phone NICHOLE THOMAS Unavailable [phone] [place] [address] NICHOLE THOMAS Unavailable [address] [place] [address] CUCA CHAU Unavailable [address] [place] [address] CUCA CHAU Unavailable [address] [place] [address] Insurance Providers: All historical and current Section [...] MEDICARE MEDICARE PART May 31, PART A [id number] Jeremias THOMAS PATIENT (WNR) (M) A 2005 78A [id number] ORTUNATE MEDICARE MEDICARE PART May 31, PART A [id number] DECICIOF PATIENT (WNR) (M) A 2005 [id number] [id number] Selected Encounter This section includes the information on record at [place] for the Encounter. Date/Time Encounter Type Encounter Description Reason Provider Source Jul 31, 2021 07:45 Outpatient Encounter PRIMARY CARE/MEDICINE AM IHE Encounter Template Text not used by [place] Plan of Treatment: Future Appointments (+ 6 [...] 20 appointments. The data comes from all [facility]. Appointment Date/Time Appointment Type Appointment Facili ty Name Aug 02, 2021 12:30 PM AMBULATORY - MEDICINE [facility] IC Sep 05, 2021 11:30 AM AMBULATORY - MEDICINE [facility] IC Sep 26, 2021 02:00 PM AMBULATORY - MEDICINE [facility] CL[facility] IC Nov 09, 2021 03:00 PM AMBULATORY - NONE [facility] Nov 17, 2021 03:00 PM AMBULATORY - MEDICINE [facility] CL[facility] IC Dec 13, 2021 01:15 PM AMBULATORY MEDICINE [facility] CL[facility] IC Dec 18, 2021 01:00 PM AMBULATORY - MEDICINE [facility] CL[facility] IC Dec 29, 2021 01:15 PM AMBULATORY - NONE [facility] Active, Pending, and Scheduled Orders This section includes a listing of several types of active, pending, and scheduled orders, including clinic medications orders, diagnostic test orders, procedure orders and consult orders; where the start date of the order is 45 days before the date of the Encounter or 45 days after the date of the Encounter. The data comes from all [facility]. Test Date/Time Test Type Test Details Facility Name Jun 22, 2021 02:25 PM Consult Order COMMUNITY CARE-CT SCAN Con s [facility] Bread Wrapping Machine Feeder's Choice Aug 15, 2021 08:01 AM Consult Order COMMUNITY CARE-PULMONOLOGY [facility] Cons Bread Wrapping Machine Feeder's Choice Radiology Reports: +/- 30 [...] the Encounter. The data comes from all [facility]. Date/Time Radiology Report Provider Source Jul 21, 2021 02:00 PM ECHOCARDIOGRAM, TRANSTHORACIC, COMPLETE: JENNIFER MULLEN [id number] -JUN 09 1 M [facility] Exm Date: JUL 21, 2021@14:00 Req Phys: SUDHA METCALF Pat Loc: OUTSIDE WW US- X (Req'g Loc) Img Loc: OUTSIDE WWW US Service: Unknown (Case 55 COMPLETE) ECHOCARDIOGRAM, TRANSTHORACIC , CO(US Detailed) CPT:28352 Reason for Study: Non-VA Import Clinical History: Non-VA Import Report Status: Electronically Filed Date Report ed: Report: Impression: OUTSIDE STUDY IMPORTED VERIFIED BY: / *ELECTRONICALLY FILED* Encounter Notes: All associated encounter notes This section contains the clinical notes associated to the Encounter. Date/Time Encounter Note(s) Provider Source Jul 31, 2021 07:45 AM SCANNED NONVA NOTE: JOESPH SR [facility] LOCAL TITLE: NON-VA IMAGING NOTE STANDARD TITLE: SCANNED NONVA NOTE DATE OF NOTE: JUL 31, 2021@07:45 ENTRY DATE: JUL 31, 2021@07:46:05 AUTHOR: JOESPH SR EXP COSIGNER: URGENCY: STATUS: COMPLETED NON-VA IMAGING NOTE Has ADDENDA See scanned report in [facility]. Date: 07/21/21 Provider: Robbin Horan NP Location: [facility] Exam: CT Chest CT W/O contrast Impression: - Advanced interstitial fibrotic change. - No evidence of consolidation - Remost asbestos exposure /sonia/ JOESPH IVORYAilola Signed: 07/31/2021 07:48 07/31/2021 ADDENDUM STATUS: COMPLETED Forwarding to [facility] to call Caesar franco and schedule tele with PCP to discuss imaging results and POC. /sonia/ KIRA RESENDEZ LPN Signed: 07/31/2021 10:14 Receipt Acknowledged By: * AWAITING SIGNATURE * NICK SCHMIDT
--- OUTSIDE RECORDS SUMMARY | 2022-05-19 15:58 | External Medical Summary | Encounter Summary ---
:1940 Author Organization [facility] rs Address [address] [place] [address] Support Name Relationship Address Phone NICHOLE THOMAS Unavailable [address] [place] [address] NICHOLE THOMAS Unavailable [address] [place] [address] CUCA CHAU Unavailable [address] [place] [address] CUCA CHAU Unavailable [address] [place] [address] Insurance Providers: All historical and current Section [...] MEDICARE MEDICARE PART May 31, PART A [id number] Jeremias THOMAS PATIENT (WNR) (M) A 2005 78A 8431 ORTUNATE MEDICARE MEDICARE PART May 31, PART A [id number] DECICIOF PATIENT (WNR) (M) A 2005 78A [id number] Selected Encounter This section includes the information on record at [place] for the Encounter. Date/Time Encounter Type Encounter Description Reason Provider Source Jul 24, 2021 01:38 Outpatient Encounter PRIMARY CARE/MEDICINE PM IHE Encounter Template Text not used by [place] Plan of Treatment: Future Appointments (+ 6 [...] 20 appointments. The data comes from all [facility]. Appointment Date/Time Appointment Type Appointment Facili ty Name Aug 02, 2021 12:30 PM AMBULATORY - MEDICINE [facility] CLIN IC Sep 05, 2021 11:30 AM AMBULATORY - MEDICINE [facility] CLIN IC Sep 26, 2021 02:00 PM AMBULATORY - MEDICINE [facility] CLIN IC Nov 09, 2021 03:00 PM AMBULATORY - NONE [facility] Nov 17, 2021 03:00 PM AMBULATORY - MEDICINE [facility] CLIN IC Dec 13, 2021 01:15 PM AMBULATORY MEDICINE [facility] CLIN IC Dec 18, 2021 01:00 PM AMBULATORY - MEDICINE [facility] CLIN IC Dec 29, 2021 01:15 PM AMBULATORY - NONE [facility] Active, Pending, and Scheduled Orders This section includes a listing of several types of active, pending, and scheduled orders, including clinic medications orders, diagnostic test orders, procedure orders and consult orders; where the start date of the order is 45 days before the date of the Encounter or 45 days after the date of the Encounter. The data comes from all [facility]. Test Date/Time Test Type Test Details Facility Name Jun 22, 2021 02:25 PM Consult Order COMMUNITY CARE-CT SCAN Con s [facility] Regional Trainer's Choice Aug 15, 2021 08:01 AM Consult Order COMMUNITY CARE-PULMONOLOGY [facility] Cons Regional Trainer's Choice Radiology Reports: +/- 30 days of [...] the Encounter. The data comes from all [facility]. Date/Time Radiology Report Provider Source Jul 21, 2021 02:00 PM ECHOCARDIOGRAM, TRANSTHORACIC, COMPLETE: JENNIFER MULLEN [id number] -JUN 09 1 M [facility] Exm Date: JUL 21, 2021@14:00 Req Phys: TEASUDHA Srini Pat Loc: OUTSIDE WW US- X (Req'g Loc) Img Loc: OUTSIDE WWW US Service: Unknown (Case 55 COMPLETE) ECHOCARDIOGRAM, TRANSTHORACIC , CO(US Detailed) CPT:43098 Reason for Study: Non-VA Import Clinical History: Non-VA Import Report Status: Electronically Filed Date Report ed: Report: Impression: OUTSIDE STUDY IMPORTED VERIFIED BY: / *ELECTRONICALLY FILED* Encounter Notes: All associated encounter notes This section contains the clinical notes associated to the Encounter. Date/Time Encounter Note(s) Provider Source Jul 24, 2021 01:38 SCANNED NONVA NOTE: JOESPH SR [facility] [place] [facility] PM LOCAL TITLE: NON-VA IMAGING NOTE STANDARD TITLE: SCANNED NONVA NOTE DATE OF NOTE: JUL 24, 2021@13:38 ENTRY DATE: JUL 24, 2021@13:38:57 AUTHOR: JOESPH SR EXP COSIGNER: URGENCY: STATUS: COMPLETED See scanned report in [facility]. Date: 07/21/21 Ordering Provider: Robbin Horan NP Location: [facility] Exam: US Echocardiography w/contrast /es/ JOESPH SR Pathful Signed: 07/24/2021 13:42
--- OUTSIDE RECORDS SUMMARY | 2022-05-19 15:58 | External Medical Summary | Encounter Summary ---
:1940 Author Organization [facility] rs Address [address] [place] [address] Support Name Relationship Address Phone NICHOLE THOMAS Unavailable [address] [phone] [place] [address] NICHOLE THOMAS Unavailable [address] [phone] [place] [address] CUCA CHAU Unavailable [address] [place] [address] CUCA CHAU Unavailable [address] [place] [address] Insurance Providers: All historical and current Section [...] MEDICARE MEDICARE PART May 31, PART A [id number] Jeremias THOMAS PATIENT (WNR) (M) A 2005 78A [id number] ORTUNATE MEDICARE MEDICARE PART May 31, PART A [id number] Jeremias THOMAS PATIENT (WNR) (M) A 2005 [id number] [id number] Selected Encounter This section includes the information on record at [place] for the Encounter. Date/Time Encounter Type Encounter Description Reason Provider Source Jul 21, 2021 01:45 Outpatient Encounter COMMUNITY CARE PM CONSULT IHE Encounter Template Text not used by [place] Plan of Treatment: Future Appointments (+ 6 [...] 20 appointments. The data comes from all [facility]. Appointment Date/Time Appointment Type Appointment Facili ty Name Aug 02, 2021 12:30 PM AMBULATORY - MEDICINE [facility] CLIN IC Sep 05, 2021 11:30 AM AMBULATORY - MEDICINE [facility] CLIN IC Sep 26, 2021 02:00 PM AMBULATORY - MEDICINE [facility] CLIN IC Nov 09, 2021 03:00 PM AMBULATORY - NONE [facility] Nov 17, 2021 03:00 PM AMBULATORY - MEDICINE [facility] CLIN IC Dec 13, 2021 01:15 PM AMBULATORY MEDICINE [facility] CLIN IC Dec 18, 2021 01:00 PM AMBULATORY - MEDICINE [facility] CLIN IC Dec 29, 2021 01:15 PM AMBULATORY - NONE [facility] Active, Pending, and Scheduled Orders This section includes a listing of several types of active, pending, and scheduled orders, including clinic medications orders, diagnostic test orders, procedure orders and consult orders; where the start date of the order is 45 days before the date of the Encounter or 45 days after the date of the Encounter. The data comes from all [facility]. Test Date/Time Test Type Test Details Facility Name Jun 22, 2021 02:25 PM Consult Order COMMUNITY CARE-CT SCAN Con s [facility] Hydrography Teacher's Choice Aug 15, 2021 08:01 AM Consult Order COMMUNITY [facility]-PULMONOLOGY [facility] Cons Hydrography Teacher's Choice Radiology Reports: +/- 30 days of [...] the Encounter. The data comes from all [facility]. Date/Time Radiology Report Provider Source Jul 21, 2021 02:00 PM ECHOCARDIOGRAM, TRANSTHORACIC, COMPLETE: JENNIFER MULLEN [id number] -JUN 09 1 [facility] Exm Date: JUL 21, 2021@14:00 Req Phys: SUDHA METCALF Loc: OUTSIDE WW US- X (Req'g Loc) Img Loc: OUTSIDE WWW US Service: Unknown (Case 55 COMPLETE) ECHOCARDIOGRAM, TRANSTHORACIC , CO(US Detailed) CPT:58015 Reason for Study: Non-VA Import Clinical History: Non-VA Import Report Status: Electronically Filed Date Report ed: Report: Impression: OUTSIDE STUDY IMPORTED VERIFIED BY: / *ELECTRONICALLY FILED* Encounter Notes: All associated encounter notes This section contains the clinical notes associated to the Encounter. Date/Time Encounter Note(s) Provider Source Jul 21, 2021 06:24 AM NONVA CONSULT: ADAN BALLESTEROS LOCAL TITLE: COMMUNITY CARE-CONSULT RESULT NOTE [facility] STANDARD TITLE: NONVA CONSULT DATE OF NOTE: JUL 21, 2021@06:24 ENTRY DATE: AUG 01, 2021@06:25:10 AUTHOR: ADAN BALLESTEROS EXP COSIGNER: URGENCY: STATUS: COMPLETED The following Non VA Care consult has be en completed. See scanned document for report. NON VA Care Consult Results Cardiology Comment: [facility]/ ECHO /es/ G TRAVIS BALLESTEROS [employer] Signed: 08/01/2021 06:25
--- OUTSIDE RECORDS SUMMARY | 2022-05-19 15:58 | External Medical Summary | Encounter Summary ---
:1940 Author Organization [facility] rs Address [address] [place] [address] Support Name Relationship Address Phone NICHOLE THOMAS Unavailable [address] [place] [address] NICHOLE THOMAS Unavailable [address] [place] [address] CUCA CHAU Unavailable [address] [place] [address] CUCA CHAU Unavailable [address] [place] [address] Insurance Providers: All historical and current Section [...] MEDICARE MEDICARE PART May 31, PART A [id number] Jeremias THOMAS PATIENT (WNR) (M) A 2005 78A [id number] ORTUNATE MEDICARE MEDICARE PART May 31, PART A [id number] DECICIOF PATIENT (WNR) (M) A 2005 [id number] [id number] Selected Encounter This section includes the information on record at [place] for the Encounter. Date/Time Encounter Type Encounter Description Reason Provider Source Jul 26, 2021 04:13 Outpatient Encounter PRIMARY CARE/MEDICINE PM IHE Encounter Template Text not used by CT Plan of Treatment: Future Appointments (+ 6 [...] 20 appointments. The data comes from all [facility]. Appointment Date/Time Appointment Type Appointment Facili ty Name Aug 02, 2021 12:30 PM AMBULATORY - MEDICINE [facility] Sep 05, 2021 11:30 AM AMBULATORY - MEDICINE [facility] Sep 26, 2021 02:00 PM AMBULATORY - MEDICINE [facility] Nov 09, 2021 03:00 PM AMBULATORY - NONE RAMONA REA [facility] Nov 17, 2021 03:00 PM AMBULATORY - MEDICINE [facility] Dec 13, 2021 01:15 PM AMBULATORY MEDICINE [facility] Dec 18, 2021 01:00 PM AMBULATORY - MEDICINE [facility] Dec 29, 2021 01:15 PM AMBULATORY - NONE RAMONA REA [facility] Active, Pending, and Scheduled Orders This section includes a listing of several types of active, pending, and scheduled orders, including clinic medications orders, diagnostic test orders, procedure orders and consult orders; where the start date of the order is 45 days before the date of the Encounter or 45 days after the date of the Encounter. The data comes from all [facility]. Test Date/Time Test Type Test Details Facility Name Jun 22, 2021 02:25 PM Consult Order COMMUNITY CARE-CT SCAN Con s [facility] Offset Duplicating Machine Operator's Choice Aug 15, 2021 08:01 AM Consult Order COMMUNITY CARE-PULMONOLOGY [facility] Cons Offset Duplicating Machine Operator's Choice Radiology Reports: +/- 30 days of [...] the Encounter. The data comes from all [facility]. Date/Time Radiology Report Provider Source Jul 21, 2021 02:00 PM ECHOCARDIOGRAM, TRANSTHORACIC, COMPLETE: JENNIFER MULLEN [id number] -JUN 09 1 M [facility] Exm Date: JUL 21, 2021@14:00 Req Phys: TEASUDHA Pat Loc: OUTSIDE WW US- X (Req'g Loc) Img Loc: OUTSIDE WWW US Service: Unknown (Case 55 COMPLETE) ECHOCARDIOGRAM, TRANSTHORACIC , CO(US Detailed) CPT:76136 Reason for Study: Non-VA Import Clinical History: Non-VA Import Report Status: Electronically Filed Date Report ed: Report: Impression: OUTSIDE STUDY IMPORTED VERIFIED BY: / *ELECTRONICALLY FILED* Encounter Notes: All associated encounter notes This section contains the clinical notes associated to the Encounter. Date/Time Encounter Note(s) Provider Source Jul 26, 2021 04:13 SCANNED NONVA NOTE: JOESPH SR ON CT CLINIC PM LOCAL TITLE: NON-VA IMAGING NOTE STANDARD TITLE: SCANNED NONVA NOTE DATE OF NOTE: JUL 26, 2021@16:13 ENTRY DATE: JUL 26, 2021@16:13:39 AUTHOR: JOESPH SR EXP COSIGNER: URGENCY: STATUS: COMPLETED See scanned report in [facility]. Date: 07/21/21 Location: [facility] Ordering Provider: Robbin Horan NP Exams: - Xray Chest 2V - US Echocardiography W/contrast /es/ JOESPH [facility]KA[facility] CENTER[facility] [employer] Signed: 07/26/2021 16:15
--- OUTSIDE RECORDS SUMMARY | 2022-05-19 15:58 | External Medical Summary | Encounter Summary ---
:1940 Author Organization [facility] rs Address [address] [place] [address] Support Name Relationship Address Phone NICHOLE THOMAS Unavailable [address] [phone] [place] [address] NICHOLE THOMAS Unavailable [address] [phone] [place] [address] CUCA CHAU Unavailable [address] [place] [address] CUCA CHAU Unavailable [address] [place] [address] Insurance Providers: All historical and current Section [...] MEDICARE MEDICARE PART May 31, PART A [id number] Jeremias THOMAS PATIENT (WNR) (M) A 2005 78A [id number] ORTUNATE MEDICARE MEDICARE PART May 31, PART A [id number] DIEUDONNEOF PATIENT (WNR) (M) A 2005 [id number] [id number] Selected Encounter This section includes the information on record at [place] for the Encounter. Date/Time Encounter Type Encounter Description Reason Provider Source Jul 24, 2021 03:44 Outpatient Encounter PRIMARY CARE/MEDICINE PM IHE Encounter [...] 20 appointments. The data comes from all [facility]. Appointment Date/Time Appointment Type Appointment Facili ty Name Aug 02, 2021 12:30 PM AMBULATORY - MEDICINE [facility] Sep 05, 2021 11:30 AM AMBULATORY - MEDICINE [facility] Sep 26, 2021 02:00 PM AMBULATORY MEDICINE [facility] Nov 09, 2021 03:00 PM AMBULATORY - NONE RAMONA REA [facility] Nov 17, 2021 03:00 PM AMBULATORY MEDICINE [facility] Dec 13, 2021 01:15 PM AMBULATORY MEDICINE [facility] Dec 18, 2021 01:00 PM AMBULATORY - MEDICINE [facility] Dec 29, 2021 01:15 PM AMBULATORY - NONE RAMONA REA [facility] Active, Pending, and Scheduled Orders This section includes a listing of several types of active, pending, and scheduled orders, including clinic medications orders, diagnostic test orders, procedure orders and consult orders; where the start date of the order is 45 days before the date of the Encounter or 45 days after the date of the Encounter. The data comes from all [facility]. Test Date/Time Test Type Test Details Facility Name Jun 22, 2021 02:25 PM Consult Order COMMUNITY CARE-CT SCAN Con s [facility] Die Maintenance Technician's Choice Aug 15, 2021 08:01 AM Consult Order COMMUNITY [facility]-PULMONOLOGY [facility] Cons Die Maintenance Technician's Choice Radiology Reports: +/- 30 days of [...] the Encounter. The data comes from all [facility]. Date/Time Radiology Report Provider Source Jul 21, 2021 02:00 PM ECHOCARDIOGRAM, TRANSTHORACIC, COMPLETE: JENNIFER MULLEN [id number] -JUN 09 1 M [facility] Exm Date: JUL 21, 2021@14:00 Req Phys: SUDHA METCALF Loc: OUTSIDE WW US- X (Req'g Loc) Img Loc: OUTSIDE WWW US Service: Unknown (Case 55 COMPLETE) ECHOCARDIOGRAM, TRANSTHORACIC , CO(US Detailed) CPT:97390 Reason for Study: Non-VA Import Clinical History: Non-VA Import Report Status: Electronically Filed Date Report ed: Report: Impression: OUTSIDE STUDY IMPORTED VERIFIED BY: / *ELECTRONICALLY FILED* Encounter Notes: All associated encounter notes This section contains the clinical notes associated to the Encounter. Date/Time Encounter Note(s) Provider Source Jul 24, 2021 03:44 PM LETTERS: DONITA DAILEY [facility] LOCAL TITLE: PROVIDER LETTER STANDARD TITLE: LETTERS DATE OF NOTE: JUL 24, 2021@15:44 ENTRY DATE: JUL 24, 2021@15:44:24 AUTHOR: DONITA DAILEY EXP COSIGNER: URGENCY: STATUS: COMPLETED SUBJECT: Echocardiogram results letter. PROVIDER LETTER Has ADDENDA [place] FRAAH [address] [facility] [address] [place] [address] JUL 24, 2021 [facility] [address] [address] Dear [facility]: The results of your recent tests have been revie wed. The purpose of this letter is to share those results and the provide r's recommendations with you. Your recent cardiac echo results: 1. Normal left ventricular s ize and systolic function. Ejection fraction is 55% (normal). 2. Indeterminate diastolic function 3. Mild right ventricular enlargement with hiram l systolic function. 4. No significant valvular abnormalities. 5. Normal estimated RVSP at 30mmHg. 6. LV systolic function has margially improved when compared to prior study from June 19, 2018. Plan of Care: Please contact the [facility] Cli kathia if you have additional questions or concerns feel free to conta ct the clinic and schedule a follow-up appointment with your Provider. Thank you RADHA Velasquez [address] [place] [address] /es/ DONITA DAILEY Nurse Practitioner Signed: 07/29/2021 10:10 Receipt Acknowledged By: 07/31/2021 09:22 /es/ NICK SCHMIDT MSA 07/31/2021 ADDENDUM STATUS: COMPLETED printed letter and placed in mail. /sonia/ NICK SCHMIDT MSA Signed: 07/31/2021 09:25
--- OUTSIDE RECORDS SUMMARY | 2022-05-19 15:59 | External Medical Summary | Encounter Summary ---
:1940 Author Organization [facility] rs Address [address] [place] [address] Support Name Relationship Address Phone NICHOLE THOMAS Unavailable [address] [phone] [place] [address] NICHOLE THOMAS Unavailable [address] [address] [phone] [place] [address] CUCA CHAU Unavailable [address] [place] [address] CUCA CHAU Unavailable [address] [place] [address] Insurance Providers: All historical and current Section [...] MEDICARE MEDICARE PART May 31, PART A [id number] Jeremias THOMAS PATIENT (WNR) (M) A 2005 78A [id number] ORTUNATE MEDICARE MEDICARE PART May 31, PART A [id number] Jeremias THOMAS PATIENT (WNR) (M) A 2005 [id number] [id number] Selected Encounter This section includes the information on record at [place] for the Encounter. Date/Time Encounter Type Encounter Description Reason Provider Source Jul 21, 2021 12:00 Outpatient Encounter COMMUNITY CARE PM [...] 20 appointments. The data comes from all [facility]. Appointment Date/Time Appointment Type Appointment Facili ty Name Aug 02, 2021 12:30 PM AMBULATORY - MEDICINE [facility] Sep 05, 2021 11:30 AM AMBULATORY - MEDICINE [facility] Sep 26, 2021 02:00 PM AMBULATORY - MEDICINE [facility] Nov 09, 2021 03:00 PM AMBULATORY - NONE RAMONA REA [facility] Nov 17, 2021 03:00 PM AMBULATORY - MEDICINE [facility] Dec 13, 2021 01:15 PM AMBULATORY MEDICINE [facility] Dec 18, 2021 01:00 PM AMBULATORY - MEDICINE [facility] Dec 29, 2021 01:15 PM AMBULATORY - NONE RAMONA REA [facility] Active, Pending, and Scheduled Orders This section includes a listing of several types of active, pending, and scheduled orders, including clinic medications orders, diagnostic test orders, procedure orders and consult orders; where the start date of the order is 45 days before the date of the Encounter or 45 days after the date of the Encounter. The data comes from all [facility]. Test Date/Time Test Type Test Details Facility Name Jun 22, 2021 02:25 PM Consult Order COMMUNITY CARE-CT SCAN Con s [facility] Propeller Engineer's Choice Aug 15, 2021 08:01 AM Consult Order COMMUNITY [facility]-PULMONOLOGY [facility] Cons Propeller Engineer's Choice Radiology Reports: +/- 30 days of [...] the Encounter. The data comes from all [facility]. Date/Time Radiology Report Provider Source Jul 21, 2021 02:00 PM ECHOCARDIOGRAM, TRANSTHORACIC, COMPLETE: JENNIFER MULLEN [id number] -JUN 09 1 [facility] Exm Date: JUL 21, 2021@14:00 Req Phys: SUDHA METCALF Loc: OUTSIDE WW US- X (Req'g Loc) Img Loc: OUTSIDE WWW US Service: Unknown (Case 55 COMPLETE) ECHOCARDIOGRAM, TRANSTHORACIC , CO(US Detailed) CPT:92034 Reason for Study: Non-VA Import Clinical History: Non-VA Import Report Status: Electronically Filed Date Report ed: Report: Impression: OUTSIDE STUDY IMPORTED VERIFIED BY: / *ELECTRONICALLY FILED* Encounter Notes: All associated encounter notes This section contains the clinical notes associated to the Encounter. Date/Time Encounter Note(s) Provider Source Jul 21, 2021 12:00 PM NONVA CONSULT: CORBIN DURHAM LOCAL TITLE: COMMUNITY CARE-CONSULT RESULT NOTE [facility] STANDARD TITLE: NONVA CONSULT DATE OF NOTE: JUL 21, 2021@12:00 ENTRY DATE: OCT 03, 2021@16:21:23 AUTHOR: CORBIN DURHAM EXP COSIGNER: URGENCY: STATUS: COMPLETED The following Non VA Care consult has been compl eted. See scanned document for report. NON VA Care Consult Results [facility] DONITA DAILEY NP DOS: 07/21/2021 /sonia/ CORBIN DURHAM CONTRACT SCANNER-ISSU Signed: 10/03/2021 16:21
--- OUTSIDE RECORDS SUMMARY | 2022-05-19 16:06 | External Medical Summary ---
:1940 Author Care Team Providers Name Role Phone Non Established Primary Care Provider Unavailable Allergies Code Code System Name Reaction Severity Status Onset 2670 RxNorm Codeine Itching Active Medications Name Status Start Date Stop Date amiodarone Active Not available amitriptyline Active Not available atorvastatin 20 mg tablet Active Not av ailable Take 1 tablet every day by oral route. Fluzone High-Dose Quad 2020-21 (PF) 240 mcg/0.7 mL IM syringe Ac tive Not available ADM 0.7ML IM UTD lisinopril 10 mg tablet Active Not avai lable Take 1 tablet every day by oral route. metoprolol succ 50 mg-hydrochlorothiazide 12.5 mg tablet,ext.rel 24 hr Active Not available Take 1 tablet every day by oral route. warfarin Active Not available Notes: doesnt have a list of meds, patrick es blood pressure and cholesterol medication Problems None recorded. Procedures None recorded. Results Lab Results None recorded. Past Encounters None recorded. Social History Tobacco Smoking Status Former Smoker (1 pack per day) Vaccine List None recorded. Plan of Care Reminders Provider Appointments None recorded. Lab None recorded. Referral None recorded. Procedures None recorded. Surgeries None recorded. Imaging None recorded. Vitals Blood Pressure 173/84 mm[Hg]
--- OUTSIDE RECORDS SUMMARY | 2022-05-19 16:06 | External Medical Summary | Encounter Summary ---
:1940 Author Organization [facility] rs Address [address] [place] [address] Support Name Relationship Address Phone NICHOLE THOMAS Unavailable [address] [phone] [place] [address] NICHOLE THOMAS Unavailable [address] [address] [phone] [place] [address] CUCA CHAU Unavailable [address] [place] [address] CUCA CHAU Unavailable [address] [place] [address] Insurance Providers: All historical and current Section [...] MEDICARE MEDICARE PART May 31, PART A [id number] DECICIO,F PATIENT (WNR) (M) A 2005 78A [id number] ORTUNATE MEDICARE MEDICARE PART May 31, PART A [id number] DECICIO,F PATIENT (WNR) (M) A 2005 [id number] [id number] Selected Encounter This section includes the information on record at [place] for the Encounter. Date/Time Encounter Type Encounter Description Reason Provider Source May 14, 2022 09:58 Outpatient Encounter ADMIN PAT ACTIVTIES PM (MASNONCT) IHE Encounter Template Text not used by [facility] Encounter Notes: All associated encounter notes This section contains the clinical notes associated to the Encounter. Date/Time Encounter Note(s) Provider Source May 14, 2022 09:58 PM NONVA NOTE: DANIEL BAKER [facility] TITLE: COMMUNITY CARE-BRINDA SELF [facility]ENTIN [facility] STANDARD TITLE: NONVA NOTE DATE OF NOTE: MAY 14, 2022@21:58 ENTRY DATE: MAY 14, 2022@21:59 AUTHOR: DANIEL BAKER EXP COSIGNER: URGENCY: STATUS: COMPLETED Emergency Notification Intake Date Presenting to the Facility: Apr Method of Contact: ECR Workload [facility] Hospital Name: Hospital: [facility] Address: [address] [place] [address] City: [place] State: [place] Zip Code: [address] [facility] Facility Point of Contact: Name: Michelle Kang Chief complaint: K92.2 UPPER GI BLEED Primary Diagnosis: Disposition Admitted Route of Admission: ER Date of Admission: 05/10/22 Admitting Diagnosis: K92.2 UPPER GI BLEED [facility] Provider: [facility] Confirm Level of Care: /sonia/ DANIEL BAKER CIT - MEDICAL SUPPORT ASST Signed: 05/14/2022 22:00 Receipt Acknowledged By: * AWAITING SIGNATURE * REBEL MAR
--- OUTSIDE RECORDS SUMMARY | 2022-05-19 16:06 | External Medical Summary | Encounter Summary ---
:1940 Author Organization [facility] rs Address [address] [place] [address] Support Name Relationship Address Phone NICHOLE THOMAS Unavailable [address] [place] [address] NICHOLE THOMAS Unavailable [address] [place] [address] CUCA CHAU Unavailable [address] [place] [address] CUCA CHAU Unavailable [address] [place] [address] Insurance Providers: All historical and current Section [...] MEDICARE MEDICARE PART May 31, PART A [id number] DECICIO,F PATIENT (WNR) (M) A 2005 78A [id number] ORTUNATE MEDICARE MEDICARE PART May 31, PART A [id number] DECICIO,F PATIENT (WNR) (M) A 2005 [id number] [id number] Selected Encounter This section includes the information on record at [place] for the Encounter. Date/Time Encounter Type Encounter Description Reason Provider Source May 11, 2022 03:21 Outpatient Encounter ADMIN PAT ACTIVTIES PM (MASNONCT) IHE Encounter Template Text not used by [facility] Encounter Notes: All associated encounter notes This section contains the clinical notes associated to the Encounter. Date/Time Encounter Note(s) Provider Source May 11, 2022 03:21 PM NURSING ADMINISTRATIVE NOTE: VRABEL,MACKENZIE J [facility] LOCAL TITLE: [facility] STANDARD TITLE: NURSING ADMINISTRATIVE NOTE DATE OF NOTE: MAY 11, 2022@15:21 ENTRY DATE: MAY 11, 2022@15:21:27 AUTHOR: MACKENZIE TORRES EXP COSIGNER: URGENCY: STATUS: COMPLETED VHA Notification ID # for this EOC: Enrollment Status: Enrolled with A, Michelle rai MTKY PACT PCP Notification to: PACT team notified via email This is regarding 's: Inpatient Admission to: Med Deaderek Principle Problem: Anemia,hypoxia Admission Date: Apr Discharge Date: REMAINS INPATIENT Community Care Liaison Comments: EMR reviewed. Pt transfered from [facility] [place] to [facility] via fixed wing airplane due to hgb hgb 5.8.The follo wing is per hospitalist note 05/11:"patient with a history of afib on amiodarone and eliquis, prior CVA, HTN, presenting with cough, weakn ess, melena, and found to have severe anemia from a subacute upper gi bleed. 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 Transfused total of 3 units prbc's. Hold apixaban indefinitely. Contacted his PCP (Dr. Mary Horan at [place] in [facility]) and informed him of results, and he will coordinate local oncology follow up through [place]." Home O2 eval completed indicating pt req uires 1L at rest and 2L with activity. No baseline home O2 prior to this admission. Per hospital business integration manager note: Daughter can provide transport home to [place] and home O2 to be arranged with [facility] (via Medicare). Hospital Discharge Recommendations/Follow Up:TBD -Will need local oncology follow up in [place] Originating Source Citation: Med Wu Electronic Medical Record (EHR ) Per review of CPRS below is the current list of future appointment schedule for this patient: No future appointments Full Hospital record for this stay should be rev iewed for a more thorough explanation of stay and to expand on and clarify any portions of the record included in this note. /sonia/ Mackenzie Torres technical healthcare consultant Care Nurse Liaison-Med Signed: 05/11/2022 15:32
--- OUTSIDE RECORDS SUMMARY | 2022-05-19 16:06 | External Medical Summary ---
:1940 Author Care Team Providers Name Role Phone DENY Rony JAMISON [facility] Primary Care Provider [phone] KAYLA BROOKS MD Shoe Cobbler Unavailable DONITA DAILEY [facility] Primary Care Provider [phone] Allergies Code Code System Name Reaction Severity Status Onset 2669 RxNorm Codeine Itching Moderate to Severe Active Vomiting Moderate to Severe Active 2247 RxNorm Oxycodone Confusion Moderate to Severe Active Medications Name Status Start Date Stop Date amiodarone 200 mg tablet Active Not tawanda ilable Take 200 mg twice a day by oral route. amitriptyline 25 mg tablet Active 10/22/2017 Not a vailable Take 25 mg every day by oral route in the morning. amlodipine 10 mg tablet Active 10/22/2017 Not avai lable Take 10 mg every day by oral route in the morning. atorvastatin 20 mg tablet Active 10/22/2017 Not av ailable Take 20 mg every day by oral route at bedtime. doxazosin 4 mg tablet Active 10/22/2017 Not availa ble Take 4 mg every day by oral route in the morning. lisinopril 10 mg tablet Active Not avai lable Take 1 tablet every day by oral route in the morning. metoprolol tartrate 25 mg tablet Active 10/22/2017 Not available Take 1.5 tablets twice a day by oral route. Multivitamin 50 Plus tablet Active Not available Take 1 tablet every day by oral route in the morning. pantoprazole 40 mg tablet,delayed release Active Not available Take 1 tablet every day by oral route in the morning. tramadol 50 mg tablet Active 10/22/2017 Not availa ble Take 50 mg 3 times a week by oral route as needed. warfarin 5 mg tablet Active 10/22/2017 Not availab le Take 5 mg by oral route. 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 External Pulmonary Embolism Active External Atrial Fibrillation Active External Cardiac Arrhythmia Active External Congestive Heart Failure Active Externa l Occlusive Stroke Active External Cerebrovascular Accident Active Externa l Diverticula of Intestine Active Externa l Microscopic Hematuria Active External Benign Prostatic Hyperplasia Active Ext ernal Actinic Keratosis Active External Skin Lesion Active External Osteoarthritis Active External Headache Active External Tachycardia Active External Chest Pain Active External Urgent Desire to Urinate Active Externa l Impaired Fasting Glycemia Active Design Manager al Long-term Current Use of Anticoagulant Active External Knee Pain Active External Procedures Date Name Performed by Colonoscopy & Polypectomy Information no t available EGD/Endoscopy Information not avai lable Notes: W/POLYPS Knee Surgery Information not avai lable Notes: RIGHT 01/2017 & LEFT 03/200812/16/2017 CT, Angiogram, Abdomen + Pelvis, W/wo [facility] Contrast [address] [place] [address] (Work Place) Results Lab Results Date Name Specimen Result Interpretation Description Value Range Status Address 12/16/2017 Bun (Blood Blood Urea 17 8-23 Marcelina l [facility] Urea Nitrogen mg/dL mg/dL Regional Lab: Nitrogen), [address], Serum or [place] Plasma 12/16/2017 Creatinine Glomerular Creatinine 1.1 0.7-1. Final [facility]ologists' W/ Estimated filtration mg/dL 2 Regional Lab: GFR (eGFR), rate/1.73 sq mg/dL [address], Serum or m.predicted [place] Plasma by creatinine-b ased formula (mdrd) Glomerular Glomerular 65 Final P athologists' filtration Filtration Re gional Lab: rate/1.73 sq Rate [address], m.predicted [place] ton by creatinine-b ased formula (mdrd) Glomerular Results Path ologists' filtration Region al Lab: rate/1.[address], m.predicted [place] ton by creatinine-b ased formula (mdrd) Past Encounters None recorded. Social History Tobacco Smoking Status Former Smoker (1 pack per day) Notes : QUIT 06/1973 Vaccine List Vaccine Type influenza, injectable, quadrivalent 07/05/2017 TIG 09/30/2013 Plan of Care Reminders Provider Appointments None recorded. Lab None recorded. Referral None recorded. Procedures None recorded. Surgeries None recorded. Imaging None recorded. Vitals 12/16/2017 09:00AM New Patient 30 Height Weight BMI Blood Pressure 5 ft 8 in 218 lbs 33.1 kg/m2 (1) 112/64 mm[H g] (2) 111/66 mm[Hg ] 11/28/2017 Weight Blood Pressure 225.6 lbs 128/69 mm[Hg]
[2022-05-19] MEDS ORDERED: ONDANSETRON 4 MG/2 ML VIAL IV PRN (16:56)
--- NOTE | 2022-05-19 18:43 | Internal Med History&Physical ---
HPI History of Present Illness Patient information: Note initiated : 05/19/22 at 6:36 pm Service Date, if different from initiated Date: [] Patient: Nirmala Zhong a 81 y/o M admitted on 05/19/22 for GI Bleed, Rule out Stroke. Chief Complaint: [Transfer from outside hospital] Chief complaint: GI bleed History of present illness: Mr. Zhong is a 81 year old M with a complex past medical history significant for chronic atrial fibrillation on amiodarone, Eliquis, prior CVA, and hypertension who presented to our hospital with severe anemia from a subacute upper gastrointestinal hemorrhage. He was transferred to [facility] for higher level of care. He underwent EGD on 05/10 which showed a gastric ulcerating neoplasm that was injected and cauterized. CT demonstrated 4.7 cm mass near the stomach and a presumed necrotic lymph node within the retroperitoneum. Pathology confirmed gastric adenocarcinoma. Of note he was transfused total of 3 units of packed red blood cells. His Eliquis was held. His hospital course was complicated by acute hypoxemic respiratory failure in the CT of the chest revealed pulmonary fibrosis that was believed to be in the setting of amiodarone as he was on this medication for approximately 4 years. It was recommended he follow-up with [facility] tanner at the [facility] for further ILD work-up. He was placed on prednisone and IV Lasix. He is now on prednisone 40 mg p.o. daily x1 month with PCP prophylaxis. He also completed a course of Unasyn for suspected aspiration pneumonia. His hospital course was further complicated by acute/subacute multifocal ischemic stroke thought to be in the setting of an embolism from atrial fibrillation. He was found to have right- sided weakness, mild dysphagia, mild aphasia and right neglect as well as cognitive deficits. MRI demonstrated numerous foci of restricted diffusion scattered throughout both cerebral and cerebellar hemisphere largest within the left occipital lobe. The patient's TTE was performed and revealed preserved EF but severe pulmonary hypertension thought to be due to pulmonary fibrosis. He also has symptomatic internal carotid stenosis and there were discussions with vascular surgery and ongoing goals of care discussion. He has been discharged back to her facility as [place] his [place] and he will need [facility] facility placement. He is to follow-up with his primary care at the [facility] he is can establish oncology follow-up. Review of Systems All systems: reviewed and no additional remarkable complaints except as stated Constitutional Constitutional: Present as per HPI EENT Eyes: Present as per HPI; Absent blurry vision Cardiovascular Cardiovascular: Present as per HPI; Absent chest pain, dyspnea, dyspnea on exertion, leg edema or palpatations Respiratory Respiratory: Present as per HPI; Absent cough, dyspnea, dyspnea on exertion, wheezing or stridor Gastrointestinal Gastrointestinal: Present as per HPI; Absent abdominal pain, diarrhea, dysphagia, hematemesis, melena, nausea or vomiting Musculoskeletal Musculoskeletal: Present as per HPI; Absent joint swelling, limited range of motion, muscle cramps, muscle weakness or myalgias Integumentary Integumentary: Present as per HPI; Absent erythema, new lesions, rash or wounds Neurological Neurological: Present as per HPI and focal weakness; Absent abnormal gait, behavioral changes, headache(s), loss of vision, numbness, sensory deficit or syncope Endocrine Endocrine: Absent change in body appearance, fatigue or heat intolerance Hematologic/Lymphatic Hematologic/Lymphatic: Present as per HPI PFSH PFSH All Active Problems (Updated 05/19/22 @ 18:42 by Mariely Willett MD) Gastric adenocarcinoma (Acute) ILD (interstitial lung disease) (Acute) Weakness (Acute) Acute GI bleeding (Acute) ABLA (acute blood loss anemia) (Acute) Generalized weakness (Acute) Unspecified sequelae of other cerebrovascular disease (Chronic) Rash and other nonspecific skin eruption (Chronic) Other specified soft tissue disorders (Chronic) GERD (gastroesophageal reflux disease) (Chronic) Edema, unspecified (Chronic) Dyspnea (Chronic) Diverticulosis of small intestine without perforation or abscess (Chronic) Disorder of prostate (Chronic) Cerebral ischemia (Chronic) Chronic shortness of breath (Chronic) CVA (cerebral vascular accident) (Chronic) Chest pain (Chronic) Finger fracture, left (Chronic) Finger laceration (Chronic) Shingles outbreak (Chronic) Intestinal polyps (Chronic) Acute lower gastrointestinal bleeding (Chronic) Atrial fibrillation (Chronic) Hematochezia (Chronic) History of pulmonary embolism (Chronic) Dysphagia (Chronic) Pulmonary fibrosis determined by high resolution computed tomography (Chronic) Cough (Chronic) CHF (congestive heart failure) (Chronic) Dysrhythmias (Chronic) Atrial fibrillation (Chronic) Abnormal fasting glucose (Chronic) Insomnia, unspecified (Chronic) Benign prostatic hyperplasia (Chronic) Essential hypertension (Chronic) Polyp of colon (Chronic) Diverticulosis (Chronic) Urgency of urination (Chronic) Iatrogenic pulmonary embolism and infarction (Chronic) 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) Osteoarthritis (Chronic) 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) Knee pain (Chronic) Skin lesion (Chronic) Actinic keratosis (Chronic) Hyperlipidemia (Chronic) Chest pain (Chronic) Pulmonary embolism (Chronic) Tachycardia (Chronic) Headache (Chronic) Microscopic hematuria (Chronic) Medical History Abnormal fasting glucose Actinic keratosis Acute lower gastrointestinal bleeding Atrial fibrillation Benign prostatic hyperplasia Cerebral ischemia 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 Chest pain CHF (congestive heart failure) Chronic shortness of breath Cough CVA (cerebral vascular accident) Disorder of prostate Diverticulosis Diverticulosis of small intestine without perforation or abscess Dysphagia Dyspnea Dysrhythmias Edema, unspecified Essential hypertension Finger fracture, left Finger laceration GERD (gastroesophageal reflux disease) Headache Hematochezia History of pulmonary embolism Hyperlipidemia Iatrogenic pulmonary embolism and infarction Insomnia, unspecified Intestinal polyps Knee pain [facility]FP current use of anticoagulant Microscopic hematuria Neoplasm of uncertain behavior of skin Osteoarthritis Other specified soft tissue disorders Polyp of colon Pulmonary embolism Pulmonary fibrosis determined by high resolution computed tomography Rash and other nonspecific skin eruption Shingles outbreak Skin lesion Tachycardia Unspecified sequelae of other cerebrovascular disease Urgency of urination Surgical History History of colonoscopy History of knee surgery Family History Mother , at age 56 from lung cancer Lung cancer Heart disease Father , at age 54 of CAD CAD (coronary artery disease) Heart disease Brother Parkinson's disease Lung cancer Family/Other , at age 53 of lung cancer Lung cancer Nephew Other Family history of cardiac disorder Family history of rheumatic fever Social History (Updated 12/19/21 @ 14:36 by Kerri Maldonado) marital status: service: Yes smoking status: Former smoker alcohol intake frequency: does not drink substance use type: does not use MEDS/ALLERGIES Home Medications and Allergies Home Medications Medication Instructions Recorded Confirmed Type amiodarone 200 mg tablet 200 mg PO BID 10/22/17 11/13/21 History amitriptyline 25 mg tablet 25 mg PO QDAY 10/22/17 11/13/21 History amlodipine 10 mg tablet 10 mg PO QDAY 10/22/17 11/13/21 History atorvastatin 20 mg tablet 20 mg PO QHS 10/22/17 11/13/21 History doxazosin 4 mg tablet 4 mg PO QDAY 10/22/17 11/13/21 History magnesium oxide 420 mg tablet 420 mg PO QDAY 10/22/17 11/13/21 History metoprolol tartrate 25 mg tablet 37.5 mg PO BID 10/22/17 11/13/21 History multivitamin with minerals 1 cap PO QAM 10/22/17 11/13/21 History naloxone 4 mg/actuation nasal spray 4 mg intranasal ONCE PRN Allergic 10/22/17 11/13/21 History Symptoms finasteride 5 mg tablet (Proscar) 5 mg PO QDAY BPH #90 tabs 06/03/18 11/13/21 Rx lidocaine 5 % topical patch 1 patch topical QDAY #15 ea 01/23/21 11/13/21 Rx (Lidoderm) apixaban 5 mg tablet (Eliquis) 5 mg PO BID 04/30/21 11/13/21 History acetaminophen 350 mg PO Q6H pain 05/19/22 05/19/22 History albuterol sulfate 90 mcg/actuation 1 - 2 puff inhalation Q6H PRN 05/19/22 History aerosol inhaler shortness of breath or wheezing cetirizine 10 mg capsule (Zyrtec) 10 mg PO QDAY PRN Allergy Symptoms 05/19/22 05/19/22 History colchicine 0.6 mg tablet 0.6 mg PO BID 05/19/22 05/19/22 History oxycodone 5 mg tablet 5 mg PO Q6H PRN Pain 05/19/22 05/19/22 History pantoprazole 40 mg tablet,delayed 40 mg PO BID 05/19/22 05/19/22 History release (Protonix) prednisone 20 mg tablet 40 mg PO DAILY 05/19/22 05/19/22 History sennosides 8.6 mg tablet (senna) 8.6 mg PO QHS PRN Allergy Symptoms 05/19/22 05/19/22 History sulfamethoxazole 800 1 tab PO DAILY 05/19/22 05/19/22 History mg-trimethoprim 160 mg tablet (Bactrim DS) Allergies Allergy/AdvReac Type Severity Reaction Status Date / Time codeine Allergy Unknown Unknown Verified 02/22/22 13:25 oxycodone [Oxycodone] Allergy Unknown Unknown Verified 02/22/22 13:25 EXAM Constitutional Vitals: Temp Pulse Resp BP Pulse Ox O2 Del Method O2 Flow Rate 98.7 F 64 14 147/66 94 3.5 05/19/22 16:00 05/19/22 16:00 05/19/22 16:00 05/19/22 16:00 05/19/22 16:00 05/19/22 16:00 05/19/22 16:00 General appearance: average body habitus Head Head exam: Present atraumatic, normal inspection and normocephalic Eye Eye exam: Present EOMI, normal appearance and PERRL; Absent conjunctival injection ENT ENT exam: Present normal exam; Absent mucous membranes dry Neck Neck exam: Present full ROM; Absent lymphadenopathy Respiratory Respiratory exam: Present normal respiratory exam and CTAB; Absent decreased breath sounds, respiratory distress or wheezes Cardiovascular Cardiovascular exam: Present irregular rhythm and RRR; Absent JVD GI/Abdominal GI/Abdominal exam: Present normal bowel sounds and soft; Absent diminished bowel sounds, distended, guarding, mass, rebound or tenderness Neurological Exam Neurological exam: Present alert and motor sensory deficit Psychiatric Psychiatric exam: Present normal affect and normal mood Skin Skin exam: Present intact and warm; Absent erythema, pallor, petechiae or rash A/P Assessment and plan (1) Weakness: Status: Acute (2) Acute GI bleeding: Status: Acute (3) CVA (cerebral vascular accident): Status: Chronic (4) Atrial fibrillation: Status: Chronic (5) Dysphagia: Status: Chronic (6) ILD (interstitial lung disease): Status: Acute (7) Gastric adenocarcinoma: Status: Acute Narrative A/P Narrative: The patient had a protracted complex hospitalization for GI bleed due to gastric adenocarcinoma that was newly discovered. He was also found to have ILD and new ischemic stroke. He has symptomatic ICA disease. He has been transferred from [facility] to our facility as this is his home and he will need SNF placement. The hope is that his nutrition and strength improves enough where he would be able to follow-up with oncology and consider treatment options. At this time his ECOG score is likely concerning. He has been placed on prednisone for ILD. His Eliquis has been discontinued. Social work and case management will have to work on disposition. Time Spent With Patient Time: Total time spent is greater than 50% in coordination of care (as documented) at patient's floor/unit and/or counseling patient: Total time spent with greater than 50% in coordination of care (as documented) at patient's floor/unit and/or counseling patient:: Greater than 70 minutes QUALITY Stroke Symptom Onset Unknown: No VTE Deep Vein Thrombosis/Pulmonary Embolism Present on Admission: No
[2022-05-19] MEDS: METOPROLOL TARTRATE 25 MG TABLET PO SCH (20:51)
[2022-05-19] MEDS: DOCUSATE SODIUM 100 MG CAPSULE PO SCH (20:51)
[2022-05-19] MEDS: 0.9 % SODIUM CHLORIDE 10 ML SYRINGE IV SCH (20:52)
[2022-05-19] MEDS: SENNOSIDES 1 TABLET PO SCH (20:52)
[2022-05-20 06:03] LABS: Basophils # (Auto) 0.04 K/mcL (0.00-0.30); Basophils % (Auto) 0.2 % (0.0-2.0); Eosinophils # (Auto) 0.06 K/mcL (0.00-0.70); Eosinophils % (Auto) 0.2 % (0.0-7.0); Hematocrit 28.4 % (40.1-51.0); Hemoglobin 8.6 g/dL (13.7-17.5); Lymphocytes # (Auto) 1.16 K/mcL (1.50-4.80); Lymphocytes % (Auto) 4.5 % (15.5-49.0); Mean Cell Volume 87.4 fL (80.0-100.0); Mean Corpuscular HGB Conc 30.3 g/dL (31.0-36.0); Mean Platelet Volume 10.2 fL (7.4-10.4); Monocytes # (Auto) 2.11 K/mcL (0.10-0.90); Monocytes % (Auto) 8.2 % (1.0-12.0); Neutrophils % (Auto) 85.4 % (38.0-78.0); Platelet Count 398 K/mcL (140-440); RBC 3.25 M/mcL (4.63-6.08); Red Cell Distribution Width 16.5 % (11.5-14.5); WBC 25.6 K/mcL (4.5-11.0)
[2022-05-20] MEDS: 0.9 % SODIUM CHLORIDE 10 ML SYRINGE IV SCH ×3 (06:05→20:43)
[2022-05-20 06:19] LABS: Blood Urea Nitrogen 31 mg/dL (8-23); Calcium 8.5 mg/dL (8.6-10.4); Carbon Dioxide 26 mmol/L (22-30); Chloride 100 mmol/L (96-108); Glomerular Filtration Rate 84; Glucose 96 mg/dL (70-105)
[2022-05-20] MEDS: SULFAMETHOXAZOLE/TRIMETHOPRIM 1 TABLET PO SCH (08:46)
[2022-05-20] MEDS: predniSONE 20 MG TABLET PO SCH (08:46)
[2022-05-20] MEDS: DOCUSATE SODIUM 100 MG CAPSULE PO SCH ×2 (08:46→20:44)
--- NOTE | 2022-05-20 08:46 | Internal Med Progress Note ---
SUBJECTIVE Subjective Patient information: Note initiated : 05/20/22 at 8:45 am Service Date, if different from initiated Date: [] Patient: Nirmala Zhong 81 y/o M admitted on 05/19/22 for GI Bleed, Rule out Stroke. Chief Complaint: [Transferred from outside hospital] Principal diagnosis: GI bleed due to gastric adenocarcinoma Interval history: The patient was resting comfortably in bed. He had no active complaints or concerns. Discussed disposition. Constitutional Vitals: Vital Signs Temp Pulse Resp BP Pulse Ox O2 Del Method O2 Flow Rate 97 F 62 18 153/72 92 3.5 05/20/22 06:33 05/20/22 06:33 05/20/22 06:33 05/20/22 06:33 05/20/22 07:05 05/20/22 07:05 05/20/22 07:05 Period Temp Pulse Resp BP Sys/Coles Pulse Ox O2 Del Method O2 Flow Rate Last 24 Hr 97 F-98.8 F 60-69 14-20 136-153/66-75 90-98 Nasal Cannula- Nasal Cannula 3.5-3.5 Intake and Output 05/19/22 05/20/22 05/20/22 21:59 05:59 13:59 Intake Total 240 440 Output Total 3 250 100 Balance 237 190 -100 Weight 78.608 kg Intake & Output: Intake & Output 05/19/22 05/20/22 05/20/22 21:59 05:59 13:59 Intake Total 240 440 Output Total 3 250 100 Balance 237 190 -100 Weight 78.608 kg Intake: Oral 240 440 Output: Void Amount 250 100 # of times incontinent of urine 3 Other: Meal Dinner peanut butter x1 Percent of Meal Consumed 100% 100% Feeding Ability Independent Urine Appearance Clear Clear Clear Urine Color Yellow Yellow Yellow # Voids 2 Head Head exam: Present atraumatic and normal inspection Eye Eye exam: Present normal appearance ENT ENT exam: Present mucous membranes moist, normal exam and normal external ear exam Neck Neck exam: Present normal inspection Respiratory Respiratory exam: Present normal respiratory exam Cardiovascular Cardiovascular exam: Present normal rate and rhythm GI/Abdominal GI/Abdominal exam: Present normal bowel sounds Back Exam Back exam: Present normal inspection Neurological Exam Neurological exam: Present alert and oriented X3 Skin Skin exam: Present intact and warm OBJ DATA Labs CBC & Chem 7: 05/20/22 05:08 05/20/22 05:08 Labs: Abnormal Lab Results 05/20/22 05/20/22 05:08 05:08 WBC 25.6 H RBC 3.25 L Hgb 8.6 L Hct 28.4 L MCHC 30.3 L RDW 16.5 H Immature Gran % (Auto) 1.5 H Neut % (Auto) 85.4 H Lymph % (Auto) 4.5 L Lymph # (Auto) 1.16 L [place] # (Auto) 2.11 H Immature Gran # 0.38 H Absolute Neutrophils 21.83 H BUN 31 H Calcium 8.5 L Meds: Medications Acetaminophen (Acetaminophen 325 Mg Tablet) 650 mg PO Q6HP PRN; Protocol PRN Reason: Per Pain Protocol/Fever > 101 Docusate Sodium (Docusate Sodium 100 Mg Capsule) 100 mg PO BID [facility] Last Admin: 05/19/22 20:51 Dose: 100 mg Enoxaparin Sodium (Enoxaparin 40 Mg/0.4 Ml Syringe) 40 mg SQ DAILY [facility] Metoprolol Tartrate (Metoprolol Tartrate 25 Mg Tablet) 37.5 mg PO BID [facility] Last Admin: 05/19/22 20:51 Dose: 37.5 mg Ondansetron HCl (Ondansetron 4 Mg/2 Ml Vial) 4 mg IV Q6HP PRN PRN Reason: Nausea And Vomiting Oxycodone HCl (Oxycodone Hcl 5 Mg Tablet) 5 mg PO Q6HP PRN; Protocol PRN Reason: Pain Prednisone (Prednisone 20 Mg Tablet) 40 mg PO DAILY [facility] Senna (Sennosides 1 Tablet) 2 tab PO HS [facility] Last Admin: 05/19/22 20:52 Dose: 2 tab Sodium Chloride (0.9 % Sodium Chloride 10 Ml Syringe) 10 ml IV Q8 [facility] Last Admin: 05/20/22 06:05 Dose: 10 ml Trimethoprim/Sulfamethoxazole (Sulfamethoxazole/Trimethoprim 1 Tablet) 1 tab PO DAILY [facility]; Protocol A/P Assessment and plan (1) Weakness: Status: Acute (2) Acute GI bleeding: Status: Acute (3) CVA (cerebral vascular accident): Status: Chronic (4) Atrial fibrillation: Status: Chronic (5) Dysphagia: Status: Chronic (6) ILD (interstitial lung disease): Status: Acute (7) Gastric adenocarcinoma: Status: Acute Narrative A/P Narrative: The patient had a protracted complex hospitalization for GI bleed due to gastric adenocarcinoma that was newly discovered. He was also found to have ILD and new ischemic stroke. He has symptomatic ICA disease. He has been transferred from [facility] to our facility as this is his home and he will need SNF placement. The hope is that his nutrition and strength improves enough where he would be able to follow-up with oncology and consider treatment options. At this time his ECOG score is likely concerning. He has been placed on prednisone for ILD. His Eliquis has been discontinued. Social work and case management will have to work on disposition. 05/20: The patient remains medically status quo. We will touch base with social work and case management tomorrow morning to see what options are for senior living facility. Time Spent With Patient Time: Total time spent is greater than 50% in coordination of care (as documented) at patient's floor/unit and/or counseling patient: Total time spent with greater than 50% in coordination of care (as documented) at patient's floor/unit and/or counseling patient:: 25 - 35 minutes QUALITY Stroke Symptom Onset Unknown: No VTE Deep Vein Thrombosis/Pulmonary Embolism Present on Admission: No
[2022-05-20] MEDS: ENOXAPARIN 40 MG/0.4 ML SYRINGE SQ SCH (08:47)
[2022-05-20] MEDS: METOPROLOL TARTRATE 25 MG TABLET PO SCH ×2 (08:47→20:42)
[2022-05-20] MEDS ORDERED: MAG HYDROX/AL HYDROX/SIMETH 30 ML ORAL.SUSP PO PRN (10:33)
[2022-05-20] MEDS: PANTOPRAZOLE 40 MG TABLET PO SCH (20:42)
[2022-05-20] MEDS: ATORVASTATIN 20 MG TABLET PO SCH (20:42)
[2022-05-20] MEDS: DOXAZOSIN 4 MG TABLET PO SCH (20:43)
[2022-05-20] MEDS: SENNOSIDES 1 TABLET PO SCH (20:44)
[2022-05-21 06:48] LABS: Basophils # (Auto) 0.03 K/mcL (0.00-0.30); Basophils % (Auto) 0.1 % (0.0-2.0); Eosinophils # (Auto) 0.04 K/mcL (0.00-0.70); Eosinophils % (Auto) 0.2 % (0.0-7.0); Hematocrit 29.4 % (40.1-51.0); Hemoglobin 8.9 g/dL (13.7-17.5); Lymphocytes # (Auto) 1.33 K/mcL (1.50-4.80); Lymphocytes % (Auto) 5.2 % (15.5-49.0); Mean Cell Volume 86.7 fL (80.0-100.0); Mean Corpuscular HGB Conc 30.3 g/dL (31.0-36.0); Mean Platelet Volume 10.4 fL (7.4-10.4); Monocytes # (Auto) 2.13 K/mcL (0.10-0.90); Monocytes % (Auto) 8.4 % (1.0-12.0); Neutrophils % (Auto) 84.3 % (38.0-78.0); Platelet Count 448 K/mcL (140-440); RBC 3.39 M/mcL (4.63-6.08); Red Cell Distribution Width 16.7 % (11.5-14.5); WBC 25.5 K/mcL (4.5-11.0)
[2022-05-21 07:24] LABS: Albumin 3.2 gm/dL (3.2-5.2); Blood Urea Nitrogen 31 mg/dL (8-23); Calcium 8.5 mg/dL (8.6-10.4); Carbon Dioxide 24 mmol/L (22-30); Chloride 102 mmol/L (96-108); Glomerular Filtration Rate 84; Glucose 115 mg/dL (70-105); Phosphorous 2.3 mg/dL (2.5-4.5)
[2022-05-21] MEDS: 0.9 % SODIUM CHLORIDE 10 ML SYRINGE IV SCH ×3 (08:23→22:53)
[2022-05-21] MEDS: ENOXAPARIN 40 MG/0.4 ML SYRINGE SQ SCH ×2 (08:24→11:32)
[2022-05-21] MEDS: MULTIVIT,THER IRON,CA,FA & MIN 1 TABLET PO SCH (08:25)
[2022-05-21] MEDS: amLODIPine 10 MG TABLET PO SCH (08:25)
[2022-05-21] MEDS: AMITRIPTYLINE 25 MG TABLET PO SCH (08:25)
[2022-05-21] MEDS: METOPROLOL TARTRATE 25 MG TABLET PO SCH ×3 (08:25→22:50)
[2022-05-21] MEDS: FINASTERIDE 5 MG TABLET PO SCH (08:25)
[2022-05-21] MEDS: predniSONE 20 MG TABLET PO SCH (08:26)
[2022-05-21] MEDS: SULFAMETHOXAZOLE/TRIMETHOPRIM 1 TABLET PO SCH (08:26)
[2022-05-21] MEDS: PANTOPRAZOLE 40 MG TABLET PO SCH ×2 (08:26→22:51)
[2022-05-21] MEDS: DOXAZOSIN 4 MG TABLET PO SCH (08:26)
[2022-05-21] MEDS: DOCUSATE SODIUM 100 MG CAPSULE PO SCH ×2 (08:28→22:53)
[2022-05-21] MEDS: FUROSEMIDE 40 MG/4 ML VIAL IV SCH (11:35)
[2022-05-21] MEDS: oxyCODONE HCL 5 MG TABLET PO PRN (15:24)
[2022-05-21] MEDS: BACLOFEN 10 MG TABLET PO PRN (17:28)
--- NOTE | 2022-05-21 21:18 | Internal Med Progress Note ---
SUBJECTIVE Subjective Patient information: Note initiated : 05/21/22 at 4:29 pm Service Date, if different from initiated Date: [] Patient: Nirmala Zhong a 81 y/o M admitted on 05/19/22 for GI Bleed, Rule out Stroke. Chief Complaint: [] Principal diagnosis: GI bleed due to gastric adenocarcinoma Interval history: Mr. Zhong is a 81 year old M with a complex past medical history significant for chronic atrial fibrillation on amiodarone, Eliquis, prior CVA, and hypertension who presented to our hospital with severe anemia from a subacute upper gastrointestinal hemorrhage. He was transferred to [facility] for higher level of care. He underwent EGD on 05/10 which showed a gastric ulcerating neoplasm that was injected and cauterized. CT demonstrated 4.7 cm mass near the stomach and a presumed necrotic lymph node within the retroperitoneum. Pathology confirmed gastric adenocarcinoma. Of note he was transfused total of 3 units of packed red blood cells. His Eliquis was held. His hospital course was complicated by acute hypoxemic respiratory failure in the CT of the chest revealed pulmonary fibrosis that was believed to be in the setting of amiodarone as he was on this medication for approximately 4 years. It was recommended he follow-up with director of safety at the [facility] for further ILD work-up. He was placed on prednisone and IV Lasix. He is now on prednisone 40 mg p.o. daily x1 month with PCP prophylaxis. He also completed a course of Unasyn for suspected aspiration pneumonia. His hospital course was further complicated by acute/subacute multifocal ischemic stroke thought to be in the se tting of an embolism from atrial fibrillation. He was found to have right-sided weakness, mild dysphagia, mild aphasia and right neglect as well as cognitive deficits. MRI demonstrated numerous foci of restricted diffusion scattered throughout both cerebral and cerebellar hemisphere largest within the left occipital lobe. The patient's TTE was performed and revealed preserved EF but severe pulmonary hypertension thought to be due to pulmonary fibrosis. He also has symptomatic internal carotid stenosis and there were discussions with vascular surgery and ongoing goals of care discussion. He has been discharged back to her facility [place] and he will need fpc facility placement. He is to follow-up with his primary care at the [facility] he is can establish oncology follow-up. 05/20: The patient remains medically status quo. We will touch base with social work and case management tomorrow morning to see what options are for fpc facility. 05/21: Patient's been troubled by hiccups which have been occurring intermittently for a few months. Discussion of goals of care, patient does not want to pursue aggressive treatment for his gastric cancer, leaning towards hospice, likely will need placement. He prefers the [facility] SNF. Constitutional Vitals: Vital Signs Temp Pulse Resp BP Pulse Ox O2 Del Method O2 Flow Rate 97.1 F 81 21 115/67 98 4 05/21/22 15:51 05/21/22 15:51 05/21/22 15:51 05/21/22 15:51 05/21/22 15:51 05/21/22 15:51 05/21/22 15:51 Period Temp Pulse Resp BP Sys/Coles Pulse Ox O2 Del Method O2 Flow Rate Last 24 Hr 97.1 F-98.7 F 60-92 16-21 108-141/60-73 93-98 High Flow Nasal Cannula-Nasal Cannula 3-95 Intake and Output 05/21/22 05/21/22 05/21/22 05:59 13:59 21:59 Intake Total 580 300 Output Total 375 450 Balance 205 -150 Weight 174 lb Patient Weight 05/22/22 05:59 Weight 174 lb Intake & Output: Intake & Output 05/21/22 05/21/22 05/21/22 05:59 13:59 21:59 Intake Total 580 300 Output Total 375 450 Balance 205 -150 Weight 174 lb Intake: Oral 580 300 Output: Void Amount 375 450 Other: Meal peanut butter Breakfast Percent of Meal Consumed 100% 75% Feeding Ability Independent Assist with Tray Set Up Urine Appearance Clear Clear Urine Color Dark Yellow Yellow Pale Urine Odor Normal Stool Size Large Stool Color Black Stool Consistency Loose # of times incontinent of 1 Bowels GENERAL: Elderly, chronically ill-appearing male RESPIRATORY: Few crackles in the lower lung shafer bilaterally CARDIOVASCULAR: Irregular ABDOMEN: Mildly distended, soft, nontender EXTREMITIES: No edema, decreased muscle mass NEURO: Alert, oriented x3, generally weak, more so on the right OBJ DATA Labs CBC & Chem 7: 05/21/22 05:38 05/21/22 05:38 Labs: Abnormal Lab Results 05/21/22 05/21/22 05/20/22 05:38 05:38 05:08 WBC 25.5 H RBC 3.39 L Hgb 8.9 L Hct 29.4 L MCHC 30.3 L RDW 16.7 H Plt Count 448 H Immature Gran % (Auto) 1.8 H Neut % (Auto) 84.3 H Lymph % (Auto) 5.2 L Lymph # (Auto) 1.33 L [place] # (Auto) 2.13 H Immature Gran # 0.45 H Absolute Neutrophils 21.49 H BUN 31 H 31 H Glucose 115 H Calcium 8.5 L 8.5 L Phosphorus 2.3 L NT-Pro-B Natriuret Pep 2392.0 H 05/20/22 05:08 WBC 25.6 H RBC 3.25 L Hgb 8.6 L Hct 28.4 L MCHC 30.3 L RDW 16.5 H Plt Count Immature Gran % (Auto) 1.5 H Neut % (Auto) 85.4 H Lymph % (Auto) 4.5 L Lymph # (Auto) 1.16 L [place] # (Auto) 2.11 H Immature Gran # 0.38 H Absolute Neutrophils 21.83 H BUN Glucose Calcium Phosphorus NT-Pro-B Natriuret Pep Meds: Medications Acetaminophen (Acetaminophen 325 Mg Tablet) 650 mg PO Q6HP PRN; Protocol PRN Reason: Per Pain Protocol/Fever > 101 Al Hydrox/Mg Hydrox/Simethicone (Mag Hydrox/Al Hydrox/Simeth 30 Ml Oral.Susp) 30 ml PO Q4-6HP PRN PRN Reason: Dyspepsia Last Admin: 05/20/22 10:53 Dose: 30 ml Amitriptyline HCl (Amitriptyline 25 Mg Tablet) 25 mg PO QDAY [facility] Last Admin: 05/21/22 08:25 Dose: 25 mg Amlodipine Besylate (Amlodipine 10 Mg Tablet) 10 mg PO QDAY [facility] Last Admin: 05/21/22 08:25 Dose: 10 mg Atorvastatin Calcium (Atorvastatin 20 Mg Tablet) 20 mg PO QHS [facility] Last Admin: 05/20/22 20:42 Dose: 20 mg Baclofen (Baclofen 10 Mg Tablet) 5 mg PO TIDP PRN PRN Reason: hiccups Docusate Sodium (Docusate Sodium 100 Mg Capsule) 100 mg PO BID [facility] Last Admin: 05/21/22 08:28 Dose: Not Given Doxazosin Mesylate (Doxazosin 4 Mg Tablet) 4 mg PO QDAY [facility] Last Admin: 05/21/22 08:26 Dose: 4 mg Enoxaparin Sodium (Enoxaparin 40 Mg/0.4 Ml Syringe) 40 mg SQ DAILY [facility] Last Admin: 05/21/22 11:32 Dose: Not Given Finasteride (Finasteride 5 Mg Tablet) 5 mg PO QDAY [facility] Last Admin: 05/21/22 08:25 Dose: 5 mg Furosemide (Furosemide 40 Mg/4 Ml Vial) 40 mg IV DAILY [facility] Last Admin: 05/21/22 11:35 Dose: 40 mg Iron Carb/Multivit/Data Conversion Developer/Folic Acid (Multivit,Ther Iron,Ca,Fa & Min 1 Tablet) 1 tab PO QAM [facility] Last Admin: 05/21/22 08:25 Dose: 1 tab Metoprolol Tartrate (Metoprolol Tartrate 25 Mg Tablet) 37.5 mg PO BID [facility] Last Admin: 05/21/22 08:30 Dose: Not Given Ondansetron HCl (Ondansetron 4 Mg/2 Ml Vial) 4 mg IV Q6HP PRN PRN Reason: Nausea And Vomiting Oxycodone HCl (Oxycodone Hcl 5 Mg Tablet) 5 mg PO Q6HP PRN; Protocol PRN Reason: Pain Last Admin: 05/21/22 15:24 Dose: 5 mg Pantoprazole Sodium (Pantoprazole 40 Mg Tablet) 40 mg PO BID [facility] Last Admin: 05/21/22 08:26 Dose: 40 mg Prednisone (Prednisone 20 Mg Tablet) 40 mg PO DAILY [facility] Last Admin: 05/21/22 08:26 Dose: 40 mg Senna (Sennosides 1 Tablet) 2 tab PO HS [facility] Last Admin: 05/20/22 20:44 Dose: Not Given Sodium Chloride (0.9 % Sodium Chloride 10 Ml Syringe) 10 ml IV Q8 [facility] Last Admin: 05/21/22 08:23 Dose: 10 ml Trazodone HCl (Trazodone Hcl 50 Mg Tablet) 50 mg PO HSP PRN PRN Reason: Insomnia Trimethoprim/Sulfamethoxazole (Sulfamethoxazole/Trimethoprim 1 Tablet) 1 tab PO DAILY [facility]; Protocol Last Admin: 05/21/22 08:26 Dose: 1 tab A/P Narrative A/P Narrative: 81-year-old male who presented with GI bleed, transferred to [facility] for further care due to lack of beds closer to [place]. Was found to have gastric carcinoma, newly diagnosed interstitial lung disease (likely from amiodarone), multifocal stroke occurred while he was hospitalized. Transferred to [facility] for further care and pursuing placement. Adenocarcinoma of the stomach -Presented with GI hemorrhage -EGD done at the hospital in [facility] -Required 3 units PRBC -Eliquis stopped during that hospitalization -CT with 4.7 cm mass near the stomach and presumed necrotic lymph node in the retroperitoneum -Currently wants to pursue a comfort focused goal of care Atrial fibrillation -Was on amiodarone and apixaban -Amiodarone stopped secondary to new diagnosis of ILD -Apixaban stopped secondary to GI bleed Interstitial lung disease with acute hypoxic respiratory failure -Found to be hypoxic in [place] -CT notable for interstitial lung disease -[place] secondary to amiodarone therapy -Received 60 mg of prednisone, decreased to 40 mg daily x1 month -On PCP prophylaxis while on prednisone -Remains on 4 LPM by nasal cannula Cerebrovascular accident -Multifocal ischemic strokes thought to be embolic with right-sided weakness, mild dysphagia, mild aphasia and right neglect -Diagnosed while hospitalized in [place] -Symptomatic internal carotid stenosis, discussed with vascular surgery was to follow-up depending upon goals of care for carcinoma Hiccups -Intermittently in the last few months -Causing distress currently Insomnia -Difficulty sleeping while in the hospital -May be exacerbated by steroids Plan: * Trial of baclofen for hiccups * Consider trial of Thorazine if baclofen not effective * Continue to hold apixaban and amiodarone * Diuresis, proBNP elevated today, may be contributing to some of his hypoxia * Continue supplemental oxygen as needed * Pursue placement and hospice referral Time Spent With Patient Time: Total time spent is greater than 50% in coordination of care (as documented) at patient's floor/unit and/or counseling patient: Total time spent with greater than 50% in coordination of care (as documented) at patient's floor/unit and/or counseling patient:: 35 - 50 minutes QUALITY Stroke Symptom Onset Unknown: No VTE Deep Vein Thrombosis/Pulmonary Embolism Present on Admission: No
[2022-05-21] MEDS: ATORVASTATIN 20 MG TABLET PO SCH (22:51)
[2022-05-21] MEDS: SENNOSIDES 1 TABLET PO SCH (22:53)
[2022-05-22] MEDS: BACLOFEN 10 MG TABLET PO PRN ×2 (02:05→21:59)
[2022-05-22] MEDS: oxyCODONE HCL 5 MG TABLET PO PRN (02:05)
[2022-05-22] MEDS: 0.9 % SODIUM CHLORIDE 10 ML SYRINGE IV SCH ×3 (06:32→21:57)
[2022-05-22] MEDS: ENOXAPARIN 40 MG/0.4 ML SYRINGE SQ SCH (08:14)
[2022-05-22] MEDS: AMITRIPTYLINE 25 MG TABLET PO SCH (08:14)
[2022-05-22] MEDS: FUROSEMIDE 40 MG/4 ML VIAL IV SCH (08:14)
[2022-05-22] MEDS: MULTIVIT,THER IRON,CA,FA & MIN 1 TABLET PO SCH (08:14)
[2022-05-22] MEDS: METOPROLOL TARTRATE 25 MG TABLET PO SCH ×2 (08:15→21:58)
[2022-05-22] MEDS: amLODIPine 10 MG TABLET PO SCH (08:15)
[2022-05-22] MEDS: PANTOPRAZOLE 40 MG TABLET PO SCH ×2 (08:17→21:57)
[2022-05-22] MEDS: DOXAZOSIN 4 MG TABLET PO SCH (08:17)
[2022-05-22] MEDS: FINASTERIDE 5 MG TABLET PO SCH (08:18)
[2022-05-22] MEDS: SULFAMETHOXAZOLE/TRIMETHOPRIM 1 TABLET PO SCH (08:18)
[2022-05-22] MEDS: predniSONE 20 MG TABLET PO SCH (08:18)
[2022-05-22] MEDS: DOCUSATE SODIUM 100 MG CAPSULE PO SCH ×2 (10:27→21:57)
--- NOTE | 2022-05-22 12:18 | Internal Med Progress Note ---
SUBJECTIVE Subjective Patient information: Note initiated : 05/22/22 at 12:13 pm Service Date, if different from initiated Date: [] Patient: Nirmala Zhong a 81 y/o M admitted on 05/19/22 for GI Bleed, Rule out Stroke. Chief Complaint: [] Principal diagnosis: GI bleed due to gastric adenocarcinoma Interval history: Mr. Zhong is a 81 year old M with a complex past medical history significant for chronic atrial fibrillation on amiodarone, Eliquis, prior CVA, and hypertension who presented to our hospital with severe anemia from a subacute upper gastrointestinal hemorrhage. He was transferred to [facility] for higher level of care. He underwent EGD on 05/10 which showed a gastric ulcerating neoplasm that was injected and cauterized. CT demonstrated 4.7 cm mass near the stomach and a presumed necrotic lymph node within the retroperitoneum. Pathology confirmed gastric adenocarcinoma. Of note he was transfused total of 3 units of packed red blood cells. His Eliquis was held. His hospital course was complicated by acute hypoxemic respiratory failure in the CT of the chest revealed pulmonary fibrosis that was believed to be in the setting of amiodarone as he was on this medication for approximately 4 years. It was recommended he follow-up with wrapper sheeter at the [place] for further ILD work-up. He was placed on prednisone and IV Lasix. He is now on prednisone 40 mg p.o. daily x1 month with PCP prophylaxis. He also completed a course of Unasyn for suspected aspiration pneumonia. His hospital course was further complicated by acute/subacute multifocal ischemic stroke thought to be in the s etting of an embolism from atrial fibrillation. He was found to have right- sided weakness, mild dysphagia, mild aphasia and right neglect as well as cognitive deficits. MRI demonstrated numerous foci of restricted diffusion scattered throughout both cerebral and cerebellar hemisphere largest within the left occipital lobe. The patient's TTE was performed and revealed preserved EF but severe pulmonary hypertension thought to be due to pulmonary fibrosis. He also has symptomatic internal carotid stenosis and there were discussions with vascular surgery and ongoing goals of care discussion. He has been discharged back to her facility [place] and he will need residential facility placement. He is to follow-up with his primary care at the [facility] he is can establish oncology follow-up. 05/20: The patient remains medically status quo. We will touch base with social work and case management tomorrow morning to see what options are for residential facility. 05/21: Patient's been troubled by hiccups which have been occurring intermittently for a few months. Discussion of goals of care, patient does not want to pursue aggressive treatment for his gastric cancer, leaning towards hospice, likely will need placement. He prefers the [place] SNF. 05/22: Patient is working with occupational therapy. Complaining of some pain in his legs. Right hand and forearm are still weak. Discussed his goals of care. For now he would like to focus on stroke rehab to try to regain function, though ultimately he would like a transition to hospice in the future. Constitutional Vitals: Vital Signs Temp Pulse Resp BP Pulse Ox O2 Del Method O2 Flow Rate 96.6 F L 67 16 118/63 96 4 05/22/22 08:00 05/22/22 08:00 05/22/22 08:00 05/22/22 08:00 05/22/22 08:00 05/22/22 08:00 05/22/22 08:00 Period Temp Pulse Resp BP Sys/Coles Pulse Ox O2 Del Method O2 Flow Rate Last 24 Hr 96.6 F-98.5 F 67-87 - 102-129/63-76 93-98 High Flow Nasal Cannula-Room Air 3.5-4 Intake and Output 05/21/22 05/22/22 05/22/22 21:59 05:59 13:59 Intake Total 437 437 Output Total 3 152 350 Balance 434 285 -350 Weight 171 lb 4.8 oz Intake & Output: Intake & Output 05/21/22 05/22/22 05/22/22 21:59 05:59 13:59 Intake Total 437 437 Output Total 3 152 350 Balance 434 285 -350 Weight 171 lb 4.8 oz Intake: Oral 437 437 Output: Void Amount 150 350 # of times incontinent of urine 3 2 Other: Meal Nourishment/Supplement Yogurt Breakfast Percent of Meal Consumed 100% 100% 50% Feeding Ability Assist with Tray Set Up Independent Independent Nourishment/Supplement name Ensure Ensure Urine Appearance Clear Clear Urine Color Yellow Yellow Stool Size Smear GENERAL: In bed, chronically ill-appearing RESPIRATORY: Unlabored, clear CARDIOVASCULAR: Regular on exam today ABDOMEN: Soft, nontender EXTREMITIES: No edema NEURO: Alert, oriented x3, generally weak with decreased strength in the 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 and 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, lower extremities not tested today OBJ DATA Labs CBC & Chem 7: 05/21/22 05:38 05/21/22 05:38 Labs: Abnormal Lab Results 05/21/22 05/21/22 05/20/22 05:38 05:38 05:08 WBC 25.5 H RBC 3.39 L Hgb 8.9 L Hct 29.4 L MCHC 30.3 L RDW 16.7 H Plt Count 448 H Immature Gran % (Auto) 1.8 H Neut % (Auto) 84.3 H Lymph % (Auto) 5.2 L Lymph # (Auto) 1.33 L [place] # (Auto) 2.13 H Immature Gran # 0.45 H Absolute Neutrophils 21.49 H BUN 31 H 31 H Glucose 115 H Calcium 8.5 L 8.5 L Phosphorus 2.3 L NT-Pro-B Natriuret Pep 2392.0 H 05/20/22 05:08 WBC 25.6 H RBC 3.25 L Hgb 8.6 L Hct 28.4 L MCHC 30.3 L RDW 16.5 H Plt Count Immature Gran % (Auto) 1.5 H Neut % (Auto) 85.4 H Lymph % (Auto) 4.5 L Lymph # (Auto) 1.16 L [place] # (Auto) 2.11 H Immature Gran # 0.38 H Absolute Neutrophils 21.83 H BUN Glucose Calcium Phosphorus NT-Pro-B Natriuret Pep Meds: Medications Acetaminophen (Acetaminophen 325 Mg Tablet) 650 mg PO Q6HP PRN; Protocol PRN Reason: Per Pain Protocol/Fever > 101 Al Hydrox/Mg Hydrox/Simethicone (Mag Hydrox/Al Hydrox/Simeth 30 Ml Oral.Susp) 30 ml PO Q4-6HP PRN PRN Reason: Dyspepsia Last Admin: 05/20/22 10:53 Dose: 30 ml Amitriptyline HCl (Amitriptyline 25 Mg Tablet) 25 mg PO QDAY [facility] Last Admin: 05/22/22 08:14 Dose: 25 mg Amlodipine Besylate (Amlodipine 10 Mg Tablet) 10 mg PO QDAY [facility] Last Admin: 05/22/22 08:15 Dose: 10 mg Atorvastatin Calcium (Atorvastatin 20 Mg Tablet) 20 mg PO QHS [facility] Last Admin: 05/21/22 22:51 Dose: 20 mg Baclofen (Baclofen 10 Mg Tablet) 5 mg PO TIDP PRN PRN Reason: hiccups Last Admin: 05/22/22 02:05 Dose: 5 mg Docusate Sodium (Docusate Sodium 100 Mg Capsule) 100 mg PO BID [facility] Last Admin: 05/22/22 10:27 Dose: Not Given Doxazosin Mesylate (Doxazosin 4 Mg Tablet) 4 mg PO QDAY [facility] Last Admin: 05/22/22 08:17 Dose: 4 mg Enoxaparin Sodium (Enoxaparin 40 Mg/0.4 Ml Syringe) 40 mg SQ DAILY [facility] Last Admin: 05/22/22 08:14 Dose: 40 mg Finasteride (Finasteride 5 Mg Tablet) 5 mg PO QDAY [facility] Last Admin: 05/22/22 08:18 Dose: 5 mg Furosemide (Furosemide 40 Mg/4 Ml Vial) 40 mg IV DAILY [facility] Last Admin: 05/22/22 08:14 Dose: 40 mg Iron Carb/Multivit/[place]/Folic Acid (Multivit,Ther Iron,Ca,Fa & Min 1 Tablet) 1 tab PO QAM [facility] Last Admin: 05/22/22 08:14 Dose: 1 tab Metoprolol Tartrate (Metoprolol Tartrate 25 Mg Tablet) 37.5 mg PO BID [facility] Last Admin: 05/22/22 08:15 Dose: 37.5 mg Ondansetron HCl (Ondansetron 4 Mg/2 Ml Vial) 4 mg IV Q6HP PRN PRN Reason: Nausea And Vomiting Oxycodone HCl (Oxycodone Hcl 5 Mg Tablet) 5 mg PO Q6HP PRN; Protocol PRN Reason: Pain Last Admin: 05/22/22 02:05 Dose: 5 mg Pantoprazole Sodium (Pantoprazole 40 Mg Tablet) 40 mg PO BID [facility] Last Admin: 05/22/22 08:17 Dose: 40 mg Prednisone (Prednisone 20 Mg Tablet) 40 mg PO DAILY [facility] Last Admin: 05/22/22 08:18 Dose: 40 mg Senna (Sennosides 1 Tablet) 2 tab PO HS [facility] Last Admin: 05/21/22 22:53 Dose: Not Given Sodium Chloride (0.9 % Sodium Chloride 10 Ml Syringe) 10 ml IV Q8 [facility] Last Admin: 05/22/22 06:32 Dose: Not Given Trazodone HCl (Trazodone Hcl 50 Mg Tablet) 50 mg PO HSP PRN PRN Reason: Insomnia Trimethoprim/Sulfamethoxazole (Sulfamethoxazole/Trimethoprim 1 Tablet) 1 tab PO DAILY [facility]; Protocol Last Admin: 05/22/22 08:18 Dose: 1 tab A/P Narrative A/P Narrative: 81-year-old male who presented with GI bleed, transferred to [facility] for further care due to lack of beds closer to [place]. Was found to have gastric carcinoma, newly diagnosed interstitial lung disease (likely from amiodarone), multifocal stroke occurred while he was hospitalized. [facility]red [facility] care for further care and pursuing placement. Adenocarcinoma of the stomach -Presented with GI hemorrhage -EGD done at the hospital in [facility] -Required 3 units PRBC -Eliquis stopped during that hospitalization -CT with 4.7 cm mass near the stomach and presumed necrotic lymph node in the retroperitoneum -Currently wants to ultimately pursue a comfort focused goal of care Atrial fibrillation -Was on amiodarone and apixaban -Amiodarone stopped secondary to new diagnosis of ILD -Apixaban stopped secondary to GI bleed Interstitial lung disease with acute hypoxic respiratory failure -Found to be hypoxic in [place] -CT notable for interstitial lung disease -[place] secondary to amiodarone therapy -Received 60 mg of prednisone, decreased to 40 mg daily x1 month -On PCP prophylaxis while on prednisone -Remains on 4 LPM by nasal cannula Cerebrovascular accident -Multifocal ischemic strokes thought to be embolic with right-sided weakness, mild dysphagia, mild aphasia and right neglect -Diagnosed while hospitalized in [place] -Symptomatic internal carotid stenosis, discussed with vascular surgery was to follow-up depending upon goals of care for carcinoma -Would like to pursue skilled therapies to regain function in the short-term Hiccups -Intermittently in the last few months -Causing distress currently -Improved with baclofen Insomnia -Difficulty sleeping while in the hospital -May be exacerbated by steroids Plan: * Continue with PT and OT * Will try to pursue skilled placement for further therapies * Ultimately would like to transition to hospice * Continue baclofen for hiccups * Continue to not use apixaban or amiodarone, discontinued * Continue with diuresis, to see if that helps with hypoxia * Continue oxygen as needed, titrate to maintain saturations Okay about Time Spent With Patient Time: Total time spent is greater than 50% in coordination of care (as documented) at patient's floor/unit and/or counseling patient: QUALITY Stroke Symptom Onset Unknown: No VTE Deep Vein Thrombosis/Pulmonary Embolism Present on Admission: No
--- NOTE | 2022-05-22 12:26 | Internal Med Progress Note ---
SUBJECTIVE Subjective Patient information: Note initiated : 05/22/22 at 12:24 pm Service Date, if different from initiated Date: [] Patient: Nirmala Zhong a 81 y/o M admitted on 05/19/22 for GI Bleed, Rule out Stroke. Chief Complaint: [] Principal diagnosis: GI bleed due to gastric adenocarcinoma Interval history: Mr. Zhong is a 81 year old M with a complex past medical history significant for chronic atrial fibrillation on amiodarone, Eliquis, prior CVA, and hypertension who presented to our hospital with severe anemia from a subacute upper gastrointestinal hemorrhage. He was transferred to [facility] for higher level of care. He underwent EGD on 05/10 which showed a gastric ulcerating neoplasm that was injected and cauterized. CT demonstrated 4.7 cm mass near the stomach and a presumed necrotic lymph node within the retroperitoneum. Pathology confirmed gastric adenocarcinoma. Of note he was transfused total of 3 units of packed red blood cells. His Eliquis was held. His hospital course was complicated by acute hypoxemic respiratory failure in the CT of the chest revealed pulmonary fibrosis that was believed to be in the setting of amiodarone as he was on this medication for approximately 4 years. It was recommended he follow-up with intertype operator [facility] the [facility] for further ILD work-up. He was placed on prednisone and IV Lasix. He is now on prednisone 40 mg p.o. daily x1 month with PCP prophylaxis. He also completed a course of Unasyn for suspected aspiration pneumonia. His hospital course was further complicated by acute/subacute multifocal ischemic stroke thought to be in the s etting of an embolism from atrial fibrillation. He was found to have right- sided weakness, mild dysphagia, mild aphasia and right neglect as well as cognitive deficits. MRI demonstrated numerous foci of restricted diffusion scattered throughout both cerebral and cerebellar hemisphere largest within the left occipital lobe. The patient's TTE was performed and revealed preserved EF but severe pulmonary hypertension thought to be due to pulmonary fibrosis. He also has symptomatic internal carotid stenosis and there were discussions with vascular surgery and ongoing goals of care discussion. He has been discharged back to her facility [place] and he will need half-way facility placement. He is to follow-up with his primary care [facility] the [facility] he is can establish oncology follow-up. 05/20: The patient remains medically status quo. We will touch base with social work and case management tomorrow morning to see what options are for half-way facility. 05/21: Patient's been troubled by hiccups which have been occurring intermittently for a few months. Discussion of goals of care, patient does not want to pursue aggressive treatment for his gastric cancer, leaning towards hospice, likely will need placement. He prefers the [facility] SN[facility]. 05/22: Patient is working with occupational therapy. Complaining of some pain in his legs. Right hand and forearm are still weak. Discussed his goals of care. For now he would like to focus on stroke rehab to try to regain function, though ultimately he would like a transition to hospice in the future. 05/23 Constitutional Vitals: Vital Signs Temp Pulse Resp BP Pulse Ox O2 Del Method O2 Flow Rate 96.6 F L 67 16 118/63 96 4 05/22/22 08:00 05/22/22 08:00 05/22/22 08:00 05/22/22 08:00 05/22/22 08:00 05/22/22 08:00 05/22/22 08:00 Period Temp Pulse Resp BP Sys/Coles Pulse Ox O2 Del Method O2 Flow Rate Last 24 Hr 96.6 F-98.5 F 67-87 - 102-129/63-76 93-98 High Flow Nasal Cannula-Room Air 3.5-4 Intake and Output 05/21/22 05/22/22 05/22/22 21:59 05:59 13:59 Intake Total 437 437 Output Total 3 152 350 Balance 434 285 -350 Weight 77.7 kg Intake & Output: Intake & Output 05/21/22 05/22/22 05/22/22 21:59 05:59 13:59 Intake Total 437 437 Output Total 3 152 350 Balance 434 285 -350 Weight 77.7 kg Intake: Oral 437 437 Output: Void Amount 150 350 # of times incontinent of urine 3 2 Other: Meal Nourishment/Supplement Yogurt Breakfast Percent of Meal Consumed 100% 100% 50% Feeding Ability Assist with Tray Set Up Independent Independent Nourishment/Supplement name Ensure Ensure Urine Appearance Clear Clear Urine Color Yellow Yellow Stool Size Smear General appearance: thin Exam: General: Alert, Awake, No acute Distress, chronically ill-appearing Eyes/N/T: EOMI, Head/Neck: neck supple, CV: Reg today, No murmurs, Pulm: Clear b/l, no wheezing/rhonchi/rales Abd: soft, nontender, +BS x4 Ext: no clubbing/cyanosis/edema Neuro: Alert, generally weak with decreased RUE, moves all extremities, Skin: warm/dry OBJ DATA Labs CBC & Chem 7: 05/21/22 05:38 05/21/22 05:38 Labs: Abnormal Lab Results 05/21/22 05/21/22 05/20/22 05:38 05:38 05:08 WBC 25.5 H RBC 3.39 L Hgb 8.9 L Hct 29.4 L MCHC 30.3 L RDW 16.7 H Plt Count 448 H Immature Gran % (Auto) 1.8 H Neut % (Auto) 84.3 H Lymph % (Auto) 5.2 L Lymph # (Auto) 1.33 L [place] # (Auto) 2.13 H Immature Gran # 0.45 H Absolute Neutrophils 21.49 H BUN 31 H 31 H Glucose 115 H Calcium 8.5 L 8.5 L Phosphorus 2.3 L NT-Pro-B Natriuret Pep 2392.0 H 05/20/22 05:08 WBC 25.6 H RBC 3.25 L Hgb 8.6 L Hct 28.4 L MCHC 30.3 L RDW 16.5 H Plt Count Immature Gran % (Auto) 1.5 H Neut % (Auto) 85.4 H Lymph % (Auto) 4.5 L Lymph # (Auto) 1.16 L [place] # (Auto) 2.11 H Immature Gran # 0.38 H Absolute Neutrophils 21.83 H BUN Glucose Calcium Phosphorus NT-Pro-B Natriuret Pep Meds: Medications Acetaminophen (Acetaminophen 325 Mg Tablet) 650 mg PO Q6HP PRN; Protocol PRN Reason: Per Pain Protocol/Fever > 101 Al Hydrox/Mg Hydrox/Simethicone (Mag Hydrox/Al Hydrox/Simeth 30 Ml Oral.Susp) 30 ml PO Q4-6HP PRN PRN Reason: Dyspepsia Last Admin: 05/20/22 10:53 Dose: 30 ml Amitriptyline HCl (Amitriptyline 25 Mg Tablet) 25 mg PO QDAY RICK Last Admin: 05/22/22 08:14 Dose: 25 mg Amlodipine Besylate (Amlodipine 10 Mg Tablet) 10 mg PO QDAY [facility] Last Admin: 05/22/22 08:15 Dose: 10 mg Atorvastatin Calcium (Atorvastatin 20 Mg Tablet) 20 mg PO QHS [facility] Last Admin: 05/21/22 22:51 Dose: 20 mg Baclofen (Baclofen 10 Mg Tablet) 5 mg PO TIDP PRN PRN Reason: hiccups Last Admin: 05/22/22 02:05 Dose: 5 mg Docusate Sodium (Docusate Sodium 100 Mg Capsule) 100 mg PO BID [facility] Last Admin: 05/22/22 10:27 Dose: Not Given Doxazosin Mesylate (Doxazosin 4 Mg Tablet) 4 mg PO QDAY [facility] Last Admin: 05/22/22 08:17 Dose: 4 mg Enoxaparin Sodium (Enoxaparin 40 Mg/0.4 Ml Syringe) 40 mg SQ DAILY [facility] Last Admin: 05/22/22 08:14 Dose: 40 mg Finasteride (Finasteride 5 Mg Tablet) 5 mg PO QDAY [facility] Last Admin: 05/22/22 08:18 Dose: 5 mg Furosemide (Furosemide 40 Mg/4 Ml Vial) 40 mg IV DAILY [facility] Last Admin: 05/22/22 08:14 Dose: 40 mg Iron Carb/Multivit/Weight Yardage Checker/Folic Acid (Multivit,Ther Iron,Ca,Fa & Min 1 Tablet) 1 tab PO QAM [facility] Last Admin: 05/22/22 08:14 Dose: 1 tab Metoprolol Tartrate (Metoprolol Tartrate 25 Mg Tablet) 37.5 mg PO BID [facility] Last Admin: 05/22/22 08:15 Dose: 37.5 mg Ondansetron HCl (Ondansetron 4 Mg/2 Ml Vial) 4 mg IV Q6HP PRN PRN Reason: Nausea And Vomiting Oxycodone HCl (Oxycodone Hcl 5 Mg Tablet) 5 mg PO Q6HP PRN; Protocol PRN Reason: Pain Last Admin: 05/22/22 02:05 Dose: 5 mg Pantoprazole Sodium (Pantoprazole 40 Mg Tablet) 40 mg PO BID [facility] Last Admin: 05/22/22 08:17 Dose: 40 mg Prednisone (Prednisone 20 Mg Tablet) 40 mg PO DAILY [facility] Last Admin: 05/22/22 08:18 Dose: 40 mg Senna (Sennosides 1 Tablet) 2 tab PO HS [facility] Last Admin: 05/21/22 22:53 Dose: Not Given Sodium Chloride (0.9 % Sodium Chloride 10 Ml Syringe) 10 ml IV Q8 [facility] Last Admin: 05/22/22 06:32 Dose: Not Given Trazodone HCl (Trazodone Hcl 50 Mg Tablet) 50 mg PO HSP PRN PRN Reason: Insomnia Trimethoprim/Sulfamethoxazole (Sulfamethoxazole/Trimethoprim 1 Tablet) 1 tab PO DAILY RICK; Protocol Last Admin: 05/22/22 08:18 Dose: 1 tab A/P Narrative A/P Narrative: A: *Adenocarcinoma of the stomach with GI hemorrhage -EGD done at the hospital in [facility] -CT with 4.7 cm mass near the stomach and presumed necrotic lymph node in the retroperitoneum -Currently wants to ultimately pursue a comfort focused goal of care *Acute blood loss anemia: 2/2 above -Required 3 units PRBC. Eliquis stopped during that hospitalization. *Paroxysmal Atrial fibrillation: -Was on amiodarone and apixaban. -Amiodarone stopped secondary to new diagnosis of ILD. -Apixaban stopped secondary to GI bleed *Interstitial lung disease with acute hypoxic respiratory failure: -Found to be hypoxic in [place], CT notable for interstitial lung disease, [place] secondary to amiodarone therapy -Received 60 mg of prednisone, decreased to 40 mg daily x1 month -On PCP prophylaxis while on prednisone -Remains on 4 LPM by nasal cannula *CVA, Multifocal ischemic thought to be embolic w/right-sided weakness, mild dysphagia/aphasia and right neglect -Diagnosed while hospitalized in [place] -Symptomatic internal carotid stenosis, discussed with vascular surgery, follow-up depending on goals of care for CA. -Would like to pursue skilled therapies to regain function in the short-term *Hiccups: -Intermittently in the last few months -Causing distress currently, Improved with baclofen *Insomnia: Difficulty sleeping while in the hospital, May be exacerbated by steroids Plan: -Continue with PT and OT -Will try to pursue skilled placement for further therapies -Ultimately would like to transition to hospice -Continue baclofen for hiccups -Continue to not use apixaban or amiodarone, discontinued -Continue with diuresis, to see if that helps with hypoxia -Continue oxygen as needed, titrate to maintain saturations -ppx: SCD DNR Time Spent With Patient Time: Total time spent is greater than 50% in coordination of care (as documented) at patient's floor/unit and/or counseling patient: QUALITY Stroke Symptom Onset Unknown: No VTE Deep Vein Thrombosis/Pulmonary Embolism Present on Admission: No
--- NOTE | 2022-05-22 14:28 | Discharge Summary ---
Discharge Provider Provider IMPORTANT FOLLOW-UP INFORMATION FOR PCP: Patient information: Note initiated : 05/22/22 at 2:26 pm Service Date, if different from initiated Date: [] Patient: Nirmala Zhong a 81 y/o M admitted on 05/19/22 for GI Bleed, Rule out Stroke. Chief Complaint: [] Date of admission: 05/19/22 15:46 Primary care physician: Robbin Horan Consults: 05/22/22 11:28 Consult to Physician [CONS] Routine Comment: snf referral Consulting Provider: [facility] Reason For Exam: Physician to Consult COURSE Hospital Course Hospital course: Mr. Zhong is a 81 year old M with a complex past medical history significant for chronic atrial fibrillation on amiodarone, Eliquis, prior CVA, and hypertension who presented to our hospital with severe anemia from a subacute u pper gastrointestinal hemorrhage. He was transferred to [facility] for higher level of care. He underwent EGD on 05/10 which showed a gastric ulcerating neoplasm that was injected and cauterized. CT demonstrated 4.7 cm mass near the stomach and a presumed necrotic lymph node within the retroperitoneum. Pathology confirmed gastric adenocarcinoma. Of note he was transfused total of 3 units of packed red blood cells. His Eliquis was held. His hospital course was complicated by acute hypoxemic respiratory failure in the CT of the chest revealed pulmonary fibrosis that was believed to be in the setting of amiodarone as he was on this medication for approximately 4 years. It was recommended he follow-up with non acoustic operator at the [facility] for further ILD work-up. He was placed on prednisone and IV Lasix. He is now on prednisone 40 mg p.o. daily x1 month with PCP prophylaxis. He also completed a course of Unasyn for suspected aspiration pneumonia. His hospital course was further comp licated by acute/subacute multifocal ischemic stroke thought to be in the setting of an embolism from atrial fibrillation. He was found to have right- sided weakness, mild dysphagia, mild aphasia and right neglect as well as cognitive deficits. MRI demonstrated numerous foci of restricted diffusion scattered throughout both cerebral and cerebellar hemisphere largest within the left occipital lobe. The patient's TTE was performed and revealed preserved EF but severe pulmonary hypertension thought to be due to pulmonary fibrosis. He also has symptomatic internal carotid stenosis and there were discussions with vascular surgery and ongoing goals of care discussion. He has been discharged back to her facility [place] and he will need nursing home facility placement. He is to follow-up with his primary care at the [facility] he is can establish oncology follow-up. 05/20: The patient remains medically status quo. We will touch base with social work and case management tomorrow morning to see what options are for nursing home facility. 05/21: Patient's been troubled by hiccups which have been occurring intermittently for a few months. Discussion of goals of care, patient does not want to pursue aggressive treatment for his gastric cancer, leaning towards hospice, likely will need placement. He prefers the [facility] SN[facility]. 05/22: Patient is working with occupational therapy. Complaining of some pain in his legs. Right hand and forearm are still weak. Discussed his goals of care. For now he would like to focus on stroke rehab to try to regain function, though ultimately he would like a transition to hospice in the future. 05/23 Sitting up eating breakfast. No overnight event or new complaints. 05/24 No changes overnight. Patient seems to be feeling well. Denies cough or shortness of breath. 05/25 Patient states he had a good night sleep last night. No overnight or new complaints. 05/26 Patient sitting up in bed eating breakfast. Seems to be in good spirits today. No changes. 05/27 For sleep but otherwise no new complaints. No change in status. 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 Eliquis stopped during that hospitalization. *Paroxysmal Atrial fibrillation: -Was on amiodarone and apixaban. -Amiodarone stopped secondary to new diagnosis of ILD. -Apixaban stopped secondary to GI bleed *Interstitial lung disease with acute hypoxic respiratory failure: -Found to be hypoxic in [place], CT notable for interstitial lung disease, [place] secondary to amiodarone therapy -Received 60 mg of prednisone, decreased to 40 mg daily x1 month -On PCP prophylaxis while on prednisone -Remains on oxygen *CVA, Multifocal ischemic thought to be embolic w/right-sided weakness, mild dysphagia/aphasia and right neglect -Diagnosed while hospitalized in [place] -Symptomatic internal carotid stenosis, discussed with vascular surgery, follow-up depending on goals of care for CA. -Would like to pursue skilled therapies to regain function in the short-term *Hiccups: -Intermittently in the last few months -Causing distress currently, Improved with baclofen *Insomnia: Difficulty sleeping while in the hospital, May be exacerbated by steroids Plan: -Continue with PT and OT -Will try to pursue skilled placement for further therapies -Ultimately would like to transition to hospice -Continue to not use apixaban or amiodarone, discontinued -Continue oxygen as needed Discharge diagnosis: GI bleed with adenocarcinoma of the stomach acute blood loss anemia Secondary discharge diagnosis: A. fib interstitial lung disease with acute hypoxic respite failure multifocal strokes ischemic hiccups insomnia Time Spent with Patient Time attestation: Total time spent providing and/or coordinating discharge services: Time spent: Greater than 30 minutes EXAM Constitutional Vitals: Temp Pulse Resp BP Pulse Ox O2 Del Method O2 Flow Rate 97.8 F 68 16 117/59 96 3.5 05/22/22 12:00 05/22/22 12:00 05/22/22 12:00 05/22/22 12:00 05/22/22 12:00 05/22/22 12:00 05/22/22 12:00 Discharge Plan Patient/Caregiver Discharge Instructions Activity: increase activity as tolerated Diet: Dysphagia Level 6 Soft & Bite-Sized Foods Activity Restrictions/Additional Instructions: Follow-up with PCP in 3 to 7 days. Prescriptions: Continued amitriptyline 25 mg tablet 25 mg PO QDAY amlodipine 10 mg tablet 10 mg PO QDAY atorvastatin 20 mg tablet 20 mg PO QHS doxazosin 4 mg tablet 4 mg PO QDAY metoprolol tartrate 25 mg tablet 37.5 mg PO BID naloxone 4 mg/actuation spray,non-aerosol 4 mg INTRANASAL ONCE PRN (Reason: Allergic Symptoms) magnesium oxide 420 mg tablet 420 mg PO QDAY multivitamin with minerals capsule 1 cap PO QAM lidocaine [Lidoderm] 5 % adhesive patch,medicated 1 patch topical QDAY Qty: 15 0RF Rx Instructions: leave on most painful area for 12 hrs sennosides [senna] 8.6 mg Tablet 8.6 mg PO QHS PRN (Reason: Allergy Symptoms) prednisone 20 mg Tablet 40 mg PO DAILY Rx Instructions: FOR ONE MONTH BEGINNING 05/18/22 sulfamethoxazole-trimethoprim [Bactrim DS] 800-160 mg Tablet 1 tab PO DAILY Rx Instructions: PROPHYLAXIS WHILE ON STEROIDS pantoprazole [Protonix] 40 mg Tablet,Delayed Release (Dr/Ec) 40 mg PO BID colchicine 0.6 mg Tablet 0.6 mg PO BID oxycodone 5 mg Tablet 5 mg PO Q6H PRN (Reason: Pain) Zyrtec 10 mg Capsule 10 mg PO QDAY PRN (Reason: Allergy Symptoms) acetaminophen 325 mg tablet 350 mg PO Q6H albuterol sulfate 90 mcg/actuation HFA aerosol inhaler 1 - 2 puff inhalation Q6H PRN (Reason: shortness of breath or wheezing) Rx Instructions: Bring this with you to your lung function test finasteride [Proscar] 5 mg tablet 5 mg PO QDAY Qty: 90 1RF Follow Up Plan Patient Disposition: er [facility] Prognosis: Undetermined Rehab Potential: Fair QUALITY VTE Deep Vein Thrombosis/Pulmonary Embolism Present on Admission: No
[2022-05-22] MEDS: ATORVASTATIN 20 MG TABLET PO SCH (21:57)
[2022-05-22] MEDS: SENNOSIDES 1 TABLET PO SCH (21:58)
[2022-05-23] MEDS: ACETAMINOPHEN 325 MG TABLET PO PRN ×2 (00:53→19:28)
[2022-05-23] MEDS: 0.9 % SODIUM CHLORIDE 10 ML SYRINGE IV SCH ×3 (05:40→20:24)
[2022-05-23 06:54] LABS: Albumin 2.9 gm/dL (3.2-5.2); Blood Urea Nitrogen 37 mg/dL (8-23); Carbon Dioxide 28 mmol/L (22-30); Chloride 103 mmol/L (96-108); Glomerular Filtration Rate 80; Glucose 107 mg/dL (70-105); Phosphorous 2.7 mg/dL (2.5-4.5)
--- NOTE | 2022-05-23 07:09 | Internal Med Progress Note ---
SUBJECTIVE Subjective Patient information: Note initiated : 05/23/22 at 7:07 am Service Date, if different from initiated Date: [] Patient: Nirmala Zhong a 81 y/o M admitted on 05/19/22 for GI Bleed, Rule out Stroke. Chief Complaint: [] Principal diagnosis: GI bleed due to gastric adenocarcinoma Interval history: Mr. Zhong is a 81 year old M with a complex past medical history significant for chronic atrial fibrillation on amiodarone, Eliquis, prior CVA, and hypertension who presented to our hospital with severe anemia from a subacute upper gastrointestinal hemorrhage. He was transferred to [facility] for higher level of care. He underwent EGD on 05/10 which showed a gastric ulcerating neoplasm that was injected and cauterized. CT demonstrated 4.7 cm mass near the stomach and a presumed necrotic lymph node within the retroperitoneum. Pathology confirmed gastric adenocarcinoma. Of note he was transfused total of 3 units of packed red blood cells. His Eliquis was held. His hospital course was complicated by acute hypoxemic respiratory failure in the CT of the chest revealed pulmonary fibrosis that was believed to be in the setting of amiodarone as he was on this medication for approximately 4 years. It was recommended he follow-up with radio recorder at the [place] for further ILD work-up. He was placed on prednisone and IV Lasix. He is now on prednisone 40 mg p.o. daily x1 month with PCP prophylaxis. He also completed a course of Unasyn for suspected aspiration pneumonia. His hospital course was further complicated by acute/subacute multifocal ischemic stroke thought to be in the se tting of an embolism from atrial fibrillation. He was found to have right-sided weakness, mild dysphagia, mild aphasia and right neglect as well as cognitive deficits. MRI demonstrated numerous foci of restricted diffusion scattered throughout both cerebral and cerebellar hemisphere largest within the left occipital lobe. The patient's TTE was performed and revealed preserved EF but severe pulmonary hypertension thought to be due to pulmonary fibrosis. He also has symptomatic internal carotid stenosis and there were discussions with vascular surgery and ongoing goals of care discussion. He has been discharged back to her facility [place] and he will need fpc facility placement. He is to follow-up with his primary care at the [place] he is can establish oncology follow-up. 05/20: The patient remains medically status quo. We will touch base with social work and case management tomorrow morning to see what options are for fpc facility. 05/21: Patient's been troubled by hiccups which have been occurring intermittently for a few months. Discussion of goals of care, patient does not want to pursue aggressive treatment for his gastric cancer, leaning towards hospice, likely will need placement. He prefers the [place] SNF. 05/22: Patient is working with occupational therapy. Complaining of some pain in his legs. Right hand and forearm are still weak. Discussed his goals of care. For now he would like to focus on stroke rehab to try to regain function, though ultimately he would like a transition to hospice in the future. 05/23 Sitting up eating breakfast. No overnight event or new complaints. Review of Systems: denies headache/fever/chills/nausea/vomiting/chest or abdominal pain/cough/dyspnea/diarrhea. Otherwise see above. Constitutional Vitals: Vital Signs Temp Pulse Resp BP Pulse Ox O2 Del Method O2 Flow Rate 98.0 F 63 18 120/63 98 4 05/23/22 02:30 05/23/22 02:30 05/23/22 02:30 05/23/22 02:30 05/23/22 02:30 05/23/22 02:30 05/23/22 02:30 Period Temp Pulse Resp BP Sys/Coles Pulse Ox O2 Del Method O2 Flow Rate Last 24 Hr 94.1 F-98.2 F 63-75 16-20 108-120/58-63 92-98 High Flow Nasal Cannula-Nasal Cannula 3.5-4 Intake and Output 05/22/22 05/23/22 05/23/22 21:59 05:59 13:59 Intake Total 1200 687 Output Total 251 152 Balance 949 535 Weight 78.199 kg Intake & Output: Intake & Output 05/22/22 05/23/22 05/23/22 21:59 05:59 13:59 Intake Total 1200 687 Output Total 251 152 Balance 949 535 Weight 78.199 kg Intake: Oral 1200 687 Output: Void Amount 250 150 # of times incontinent of urine 1 2 Other: Meal Dinner Nourishment/Supplement Percent of Meal Consumed 100% 100% Feeding Ability Independent Independent Nourishment/Supplement name Ensure Urine Appearance Clear Clear Urine Color Dark Yellow Bright Yellow Exam: General: Alert, Awake, No acute Distress, chronically ill-appearing Eyes/N/T: EOMI, Head/Neck: neck supple, CV: Reg today, No murmurs, Pulm: Clear b/l, no wheezing/rhonchi/rales Abd: soft, nontender, +BS x4 Ext: no clubbing/cyanosis/edema Neuro: Alert, generally weak RUE, moves all extremities, Skin: warm/dry OBJ DATA Labs CBC & Chem 7: 05/21/22 05:38 05/23/22 05:30 Labs: Abnormal Lab Results 05/23/22 05/21/22 05/21/22 05:30 05:38 05:38 WBC 25.5 H RBC 3.39 L Hgb 8.9 L Hct 29.4 L MCHC 30.3 L RDW 16.7 H Plt Count 448 H Immature Gran % (Auto) 1.8 H Neut % (Auto) 84.3 H Lymph % (Auto) 5.2 L Lymph # (Auto) 1.33 L [place] # (Auto) 2.13 H Immature Gran # 0.45 H Absolute Neutrophils 21.49 H Anion Gap 7.0 L BUN 37 H 31 H Glucose 107 H 115 H Calcium 8.5 L Phosphorus 2.3 L NT-Pro-B Natriuret Pep 2392.0 H Albumin 2.9 L Meds: Medications Acetaminophen (Acetaminophen 325 Mg Tablet) 650 mg PO Q6HP PRN; Protocol PRN Reason: Per Pain Protocol/Fever > 101 Last Admin: 05/23/22 00:53 Dose: 650 mg Al Hydrox/Mg Hydrox/Simethicone (Mag Hydrox/Al Hydrox/Simeth 30 Ml Oral.Susp) 30 ml PO Q4-6HP PRN PRN Reason: Dyspepsia Last Admin: 05/20/22 10:53 Dose: 30 ml Amitriptyline HCl (Amitriptyline 25 Mg Tablet) 25 mg PO QDAY [facility] Last Admin: 05/22/22 08:14 Dose: 25 mg Amlodipine Besylate (Amlodipine 10 Mg Tablet) 10 mg PO QDAY [facility]ICK Last Admin: 05/22/22 08:15 Dose: 10 mg Atorvastatin Calcium (Atorvastatin 20 Mg Tablet) 20 mg PO QHS [facility] Last Admin: 05/22/22 21:57 Dose: 20 mg Baclofen (Baclofen 10 Mg Tablet) 5 mg PO TIDP PRN PRN Reason: hiccups Last Admin: 05/22/22 21:59 Dose: 5 mg Docusate Sodium (Docusate Sodium 100 Mg Capsule) 100 mg PO BID [facility] Last Admin: 05/22/22 21:57 Dose: 100 mg Doxazosin Mesylate (Doxazosin 4 Mg Tablet) 4 mg PO QDAY [facility] Last Admin: 05/22/22 08:17 Dose: 4 mg Enoxaparin Sodium (Enoxaparin 40 Mg/0.4 Ml Syringe) 40 mg SQ DAILY [facility] Last Admin: 05/22/22 08:14 Dose: 40 mg Finasteride (Finasteride 5 Mg Tablet) 5 mg PO QDAY [facility] Last Admin: 05/22/22 08:18 Dose: 5 mg Furosemide (Furosemide 40 Mg/4 Ml Vial) 40 mg IV DAILY [facility] Last Admin: 05/22/22 08:14 Dose: 40 mg Iron Carb/Multivit/[place]/Folic Acid (Multivit,Ther Iron,Ca,Fa & Min 1 Tablet) 1 tab PO QAM [facility] Last Admin: 05/22/22 08:14 Dose: 1 tab Metoprolol Tartrate (Metoprolol Tartrate 25 Mg Tablet) 37.5 mg PO BID [facility] Last Admin: 05/22/22 21:58 Dose: 37.5 mg Ondansetron HCl (Ondansetron 4 Mg/2 Ml Vial) 4 mg IV Q6HP PRN PRN Reason: Nausea And Vomiting Oxycodone HCl (Oxycodone Hcl 5 Mg Tablet) 5 mg PO Q6HP PRN; Protocol PRN Reason: Pain Last Admin: 05/22/22 02:05 Dose: 5 mg Pantoprazole Sodium (Pantoprazole 40 Mg Tablet) 40 mg PO BID [facility] Last Admin: 05/22/22 21:57 Dose: 40 mg Prednisone (Prednisone 20 Mg Tablet) 40 mg PO DAILY [facility] Last Admin: 05/22/22 08:18 Dose: 40 mg Senna (Sennosides 1 Tablet) 2 tab PO HS [facility] Last Admin: 05/22/22 21:58 Dose: 2 tab Sodium Chloride (0.9 % Sodium Chloride 10 Ml Syringe) 10 ml IV Q8 [facility] Last Admin: 05/23/22 05:40 Dose: 10 ml Trazodone HCl (Trazodone Hcl 50 Mg Tablet) 50 mg PO HSP PRN PRN Reason: Insomnia Trimethoprim/Sulfamethoxazole (Sulfamethoxazole/Trimethoprim 1 Tablet) 1 tab PO DAILY [facility]; Protocol Last Admin: 05/22/22 08:18 Dose: 1 tab A/P Narrative A/P Narrative: A: *Adenocarcinoma of the stomach with GI hemorrhage -EGD done at the hospital in [facility] -CT with 4.7 cm mass near the stomach and presumed necrotic lymph node in the retroperitoneum -Currently wants to ultimately pursue a comfort focused goal of care *Acute blood loss anemia: 2/2 above -Required 3 units PRBC. Eliquis stopped during that hospitalization. *Paroxysmal Atrial fibrillation: -Was on amiodarone and apixaban. -Amiodarone stopped secondary to new diagnosis of ILD. -Apixaban stopped secondary to GI bleed *Interstitial lung disease with acute hypoxic respiratory failure: -Found to be hypoxic in [place] notable for interstitial lung disease, [place] secondary to amiodarone therapy -Received 60 mg of prednisone, decreased to 40 mg daily x1 month -On PCP prophylaxis while on prednisone -Remains on 4 LPM by nasal cannula *CVA, Multifocal ischemic thought to be embolic w/right-sided weakness, mild dysphagia/aphasia and right neglect -Diagnosed while hospitalized in [place] -Symptomatic internal carotid stenosis, discussed with vascular surgery, follow-up depending on goals of care for CA. -Would like to pursue skilled therapies to regain function in the short-term *Hiccups: -Intermittently in the last few months -Causing distress currently, Improved with baclofen *Insomnia: Difficulty sleeping while in the hospital, May be exacerbated by steroids Plan: -Continue with PT and OT -Will try to pursue skilled placement for further therapies -Ultimately would like to transition to hospice -Continue baclofen for hiccups -Continue to Not use apixaban or amiodarone, discontinued -Continue oxygen as needed, titrate to maintain saturations -ppx: SCD DNR Time Spent With Patient Time: Total time spent is greater than 50% in coordination of care (as documented) at patient's floor/unit and/or counseling patient: Total time spent with greater than 50% in coordination of care (as documented) at patient's floor/unit and/or counseling patient:: 25 - 35 minutes QUALITY Stroke Symptom Onset Unknown: No VTE Deep Vein Thrombosis/Pulmonary Embolism Present on Admission: No
[2022-05-23] MEDS: METOPROLOL TARTRATE 25 MG TABLET PO SCH ×2 (09:32→20:23)
[2022-05-23] MEDS: DOCUSATE SODIUM 100 MG CAPSULE PO SCH ×2 (09:32→20:23)
[2022-05-23] MEDS: amLODIPine 10 MG TABLET PO SCH (09:32)
[2022-05-23] MEDS: DOXAZOSIN 4 MG TABLET PO SCH (09:32)
[2022-05-23] MEDS: AMITRIPTYLINE 25 MG TABLET PO SCH (09:32)
[2022-05-23] MEDS: predniSONE 20 MG TABLET PO SCH (09:32)
[2022-05-23] MEDS: MULTIVIT,THER IRON,CA,FA & MIN 1 TABLET PO SCH (09:33)
[2022-05-23] MEDS: PANTOPRAZOLE 40 MG TABLET PO SCH ×2 (09:33→20:22)
[2022-05-23] MEDS: FINASTERIDE 5 MG TABLET PO SCH (09:33)
[2022-05-23] MEDS: SULFAMETHOXAZOLE/TRIMETHOPRIM 1 TABLET PO SCH (09:33)
[2022-05-23] MEDS: ENOXAPARIN 40 MG/0.4 ML SYRINGE SQ SCH (09:46)
[2022-05-23] MEDS: BACLOFEN 10 MG TABLET PO PRN (19:27)
[2022-05-23] MEDS: ATORVASTATIN 20 MG TABLET PO SCH (20:22)
[2022-05-23] MEDS: SENNOSIDES 1 TABLET PO SCH (20:23)
[2022-05-24] MEDS: 0.9 % SODIUM CHLORIDE 10 ML SYRINGE IV SCH ×3 (06:48→21:21)
--- NOTE | 2022-05-24 07:24 | Internal Med Progress Note ---
SUBJECTIVE Subjective Patient information: Note initiated : 05/24/22 at 7:23 am Service Date, if different from initiated Date: [] Patient: Nirmala Zhong a 81 y/o M admitted on 05/19/22 for GI Bleed, Rule out Stroke. Chief Complaint: [] Principal diagnosis: GI bleed due to gastric adenocarcinoma Interval history: Mr. Zhong is a 81 year old M with a complex past medical history significant for chronic atrial fibrillation on amiodarone, Eliquis, prior CVA, and hypertension who presented to our hospital with severe anemia from a subacute upper gastrointestinal hemorrhage. He was transferred to [facility] for higher level of care. He underwent EGD on 05/10 which showed a gastric ulcerating neoplasm that was injected and cauterized. CT demonstrated 4.7 cm mass near the stomach and a presumed necrotic lymph node within the retroperitoneum. Pathology confirmed gastric adenocarcinoma. Of note he was transfused total of 3 units of packed red blood cells. His Eliquis was held. His hospital course was complicated by acute hypoxemic respiratory failure in the CT of the chest revealed pulmonary fibrosis that was believed to be in the setting of amiodarone as he was on this medication for approximately 4 years. It was recommended he follow-up with fiber optics engineer at the [place] for further ILD work-up. He was placed on prednisone and IV Lasix. He is now on prednisone 40 mg p.o. daily x1 month with PCP prophylaxis. He also completed a course of Unasyn for suspected aspiration pneumonia. His hospital course was further complicated by acute/subacute multifocal ischemic stroke thought to be in the se tting of an embolism from atrial fibrillation. He was found to have right-sided weakness, mild dysphagia, mild aphasia and right neglect as well as cognitive deficits. MRI demonstrated numerous foci of restricted diffusion scattered throughout both cerebral and cerebellar hemisphere largest within the left occipital lobe. The patient's TTE was performed and revealed preserved EF but severe pulmonary hypertension thought to be due to pulmonary fibrosis. He also has symptomatic internal carotid stenosis and there were discussions with vascular surgery and ongoing goals of care discussion. He has been discharged back to her facility [place] and he will need usp facility placement. He is to follow-up with his primary care at the [place] he is can establish oncology follow-up. 05/20: The patient remains medically status quo. We will touch base with social work and case management tomorrow morning to see what options are for usp facility. 05/21: Patient's been troubled by hiccups which have been occurring intermittently for a few months. Discussion of goals of care, patient does not want to pursue aggressive treatment for his gastric cancer, leaning towards hospice, likely will need placement. He prefers the [place] SNF. 05/22: Patient is working with occupational therapy. Complaining of some pain in his legs. Right hand and forearm are still weak. Discussed his goals of care. For now he would like to focus on stroke rehab to try to regain function, though ultimately he would like a transition to hospice in the future. 05/23 Sitting up eating breakfast. No overnight event or new complaints. 05/24 No changes overnight. Patient seems to be feeling well. Denies cough or shortness of breath. Review of Systems: denies headache/fever/chills/nausea/vomiting/chest or abdominal pain/cough/dyspnea/diarrhea. Otherwise see above. Constitutional Vitals: Vital Signs Temp Pulse Resp BP Pulse Ox O2 Del Method O2 Flow Rate 98.1 F 61 20 135/68 91 3 05/24/22 02:39 05/24/22 02:39 05/24/22 02:39 05/24/22 02:39 05/24/22 02:39 05/24/22 02:39 05/24/22 02:39 Period Temp Pulse Resp BP Sys/Coles Pulse Ox O2 Del Method O2 Flow Rate Last 24 Hr 97.6 F-98.2 F 61-90 16-24 115-135/57-69 90-96 High Flow Nasal Cannula-Nasal Cannula 3-3.5 Intake and Output 05/23/22 05/24/22 05/24/22 21:59 05:59 13:59 Intake Total 800 337 Output Total 103 250 Balance 697 87 Weight 78.925 kg Intake & Output: Intake & Output 05/23/22 05/24/22 05/24/22 21:59 05:59 13:59 Intake Total 800 337 Output Total 103 250 Balance 697 87 Weight 78.925 kg Intake: Oral 800 337 Output: Void Amount 100 250 # of times incontinent of urine 3 Other: Meal Yogurt Percent of Meal Consumed 100% Feeding Ability Independent Nourishment/Supplement name Ensure Urine Appearance Clear Clear Urine Color Yellow Yellow Stool Size Copious Stool Color Brown Stool Consistency Soft Loose # Voids 1 # Bowel Movements 1 # of times incontinent of 1 Bowels Exam: General: Alert, Awake, No acute Distress, chronically ill-appearing Eyes/N/T: EOMI, Head/Neck: neck supple, CV: Reg today, No murmurs, Pulm: Clear b/l, no wheezing/rhonchi/rales Abd: soft, nontender, +BS x4 Ext: no clubbing/cyanosis/edema Neuro: Alert, generally weak RUE, moves all extremities, Skin: warm/dry OBJ DATA Labs CBC & Chem 7: 05/21/22 05:38 05/23/22 05:30 Labs: Abnormal Lab Results 05/23/22 05/21/22 05:30 05:38 Anion Gap 7.0 L BUN 37 H 31 H Glucose 107 H 115 H Calcium 8.5 L Phosphorus 2.3 L Albumin 2.9 L Meds: Medications Acetaminophen (Acetaminophen 325 Mg Tablet) 650 mg PO Q6HP PRN; Protocol PRN Reason: Per Pain Protocol/Fever > 101 Last Admin: 05/23/22 19:28 Dose: 650 mg Al Hydrox/Mg Hydrox/Simethicone (Mag Hydrox/Al Hydrox/Simeth 30 Ml Oral.Susp) 30 ml PO Q4-6HP PRN PRN Reason: Dyspepsia Last Admin: 05/20/22 10:53 Dose: 30 ml Amitriptyline HCl (Amitriptyline 25 Mg Tablet) 25 mg PO QDAY [facility] Last Admin: 05/23/22 09:32 Dose: 25 mg Amlodipine Besylate (Amlodipine 10 Mg Tablet) 10 mg PO QDAY [facility] Last Admin: 05/23/22 09:32 Dose: 10 mg Atorvastatin Calcium (Atorvastatin 20 Mg Tablet) 20 mg PO QHS [facility] Last Admin: 05/23/22 20:22 Dose: 20 mg Baclofen (Baclofen 10 Mg Tablet) 5 mg PO TIDP PRN PRN Reason: hiccups Last Admin: 05/23/22 19:27 Dose: 5 mg Docusate Sodium (Docusate Sodium 100 Mg Capsule) 100 mg PO BID [facility] Last Admin: 05/23/22 20:23 Dose: Not Given Doxazosin Mesylate (Doxazosin 4 Mg Tablet) 4 mg PO QDAY [facility] Last Admin: 05/23/22 09:32 Dose: 4 mg Enoxaparin Sodium (Enoxaparin 40 Mg/0.4 Ml Syringe) 40 mg SQ DAILY [facility] Last Admin: 05/23/22 09:46 Dose: Not Given Finasteride (Finasteride 5 Mg Tablet) 5 mg PO QDAY [facility] Last Admin: 05/23/22 09:33 Dose: 5 mg Iron Carb/Multivit/[place]/Folic Acid (Multivit,Ther Iron,Ca,Fa & Min 1 Tablet) 1 tab PO QAM [facility] Last Admin: 05/23/22 09:33 Dose: 1 tab Metoprolol Tartrate (Metoprolol Tartrate 25 Mg Tablet) 37.5 mg PO BID [facility] Last Admin: 05/23/22 20:23 Dose: 37.5 mg Ondansetron HCl (Ondansetron 4 Mg/2 Ml Vial) 4 mg IV Q6HP PRN PRN Reason: Nausea And Vomiting Oxycodone HCl (Oxycodone Hcl 5 Mg Tablet) 5 mg PO Q6HP PRN; Protocol PRN Reason: Pain Last Admin: 05/22/22 02:05 Dose: 5 mg Pantoprazole Sodium (Pantoprazole 40 Mg Tablet) 40 mg PO BID [facility] Last Admin: 05/23/22 20:22 Dose: 40 mg Prednisone (Prednisone 20 Mg Tablet) 40 mg PO DAILY [facility] Last Admin: 05/23/22 09:32 Dose: 40 mg Senna (Sennosides 1 Tablet) 2 tab PO HS [facility] Last Admin: 05/23/22 20:23 Dose: Not Given Sodium Chloride (0.9 % Sodium Chloride 10 Ml Syringe) 10 ml IV Q8 [facility] Last Admin: 05/24/22 06:48 Dose: Not Given Trazodone HCl (Trazodone Hcl 50 Mg Tablet) 50 mg PO HSP PRN PRN Reason: Insomnia Trimethoprim/Sulfamethoxazole (Sulfamethoxazole/Trimethoprim 1 Tablet) 1 tab PO DAILY [facility]; Protocol Last Admin: 05/23/22 09:33 Dose: 1 tab A/P Narrative A/P Narrative: A: *Adenocarcinoma of the stomach with GI hemorrhage -EGD done at the [facility] in [facility] -CT with 4.7 cm mass near the stomach and presumed necrotic lymph node in the retroperitoneum -plan for SNF to attempt rehab and then likely hospice if pt fails *Acute blood loss anemia: 2/2 above -Required 3 units PRBC. Eliquis stopped during that hospitalization. *Paroxysmal Atrial fibrillation: -Was on amiodarone and apixaban. -Amiodarone stopped secondary to new diagnosis of ILD. -Apixaban stopped secondary to GI bleed *Interstitial lung disease with acute hypoxic respiratory failure: -Found to be hypoxic in [place], [place] notable for interstitial lung disease, [place] secondary to amiodarone therapy -Received 60 mg of prednisone, decreased to 40 mg daily x1 month -On PCP prophylaxis while on prednisone -on 3LPM by nasal cannula *CVA, Multifocal ischemic thought to be embolic w/right-sided weakness, mild dysphagia/aphasia and right neglect -Diagnosed while hospitalized in [place] -Symptomatic internal carotid stenosis, discussed with vascular surgery, follow-up depending on goals of care for CA. -Would like to pursue skilled therapies to regain function in the short-term *Hiccups: -Intermittently in the last few months -Causing distress currently, Improved with baclofen *Insomnia: Difficulty sleeping while in the hospital, May be exacerbated by steroids Plan: -Continue with PT and OT -Will try to pursue skilled placement for further therapies -Ultimately would like to transition to hospice -Continue baclofen for hiccups -Continue to Not use apixaban or amiodarone, discontinued -Continue oxygen as needed, titrate to maintain saturations -ppx: SCD DNR Time Spent With Patient Time: Total time spent is greater than 50% in coordination of care (as documented) at patient's floor/unit and/or counseling patient: QUALITY Stroke Symptom Onset Unknown: No VTE Deep Vein Thrombosis/Pulmonary Embolism Present on Admission: No
[2022-05-24] MEDS: ENOXAPARIN 40 MG/0.4 ML SYRINGE SQ SCH (09:21)
[2022-05-24] MEDS: DOXAZOSIN 4 MG TABLET PO SCH (09:21)
[2022-05-24] MEDS: DOCUSATE SODIUM 100 MG CAPSULE PO SCH ×2 (09:21→20:15)
[2022-05-24] MEDS: METOPROLOL TARTRATE 25 MG TABLET PO SCH ×2 (09:21→21:21)
[2022-05-24] MEDS: AMITRIPTYLINE 25 MG TABLET PO SCH (09:21)
[2022-05-24] MEDS: SULFAMETHOXAZOLE/TRIMETHOPRIM 1 TABLET PO SCH (09:21)
[2022-05-24] MEDS: FINASTERIDE 5 MG TABLET PO SCH (09:22)
[2022-05-24] MEDS: amLODIPine 10 MG TABLET PO SCH (09:22)
[2022-05-24] MEDS: MULTIVIT,THER IRON,CA,FA & MIN 1 TABLET PO SCH (09:22)
[2022-05-24] MEDS: PANTOPRAZOLE 40 MG TABLET PO SCH ×2 (09:22→21:21)
[2022-05-24] MEDS: predniSONE 20 MG TABLET PO SCH (09:22)
[2022-05-24] MEDS ORDERED: CARBOXYMETHYLCELLULOSE SODIUM 1 EACH DROPER.GEL OP PRN (15:26)
[2022-05-24] MEDS: SENNOSIDES 1 TABLET PO SCH (20:16)
[2022-05-24] MEDS: ATORVASTATIN 20 MG TABLET PO SCH (21:21)
[2022-05-24] MEDS: traZODone HCL 50 MG TABLET PO PRN (21:23)
[2022-05-24] MEDS: ACETAMINOPHEN 325 MG TABLET PO PRN (21:23)
[2022-05-25] MEDS: 0.9 % SODIUM CHLORIDE 10 ML SYRINGE IV SCH ×3 (05:35→20:53)
--- NOTE | 2022-05-25 07:34 | Internal Med Progress Note ---
SUBJECTIVE Subjective Patient information: Note initiated : 05/25/22 at 7:33 am Service Date, if different from initiated Date: [] Patient: Nirmala Zhong a 81 y/o M admitted on 05/19/22 for GI Bleed, Rule out Stroke. Chief Complaint: [] Principal diagnosis: GI bleed due to gastric adenocarcinoma Interval history: Mr. Zhong is a 81 year old M with a complex past medical history significant for chronic atrial fibrillation on amiodarone, Eliquis, prior CVA, and hypertension who presented to our hospital with severe anemia from a subacute upper gastrointestinal hemorrhage. He was transferred to [facility] for higher level of care. He underwent EGD on 05/10 which showed a gastric ulcerating neoplasm that was injected and cauterized. CT demonstrated 4.7 cm mass near the stomach and a presumed necrotic lymph node within the retroperitoneum. Pathology confirmed gastric adenocarcinoma. Of note he was transfused total of 3 units of packed red blood cells. His Eliquis was held. His hospital course was complicated by acute hypoxemic respiratory failure in the CT of the chest revealed pulmonary fibrosis that was believed to be in the setting of amiodarone as he was on this medication for approximately 4 years. It was recommended he follow-up with promotional advertising assistant [facility] the [facility] for further ILD work-up. He was placed on prednisone and IV Lasix. He is now on prednisone 40 mg p.o. daily x1 month with PCP prophylaxis. He also completed a course of Unasyn for suspected aspiration pneumonia. His hospital course was further complicated by acute/subacute multifocal ischemic stroke thought to be in the se tting of an embolism from atrial fibrillation. He was found to have right-sided weakness, mild dysphagia, mild aphasia and right neglect as well as cognitive deficits. MRI demonstrated numerous foci of restricted diffusion scattered throughout both cerebral and cerebellar hemisphere largest within the left occipital lobe. The patient's TTE was performed and revealed preserved EF but severe pulmonary hypertension thought to be due to pulmonary fibrosis. He also has symptomatic internal carotid stenosis and there were discussions with vascular surgery and ongoing goals of care discussion. He has been discharged back to her facility [place] and he will need custodial facility placement. He is to follow-up with his primary care at the [facility] he is can establish oncology follow-up. 05/20: The patient remains medically status quo. We will touch base with social work and case management tomorrow morning to see what options are for custodial facility. 05/21: Patient's been troubled by hiccups which have been occurring intermittently for a few months. Discussion of goals of care, patient does not want to pursue aggressive treatment for his gastric cancer, leaning towards hospice, likely will need placement. He prefers the [facility] SNF. 05/22: Patient is working with occupational therapy. Complaining of some pain in his legs. Right hand and forearm are still weak. Discussed his goals of care. For now he would like to focus on stroke rehab to try to regain function, though ultimately he would like a transition to hospice in the future. 05/23 Sitting up eating breakfast. No overnight event or new complaints. 05/24 No changes overnight. Patient seems to be feeling well. Denies cough or shortness of breath. 05/25 Patient states he had a good night sleep last night. No overnight or new complaints. Review of Systems: denies headache/fever/chills/nausea/vomiting/chest or abdominal pain/cough/dyspnea/diarrhea. Otherwise see above. Constitutional Vitals: Vital Signs Temp Pulse Resp BP Pulse Ox O2 Del Method O2 Flow Rate 98.2 F 55 L 18 132/61 93 3 05/25/22 06:39 05/25/22 06:39 05/25/22 06:39 05/25/22 06:39 05/25/22 06:39 05/25/22 06:39 05/25/22 04:02 Period Temp Pulse Resp BP Sys/Coles Pulse Ox O2 Del Method O2 Flow Rate Last 24 Hr 97.3 F-98.6 F 53-76 14-20 106-143/54-75 93-98 Nasal Cannula- Room Air 3-3 Intake and Output 05/24/22 05/25/22 05/25/22 21:59 05:59 13:59 Intake Total 540 100 Output Total 205 335 Balance 335 -235 Weight 79.832 kg Intake & Output: Intake & Output 05/24/22 05/25/22 05/25/22 21:59 05:59 13:59 Intake Total 540 100 Output Total 205 335 Balance 335 -235 Weight 79.832 kg Intake: Oral 540 100 Output: Void Amount 200 335 # of times incontinent of urine 5 Other: Meal Lunch isma crackers Percent of Meal Consumed 100% 75% Urine Appearance Clear Clear Urine Color Yellow Bright Yellow Urine Odor Normal Normal Exam: General: Alert, Awake, No acute Distress, chronically ill-appearing Eyes/N/T: EOMI, Head/Neck: neck supple, CV: Reg today, No murmurs, Pulm: Clear b/l, no wheezing/rhonchi/rales Abd: soft, nontender, +BS x4 Ext: no clubbing/cyanosis/edema Neuro: Alert, generally weak RUE, moves all extremities, Skin: warm/dry OBJ DATA Labs CBC & Chem 7: 05/21/22 05:38 05/23/22 05:30 Labs: Abnormal Lab Results 05/23/22 05:30 Anion Gap 7.0 L BUN 37 H Glucose 107 H Albumin 2.9 L Meds: Medications Acetaminophen (Acetaminophen 325 Mg Tablet) 650 mg PO Q6HP PRN; Protocol PRN Reason: Per Pain Protocol/Fever > 101 Last Admin: 05/24/22 21:23 Dose: 650 mg Al Hydrox/Mg Hydrox/Simethicone (Mag Hydrox/Al Hydrox/Simeth 30 Ml Oral.Susp) 30 ml PO Q4-6HP PRN PRN Reason: Dyspepsia Last Admin: 05/20/22 10:53 Dose: 30 ml Amitriptyline HCl (Amitriptyline 25 Mg Tablet) [address] [facility] Last Admin: 05/24/22 09:21 Dose: 25 mg Amlodipine Besylate (Amlodipine 10 Mg Tablet) [address] [facility] Last Admin: 05/24/22 09:22 Dose: 10 mg Artificial Tears (Carboxymethylcellulose Sodium 1 Each Droper.Gel) 1 each OP Q6H PRN PRN Reason: Dry Eye(s) Atorvastatin Calcium (Atorvastatin 20 Mg Tablet) [address] [facility] Last Admin: 05/24/22 21:21 Dose: 20 mg Baclofen (Baclofen 10 Mg Tablet) 5 mg PO TIDP PRN PRN Reason: hiccups Last Admin: 05/23/22 19:27 Dose: 5 mg Docusate Sodium (Docusate Sodium 100 Mg Capsule) [address] [facility] Last Admin: 05/24/22 20:15 Dose: Not Given Doxazosin Mesylate (Doxazosin 4 Mg Tablet) [address] [facility] Last Admin: 05/24/22 09:21 Dose: 4 mg Enoxaparin Sodium (Enoxaparin 40 Mg/0.4 Ml Syringe) [address] [facility] Last Admin: 05/24/22 09:21 Dose: 40 mg Finasteride (Finasteride 5 Mg Tablet) [address] [facility] Last Admin: 05/24/22 09:22 Dose: 5 mg Iron Carb/Multivit/[place]/Folic Acid (Multivit,Ther Iron,Ca,Fa & Min 1 Tablet) [address] [facility] Last Admin: 05/24/22 09:22 Dose: 1 tab Metoprolol Tartrate (Metoprolol Tartrate 25 Mg Tablet) 37.[address] [facility] Last Admin: 05/24/22 21:21 Dose: 37.5 mg Ondansetron HCl (Ondansetron 4 Mg/2 Ml Vial) 4 mg IV Q6HP PRN PRN Reason: Nausea And Vomiting Oxycodone HCl (Oxycodone Hcl 5 Mg Tablet) 5 mg PO Q6HP PRN; Protocol PRN Reason: Pain Last Admin: 05/22/22 02:05 Dose: 5 mg Pantoprazole Sodium (Pantoprazole 40 Mg Tablet) [address] [facility] Last Admin: 05/24/22 21:21 Dose: 40 mg Prednisone (Prednisone 20 Mg Tablet) [address] [facility] Last Admin: 05/24/22 09:22 Dose: 40 mg Senna (Sennosides 1 Tablet) [address] [facility] Last Admin: 05/24/22 20:16 Dose: Not Given Sodium Chloride (0.9 % Sodium Chloride 10 Ml Syringe) [address] [facility] Last Admin: 05/25/22 05:35 Dose: 10 ml Trazodone HCl (Trazodone Hcl 50 Mg Tablet) 50 mg PO HSP PRN PRN Reason: Insomnia Last Admin: 05/24/22 21:23 Dose: 50 mg Trimethoprim/Sulfamethoxazole (Sulfamethoxazole/Trimethoprim 1 Tablet) [address] [facility]; Protocol Last Admin: 05/24/22 09:21 Dose: 1 tab A/P Narrative A/P Narrative: A: *Adenocarcinoma of the stomach with GI hemorrhage -EGD done at the [facility] in [facility] -CT with 4.7 cm mass near the stomach and presumed necrotic lymph node in the retroperitoneum -plan for SNF to attempt rehab and then likely hospice if pt fails *Acute blood loss anemia: 2/2 above -Required 3 units PRBC. Eliquis stopped during that hospitalization. *Paroxysmal Atrial fibrillation: -Was on amiodarone and apixaban. -Amiodarone stopped secondary to new diagnosis of ILD. -Apixaban stopped secondary to GI bleed *Interstitial lung disease with acute hypoxic respiratory failure: -Found to be hypoxic in [place], [place] notable for interstitial lung disease, [place] secondary to amiodarone therapy -Received 60 mg of prednisone, decreased to 40 mg daily x1 month -On PCP prophylaxis while on prednisone -on 3LPM by nasal cannula *CVA, Multifocal ischemic thought to be embolic w/right-sided weakness, mild dysphagia/aphasia and right neglect -Diagnosed while hospitalized in [place] -Symptomatic internal carotid stenosis, discussed with vascular surgery, follow-up depending on goals of care for CA. -Would like to pursue skilled therapies to regain function in the short-term *Hiccups: -Intermittently in the last few months -Causing distress currently, Improved with baclofen *Insomnia: Difficulty sleeping while in the hospital, May be exacerbated by steroids Plan: -Continue with PT and OT -Will try to pursue skilled placement for further therapies -Ultimately would like to transition to hospice -Continue baclofen for hiccups -Continue to Not use apixaban or amiodarone, discontinued -Continue oxygen as needed, titrate to maintain saturations -ppx: SCD DNR Time Spent With Patient Time: Total time spent is greater than 50% in coordination of care (as documented) at patient's floor/unit and/or counseling patient: QUALITY Stroke Symptom Onset Unknown: No VTE Deep Vein Thrombosis/Pulmonary Embolism Present on Admission: No
[2022-05-25] MEDS: MULTIVIT,THER IRON,CA,FA & MIN 1 TABLET PO SCH (08:57)
[2022-05-25] MEDS: DOCUSATE SODIUM 100 MG CAPSULE PO SCH ×2 (08:57→20:15)
[2022-05-25] MEDS: SULFAMETHOXAZOLE/TRIMETHOPRIM 1 TABLET PO SCH (08:57)
[2022-05-25] MEDS: FINASTERIDE 5 MG TABLET PO SCH (08:57)
[2022-05-25] MEDS: amLODIPine 10 MG TABLET PO SCH (08:57)
[2022-05-25] MEDS: predniSONE 20 MG TABLET PO SCH (08:57)
[2022-05-25] MEDS: DOXAZOSIN 4 MG TABLET PO SCH (08:58)
[2022-05-25] MEDS: AMITRIPTYLINE 25 MG TABLET PO SCH (08:58)
[2022-05-25] MEDS: ENOXAPARIN 40 MG/0.4 ML SYRINGE SQ SCH (08:58)
[2022-05-25] MEDS: PANTOPRAZOLE 40 MG TABLET PO SCH ×2 (08:58→20:52)
[2022-05-25] MEDS: METOPROLOL TARTRATE 25 MG TABLET PO SCH ×2 (08:58→20:53)
[2022-05-25] MEDS: ACETAMINOPHEN 325 MG TABLET PO PRN (14:52)
[2022-05-25] MEDS: SENNOSIDES 1 TABLET PO SCH (20:15)
[2022-05-25] MEDS: ATORVASTATIN 20 MG TABLET PO SCH (20:52)
[2022-05-25] MEDS: traZODone HCL 50 MG TABLET PO PRN (20:52)
[2022-05-26] MEDS: 0.9 % SODIUM CHLORIDE 10 ML SYRINGE IV SCH ×3 (05:50→20:48)
--- NOTE | 2022-05-26 07:37 | Internal Med Progress Note ---
SUBJECTIVE Subjective Patient information: Note initiated : 05/26/22 at 7:37 am Service Date, if different from initiated Date: [] Patient: Nirmala Zhong a 81 y/o M admitted on 05/19/22 for GI Bleed, Rule out Stroke. Chief Complaint: [] Principal diagnosis: GI bleed due to gastric adenocarcinoma Interval history: Mr. Zhong is a 81 year old M with a complex past medical history significant for chronic atrial fibrillation on amiodarone, Eliquis, prior CVA, and hypertension who presented to our hospital with severe anemia from a subacute upper gastrointestinal hemorrhage. He was transferred to [facility] for higher level of care. He underwent EGD on 05/10 which showed a gastric ulcerating neoplasm that was injected and cauterized. CT demonstrated 4.7 cm mass near the stomach and a presumed necrotic lymph node within the retroperitoneum. Pathology confirmed gastric adenocarcinoma. Of note he was transfused total of 3 units of packed red blood cells. His Eliquis was held. His hospital course was complicated by acute hypoxemic respiratory failure in the CT of the chest revealed pulmonary fibrosis that was believed to be in the setting of amiodarone as he was on this medication for approximately 4 years. It was recommended he follow-up with fuel agent at the [facility] for further ILD work-up. He was placed on prednisone and IV Lasix. He is now on prednisone 40 mg p.o. daily x1 month with PCP prophylaxis. He also completed a course of Unasyn for suspected aspiration pneumonia. His hospital course was further complicated by acute/subacute multifocal ischemic stroke thought to be in the se tting of an embolism from atrial fibrillation. He was found to have right-sided weakness, mild dysphagia, mild aphasia and right neglect as well as cognitive deficits. MRI demonstrated numerous foci of restricted diffusion scattered throughout both cerebral and cerebellar hemisphere largest within the left occipital lobe. The patient's TTE was performed and revealed preserved EF but severe pulmonary hypertension thought to be due to pulmonary fibrosis. He also has symptomatic internal carotid stenosis and there were discussions with vascular surgery and ongoing goals of care discussion. He has been discharged back to her facility [place] and he will need fdc facility placement. He is to follow-up with his primary care at the [facility] he is can establish oncology follow-up. 05/20: The patient remains medically status quo. We will touch base with social work and case management tomorrow morning to see what options are for fdc facility. 05/21: Patient's been troubled by hiccups which have been occurring intermittently for a few months. Discussion of goals of care, patient does not want to pursue aggressive treatment for his gastric cancer, leaning towards hospice, likely will need placement. He prefers the [facility] SNF. 05/22: Patient is working with occupational therapy. Complaining of some pain in his legs. Right hand and forearm are still weak. Discussed his goals of care. For now he would like to focus on stroke rehab to try to regain function, though ultimately he would like a transition to hospice in the future. 05/23 Sitting up eating breakfast. No overnight event or new complaints. 05/24 No changes overnight. Patient seems to be feeling well. Denies cough or shortness of breath. 05/25 Patient states he had a good night sleep last night. No overnight or new complaints. 05/26 Patient sitting up in bed eating breakfast. Seems to be in good spirits today. No changes. Review of Systems: denies headache/fever/chills/nausea/vomiting/chest or abdominal pain/cough/dyspnea/diarrhea. Otherwise see above. Constitutional Vitals: Vital Signs Temp Pulse Resp BP Pulse Ox O2 Del Method O2 Flow Rate 96.9 F L 58 L 12 132/61 94 3 05/26/22 03:38 05/26/22 03:38 05/26/22 03:38 05/26/22 03:38 05/26/22 03:38 05/26/22 03:38 05/26/22 03:38 Period Temp Pulse Resp BP Sys/Coles Pulse Ox O2 Del Method O2 Flow Rate Last 24 Hr 96.9 F-98.1 F 58-78 12-18 117-132/60-66 93-96 Nasal Cannula- Nasal Cannula 3-3 Intake and Output 05/25/22 05/26/22 05/26/22 21:59 05:59 13:59 Intake Total 600 100 Output Total 150 1 Balance 450 99 Weight 79.889 kg Intake & Output: Intake & Output 05/25/22 05/26/22 05/26/22 21:59 05:59 13:59 Intake Total 600 100 Output Total 150 1 Balance 450 99 Weight 79.889 kg Intake: Oral 600 100 Output: Void Amount 150 # of times incontinent of urine 1 Other: Meal snack Percent of Meal Consumed 100% Feeding Ability Assist with Tray Set Up Exam: General: Alert, Awake, No acute Distress, chronically ill-appearing Eyes/N/T: EOMI, Head/Neck: neck supple, CV: Reg today, No murmurs, Pulm: Clear b/l, no wheezing/rhonchi/rales Abd: soft, nontender, +BS x4 Ext: no clubbing/cyanosis/edema Neuro: Alert, generally weak RUE, moves all extremities, Skin: warm/dry OBJ DATA Labs CBC & Chem 7: 05/21/22 05:38 05/23/22 05:30 Meds: Medications Acetaminophen (Acetaminophen 325 Mg Tablet) 650 mg PO Q6HP PRN; Protocol PRN Reason: Per Pain Protocol/Fever > 101 Last Admin: 05/25/22 14:52 Dose: 650 mg Al Hydrox/Mg Hydrox/Simethicone (Mag Hydrox/Al Hydrox/Simeth 30 Ml Oral.Susp) 30 ml PO Q4-6HP PRN PRN Reason: Dyspepsia Last Admin: 05/20/22 10:53 Dose: 30 ml Amitriptyline HCl (Amitriptyline 25 Mg Tablet) 25 mg PO QDAY [facility] Last Admin: 05/25/22 08:58 Dose: 25 mg Amlodipine Besylate (Amlodipine 10 Mg Tablet) 10 mg PO QDAY [facility] Last Admin: 05/25/22 08:57 Dose: 10 mg Artificial Tears (Carboxymethylcellulose Sodium 1 Each Droper.Gel) 1 each OP Q6H PRN PRN Reason: Dry Eye(s) Atorvastatin Calcium (Atorvastatin 20 Mg Tablet) 20 mg PO QHS [facility] Last Admin: 05/25/22 20:52 Dose: 20 mg Baclofen (Baclofen 10 Mg Tablet) 5 mg PO TIDP PRN PRN Reason: hiccups Last Admin: 05/23/22 19:27 Dose: 5 mg Docusate Sodium (Docusate Sodium 100 Mg Capsule) 100 mg PO BID [facility] Last Admin: 05/25/22 20:15 Dose: Not Given Doxazosin Mesylate (Doxazosin 4 Mg Tablet) 4 mg PO QDAY [facility] Last Admin: 05/25/22 08:58 Dose: 4 mg Enoxaparin Sodium (Enoxaparin 40 Mg/0.4 Ml Syringe) 40 mg SQ DAILY [facility] Last Admin: 05/25/22 08:58 Dose: 40 mg Finasteride (Finasteride 5 Mg Tablet) 5 mg PO QDAY [facility] Last Admin: 05/25/22 08:57 Dose: 5 mg Iron Carb/Multivit/[place]/Folic Acid (Multivit,Ther Iron,Ca,Fa & Min 1 Tablet) 1 tab PO QAM [facility] Last Admin: 05/25/22 08:57 Dose: 1 tab Metoprolol Tartrate (Metoprolol Tartrate 25 Mg Tablet) 37.5 mg PO BID [facility] Last Admin: 05/25/22 20:53 Dose: 37.5 mg Ondansetron HCl (Ondansetron 4 Mg/2 Ml Vial) 4 mg IV Q6HP PRN PRN Reason: Nausea And Vomiting Oxycodone HCl (Oxycodone Hcl 5 Mg Tablet) 5 mg PO Q6HP PRN; Protocol PRN Reason: Pain Last Admin: 05/22/22 02:05 Dose: 5 mg Pantoprazole Sodium (Pantoprazole 40 Mg Tablet) 40 mg PO BID [facility] Last Admin: 05/25/22 20:52 Dose: 40 mg Prednisone (Prednisone 20 Mg Tablet) 40 mg PO DAILY [facility] Last Admin: 05/25/22 08:57 Dose: 40 mg Senna (Sennosides 1 Tablet) 2 tab PO HS [facility] Last Admin: 05/25/22 20:15 Dose: Not Given Sodium Chloride (0.9 % Sodium Chloride 10 Ml Syringe) 10 ml IV Q8 [facility] Last Admin: 05/26/22 05:50 Dose: 10 ml Trazodone HCl (Trazodone Hcl 50 Mg Tablet) 50 mg PO HSP PRN PRN Reason: Insomnia Last Admin: 05/25/22 20:52 Dose: 50 mg Trimethoprim/Sulfamethoxazole (Sulfamethoxazole/Trimethoprim 1 Tablet) 1 tab PO DAILY [facility]; Protocol Last Admin: 05/25/22 08:57 Dose: 1 tab A/P Narrative A/P Narrative: A: *Adenocarcinoma of the stomach with GI hemorrhage -EGD done at the [facility] in [facility] -CT with 4.7 cm mass near the stomach and presumed necrotic lymph node in the retroperitoneum -plan for SNF to attempt rehab and then likely hospice if pt fails *Acute blood loss anemia: 2/2 above -Required 3 units PRBC. Eliquis stopped during that hospitalization. *Paroxysmal Atrial fibrillation: -Was on amiodarone and apixaban. -Amiodarone stopped secondary to new diagnosis of ILD. -Apixaban stopped secondary to GI bleed *Interstitial lung disease with acute hypoxic respiratory failure: -Found to be hypoxic in [place], [place] notable for interstitial lung disease, [place] secondary to amiodarone therapy -Received 60 mg of prednisone, decreased to 40 mg daily x1 month -On PCP prophylaxis while on prednisone -on 3LPM by nasal cannula *CVA, Multifocal ischemic thought to be embolic w/right-sided weakness, mild dysphagia/aphasia and right neglect -Diagnosed while hospitalized in [place] -Symptomatic internal carotid stenosis, discussed with vascular surgery, follow-up depending on goals of care for CA. -Would like to pursue skilled therapies to regain function in the short-term *Hiccups: -Intermittently in the last few months -Causing distress currently, Improved with baclofen *Insomnia: Difficulty sleeping while in the hospital, May be exacerbated by steroids Plan: -Continue with PT and OT -Will try to pursue skilled placement for further therapies -Ultimately would like to transition to hospice -Continue baclofen for hiccups -Continue to Not use apixaban or amiodarone, discontinued -prednisone/bactrim -Continue oxygen as needed, titrate to maintain saturations -ppx: SCD DNR Time Spent With Patient Time: Total time spent is greater than 50% in coordination of care (as documented) at patient's floor/unit and/or counseling patient: QUALITY Stroke Symptom Onset Unknown: No VTE Deep Vein Thrombosis/Pulmonary Embolism Present on Admission: No
[2022-05-26] MEDS: METOPROLOL TARTRATE 25 MG TABLET PO SCH ×2 (08:40→20:47)
[2022-05-26] MEDS: MULTIVIT,THER IRON,CA,FA & MIN 1 TABLET PO SCH (08:40)
[2022-05-26] MEDS: PANTOPRAZOLE 40 MG TABLET PO SCH ×2 (08:40→20:47)
[2022-05-26] MEDS: predniSONE 20 MG TABLET PO SCH (08:40)
[2022-05-26] MEDS: SULFAMETHOXAZOLE/TRIMETHOPRIM 1 TABLET PO SCH (08:41)
[2022-05-26] MEDS: DOCUSATE SODIUM 100 MG CAPSULE PO SCH ×2 (08:42→20:47)
[2022-05-26] MEDS: DOXAZOSIN 4 MG TABLET PO SCH (08:42)
[2022-05-26] MEDS: FINASTERIDE 5 MG TABLET PO SCH (08:42)
[2022-05-26] MEDS: ENOXAPARIN 40 MG/0.4 ML SYRINGE SQ SCH (08:42)
[2022-05-26] MEDS: AMITRIPTYLINE 25 MG TABLET PO SCH (08:43)
[2022-05-26] MEDS: amLODIPine 10 MG TABLET PO SCH (08:44)
[2022-05-26] MEDS: traZODone HCL 50 MG TABLET PO PRN (20:47)
[2022-05-26] MEDS: SENNOSIDES 1 TABLET PO SCH (20:47)
[2022-05-26] MEDS: ATORVASTATIN 20 MG TABLET PO SCH (20:47)
[2022-05-26] MEDS: ACETAMINOPHEN 325 MG TABLET PO PRN (20:48)
[2022-05-27] MEDS: ACETAMINOPHEN 325 MG TABLET PO PRN (03:59)
[2022-05-27] MEDS: BACLOFEN 10 MG TABLET PO PRN (03:59)
[2022-05-27] MEDS: 0.9 % SODIUM CHLORIDE 10 ML SYRINGE IV SCH ×3 (04:00→20:05)
--- NOTE | 2022-05-27 07:51 | Internal Med Progress Note ---
SUBJECTIVE Subjective Patient information: Note initiated : 05/27/22 at 7:51 am Service Date, if different from initiated Date: [] Patient: Nirmala Zhong a 81 y/o M admitted on 05/19/22 for GI Bleed, Rule out Stroke. Chief Complaint: [] Principal diagnosis: GI bleed due to gastric adenocarcinoma Interval history: Mr. Zhong is a 81 year old M with a complex past medical history significant for chronic atrial fibrillation on amiodarone, Eliquis, prior CVA, and hypertension who presented to our hospital with severe anemia from a subacute upper gastrointestinal hemorrhage. He was transferred to [facility] for higher level of care. He underwent EGD on 05/10 which showed a gastric ulcerating neoplasm that was injected and cauterized. CT demonstrated 4.7 cm mass near the stomach and a presumed necrotic lymph node within the retroperitoneum. Pathology confirmed gastric adenocarcinoma. Of note he was transfused total of 3 units of packed red blood cells. His Eliquis was held. His hospital course was complicated by acute hypoxemic respiratory failure in the CT of the chest revealed pulmonary fibrosis that was believed to be in the setting of amiodarone as he was on this medication for approximately 4 years. It was recommended he follow-up with alodize machine operator at the [facility] for further ILD work-up. He was placed on prednisone and IV Lasix. He is now on prednisone 40 mg p.o. daily x1 month with PCP prophylaxis. He also completed a course of Unasyn for suspected aspiration pneumonia. His hospital course was further complicated by acute/subacute multifocal ischemic stroke thought to be in the se tting of an embolism from atrial fibrillation. He was found to have right-sided weakness, mild dysphagia, mild aphasia and right neglect as well as cognitive deficits. MRI demonstrated numerous foci of restricted diffusion scattered throughout both cerebral and cerebellar hemisphere largest within the left occipital lobe. The patient's TTE was performed and revealed preserved EF but severe pulmonary hypertension thought to be due to pulmonary fibrosis. He also has symptomatic internal carotid stenosis and there were discussions with vascular surgery and ongoing goals of care discussion. He has been discharged back to her facility [place] and he will need [facility]. He is to follow-up with his primary care [facility] the [facility] he is can establish oncology follow-up. 05/20: The patient remains medically status quo. We will touch base with social work and case management tomorrow morning to see what options are for [facility]itentiary facility. 05/21: Patient's been troubled by hiccups which have been occurring intermittently for a few months. Discussion of goals of care, patient does not want to pursue aggressive treatment for his gastric cancer, leaning towards hospice, likely will need placement. He prefers the [facility] SNF. 05/22: Patient is working with occupational therapy. Complaining of some pain in his legs. Right hand and forearm are still weak. Discussed his goals of care. For now he would like to focus on stroke rehab to try to regain function, though ultimately he would like a transition to hospice in the future. 05/23 Sitting up eating breakfast. No overnight event or new complaints. 05/24 No changes overnight. Patient seems to be feeling well. Denies cough or shortness of breath. 05/25 Patient states he had a good night sleep last night. No overnight or new complaints. 05/26 Patient sitting up in bed eating breakfast. Seems to be in good spirits today. No changes. 05/27 For sleep but otherwise no new complaints. No change in status. Review of Systems: denies headache/fever/chills/nausea/vomiting/chest or abdominal pain/cough/dyspnea/diarrhea. Otherwise see above. Constitutional Vitals: Vital Signs Temp Pulse Resp BP Pulse Ox O2 Del Method O2 Flow Rate 97.7 F 58 L 14 140/71 95 3 05/27/22 06:26 05/27/22 06:26 05/27/22 06:26 05/27/22 06:26 05/27/22 06:26 05/27/22 06:26 05/27/22 06:26 Period Temp Pulse Resp BP Sys/Coles Pulse Ox O2 Del Method O2 Flow Rate Last 24 Hr 96.9 F-98.4 F 55-72 12-18 117-140/63-71 93-96 Nasal Cannula- Nasal Cannula 3-3 Intake and Output 05/26/22 05/27/22 05/27/22 21:59 05:59 13:59 Intake Total 720 100 Output Total 553 252 251 Balance 167 -152 -251 Weight 83.869 kg Intake & Output: Intake & Output 05/26/22 05/27/22 05/27/22 21:59 05:59 13:59 Intake Total 720 100 Output Total 553 252 251 Balance 167 -152 -251 Weight 83.869 kg Intake: Oral 720 100 Output: Void Amount 550 250 250 # of times incontinent of urine 3 2 1 Other: Urine Appearance Clear Clear Urine Color Bright Yellow Bright Yellow Urine Odor Normal Normal # Voids 2 1 Exam: General: Alert, Awake, No acute Distress, chronically ill-appearing Eyes/N/T: EOMI, Head/Neck: neck supple, CV: Reg today, No murmurs, Pulm: Clear b/l, no wheezing/rhonchi/rales Abd: soft, nontender, +BS x4 Ext: no clubbing/cyanosis/edema Neuro: Alert, generally weak RUE, moves all extremities, Skin: warm/dry OBJ DATA Labs CBC & Chem 7: 05/21/22 05:38 05/23/22 05:30 Meds: Medications Acetaminophen (Acetaminophen 325 Mg Tablet) 650 mg PO Q6HP PRN; Protocol PRN Reason: Per Pain Protocol/Fever > 101 Last Admin: 05/27/22 03:59 Dose: 650 mg Al Hydrox/Mg Hydrox/Simethicone (Mag Hydrox/Al Hydrox/Simeth 30 Ml Oral.Susp) 30 ml PO Q4-6HP PRN PRN Reason: Dyspepsia Last Admin: 05/20/22 10:53 Dose: 30 ml Amitriptyline HCl (Amitriptyline 25 Mg Tablet) 25 mg PO QDAY [facility] Last Admin: 05/26/22 08:43 Dose: 25 mg Amlodipine Besylate (Amlodipine 10 Mg Tablet) 10 mg PO QDAY [facility] Last Admin: 05/26/22 08:44 Dose: 10 mg Artificial Tears (Carboxymethylcellulose Sodium 1 Each Droper.Gel) 1 each OP Q6H PRN PRN Reason: Dry Eye(s) Atorvastatin Calcium (Atorvastatin 20 Mg Tablet) 20 mg PO QHS [facility] Last Admin: 05/26/22 20:47 Dose: 20 mg Baclofen (Baclofen 10 Mg Tablet) 5 mg PO TIDP PRN PRN Reason: hiccups Last Admin: 05/27/22 03:59 Dose: 5 mg Docusate Sodium (Docusate Sodium 100 Mg Capsule) 100 mg PO BID [facility] Last Admin: 05/26/22 20:47 Dose: 100 mg Doxazosin Mesylate (Doxazosin 4 Mg Tablet) 4 mg PO QDAY [facility] Last Admin: 05/26/22 08:42 Dose: 4 mg Finasteride (Finasteride 5 Mg Tablet) 5 mg PO QDAY [facility] Last Admin: 05/26/22 08:42 Dose: 5 mg Iron Carb/Multivit/Bates/Folic Acid (Multivit,Ther Iron,Ca,Fa & Min 1 Tablet) 1 tab PO QAM [facility] Last Admin: 05/26/22 08:40 Dose: 1 tab Metoprolol Tartrate (Metoprolol Tartrate 25 Mg Tablet) 37.5 mg PO BID [facility] Last Admin: 05/26/22 20:47 Dose: 37.5 mg Ondansetron HCl (Ondansetron 4 Mg/2 Ml Vial) 4 mg IV Q6HP PRN PRN Reason: Nausea And Vomiting Oxycodone HCl (Oxycodone Hcl 5 Mg Tablet) 5 mg PO Q6HP PRN; Protocol PRN Reason: Pain Last Admin: 05/22/22 02:05 Dose: 5 mg Pantoprazole Sodium (Pantoprazole 40 Mg Tablet) 40 mg PO BID [facility] Last Admin: 05/26/22 20:47 Dose: 40 mg Prednisone (Prednisone 20 Mg Tablet) 40 mg PO DAILY [facility] Last Admin: 05/26/22 08:40 Dose: 40 mg Senna (Sennosides 1 Tablet) 2 tab PO HS [facility] Last Admin: 05/26/22 20:47 Dose: 2 tab Sodium Chloride (0.9 % Sodium Chloride 10 Ml Syringe) 10 ml IV Q8 [facility] Last Admin: 05/27/22 04:00 Dose: 10 ml Trazodone HCl (Trazodone Hcl 50 Mg Tablet) 50 mg PO HSP PRN PRN Reason: Insomnia Last Admin: 05/26/22 20:47 Dose: 50 mg Trimethoprim/Sulfamethoxazole (Sulfamethoxazole/Trimethoprim 1 Tablet) 1 tab PO DAILY [facility]; Protocol Last Admin: 05/26/22 08:41 Dose: 1 tab A/P Narrative A/P Narrative: A: *Adenocarcinoma of the stomach with GI hemorrhage -EGD done at the hospital [facility] -CT with 4.7 cm mass near the stomach and presumed necrotic lymph node in the retroperitoneum -plan for SNF to attempt rehab and then likely hospice if pt fails *Acute blood loss anemia: 2/2 above -Required 3 units PRBC. Eliquis stopped during that hospitalization. *Paroxysmal Atrial fibrillation: -Was on amiodarone and apixaban. -Amiodarone stopped secondary to new diagnosis of ILD. -Apixaban stopped secondary to GI bleed *Interstitial lung disease with acute hypoxic respiratory failure: -Found to be hypoxic in [place] notable for interstitial lung disease, [place] secondary to amiodarone therapy -Received 60 mg of prednisone, decreased to 40 mg daily x1 month -On PCP prophylaxis while on prednisone -on 3LPM by nasal cannula *CVA, Multifocal ischemic thought to be embolic w/right-sided weakness, mild dysphagia/aphasia and right neglect -Diagnosed while hospitalized in [place] -Symptomatic internal carotid stenosis, discussed with vascular surgery, follow-up depending on goals of care for [place]. -Would like to pursue skilled therapies to regain function in the short-term *Hiccups: -Intermittently in the last few months -Causing distress currently, Improved with baclofen *Insomnia: Difficulty sleeping while in the hospital, May be exacerbated by steroids Plan: -Continue with PT and OT -Will try to pursue skilled placement for further therapies -Ultimately would like to transition to hospice -Continue baclofen for hiccups -Continue to Not use apixaban or amiodarone, discontinued -prednisone/bactrim -Continue oxygen as needed, titrate to maintain saturations -ppx: SCD DNR Time Spent With Patient Time: Total time spent is greater than 50% in coordination of care (as documented) at patient's floor/unit and/or counseling patient: QUALITY Stroke Symptom Onset Unknown: No VTE Deep Vein Thrombosis/Pulmonary Embolism Present on Admission: No
[2022-05-27] MEDS: METOPROLOL TARTRATE 25 MG TABLET PO SCH ×2 (08:04→20:04)
[2022-05-27] MEDS: amLODIPine 10 MG TABLET PO SCH (08:07)
[2022-05-27] MEDS: AMITRIPTYLINE 25 MG TABLET PO SCH (08:07)
[2022-05-27] MEDS: FINASTERIDE 5 MG TABLET PO SCH (08:07)
[2022-05-27] MEDS: DOCUSATE SODIUM 100 MG CAPSULE PO SCH ×2 (08:07→20:04)
[2022-05-27] MEDS: PANTOPRAZOLE 40 MG TABLET PO SCH ×2 (08:07→20:04)
[2022-05-27] MEDS: SULFAMETHOXAZOLE/TRIMETHOPRIM 1 TABLET PO SCH (08:07)
[2022-05-27] MEDS: MULTIVIT,THER IRON,CA,FA & MIN 1 TABLET PO SCH (08:07)
[2022-05-27] MEDS: DOXAZOSIN 4 MG TABLET PO SCH (08:07)
[2022-05-27] MEDS: predniSONE 20 MG TABLET PO SCH (08:07)
[2022-05-27] MEDS: oxyCODONE HCL 5 MG TABLET PO PRN (20:03)
[2022-05-27] MEDS: ATORVASTATIN 20 MG TABLET PO SCH (20:03)
[2022-05-27] MEDS: SENNOSIDES 1 TABLET PO SCH (20:04)
[2022-05-28] MEDS: METOPROLOL TARTRATE 25 MG TABLET PO SCH ×2 (09:10→20:37)
[2022-05-28] MEDS: DOCUSATE SODIUM 100 MG CAPSULE PO SCH ×2 (09:10→20:37)
[2022-05-28] MEDS: FINASTERIDE 5 MG TABLET PO SCH (09:10)
[2022-05-28] MEDS: PANTOPRAZOLE 40 MG TABLET PO SCH ×2 (09:10→20:38)
[2022-05-28] MEDS: SULFAMETHOXAZOLE/TRIMETHOPRIM 1 TABLET PO SCH (09:10)
[2022-05-28] MEDS: DOXAZOSIN 4 MG TABLET PO SCH (09:11)
[2022-05-28] MEDS: 0.9 % SODIUM CHLORIDE 10 ML SYRINGE IV SCH ×3 (09:11→20:38)
[2022-05-28] MEDS: MULTIVIT,THER IRON,CA,FA & MIN 1 TABLET PO SCH (09:11)
[2022-05-28] MEDS: predniSONE 20 MG TABLET PO SCH (09:11)
[2022-05-28] MEDS: amLODIPine 10 MG TABLET PO SCH (09:11)
[2022-05-28] MEDS: AMITRIPTYLINE 25 MG TABLET PO SCH (09:11)
--- NOTE | 2022-05-28 09:50 | Internal Med Progress Note ---
SUBJECTIVE Subjective Patient information: Note initiated : 05/28/22 at 9:49 am Service Date, if different from initiated Date: [] Patient: Nirmala Zhong a 81 y/o M admitted on 05/19/22 for GI Bleed, Rule out Stroke. Chief Complaint: [] Principal diagnosis: GI bleed due to gastric adenocarcinoma Interval history: Mr. Zhong is a 81 year old M with a complex past medical history significant for chronic atrial fibrillation on amiodarone, Eliquis, prior CVA, and hypertension who presented to our hospital with severe anemia from a subacute upper gastrointestinal hemorrhage. He was transferred to [facility] for higher level of care. He underwent EGD on 05/10 which showed a gastric ulcerating neoplasm that was injected and cauterized. CT demonstrated 4.7 cm mass near the stomach and a presumed necrotic lymph node within the retroperitoneum. Pathology confirmed gastric adenocarcinoma. Of note he was transfused total of 3 units of packed red blood cells. His Eliquis was held. His hospital course was complicated by acute hypoxemic respiratory failure in the CT of the chest revealed pulmonary fibrosis that was believed to be in the setting of amiodarone as he was on this medication for approximately 4 years. It was recommended he follow-up with combination window installer at the [facility] for further ILD work-up. He was placed on prednisone and IV Lasix. He is now on prednisone 40 mg p.o. daily x1 month with PCP prophylaxis. He also completed a course of Unasyn for suspected aspiration pneumonia. His hospital course was further complicated by acute/subacute multifocal ischemic stroke thought to be in the se tting of an embolism from atrial fibrillation. He was found to have right-sided weakness, mild dysphagia, mild aphasia and right neglect as well as cognitive deficits. MRI demonstrated numerous foci of restricted diffusion scattered throughout both cerebral and cerebellar hemisphere largest within the left occipital lobe. The patient's TTE was performed and revealed preserved EF but severe pulmonary hypertension thought to be due to pulmonary fibrosis. He also has symptomatic internal carotid stenosis and there were discussions with vascular surgery and ongoing goals of care discussion. He has been discharged back to her facility [place] and he will need half-way facility placement. He is to follow-up with his primary care at the [facility] he is can establish oncology follow-up. 05/20: The patient remains medically status quo. We will touch base with social work and case management tomorrow morning to see what options are for half-way facility. 05/21: Patient's been troubled by hiccups which have been occurring intermittently for a few months. Discussion of goals of care, patient does not want to pursue aggressive treatment for his gastric cancer, leaning towards hospice, likely will need placement. He prefers the [facility] SNF. 05/22: Patient is working with occupational therapy. Complaining of some pain in his legs. Right hand and forearm are still weak. Discussed his goals of care. For now he would like to focus on stroke rehab to try to regain function, though ultimately he would like a transition to hospice in the future. 05/23 Sitting up eating breakfast. No overnight event or new complaints. 05/24 No changes overnight. Patient seems to be feeling well. Denies cough or shortness of breath. 05/25 Patient states he had a good night sleep last night. No overnight or new complaints. 05/26 Patient sitting up in bed eating breakfast. Seems to be in good spirits today. No changes. 05/27 For sleep but otherwise no new complaints. No change in status. 05/28 Patient says his back pain is much better due to the heating pad. No overnight event or sooner complaints. Awaiting placement. Review of Systems: denies headache/fever/chills/nausea/vomiting/chest or abdominal pain/cough/dyspnea/diarrhea. Otherwise see above. Constitutional Vitals: Vital Signs Temp Pulse Resp BP Pulse Ox O2 Del Method O2 Flow Rate 97.4 F 67 20 117/61 90 2 05/28/22 07:02 05/28/22 07:02 05/28/22 07:02 05/28/22 07:02 05/28/22 07:02 05/28/22 07:02 05/28/22 07:02 Period Temp Pulse Resp BP Sys/Coles Pulse Ox O2 Del Method O2 Flow Rate Last 24 Hr 97.0 F-98.2 F 66-87 16-22 116-147/59-78 90-97 High Flow Nasal Cannula-Nasal Cannula 2-3.0 Intake and Output 05/27/22 05/28/22 05/28/22 21:59 05:59 13:59 Intake Total 300 840 Output Total 151 201 200 Balance 149 -201 640 Weight 82.191 kg Intake & Output: Intake & Output 05/27/22 05/28/22 05/28/22 21:59 05:59 13:59 Intake Total 300 840 Output Total 151 201 200 Balance 149 -201 640 Weight 82.191 kg Intake: Oral 300 840 Output: Void Amount 150 200 200 # of times incontinent of urine 1 1 Other: Meal Dinner Breakfast Percent of Meal Consumed 75% 75% Feeding Ability Independent Assist with Tray Set Up Urine Appearance Clear Clear Urine Color Dark Yellow Dark Yellow Dark Yellow # Voids 1 1 Exam: General: Alert, Awake, No acute Distress, chronically ill-appearing Eyes/N/T: EOMI, Head/Neck: neck supple, CV: Reg today, No murmurs, Pulm: Clear b/l, no wheezing/rhonchi/rales Abd: soft, nontender, +BS x4 Ext: no clubbing/cyanosis/edema Neuro: Alert, generally weak RUE, moves all extremities, Skin: warm/dry OBJ DATA Labs CBC & Chem 7: 05/21/22 05:38 05/23/22 05:30 Meds: Medications Acetaminophen (Acetaminophen 325 Mg Tablet) 650 mg PO Q6HP PRN; Protocol PRN Reason: Per Pain Protocol/Fever > 101 Last Admin: 05/27/22 03:59 Dose: 650 mg Al Hydrox/Mg Hydrox/Simethicone (Mag Hydrox/Al Hydrox/Simeth 30 Ml Oral.Susp) 30 ml PO Q4-6HP PRN PRN Reason: Dyspepsia Last Admin: 05/20/22 10:53 Dose: 30 ml Amitriptyline HCl (Amitriptyline 25 Mg Tablet) 25 mg PO QDAY [facility] Last Admin: 05/28/22 09:11 Dose: 25 mg Amlodipine Besylate (Amlodipine 10 Mg Tablet) 10 mg PO QDAY [facility] Last Admin: 05/28/22 09:11 Dose: 10 mg Artificial Tears (Carboxymethylcellulose Sodium 1 Each Droper.Gel) 1 each OP Q6H PRN PRN Reason: Dry Eye(s) Atorvastatin Calcium (Atorvastatin 20 Mg Tablet) 20 mg PO QHS [facility] Last Admin: 05/27/22 20:03 Dose: 20 mg Baclofen (Baclofen 10 Mg Tablet) 5 mg PO TIDP PRN PRN Reason: hiccups Last Admin: 05/27/22 03:59 Dose: 5 mg Docusate Sodium (Docusate Sodium 100 Mg Capsule) 100 mg PO BID [facility] Last Admin: 05/28/22 09:10 Dose: 100 mg Doxazosin Mesylate (Doxazosin 4 Mg Tablet) 4 mg PO QDAY [facility] Last Admin: 05/28/22 09:11 Dose: 4 mg Finasteride (Finasteride 5 Mg Tablet) 5 mg PO QDAY [facility] Last Admin: 05/28/22 09:10 Dose: 5 mg Iron Carb/Multivit/[place]/Folic Acid (Multivit,Ther Iron,Ca,Fa & Min 1 Tablet) 1 tab PO QAM [facility] Last Admin: 05/28/22 09:11 Dose: 1 tab Metoprolol Tartrate (Metoprolol Tartrate 25 Mg Tablet) 37.5 mg PO BID [facility] Last Admin: 05/28/22 09:10 Dose: 37.5 mg Ondansetron HCl (Ondansetron 4 Mg/2 Ml Vial) 4 mg IV Q6HP PRN PRN Reason: Nausea And Vomiting Oxycodone HCl (Oxycodone Hcl 5 Mg Tablet) 5 mg PO Q6HP PRN; Protocol PRN Reason: Pain Last Admin: 05/27/22 20:03 Dose: 5 mg Pantoprazole Sodium (Pantoprazole 40 Mg Tablet) 40 mg PO BID [facility] Last Admin: 05/28/22 09:10 Dose: 40 mg Prednisone (Prednisone 20 Mg Tablet) 40 mg PO DAILY [facility] Last Admin: 05/28/22 09:11 Dose: 40 mg Senna (Sennosides 1 Tablet) 2 tab PO HS [facility] Last Admin: 05/27/22 20:04 Dose: 2 tab Sodium Chloride (0.9 % Sodium Chloride 10 Ml Syringe) 10 ml IV Q8 [facility] Last Admin: 05/28/22 09:11 Dose: 10 ml Trazodone HCl (Trazodone Hcl 50 Mg Tablet) 50 mg PO HSP PRN PRN Reason: Insomnia Last Admin: 05/26/22 20:47 Dose: 50 mg Trimethoprim/Sulfamethoxazole (Sulfamethoxazole/Trimethoprim 1 Tablet) 1 tab PO DAILY [facility]; Protocol Last Admin: 05/28/22 09:10 Dose: 1 tab A/P Narrative A/P Narrative: A: *Adenocarcinoma of the stomach with GI hemorrhage -EGD done at the [facility] in [place] -CT with 4.7 cm mass near the stomach and presumed necrotic lymph node in the retroperitoneum -plan for SNF to attempt rehab and then likely hospice if pt fails *Acute blood loss anemia: 2/2 above -Required 3 units PRBC. Eliquis stopped during that hospitalization. *Paroxysmal Atrial fibrillation: -Was on amiodarone and apixaban. -Amiodarone stopped secondary to new diagnosis of ILD. -Apixaban stopped secondary to GI bleed *Interstitial lung disease with acute hypoxic respiratory failure: -Found to be hypoxic in [place], [place] notable for interstitial lung disease, [place] secondary to amiodarone therapy -Received 60 mg of prednisone, decreased to 40 mg daily x1 month -On PCP prophylaxis while on prednisone -on 3LPM by nasal cannula *CVA, Multifocal ischemic thought to be embolic w/right-sided weakness, mild dysphagia/aphasia and right neglect -Diagnosed while hospitalized in [place] -Symptomatic internal carotid stenosis, discussed with vascular surgery, follow-up depending on goals of care for [place]. -Would like to pursue skilled therapies to regain function in the short-term *Hiccups: -Intermittently in the last few months -Causing distress currently, Improved with baclofen *Insomnia: Difficulty sleeping while in the hospital, May be exacerbated by steroids Plan: -Continue with PT and OT -Will try to pursue skilled placement for further therapies -Ultimately would like to transition to hospice -Continue baclofen for hiccups -Continue to Not use apixaban or amiodarone, discontinued -prednisone/bactrim -Continue oxygen as needed, titrate to maintain saturations -ppx: SCD DNR Time Spent With Patient Time: Total time spent is greater than 50% in coordination of care (as documented) at patient's floor/unit and/or counseling patient: QUALITY Stroke Symptom Onset Unknown: No VTE Deep Vein Thrombosis/Pulmonary Embolism Present on Admission: No
[2022-05-28] MEDS: SENNOSIDES 1 TABLET PO SCH (20:37)
[2022-05-28] MEDS: ATORVASTATIN 20 MG TABLET PO SCH (20:38)
[2022-05-28] MEDS: traZODone HCL 50 MG TABLET PO PRN (23:25)
[2022-05-28] MEDS: BACLOFEN 10 MG TABLET PO PRN (23:26)
[2022-05-29] MEDS: 0.9 % SODIUM CHLORIDE 10 ML SYRINGE IV SCH ×3 (04:20→21:38)
[2022-05-29] MEDS: DOCUSATE SODIUM 100 MG CAPSULE PO SCH ×2 (08:20→21:37)
[2022-05-29] MEDS: FINASTERIDE 5 MG TABLET PO SCH (08:20)
[2022-05-29] MEDS: predniSONE 20 MG TABLET PO SCH (08:20)
[2022-05-29] MEDS: AMITRIPTYLINE 25 MG TABLET PO SCH (08:20)
[2022-05-29] MEDS: SULFAMETHOXAZOLE/TRIMETHOPRIM 1 TABLET PO SCH (08:20)
[2022-05-29] MEDS: METOPROLOL TARTRATE 25 MG TABLET PO SCH ×2 (08:20→21:36)
[2022-05-29] MEDS: amLODIPine 10 MG TABLET PO SCH (08:20)
[2022-05-29] MEDS: PANTOPRAZOLE 40 MG TABLET PO SCH ×2 (08:20→21:37)
[2022-05-29] MEDS: MULTIVIT,THER IRON,CA,FA & MIN 1 TABLET PO SCH (08:20)
[2022-05-29] MEDS: DOXAZOSIN 4 MG TABLET PO SCH (08:21)
[2022-05-29] MEDS ORDERED: OPIUM/BELLADONNA ALKALOIDS 30 MG SUPP.RECT PR PRN (15:55)
[2022-05-29] MEDS ORDERED: LACTULOSE 20 GM/30 ML ORAL.SOL PO PRN (15:55)
[2022-05-29] MEDS ORDERED: MINERAL OIL 1 DOSE ENEMA PR PRN (15:55)
--- NOTE | 2022-05-29 15:58 | Internal Med Progress Note ---
SUBJECTIVE Subjective Patient information: Note initiated : 05/29/22 at 3:56 pm Service Date, if different from initiated Date: [] Patient: Nirmala Zhong a 81 y/o M admitted on 05/19/22 for GI Bleed, Rule out Stroke. Chief Complaint: [] Principal diagnosis: GI bleed due to gastric adenocarcinoma Interval history: Mr. Zhong is a 81 year old M with a complex past medical history significant for chronic atrial fibrillation on amiodarone, Eliquis, prior CVA, and hypertension who presented to our hospital with severe anemia from a subacute upper gastrointestinal hemorrhage. He was transferred to [facility] for higher level of care. He underwent EGD on 05/10 which showed a gastric ulcerating neoplasm that was injected and cauterized. CT demonstrated 4.7 cm mass near the stomach and a presumed necrotic lymph node within the retroperitoneum. Pathology confirmed gastric adenocarcinoma. Of note he was transfused total of 3 units of packed red blood cells. His Eliquis was held. His hospital course was complicated by acute hypoxemic respiratory failure in the CT of the chest revealed pulmonary fibrosis that was believed to be in the setting of amiodarone as he was on this medication for approximately 4 years. It was recommended he follow-up with radio equipment installer at the [place] for further ILD work-up. He was placed on prednisone and IV Lasix. He is now on prednisone 40 mg p.o. daily x1 month with PCP prophylaxis. He also completed a course of Unasyn for suspected aspiration pneumonia. His hospital course was further complicated by acute/subacute multifocal ischemic stroke thought to be in the se tting of an embolism from atrial fibrillation. He was found to have right-sided weakness, mild dysphagia, mild aphasia and right neglect as well as cognitive deficits. MRI demonstrated numerous foci of restricted diffusion scattered throughout both cerebral and cerebellar hemisphere largest within the left occipital lobe. The patient's TTE was performed and revealed preserved EF but severe pulmonary hypertension thought to be due to pulmonary fibrosis. He also has symptomatic internal carotid stenosis and there were discussions with vascular surgery and ongoing goals of care discussion. He has been discharged back to her facility [place] and he will need half-way facility placement. He is to follow-up with his primary care at the [place] he is can establish oncology follow-up. 05/20: The patient remains medically status quo. We will touch base with social work and case management tomorrow morning to see what options are for half-way facility. 05/21: Patient's been troubled by hiccups which have been occurring intermittently for a few months. Discussion of goals of care, patient does not want to pursue aggressive treatment for his gastric cancer, leaning towards hospice, likely will need placement. He prefers the [place] SNF. 05/22: Patient is working with occupational therapy. Complaining of some pain in his legs. Right hand and forearm are still weak. Discussed his goals of care. For now he would like to focus on stroke rehab to try to regain function, though ultimately he would like a transition to hospice in the future. 05/23 Sitting up eating breakfast. No overnight event or new complaints. 05/24 No changes overnight. Patient seems to be feeling well. Denies cough or shortness of breath. 05/25 Patient states he had a good night sleep last night. No overnight or new complaints. 05/26 Patient sitting up in bed eating breakfast. Seems to be in good spirits today. No changes. 05/27 For sleep but otherwise no new complaints. No change in status. 05/28 Patient says his back pain is much better due to the heating pad. No overnight event or sooner complaints. Awaiting placement. 05/29: Patient is complaining of constipations. Otherwise pending placement. Constitutional Vitals: Vital Signs Temp Pulse Resp BP Pulse Ox O2 Del Method O2 Flow Rate 36.6 C 62 16 118/64 90 2 05/29/22 11:42 05/29/22 11:42 05/29/22 11:42 05/29/22 11:42 05/29/22 11:42 05/29/22 11:42 05/29/22 11:42 Period Temp Pulse Resp BP Sys/Coles Pulse Ox O2 Del Method O2 Flow Rate Last 24 Hr 36.3 C-36.9 C 60-70 16-18 115-136/64-71 90-91 Nasal Cannula- Nasal Cannula 2-2 Intake and Output 05/29/22 05/29/22 05/29/22 05:59 13:59 21:59 Intake Total 200 150 Output Total 204 202 Balance -4 - Weight 82.554 kg Patient Weight 05/30/22 05:59 Weight 82.554 kg Intake & Output: Intake & Output 05/29/22 05/29/22 05/29/22 05:59 13:59 21:59 Intake Total 200 150 Output Total 204 202 Balance -4 -52 Weight 82.554 kg Intake: Oral 200 150 Output: Void Amount 200 200 # of times incontinent of urine 4 2 Other: Meal Lunch Percent of Meal Consumed 100% Feeding Ability Assist with Tray Set Up General appearance: cooperative, no acute distress and thin Head Head exam: Present atraumatic and normal inspection Eye Eye exam: Present normal appearance ENT ENT exam: Present mucous membranes moist, normal exam and normal external ear exam Neck Neck exam: Present normal inspection Respiratory Respiratory exam: Present normal respiratory exam Cardiovascular Cardiovascular exam: Present normal rate and rhythm GI/Abdominal GI/Abdominal exam: Present normal bowel sounds Back Exam Back exam: Present normal inspection Neurological Exam Neurological exam: Present alert and oriented X3 Skin Skin exam: Present intact and warm OBJ DATA Labs CBC & Chem 7: 05/21/22 05:38 05/23/22 05:30 Meds: Medications Acetaminophen (Acetaminophen 325 Mg Tablet) 650 mg PO Q6HP PRN; Protocol PRN Reason: Per Pain Protocol/Fever > 101 Last Admin: 05/27/22 03:59 Dose: 650 mg Al Hydrox/Mg Hydrox/Simethicone (Mag Hydrox/Al Hydrox/Simeth 30 Ml Oral.Susp) 30 ml PO Q4-6HP PRN PRN Reason: Dyspepsia Last Admin: 05/20/22 10:53 Dose: 30 ml Amitriptyline HCl (Amitriptyline 25 Mg Tablet) 25 mg PO QDAY [facility] Last Admin: 05/29/22 08:20 Dose: 25 mg Amlodipine Besylate (Amlodipine 10 Mg Tablet) 10 mg PO QDAY [facility] Last Admin: 05/29/22 08:20 Dose: 10 mg Artificial Tears (Carboxymethylcellulose Sodium 1 Each Droper.Gel) 1 each OP Q6H PRN PRN Reason: Dry Eye(s) Atorvastatin Calcium (Atorvastatin 20 Mg Tablet) 20 mg PO QHS [facility] Last Admin: 05/28/22 20:38 Dose: 20 mg Baclofen (Baclofen 10 Mg Tablet) 5 mg PO TIDP PRN PRN Reason: hiccups Last Admin: 05/28/22 23:26 Dose: 5 mg Docusate Sodium (Docusate Sodium 100 Mg Capsule) 100 mg PO BID [facility] Last Admin: 05/29/22 08:20 Dose: 100 mg Doxazosin Mesylate (Doxazosin 4 Mg Tablet) 4 mg PO QDAY [facility] Last Admin: 05/29/22 08:21 Dose: 4 mg Finasteride (Finasteride 5 Mg Tablet) 5 mg PO QDAY [facility] Last Admin: 05/29/22 08:20 Dose: 5 mg Iron Carb/Multivit/[place]/Folic Acid (Multivit,Ther Iron,Ca,Fa & Min 1 Tablet) 1 tab PO QAM [facility] Last Admin: 05/29/22 08:20 Dose: 1 tab Lactulose (Lactulose 20 Gm/30 Ml Oral.Eve) 20 gm PO DAILYP PRN PRN Reason: Constipation Metoprolol Tartrate (Metoprolol Tartrate 25 Mg Tablet) 37.5 mg PO BID [facility] Last Admin: 05/29/22 08:20 Dose: 37.5 mg Ondansetron HCl (Ondansetron 4 Mg/2 Ml Vial) 4 mg IV Q6HP PRN PRN Reason: Nausea And Vomiting Oxycodone HCl (Oxycodone Hcl 5 Mg Tablet) 5 mg PO Q6HP PRN; Protocol PRN Reason: Pain Last Admin: 05/27/22 20:03 Dose: 5 mg Pantoprazole Sodium (Pantoprazole 40 Mg Tablet) 40 mg PO BID [facility] Last Admin: 05/29/22 08:20 Dose: 40 mg Prednisone (Prednisone 20 Mg Tablet) 40 mg PO DAILY [facility] Last Admin: 05/29/22 08:20 Dose: 40 mg Senna (Sennosides 1 Tablet) 2 tab PO HS [facility] Last Admin: 05/28/22 20:37 Dose: 2 tab Sodium Chloride (0.9 % Sodium Chloride 10 Ml Syringe) 10 ml IV Q8 [facility] Last Admin: 05/29/22 04:20 Dose: 10 ml Trazodone HCl (Trazodone Hcl 50 Mg Tablet) 50 mg PO HSP PRN PRN Reason: Insomnia Last Admin: 05/28/22 23:25 Dose: 50 mg Trimethoprim/Sulfamethoxazole (Sulfamethoxazole/Trimethoprim 1 Tablet) 1 tab PO DAILY [facility]; Protocol Last Admin: 05/29/22 08:20 Dose: 1 tab A/P Assessment and plan (1) Gastric adenocarcinoma: Status: Acute (2) Constipation: Status: Acute (3) Comfort measures only status: Status: Acute Narrative A/P Narrative: Assessment and Plans: Continue comfort measures only while waiting for placement. Time Spent With Patient Time: Total time spent is greater than 50% in coordination of care (as documented) at patient's floor/unit and/or counseling patient: Total time spent with greater than 50% in coordination of care (as documented) at patient's floor/unit and/or counseling patient:: 25 - 35 minutes QUALITY Stroke Symptom Onset Unknown: No VTE Deep Vein Thrombosis/Pulmonary Embolism Present on Admission: No
[2022-05-29] MEDS: SENNOSIDES 1 TABLET PO SCH (21:36)
[2022-05-29] MEDS: traZODone HCL 50 MG TABLET PO PRN (21:37)
[2022-05-29] MEDS: ATORVASTATIN 20 MG TABLET PO SCH (21:37)
[2022-05-30] MEDS: 0.9 % SODIUM CHLORIDE 10 ML SYRINGE IV SCH ×3 (07:43→20:51)
[2022-05-30] MEDS: METOPROLOL TARTRATE 25 MG TABLET PO SCH ×2 (08:27→20:50)
[2022-05-30] MEDS: PANTOPRAZOLE 40 MG TABLET PO SCH ×2 (08:27→20:50)
[2022-05-30] MEDS: DOCUSATE SODIUM 100 MG CAPSULE PO SCH ×2 (08:27→20:50)
[2022-05-30] MEDS: MULTIVIT,THER IRON,CA,FA & MIN 1 TABLET PO SCH (08:27)
[2022-05-30] MEDS: predniSONE 20 MG TABLET PO SCH (08:27)
[2022-05-30] MEDS: DOXAZOSIN 4 MG TABLET PO SCH (08:27)
[2022-05-30] MEDS: SULFAMETHOXAZOLE/TRIMETHOPRIM 1 TABLET PO SCH (08:27)
[2022-05-30] MEDS: FINASTERIDE 5 MG TABLET PO SCH (08:27)
[2022-05-30] MEDS: amLODIPine 10 MG TABLET PO SCH (08:27)
[2022-05-30] MEDS: AMITRIPTYLINE 25 MG TABLET PO SCH (08:27)
--- NOTE | 2022-05-30 11:22 | Internal Med Progress Note ---
SUBJECTIVE Subjective Patient information: Note initiated : 05/30/22 at 11:19 am Service Date, if different from initiated Date: [] Patient: Nirmala Zhong a 81 y/o M admitted on 05/19/22 for GI Bleed, Rule out Stroke. Chief Complaint: [] Principal diagnosis: GI bleed due to gastric adenocarcinoma Interval history: Mr. Zhong is a 81 year old M with a complex past medical history significant for chronic atrial fibrillation on amiodarone, Eliquis, prior CVA, and hypertension who presented to our hospital with severe anemia from a subacute upper gastrointestinal hemorrhage. He was transferred to [facility] for higher level of care. He underwent EGD on 05/10 which showed a gastric ulcerating neoplasm that was injected and cauterized. CT demonstrated 4.7 cm mass near the stomach and a presumed necrotic lymph node within the retroperitoneum. Pathology confirmed gastric adenocarcinoma. Of note he was transfused total of 3 units of packed red blood cells. His Eliquis was held. His hospital course was complicated by acute hypoxemic respiratory failure in the CT of the chest revealed pulmonary fibrosis that was believed to be in the setting of amiodarone as he was on this medication for approximately 4 years. It was recommended he follow-up with dross puller at the [place] for further ILD work-up. He was placed on prednisone and IV Lasix. He is now on prednisone 40 mg p.o. daily x1 month with PCP prophylaxis. He also completed a course of Unasyn for suspected aspiration pneumonia. His hospital course was further complicated by acute/subacute multifocal ischemic stroke thought to be in the s etting of an embolism from atrial fibrillation. He was found to have right- sided weakness, mild dysphagia, mild aphasia and right neglect as well as cognitive deficits. MRI demonstrated numerous foci of restricted diffusion scattered throughout both cerebral and cerebellar hemisphere largest within the left occipital lobe. The patient's TTE was performed and revealed preserved EF but severe pulmonary hypertension thought to be due to pulmonary fibrosis. He also has symptomatic internal carotid stenosis and there were discussions with vascular surgery and ongoing goals of care discussion. He has been discharged back to her facility as [place] and he will need jail facility placement. He is to follow-up with his primary care at the [place] he is can establish oncology follow-up. 05/20: The patient remains medically status quo. We will touch base with social work and case management tomorrow morning to see what options are for jail facility. 05/21: Patient's been troubled by hiccups which have been occurring intermittently for a few months. Discussion of goals of care, patient does not want to pursue aggressive treatment for his gastric cancer, leaning towards hospice, likely will need placement. He prefers the [place] SNF. 05/22: Patient is working with occupational therapy. Complaining of some pain in his legs. Right hand and forearm are still weak. Discussed his goals of care. For now he would like to focus on stroke rehab to try to regain function, though ultimately he would like a transition to hospice in the future. 05/23 Sitting up eating breakfast. No overnight event or new complaints. 05/24 No changes overnight. Patient seems to be feeling well. Denies cough or shortness of breath. 05/25 Patient states he had a good night sleep last night. No overnight or new complaints. 05/26 Patient sitting up in bed eating breakfast. Seems to be in good spirits today. No changes. 05/27 For sleep but otherwise no new complaints. No change in status. 05/28 Patient says his back pain is much better due to the heating pad. No overnight event or sooner complaints. Awaiting placement. 05/29: Patient is complaining of constipations. Otherwise pending placement. 05/30: Patient denies any pain or discomfort. Pending placement. Constitutional Vitals: Vital Signs Temp Pulse Resp BP Pulse Ox O2 Del Method O2 Flow Rate 36.3 C 71 16 115/59 96 2 05/30/22 08:00 05/30/22 08:30 05/30/22 08:30 05/30/22 08:00 05/30/22 08:30 05/30/22 08:30 05/30/22 08:30 Period Temp Pulse Resp BP Sys/Coles Pulse Ox O2 Del Method O2 Flow Rate Last 24 Hr 36.3 C-36.9 C 62-78 - 110-127/53-66 90-96 High Flow Nasal Cannula-Nasal Cannula 2-2 Intake and Output 05/29/22 05/30/22 05/30/22 21:59 05:59 13:59 Intake Total 240 100 240 Output Total 3 201 202 Balance 237 -101 38 Weight 80.377 kg Intake & Output: Intake & Output 05/29/22 05/30/22 05/30/22 21:59 05:59 13:59 Intake Total 240 100 240 Output Total 3 201 202 Balance 237 -101 38 Weight 80.377 kg Intake: Oral 240 100 240 Output: Void Amount 200 200 # of times incontinent of urine 3 1 2 Other: Meal Dinner Yogurt Breakfast Percent of Meal Consumed 100% 100% 100% Feeding Ability Assist with Tray Set Up Independent Stool Size Moderate Large Stool Color Brown Brown Stool Consistency Soft Soft # Bowel Movements 1 # of times incontinent of 1 Bowels General appearance: cooperative, disheveled and thin Exam: cachectic Head Head exam: Present atraumatic and normal inspection Eye Eye exam: Present normal appearance ENT ENT exam: Present mucous membranes moist, normal exam and normal external ear exam Additional comments: Nasal cannula in place Neck Neck exam: Present normal inspection Respiratory Respiratory exam: Present normal respiratory exam Cardiovascular Cardiovascular exam: Present normal rate and rhythm GI/Abdominal GI/Abdominal exam: Present normal bowel sounds Back Exam Back exam: Present normal inspection Neurological Exam Neurological exam: Present alert and oriented X3 Skin Skin exam: Present intact and warm OBJ DATA Labs CBC & Chem 7: 05/21/22 05:38 05/23/22 05:30 Meds: Medications Acetaminophen (Acetaminophen 325 Mg Tablet) 650 mg PO Q6HP PRN; Protocol PRN Reason: Per Pain Protocol/Fever > 101 Last Admin: 05/27/22 03:59 Dose: 650 mg Al Hydrox/Mg Hydrox/Simethicone (Mag Hydrox/Al Hydrox/Simeth 30 Ml Oral.Susp) 30 ml PO Q4-6HP PRN PRN Reason: Dyspepsia Last Admin: 05/20/22 10:53 Dose: 30 ml Amitriptyline HCl (Amitriptyline 25 Mg Tablet) 25 mg PO QDAY [facility] Last Admin: 05/30/22 08:27 Dose: 25 mg Amlodipine Besylate (Amlodipine 10 Mg Tablet) 10 mg PO QDAY [facility] Last Admin: 05/30/22 08:27 Dose: 10 mg Artificial Tears (Carboxymethylcellulose Sodium 1 Each Droper.Gel) 1 each OP Q6H PRN PRN Reason: Dry Eye(s) Atorvastatin Calcium (Atorvastatin 20 Mg Tablet) 20 mg PO QHS [facility] Last Admin: 05/29/22 21:37 Dose: 20 mg Baclofen (Baclofen 10 Mg Tablet) 5 mg PO TIDP PRN PRN Reason: hiccups Last Admin: 05/28/22 23:26 Dose: 5 mg Belladonna Alkaloids/Opium (Opium/Belladonna Alkaloids 30 Mg Supp.Rect) 30 mg [place] Q4HP PRN PRN Reason: BLADDER SPASMS Docusate Sodium (Docusate Sodium 100 Mg Capsule) 100 mg PO BID [facility] Last Admin: 05/30/22 08:27 Dose: 100 mg Doxazosin Mesylate (Doxazosin 4 Mg Tablet) 4 mg PO QDAY [facility] Last Admin: 05/30/22 08:27 Dose: 4 mg Finasteride (Finasteride 5 Mg Tablet) 5 mg PO QDAY [facility] Last Admin: 05/30/22 08:27 Dose: 5 mg Iron Carb/Multivit/[place]/Folic Acid (Multivit,Ther Iron,Ca,Fa & Min 1 Tablet) 1 tab PO QAM [facility] Last Admin: 05/30/22 08:27 Dose: 1 tab Lactulose (Lactulose 20 Gm/30 Ml Oral.Eve) 20 gm PO DAILYP PRN PRN Reason: Constipation Metoprolol Tartrate (Metoprolol Tartrate 25 Mg Tablet) 37.5 mg PO BID [facility] Last Admin: 05/30/22 08:27 Dose: 37.5 mg Mineral Oil (Mineral Oil 1 Dose Enema) 1 dose [place] ONCE PRN PRN Reason: Constipation Ondansetron HCl (Ondansetron 4 Mg/2 Ml Vial) 4 mg IV Q6HP PRN PRN Reason: Nausea And Vomiting Oxycodone HCl (Oxycodone Hcl 5 Mg Tablet) 5 mg PO Q6HP PRN; Protocol PRN Reason: Pain Last Admin: 05/27/22 20:03 Dose: 5 mg Pantoprazole Sodium (Pantoprazole 40 Mg Tablet) 40 mg PO BID [facility] Last Admin: 05/30/22 08:27 Dose: 40 mg Prednisone (Prednisone 20 Mg Tablet) 40 mg PO DAILY [facility] Last Admin: 05/30/22 08:27 Dose: 40 mg Senna (Sennosides 1 Tablet) 2 tab PO HS [facility] Last Admin: 05/29/22 21:36 Dose: 2 tab Sodium Chloride (0.9 % Sodium Chloride 10 Ml Syringe) 10 ml IV Q8 [facility] Last Admin: 05/30/22 07:43 Dose: 10 ml Trazodone HCl (Trazodone Hcl 50 Mg Tablet) 50 mg PO HSP PRN PRN Reason: Insomnia Last Admin: 05/29/22 21:37 Dose: 50 mg Trimethoprim/Sulfamethoxazole (Sulfamethoxazole/Trimethoprim 1 Tablet) 1 tab PO DAILY [facility]; Protocol Last Admin: 05/30/22 08:27 Dose: 1 tab A/P Assessment and plan (1) Gastric adenocarcinoma: Status: Acute (2) Constipation: Status: Acute Narrative A/P Narrative: Assessment and Plans: Continue narcotics for symptoms control, stool softeners/laxatives for constipation, physical therapy, while waiting for placement GI ppx: Protonix DVT ppx: SCDs Code status: DNR Prognosis: stable Disposition: inpatient med surg; SNF Time Spent With Patient Time: Total time spent is greater than 50% in coordination of care (as documented) at patient's floor/unit and/or counseling patient: Total time spent with greater than 50% in coordination of care (as documented) at patient's floor/unit and/or counseling patient:: 25 - 35 minutes QUALITY Stroke Symptom Onset Unknown: No VTE Deep Vein Thrombosis/Pulmonary Embolism Present on Admission: No
[2022-05-30] MEDS: traZODone HCL 50 MG TABLET PO PRN (20:50)
[2022-05-30] MEDS: ATORVASTATIN 20 MG TABLET PO SCH (20:50)
[2022-05-30] MEDS: SENNOSIDES 1 TABLET PO SCH (20:50)
[2022-05-31] MEDS: 0.9 % SODIUM CHLORIDE 10 ML SYRINGE IV SCH ×5 (04:49→22:26)
[2022-05-31] MEDS: PANTOPRAZOLE 40 MG TABLET PO SCH (08:38)
[2022-05-31] MEDS: DOCUSATE SODIUM 100 MG CAPSULE PO SCH ×2 (08:38→22:25)
[2022-05-31] MEDS: DOXAZOSIN 4 MG TABLET PO SCH (08:38)
[2022-05-31] MEDS: amLODIPine 10 MG TABLET PO SCH (08:38)
[2022-05-31] MEDS: FINASTERIDE 5 MG TABLET PO SCH (08:38)
[2022-05-31] MEDS: SULFAMETHOXAZOLE/TRIMETHOPRIM 1 TABLET PO SCH (08:38)
[2022-05-31] MEDS: MULTIVIT,THER IRON,CA,FA & MIN 1 TABLET PO SCH (08:38)
[2022-05-31] MEDS: predniSONE 20 MG TABLET PO SCH (08:38)
[2022-05-31] MEDS: AMITRIPTYLINE 25 MG TABLET PO SCH (08:39)
[2022-05-31] MEDS: METOPROLOL TARTRATE 25 MG TABLET PO SCH (08:39)
--- NOTE | 2022-05-31 10:02 | Internal Med Progress Note ---
SUBJECTIVE Subjective Patient information: Note initiated : 05/31/22 at 10:00 am Service Date, if different from initiated Date: [] Patient: Nirmala Zhong a 81 y/o M admitted on 05/19/22 for GI Bleed, Rule out Stroke. Chief Complaint: [] Principal diagnosis: GI bleed due to gastric adenocarcinoma Interval history: Mr. Zhong is a 81 year old M with a complex past medical history significant for chronic atrial fibrillation on amiodarone, Eliquis, prior CVA, and hypertension who presented to our hospital with severe anemia from a subacute upper gastrointestinal hemorrhage. He was transferred to [facility] for higher level of care. He underwent EGD on 05/10 which showed a gastric ulcerating neoplasm that was injected and cauterized. CT demonstrated 4.7 cm mass near the stomach and a presumed necrotic lymph node within the retroperitoneum. Pathology confirmed gastric adenocarcinoma. Of note he was transfused total of 3 units of packed red blood cells. His Eliquis was held. His hospital course was complicated by acute hypoxemic respiratory failure in the CT of the chest revealed pulmonary fibrosis that was believed to be in the setting of amiodarone as he was on this medication for approximately 4 years. It was recommended he follow-up with material combiner at the [place] for further ILD work-up. He was placed on prednisone and IV Lasix. He is now on prednisone 40 mg p.o. daily x1 month with PCP prophylaxis. He also completed a course of Unasyn for suspected aspiration pneumonia. His hospital course was further complicated by acute/subacute multifocal ischemic stroke thought to be in the s etting of an embolism from atrial fibrillation. He was found to have right- sided weakness, mild dysphagia, mild aphasia and right neglect as well as cognitive deficits. MRI demonstrated numerous foci of restricted diffusion scattered throughout both cerebral and cerebellar hemisphere largest within the left occipital lobe. The patient's TTE was performed and revealed preserved EF but severe pulmonary hypertension thought to be due to pulmonary fibrosis. He also has symptomatic internal carotid stenosis and there were discussions with vascular surgery and ongoing goals of care discussion. He has been discharged back to her facility [place] and he will need shelter facility placement. He is to follow-up with his primary care at the [place] he is can establish oncology follow-up. 05/20: The patient remains medically status quo. We will touch base with social work and case management tomorrow morning to see what options are for shelter facility. 05/21: Patient's been troubled by hiccups which have been occurring intermittently for a few months. Discussion of goals of care, patient does not want to pursue aggressive treatment for his gastric cancer, leaning towards hospice, likely will need placement. He prefers the [place] SNF. 05/22: Patient is working with occupational therapy. Complaining of some pain in his legs. Right hand and forearm are still weak. Discussed his goals of care. For now he would like to focus on stroke rehab to try to regain function, though ultimately he would like a transition to hospice in the future. 05/23 Sitting up eating breakfast. No overnight event or new complaints. 05/24 No changes overnight. Patient seems to be feeling well. Denies cough or shortness of breath. 05/25 Patient states he had a good night sleep last night. No overnight or new complaints. 05/26 Patient sitting up in bed eating breakfast. Seems to be in good spirits today. No changes. 05/27 For sleep but otherwise no new complaints. No change in status. 05/28 Patient says his back pain is much better due to the heating pad. No overnight event or sooner complaints. Awaiting placement. 05/29: Patient is complaining of constipations. Otherwise pending placement. 05/30: Patient denies any pain or discomfort. Pending placement. 05/31: Patient denies any pain or discomfort. Care conference this afternoon. Constitutional Vitals: Vital Signs Temp Pulse Resp BP Pulse Ox O2 Del Method O2 Flow Rate 36.4 C 57 L 24 H 130/62 91 3 05/31/22 08:00 05/31/22 08:00 05/31/22 08:00 05/31/22 08:00 05/31/22 08:00 05/31/22 08:00 05/31/22 08:00 Period Temp Pulse Resp BP Sys/Coles Pulse Ox O2 Del Method O2 Flow Rate Last 24 Hr 36.4 C-37.1 C 57-69 16-24 114-146/58-70 91-95 High Flow Nasal Cannula-Nasal Cannula 2-3 Intake and Output 05/30/22 05/31/22 05/31/22 21:59 05:59 13:59 Intake Total 200 200 118 Output Total 252 2 Balance -52 198 118 Weight 77.836 kg Intake & Output: Intake & Output 05/30/22 05/31/22 05/31/22 21:59 05:59 13:59 Intake Total 200 200 118 Output Total 252 2 Balance -52 198 118 Weight 77.836 kg Intake: Oral 200 200 118 Output: Void Amount 250 # of times incontinent of urine 2 2 Other: Meal Dinner yougurt Percent of Meal Consumed 100% 100% Feeding Ability Independent Independent Nourishment/Supplement name yogurt Stool Size Large Smear Smear Stool Color Brown Brown Brown Black Stool Consistency Soft Formed # Voids 1 # Bowel Movements 1 General appearance: cooperative, no acute distress and thin Exam: cachectic Head Head exam: Present atraumatic and normal inspection Eye Eye exam: Present normal appearance ENT ENT exam: Present mucous membranes moist, normal exam and normal external ear exam Neck Neck exam: Present normal inspection Respiratory Respiratory exam: Present normal respiratory exam Cardiovascular Cardiovascular exam: Present normal rate and rhythm GI/Abdominal GI/Abdominal exam: Present normal bowel sounds Back Exam Back exam: Present normal inspection Neurological Exam Neurological exam: Present alert and oriented X3 Skin Skin exam: Present intact and warm OBJ DATA Labs CBC & Chem 7: 05/21/22 05:38 05/23/22 05:30 Meds: Medications Acetaminophen (Acetaminophen 325 Mg Tablet) 650 mg PO Q6HP PRN; Protocol PRN Reason: Per Pain Protocol/Fever > 101 Last Admin: 05/27/22 03:59 Dose: 650 mg Al Hydrox/Mg Hydrox/Simethicone (Mag Hydrox/Al Hydrox/Simeth 30 Ml Oral.Susp) 30 ml PO Q4-6HP PRN PRN Reason: Dyspepsia Last Admin: 05/20/22 10:53 Dose: 30 ml Amitriptyline HCl (Amitriptyline 25 Mg Tablet) 25 mg PO QDAY [facility] Last Admin: 05/31/22 08:39 Dose: 25 mg Amlodipine Besylate (Amlodipine 10 Mg Tablet) 10 mg PO QDAY [facility] Last Admin: 05/31/22 08:38 Dose: 10 mg Artificial Tears (Carboxymethylcellulose Sodium 1 Each Droper.Gel) 1 each OP Q6H PRN PRN Reason: Dry Eye(s) Atorvastatin Calcium (Atorvastatin 20 Mg Tablet) 20 mg PO QHS [facility] Last Admin: 05/30/22 20:50 Dose: 20 mg Baclofen (Baclofen 10 Mg Tablet) 5 mg PO TIDP PRN PRN Reason: hiccups Last Admin: 05/28/22 23:26 Dose: 5 mg Belladonna Alkaloids/Opium (Opium/Belladonna Alkaloids 30 Mg Supp.Rect) 30 mg GA Q4HP PRN PRN Reason: BLADDER SPASMS Docusate Sodium (Docusate Sodium 100 Mg Capsule) 100 mg PO BID [facility] Last Admin: 05/31/22 08:38 Dose: 100 mg Doxazosin Mesylate (Doxazosin 4 Mg Tablet) 4 mg PO QDAY [facility] Last Admin: 05/31/22 08:38 Dose: 4 mg Finasteride (Finasteride 5 Mg Tablet) 5 mg PO QDAY [facility] Last Admin: 05/31/22 08:38 Dose: 5 mg Iron Carb/Multivit/[place]alissa/Folic Acid (Multivit,Ther Iron,Ca,Fa & Min 1 Tablet) 1 tab PO QAM [facility] Last Admin: 05/31/22 08:38 Dose: 1 tab Lactulose (Lactulose 20 Gm/30 Ml Oral.Eve) 20 gm PO DAILYP PRN PRN Reason: Constipation Metoprolol Tartrate (Metoprolol Tartrate 25 Mg Tablet) 37.5 mg PO BID [facility] Last Admin: 05/31/22 08:39 Dose: 37.5 mg Mineral Oil (Mineral Oil 1 Dose Enema) 1 dose GA ONCE PRN PRN Reason: Constipation Ondansetron HCl (Ondansetron 4 Mg/2 Ml Vial) 4 mg IV Q6HP PRN PRN Reason: Nausea And Vomiting Oxycodone HCl (Oxycodone Hcl 5 Mg Tablet) 5 mg PO Q6HP PRN; Protocol PRN Reason: Pain Last Admin: 05/27/22 20:03 Dose: 5 mg Pantoprazole Sodium (Pantoprazole 40 Mg Tablet) 40 mg PO BID [facility] Last Admin: 05/31/22 08:38 Dose: 40 mg Prednisone (Prednisone 20 Mg Tablet) 40 mg PO DAILY [facility] Last Admin: 05/31/22 08:38 Dose: 40 mg Senna (Sennosides 1 Tablet) 2 tab PO HS [facility] Last Admin: 05/30/22 20:50 Dose: 2 tab Sodium Chloride (0.9 % Sodium Chloride 10 Ml Syringe) 10 ml IV Q8 [facility] Last Admin: 05/31/22 04:49 Dose: 10 ml Trazodone HCl (Trazodone Hcl 50 Mg Tablet) 50 mg PO HSP PRN PRN Reason: Insomnia Last Admin: 05/30/22 20:50 Dose: 50 mg Trimethoprim/Sulfamethoxazole (Sulfamethoxazole/Trimethoprim 1 Tablet) 1 tab PO DAILY RICK; Protocol Last Admin: 05/31/22 08:38 Dose: 1 tab A/P Assessment and plan (1) Gastric adenocarcinoma: Status: Acute (2) Constipation: Status: Acute Narrative A/P Narrative: Assessment and Plans: Continue narcotics for symptoms control, stool softeners/laxatives for constipation, physical therapy, while waiting for placement Care conference this afternoon. GI ppx: Protonix DVT ppx: SCDs Code status: DNR Prognosis: stable Disposition: inpatient med surg; SNF Time Spent With Patient Time: Total time spent is greater than 50% in coordination of care (as documented) at patient's floor/unit and/or counseling patient: Total time spent with greater than 50% in coordination of care (as documented) at patient's floor/unit and/or counseling patient:: 35 - 50 minutes QUALITY Stroke Symptom Onset Unknown: No VTE Deep Vein Thrombosis/Pulmonary Embolism Present on Admission: No
[2022-05-31] MEDS ORDERED: LORazepam 2 MG/ML VIAL IV PRN (13:37)
[2022-05-31] MEDS: oxyCODONE HCL 5 MG TABLET PO PRN (22:24)
[2022-05-31] MEDS: SENNOSIDES 1 TABLET PO SCH (22:26)
[2022-05-31] MEDS: ACETAMINOPHEN 325 MG TABLET PO PRN (23:15)
[2022-06-01] MEDS: 0.9 % SODIUM CHLORIDE 10 ML SYRINGE IV SCH ×6 (05:37→21:58)
[2022-06-01] MEDS: oxyCODONE HCL 5 MG TABLET PO PRN (08:36)
[2022-06-01] MEDS: FINASTERIDE 5 MG TABLET PO SCH (08:37)
[2022-06-01] MEDS: predniSONE 20 MG TABLET PO SCH (08:37)
[2022-06-01] MEDS: DOXAZOSIN 4 MG TABLET PO SCH (08:37)
[2022-06-01] MEDS: AMITRIPTYLINE 25 MG TABLET PO SCH (08:37)
[2022-06-01] MEDS: DOCUSATE SODIUM 100 MG CAPSULE PO SCH ×2 (11:31→21:58)
--- NOTE | 2022-06-01 11:31 | Internal Med Progress Note ---
SUBJECTIVE Subjective Patient information: Note initiated : 06/01/22 at 11:29 am Service Date, if different from initiated Date: [] Patient: Nirmala Zhong a 81 y/o M admitted on 05/19/22 for GI Bleed, Rule out Stroke. Chief Complaint: [] Principal diagnosis: GI bleed due to gastric adenocarcinoma Interval history: Mr. Zhong is a 81 year old M with a complex past medical history significant for chronic atrial fibrillation on amiodarone, Eliquis, prior CVA, and hypertension who presented to our hospital with severe anemia from a subacute upper gastrointestinal hemorrhage. He was transferred to [facility] for higher level of care. He underwent EGD on 05/10 which showed a gastric ulcerating neoplasm that was injected and cauterized. CT demonstrated 4.7 cm mass near the stomach and a presumed necrotic lymph node within the retroperitoneum. Pathology confirmed gastric adenocarcinoma. Of note he was transfused total of 3 units of packed red blood cells. His Eliquis was held. His hospital course was complicated by acute hypoxemic respiratory failure in the CT of the chest revealed pulmonary fibrosis that was believed to be in the setting of amiodarone as he was on this medication for approximately 4 years. It was recommended he follow-up with recyclable products sorter at the [place] for further ILD work-up. He was placed on prednisone and IV Lasix. He is now on prednisone 40 mg p.o. daily x1 month with PCP prophylaxis. He also completed a course of Unasyn for suspected aspiration pneumonia. His hospital course was further complicated by acute/subacute multifocal ischemic stroke thought to be in the s etting of an embolism from atrial fibrillation. He was found to have right- sided weakness, mild dysphagia, mild aphasia and right neglect as well as cognitive deficits. MRI demonstrated numerous foci of restricted diffusion scattered throughout both cerebral and cerebellar hemisphere largest within the left occipital lobe. The patient's TTE was performed and revealed preserved EF but severe pulmonary hypertension thought to be due to pulmonary fibrosis. He also has symptomatic internal carotid stenosis and there were discussions with vascular surgery and ongoing goals of care discussion. He has been discharged back to her facility [place] and he will need snf facility placement. He is to follow-up with his primary care at the [place] he is can establish oncology follow-up. 05/20: The patient remains medically status quo. We will touch base with social work and case management tomorrow morning to see what options are for snf facility. 05/21: Patient's been troubled by hiccups which have been occurring intermittently for a few months. Discussion of goals of care, patient does not want to pursue aggressive treatment for his gastric cancer, leaning towards hospice, likely will need placement. He prefers the [place] SNF. 05/22: Patient is working with occupational therapy. Complaining of some pain in his legs. Right hand and forearm are still weak. Discussed his goals of care. For now he would like to focus on stroke rehab to try to regain function, though ultimately he would like a transition to hospice in the future. 05/23 Sitting up eating breakfast. No overnight event or new complaints. 05/24 No changes overnight. Patient seems to be feeling well. Denies cough or shortness of breath. 05/25 Patient states he had a good night sleep last night. No overnight or new complaints. 05/26 Patient sitting up in bed eating breakfast. Seems to be in good spirits today. No changes. 05/27 For sleep but otherwise no new complaints. No change in status. 05/28 Patient says his back pain is much better due to the heating pad. No overnight event or sooner complaints. Awaiting placement. 05/29: Patient is complaining of constipations. Otherwise pending placement. 05/30: Patient denies any pain or discomfort. Pending placement. 05/31: Patient denies any pain or discomfort. Care conference this afternoon. 06/01: Being switched to comfort care only after the care conference on 05/31. No other major overnight events. Pending placement. Constitutional Vitals: Vital Signs Temp Pulse Resp BP Pulse Ox O2 Del Method O2 Flow Rate 36.6 C 84 18 139/69 96 2 06/01/22 08:00 06/01/22 08:00 06/01/22 08:00 06/01/22 08:00 06/01/22 08:25 06/01/22 08:25 06/01/22 08:25 Period Temp Pulse Resp BP Sys/Coles Pulse Ox O2 Del Method O2 Flow Rate Last 24 Hr 36.6 C-37.0 C 64-84 18-24 96-139/51-69 78-96 Nasal Cannula- Room Air 2-4 Intake and Output 05/31/22 06/01/22 06/01/22 21:59 05:59 13:59 Intake Total 480 Output Total 204 Balance 276 Intake & Output: Intake & Output 05/31/22 06/01/22 06/01/22 21:59 05:59 13:59 Intake Total 480 Output Total 204 Balance 276 Intake: Oral 480 Output: Void Amount 200 # of times incontinent of urine 4 Other: Meal Dinner Breakfast Percent of Meal Consumed 100% 100% Feeding Ability Assist with Tray Set Up Urine Appearance Clear Stool Size Large Stool Color Brown Stool Consistency Soft # Bowel Movements 1 General appearance: cooperative, no acute distress and thin Exam: cachectic Head Head exam: Present atraumatic and normal inspection Eye Eye exam: Present normal appearance ENT ENT exam: Present mucous membranes moist, normal exam and normal external ear exam Additional comments: Nasal cannula in place Neck Neck exam: Present normal inspection Respiratory Respiratory exam: Present normal respiratory exam Cardiovascular Cardiovascular exam: Present normal rate and rhythm GI/Abdominal GI/Abdominal exam: Present normal bowel sounds Back Exam Back exam: Present normal inspection Neurological Exam Neurological exam: Present alert and oriented X3 Skin Skin exam: Present intact and warm OBJ DATA Labs CBC & Chem 7: 05/21/22 05:38 05/23/22 05:30 Meds: Medications Acetaminophen (Acetaminophen 325 Mg Tablet) 650 mg PO Q6HP PRN; Protocol PRN Reason: Per Pain Protocol/Fever > 101 Last Admin: 05/31/22 23:15 Dose: 650 mg Al Hydrox/Mg Hydrox/Simethicone (Mag Hydrox/Al Hydrox/Simeth 30 Ml Oral.Susp) 30 ml PO Q4-6HP PRN PRN Reason: Dyspepsia Last Admin: 05/20/22 10:53 Dose: 30 ml Amitriptyline HCl (Amitriptyline 25 Mg Tablet) 25 mg PO QDAY [facility] Last Admin: 06/01/22 08:37 Dose: 25 mg Artificial Tears (Carboxymethylcellulose Sodium 1 Each Droper.Gel) 1 each OP Q6 H PRN PRN Reason: Dry Eye(s) Baclofen (Baclofen 10 Mg Tablet) 5 mg PO TIDP PRN PRN Reason: hiccups Last Admin: 05/28/22 23:26 Dose: 5 mg Belladonna Alkaloids/Opium (Opium/Belladonna Alkaloids 30 Mg Supp.Rect) 30 mg MD Q4HP PRN PRN Reason: BLADDER SPASMS Docusate Sodium (Docusate Sodium 100 Mg Capsule) 100 mg PO BID [facility] Last Admin: 05/31/22 22:25 Dose: Not Given Doxazosin Mesylate (Doxazosin 4 Mg Tablet) 4 mg PO QDAY [facility] Last Admin: 06/01/22 08:37 Dose: 4 mg Finasteride (Finasteride 5 Mg Tablet) 5 mg PO QDAY [facility] Last Admin: 06/01/22 08:37 Dose: 5 mg Lactulose (Lactulose 20 Gm/30 Ml Oral.Eve) 20 gm PO DAILYP PRN PRN Reason: Constipation Lorazepam (Lorazepam 2 Mg/Ml Vial) 0 mg IV Q1HP PRN; Protocol PRN Reason: ANXIETY/SEDATION Mineral Oil (Mineral Oil 1 Dose Enema) 1 dose MD ONCE PRN PRN Reason: Constipation Morphine Sulfate (Morphine 4 Mg/Ml Vial) 2 - 6 mg IV Q1HP PRN; Protocol PRN Reason: Per Pain Protocol Ondansetron HCl (Ondansetron 4 Mg/2 Ml Vial) 4 mg IV Q6HP PRN PRN Reason: Nausea And Vomiting Oxycodone HCl (Oxycodone Hcl 5 Mg Tablet) 5 mg PO Q6HP PRN; Protocol PRN Reason: Pain Last Admin: 06/01/22 08:36 Dose: 5 mg Prednisone (Prednisone 20 Mg Tablet) 40 mg PO DAILY [facility] Last Admin: 06/01/22 08:37 Dose: 40 mg Senna (Sennosides 1 Tablet) 2 tab PO HS [facility] Last Admin: 05/31/22 22:26 Dose: Not Given Sodium Chloride (0.9 % Sodium Chloride 10 Ml Syringe) 10 ml IV Q8 [facility] Last Admin: 06/01/22 05:37 Dose: Not Given Sodium Chloride (0.9 % Sodium Chloride 10 Ml Syringe) 10 ml IV Q8 [facility] Last Admin: 06/01/22 05:37 Dose: Not Given Trazodone HCl (Trazodone Hcl 50 Mg Tablet) 50 mg PO HSP PRN PRN Reason: Insomnia Last Admin: 05/30/22 20:50 Dose: 50 mg A/P Assessment and plan (1) Gastric adenocarcinoma: Status: Acute (2) Constipation: Status: Acute Narrative A/P Narrative: Assessment and Plans: Being switched to comfort care only after the care conference on 05/31. Pending placement. GI ppx: Protonix DVT ppx: SCDs Code status: DNR, comfort care only Prognosis: stable Disposition: inpatient med surg; pending placement Time Spent With Patient Time: Total time spent is greater than 50% in coordination of care (as documented) at patient's floor/unit and/or counseling patient: Total time spent with greater than 50% in coordination of care (as documented) at patient's floor/unit and/or counseling patient:: 15 - 24 minutes QUALITY Stroke Symptom Onset Unknown: No VTE Deep Vein Thrombosis/Pulmonary Embolism Present on Admission: No
[2022-06-01] MEDS: SENNOSIDES 1 TABLET PO SCH (21:58)
[2022-06-02] MEDS: oxyCODONE HCL 5 MG TABLET PO PRN ×2 (00:33→21:34)
[2022-06-02] MEDS: traZODone HCL 50 MG TABLET PO PRN ×2 (00:33→21:35)
[2022-06-02] MEDS: 0.9 % SODIUM CHLORIDE 10 ML SYRINGE IV SCH ×3 (06:42→21:35)
[2022-06-02] MEDS: AMITRIPTYLINE 25 MG TABLET PO SCH (09:15)
[2022-06-02] MEDS: DOCUSATE SODIUM 100 MG CAPSULE PO SCH ×2 (09:15→21:34)
[2022-06-02] MEDS: FINASTERIDE 5 MG TABLET PO SCH (09:15)
[2022-06-02] MEDS: DOXAZOSIN 4 MG TABLET PO SCH (09:15)
[2022-06-02] MEDS: predniSONE 20 MG TABLET PO SCH (09:15)
--- NOTE | 2022-06-02 10:26 | Internal Med Progress Note ---
SUBJECTIVE Subjective Patient information: Note initiated : 06/02/22 at 10:25 am Service Date, if different from initiated Date: [] Patient: Nirmala Zhong a 81 y/o M admitted on 05/19/22 for GI Bleed, Rule out Stroke. Chief Complaint: [] Principal diagnosis: GI bleed due to gastric adenocarcinoma Interval history: Mr. Zhong is a 81 year old M with a complex past medical history significant for chronic atrial fibrillation on amiodarone, Eliquis, prior CVA, and hypertension who presented to our hospital with severe anemia from a subacute upper gastrointestinal hemorrhage. He was transferred to [facility] for higher level of care. He underwent EGD on 05/10 which showed a gastric ulcerating neoplasm that was injected and cauterized. CT demonstrated 4.7 cm mass near the stomach and a presumed necrotic lymph node within the retroperitoneum. Pathology confirmed gastric adenocarcinoma. Of note he was transfused total of 3 units of packed red blood cells. His Eliquis was held. His hospital course was complicated by acute hypoxemic respiratory failure in the CT of the chest revealed pulmonary fibrosis that was believed to be in the setting of amiodarone as he was on this medication for approximately 4 years. It was recommended he follow-up with electric motor repairing supervisor at the [facility] for further ILD work-up. He was placed on prednisone and IV Lasix. He is now on prednisone 40 mg p.o. daily x1 month with PCP prophylaxis. He also completed a course of Unasyn for suspected aspiration pneumonia. His hospital course was further complicated by acute/subacute multifocal ischemic stroke thought to be in the s etting of an embolism from atrial fibrillation. He was found to have right- sided weakness, mild dysphagia, mild aphasia and right neglect as well as cognitive deficits. MRI demonstrated numerous foci of restricted diffusion scattered throughout both cerebral and cerebellar hemisphere largest within the left occipital lobe. The patient's TTE was performed and revealed preserved EF but severe pulmonary hypertension thought to be due to pulmonary fibrosis. He also has symptomatic internal carotid stenosis and there were discussions with vascular surgery and ongoing goals of care discussion. He has been discharged back to her facility [place] and he will need nursing home facility placement. He is to follow-up with his primary care at the [facility] he is can establish oncology follow-up. 05/20: The patient remains medically status quo. We will touch base with social work and case management tomorrow morning to see what options are for nursing home facility. 05/21: Patient's been troubled by hiccups which have been occurring intermittently for a few months. Discussion of goals of care, patient does not want to pursue aggressive treatment for his gastric cancer, leaning towards hospice, likely will need placement. He prefers the [facility] SNF. 05/22: Patient is working with occupational therapy. Complaining of some pain in his legs. Right hand and forearm are still weak. Discussed his goals of care. For now he would like to focus on stroke rehab to try to regain function, though ultimately he would like a transition to hospice in the future. 05/23 Sitting up eating breakfast. No overnight event or new complaints. 05/24 No changes overnight. Patient seems to be feeling well. Denies cough or shortness of breath. 05/25 Patient states he had a good night sleep last night. No overnight or new complaints. 05/26 Patient sitting up in bed eating breakfast. Seems to be in good spirits today. No changes. 05/27 For sleep but otherwise no new complaints. No change in status. 05/28 Patient says his back pain is much better due to the heating pad. No overnight event or sooner complaints. Awaiting placement. 05/29: Patient is complaining of constipations. Otherwise pending placement. 05/30: Patient denies any pain or discomfort. Pending placement. 05/31: Patient denies any pain or discomfort. Care conference this afternoon. 06/01: Being switched to comfort care only after the care conference on 05/31. No other major overnight events. Pending placement. 06/02: Continue comfort care measures only. Pending placement. Constitutional Vitals: Vital Signs Temp Pulse Resp BP Pulse Ox O2 Del Method O2 Flow Rate 36.5 C 71 16 123/61 93 2 06/02/22 07:45 06/02/22 07:45 06/02/22 07:45 06/02/22 07:45 06/02/22 07:45 06/02/22 07:45 06/02/22 07:45 Period Temp Pulse Resp BP Sys/Coles Pulse Ox O2 Del Method O2 Flow Rate Last 24 Hr 36.5 C-36.6 C 71-78 16-16 123-140/61-68 92-93 Nasal Cannula- Nasal Cannula 2-2 Intake and Output 06/01/22 06/02/22 06/02/22 21:59 05:59 13:59 Intake Total 1380 240 Output Total 3 3 Balance 1377 237 Intake & Output: Intake & Output 06/01/22 06/02/22 06/02/22 21:59 05:59 13:59 Intake Total 1380 240 Output Total 3 3 Balance 1377 237 Intake: Oral 1380 240 Output: # of times incontinent of urine 3 3 Other: Meal Dinner Percent of Meal Consumed 100% Feeding Ability Assist with Tray Set Up Urine Appearance Clear # Voids 1 # Bowel Movements 0 General appearance: cooperative, no acute distress and thin Exam: cachectic Head Head exam: Present atraumatic and normal inspection Eye Eye exam: Present normal appearance ENT ENT exam: Present mucous membranes moist, normal exam and normal external ear exam Neck Neck exam: Present normal inspection Respiratory Respiratory exam: Present normal respiratory exam Cardiovascular Cardiovascular exam: Present normal rate and rhythm GI/Abdominal GI/Abdominal exam: Present normal bowel sounds Back Exam Back exam: Present normal inspection Neurological Exam Neurological exam: Present alert and oriented X3 Skin Skin exam: Present intact and warm OBJ DATA Labs CBC & Chem 7: 05/21/22 05:38 05/23/22 05:30 Meds: Medications Acetaminophen (Acetaminophen 325 Mg Tablet) 650 mg PO Q6HP PRN; Protocol PRN Reason: Per Pain Protocol/Fever > 101 Last Admin: 05/31/22 23:15 Dose: 650 mg Al Hydrox/Mg Hydrox/Simethicone (Mag Hydrox/Al Hydrox/Simeth 30 Ml Oral.Susp) 30 ml PO Q4-6HP PRN PRN Reason: Dyspepsia Last Admin: 05/20/22 10:53 Dose: 30 ml Amitriptyline HCl (Amitriptyline 25 Mg Tablet) 25 mg PO QDAY RICK Last Admin: 06/02/22 09:15 Dose: 25 mg Artificial Tears (Carboxymethylcellulose Sodium 1 Each Droper.Gel) 1 each OP Q6 H PRN PRN Reason: Dry Eye(s) Baclofen (Baclofen 10 Mg Tablet) 5 mg PO TIDP PRN PRN Reason: hiccups Last Admin: 05/28/22 23:26 Dose: 5 mg Belladonna Alkaloids/Opium (Opium/Belladonna Alkaloids 30 Mg Supp.Rect) 30 mg [place] Q4HP PRN PRN Reason: BLADDER SPASMS Docusate Sodium (Docusate Sodium 100 Mg Capsule) 100 mg PO BID [facility] Last Admin: 06/02/22 09:15 Dose: 100 mg Doxazosin Mesylate (Doxazosin 4 Mg Tablet) 4 mg PO QDAY [facility] Last Admin: 06/02/22 09:15 Dose: 4 mg Finasteride (Finasteride 5 Mg Tablet) 5 mg PO QDAY [facility] Last Admin: 06/02/22 09:15 Dose: 5 mg Lactulose (Lactulose 20 Gm/30 Ml Oral.Eve) 20 gm PO DAILYP PRN PRN Reason: Constipation Lorazepam (Lorazepam 2 Mg/Ml Vial) 0 mg IV Q1HP PRN; Protocol PRN Reason: ANXIETY/SEDATION Mineral Oil (Mineral Oil 1 Dose Enema) 1 dose [place] ONCE PRN PRN Reason: Constipation Morphine Sulfate (Morphine 4 Mg/Ml Vial) 2 - 6 mg IV Q1HP PRN; Protocol PRN Reason: Per Pain Protocol Ondansetron HCl (Ondansetron 4 Mg/2 Ml Vial) 4 mg IV Q6HP PRN PRN Reason: Nausea And Vomiting Oxycodone HCl (Oxycodone Hcl 5 Mg Tablet) 5 mg PO Q6HP PRN; Protocol PRN Reason: Pain Last Admin: 06/02/22 00:33 Dose: 5 mg Prednisone (Prednisone 20 Mg Tablet) 40 mg PO DAILY [facility] Last Admin: 06/02/22 09:15 Dose: 40 mg Senna (Sennosides 1 Tablet) 2 tab PO HS [facility] Last Admin: 06/01/22 21:58 Dose: Not Given Sodium Chloride (0.9 % Sodium Chloride 10 Ml Syringe) 10 ml IV Q8 [facility] Last Admin: 06/02/22 06:42 Dose: Not Given Trazodone HCl (Trazodone Hcl 50 Mg Tablet) 50 mg PO HSP PRN PRN Reason: Insomnia Last Admin: 06/02/22 00:33 Dose: 50 mg A/P Assessment and plan (1) Gastric adenocarcinoma: Status: Acute (2) Constipation: Status: Acute Narrative A/P Narrative: Assessment and Plans: Continue comfort care measures only. Pending placement. GI ppx: not indicated DVT ppx: not indicated Code status: DNR, comfort care only Prognosis: stable Disposition: inpatient med surg; pending placement Time Spent With Patient Time: Total time spent is greater than 50% in coordination of care (as documented) at patient's floor/unit and/or counseling patient: Total time spent with greater than 50% in coordination of care (as documented) at patient's floor/unit and/or counseling patient:: 15 - 24 minutes QUALITY Stroke Symptom Onset Unknown: No VTE Deep Vein Thrombosis/Pulmonary Embolism Present on Admission: No
--- NOTE | 2022-06-02 12:04 | Internal Med Progress Note ---
SUBJECTIVE Subjective Patient information: Note initiated : 06/02/22 at 11:58 am Service Date, if different from initiated Date: [] Patient: Nirmala Zhong a 81 y/o M admitted on 05/19/22 for GI Bleed, Rule out Stroke. Chief Complaint: [] Principal diagnosis: GI bleed due to gastric adenocarcinoma Interval history: Mr. Zhong is a 81 year old M with a complex past medical history significant for chronic atrial fibrillation on amiodarone, Eliquis, prior CVA, and hypertension who presented to our hospital with severe anemia from a subacute upper gastrointestinal hemorrhage. He was transferred to [facility] for higher level of care. He underwent EGD on 05/10 which showed a gastric ulcerating neoplasm that was injected and cauterized. CT demonstrated 4.7 cm mass near the stomach and a presumed necrotic lymph node within the retroperitoneum. Pathology confirmed gastric adenocarcinoma. Of note he was transfused total of 3 units of packed red blood cells. His Eliquis was held. His hospital course was complicated by acute hypoxemic respiratory failure in the CT of the chest revealed pulmonary fibrosis that was believed to be in the setting of amiodarone as he was on this medication for approximately 4 years. It was recommended he follow-up with divinity teacher at the [facility] for further ILD work-up. He was placed on prednisone and IV Lasix. He is now on prednisone 40 mg p.o. daily x1 month with PCP prophylaxis. He also completed a course of Unasyn for suspected aspiration pneumonia. His hospital course was further complicated by acute/subacute multifocal ischemic stroke thought to be in the s etting of an embolism from atrial fibrillation. He was found to have right- sided weakness, mild dysphagia, mild aphasia and right neglect as well as cognitive deficits. MRI demonstrated numerous foci of restricted diffusion scattered throughout both cerebral and cerebellar hemisphere largest within the left occipital lobe. The patient's TTE was performed and revealed preserved EF but severe pulmonary hypertension thought to be due to pulmonary fibrosis. He also has symptomatic internal carotid stenosis and there were discussions with vascular surgery and ongoing goals of care discussion. He has been discharged back to her facility [place] and he will need care home facility placement. He is to follow-up with his primary care at the [facility] he is can establish oncology follow-up. 05/20: The patient remains medically status quo. We will touch base with social work and case management tomorrow morning to see what options are for care home facility. 05/21: Patient's been troubled by hiccups which have been occurring intermittently for a few months. Discussion of goals of care, patient does not want to pursue aggressive treatment for his gastric cancer, leaning towards hospice, likely will need placement. He prefers the [facility] SNF. 05/22: Patient is working with occupational therapy. Complaining of some pain in his legs. Right hand and forearm are still weak. Discussed his goals of care. For now he would like to focus on stroke rehab to try to regain function, though ultimately he would like a transition to hospice in the future. 05/23 Sitting up eating breakfast. No overnight event or new complaints. 05/24 No changes overnight. Patient seems to be feeling well. Denies cough or shortness of breath. 05/25 Patient states he had a good night sleep last night. No overnight or new complaints. 05/26 Patient sitting up in bed eating breakfast. Seems to be in good spirits today. No changes. 05/27 For sleep but otherwise no new complaints. No change in status. 05/28 Patient says his back pain is much better due to the heating pad. No overnight event or sooner complaints. Awaiting placement. 05/29: Patient is complaining of constipations. Otherwise pending placement. 05/30: Patient denies any pain or discomfort. Pending placement. 05/31: Patient denies any pain or discomfort. Care conference this afternoon. 06/01: Being switched to comfort care only after the care conference on 05/31. No other major overnight events. Pending placement. 06/02: Continue comfort care measures only. Pending placement. 06/03: Patient feels comfortable, no changes to medical management. Pending placement. Head: Atraumatic, normal inspection. Eyes: normal appearance, no scleral icterus. Neck: full ROM Respiratory: no respiratory distress. Cardiovascular: normal rate and rhythm, S1, S2. GI/Abdominal: soft, nontender, no guarding. Extremities: full range of motion, nontender. Neurological: CN II-XII intact, intact motor, intact sensation. Psychiatric: normal mood. Skin: warm, normal color Constitutional Vitals: Vital Signs Temp Pulse Resp BP Pulse Ox O2 Del Method O2 Flow Rate 97.7 F 71 16 123/61 93 2 06/02/22 07:45 06/02/22 07:45 06/02/22 07:45 06/02/22 07:45 06/02/22 08:00 06/02/22 08:00 06/02/22 08:00 Period Temp Pulse Resp BP Sys/Coles Pulse Ox O2 Del Method O2 Flow Rate Last 24 Hr 97.7 F-97.8 F 71-78 16-16 123-140/61-68 92-93 Nasal Cannula- Nasal Cannula 2-2 Intake and Output 06/01/22 06/02/22 06/02/22 21:59 05:59 13:59 Intake Total 1380 240 Output Total 3 3 Balance 1377 237 Intake & Output: Intake & Output 06/01/22 06/02/22 06/02/22 21:59 05:59 13:59 Intake Total 1380 240 Output Total 3 3 Balance 1377 237 Intake: Oral 1380 240 Output: # of times incontinent of urine 3 3 Other: Meal Dinner Percent of Meal Consumed 100% Feeding Ability Assist with Tray Set Up Urine Appearance Clear # Voids 1 # Bowel Movements 0 OBJ DATA Labs CBC & Chem 7: 05/21/22 05:38 05/23/22 05:30 Meds: Medications Acetaminophen (Acetaminophen 325 Mg Tablet) 650 mg PO Q6HP PRN; Protocol PRN Reason: Per Pain Protocol/Fever > 101 Last Admin: 05/31/22 23:15 Dose: 650 mg Al Hydrox/Mg Hydrox/Simethicone (Mag Hydrox/Al Hydrox/Simeth 30 Ml Oral.Susp) 30 ml PO Q4-6HP PRN PRN Reason: Dyspepsia Last Admin: 05/20/22 10:53 Dose: 30 ml Amitriptyline HCl (Amitriptyline 25 Mg Tablet) 25 mg PO QDAY RICK Last Admin: 06/02/22 09:15 Dose: 25 mg Artificial Tears (Carboxymethylcellulose Sodium 1 Each Droper.Gel) 1 each OP Q6H PRN PRN Reason: Dry Eye(s) Baclofen (Baclofen 10 Mg Tablet) 5 mg PO TIDP PRN PRN Reason: hiccups Last Admin: 05/28/22 23:26 Dose: 5 mg Belladonna Alkaloids/Opium (Opium/Belladonna Alkaloids 30 Mg Supp.Rect) 30 mg [place] Q4HP PRN PRN Reason: BLADDER SPASMS Docusate Sodium (Docusate Sodium 100 Mg Capsule) 100 mg PO BID [facility] Last Admin: 06/02/22 09:15 Dose: 100 mg Doxazosin Mesylate (Doxazosin 4 Mg Tablet) 4 mg PO QDAY [facility] Last Admin: 06/02/22 09:15 Dose: 4 mg Finasteride (Finasteride 5 Mg Tablet) 5 mg PO QDAY [facility] Last Admin: 06/02/22 09:15 Dose: 5 mg Lactulose (Lactulose 20 Gm/30 Ml Oral.Eve) 20 gm PO DAILYP PRN PRN Reason: Constipation Lorazepam (Lorazepam 2 Mg/Ml Vial) 0 mg IV Q1HP PRN; Protocol PRN Reason: ANXIETY/SEDATION Mineral Oil (Mineral Oil 1 Dose Enema) 1 dose [place] ONCE PRN PRN Reason: Constipation Morphine Sulfate (Morphine 4 Mg/Ml Vial) 2 - 6 mg IV Q1HP PRN; Protocol PRN Reason: Per Pain Protocol Ondansetron HCl (Ondansetron 4 Mg/2 Ml Vial) 4 mg IV Q6HP PRN PRN Reason: Nausea And Vomiting Oxycodone HCl (Oxycodone Hcl 5 Mg Tablet) 5 mg PO Q6HP PRN; Protocol PRN Reason: Pain Last Admin: 06/02/22 00:33 Dose: 5 mg Prednisone (Prednisone 20 Mg Tablet) 40 mg PO DAILY [facility] Last Admin: 06/02/22 09:15 Dose: 40 mg Senna (Sennosides 1 Tablet) 2 tab PO HS [facility] Last Admin: 06/01/22 21:58 Dose: Not Given Sodium Chloride (0.9 % Sodium Chloride 10 Ml Syringe) 10 ml IV Q8 [facility] Last Admin: 06/02/22 06:42 Dose: Not Given Trazodone HCl (Trazodone Hcl 50 Mg Tablet) 50 mg PO HSP PRN PRN Reason: Insomnia Last Admin: 06/02/22 00:33 Dose: 50 mg A/P Narrative A/P Narrative: Assessment: 81-year-old male with a history of chronic atrial fibrillation, prior CVA, hypertension admitted for a subacute upper gastrointestinal hemorrhage. Work-up at an outside hospital in [facility] included an EGD w [facility] revealed a ulcerated gastric neoplasm.CT demonstrated a 4.7 cm mass near the stomach and presumed necrotic retroperitoneal lymph nodes. Pathology confirmedc gastric adenocarcinoma. The patient was discharged back to [facility] in [place] for placement. The patient is currently on comfort cares awaiting placement for hospice. Plan Comfort cares. Awaiting placement. Time Spent With Patient Time: Total time spent is greater than 50% in coordination of care (as documented) at patient's floor/unit and/or counseling patient: QUALITY Stroke Symptom Onset Unknown: No VTE Deep Vein Thrombosis/Pulmonary Embolism Present on Admission: No
[2022-06-02] MEDS: SENNOSIDES 1 TABLET PO SCH (21:35)
[2022-06-03] MEDS: 0.9 % SODIUM CHLORIDE 10 ML SYRINGE IV SCH ×3 (05:56→22:17)
[2022-06-03] MEDS: DOCUSATE SODIUM 100 MG CAPSULE PO SCH ×2 (08:49→21:56)
[2022-06-03] MEDS: FINASTERIDE 5 MG TABLET PO SCH (08:49)
[2022-06-03] MEDS: DOXAZOSIN 4 MG TABLET PO SCH (08:49)
[2022-06-03] MEDS: predniSONE 20 MG TABLET PO SCH (08:49)
[2022-06-03] MEDS: AMITRIPTYLINE 25 MG TABLET PO SCH (08:49)
[2022-06-03] MEDS: oxyCODONE HCL 5 MG TABLET PO PRN (18:50)
[2022-06-03] MEDS: SENNOSIDES 1 TABLET PO SCH (21:56)
[2022-06-04] MEDS: oxyCODONE HCL 5 MG TABLET PO PRN ×2 (05:38→19:11)
[2022-06-04] MEDS: 0.9 % SODIUM CHLORIDE 10 ML SYRINGE IV SCH ×3 (05:39→22:25)
[2022-06-04] MEDS: DOCUSATE SODIUM 100 MG CAPSULE PO SCH ×2 (08:55→22:18)
[2022-06-04] MEDS: predniSONE 20 MG TABLET PO SCH (08:55)
[2022-06-04] MEDS: DOXAZOSIN 4 MG TABLET PO SCH (08:55)
[2022-06-04] MEDS: FINASTERIDE 5 MG TABLET PO SCH (08:55)
[2022-06-04] MEDS: AMITRIPTYLINE 25 MG TABLET PO SCH (08:55)
--- NOTE | 2022-06-04 11:31 | Internal Med Progress Note ---
SUBJECTIVE Subjective Patient information: Note initiated : 06/04/22 at 11:31 am Service Date, if different from initiated Date: [] Patient: Nirmala Zhong a 81 y/o M admitted on 05/19/22 for GI Bleed, Rule out Stroke. Chief Complaint: [] Principal diagnosis: GI bleed due to gastric adenocarcinoma Interval history: Mr. Zhong is a 81 year old M with a complex past medical history significant for chronic atrial fibrillation on amiodarone, Eliquis, prior CVA, and hypertension who presented to our hospital with severe anemia from a subacute upper gastrointestinal hemorrhage. He was transferred to [facility] for higher level of care. He underwent EGD on 05/10 which showed a gastric ulcerating neoplasm that was injected and cauterized. CT demonstrated 4.7 cm mass near the stomach and a presumed necrotic lymph node within the retroperitoneum. Pathology confirmed gastric adenocarcinoma. Of note he was transfused total of 3 units of packed red blood cells. His Eliquis was held. His hospital course was complicated by acute hypoxemic respiratory failure in the CT of the chest revealed pulmonary fibrosis that was believed to be in the setting of amiodarone as he was on this medication for approximately 4 years. It was recommended he follow-up with motel food service supervisor at the [facility] for further ILD work-up. He was placed on prednisone and IV Lasix. He is now on prednisone 40 mg p.o. daily x1 month with PCP prophylaxis. He also completed a course of Unasyn for suspected aspiration pneumonia. His hospital course was further complicated by acute/subacute multifocal ischemic stroke thought to be in the s etting of an embolism from atrial fibrillation. He was found to have right- sided weakness, mild dysphagia, mild aphasia and right neglect as well as cognitive deficits. MRI demonstrated numerous foci of restricted diffusion scattered throughout both cerebral and cerebellar hemisphere largest within the left occipital lobe. The patient's TTE was performed and revealed preserved EF but severe pulmonary hypertension thought to be due to pulmonary fibrosis. He also has symptomatic internal carotid stenosis and there were discussions with vascular surgery and ongoing goals of care discussion. He has been discharged back to her facility [place] and he will need care home facility placement. He is to follow-up with his primary care at the [facility] he is can establish oncology follow-up. 05/20: The patient remains medically status quo. We will touch base with social work and case management tomorrow morning to see what options are for care home facility. 05/21: Patient's been troubled by hiccups which have been occurring intermittently for a few months. Discussion of goals of care, patient does not want to pursue aggressive treatment for his gastric cancer, leaning towards hospice, likely will need placement. He prefers the [facility] SNF. 05/22: Patient is working with occupational therapy. Complaining of some pain in his legs. Right hand and forearm are still weak. Discussed his goals of care. For now he would like to focus on stroke rehab to try to regain function, though ultimately he would like a transition to hospice in the future. 05/23 Sitting up eating breakfast. No overnight event or new complaints. 05/24 No changes overnight. Patient seems to be feeling well. Denies cough or shortness of breath. 05/25 Patient states he had a good night sleep last night. No overnight or new complaints. 05/26 Patient sitting up in bed eating breakfast. Seems to be in good spirits today. No changes. 05/27 For sleep but otherwise no new complaints. No change in status. 05/28 Patient says his back pain is much better due to the heating pad. No overnight event or sooner complaints. Awaiting placement. 05/29: Patient is complaining of constipations. Otherwise pending placement. 05/30: Patient denies any pain or discomfort. Pending placement. 05/31: Patient denies any pain or discomfort. Care conference this afternoon. 06/01: Being switched to comfort care only after the care conference on 05/31. No other major overnight events. Pending placement. 06/02: Continue comfort care measures only. Pending placement. 06/03: Patient feels comfortable, no changes to medical management. Pending placement. 06/04: Intermittent abdominal pain, felt feverish overnight but no documented fever. No changes, awaiting bed at [facility] facility for hospice. Head: Atraumatic, normal inspection. Eyes: normal appearance, no scleral icterus. Neck: full ROM Respiratory: no respiratory distress. Cardiovascular: normal rate and rhythm, S1, S2. GI/Abdominal: soft, nontender, no guarding. Extremities: full range of motion, nontender. Neurological: CN II-XII intact, intact motor, intact sensation. Psychiatric: normal mood. Skin: warm, normal color Constitutional Vitals: Vital Signs Temp Pulse Resp BP Pulse Ox O2 Del Method O2 Flow Rate 97.6 F 64 20 153/74 94 2 06/04/22 06:53 06/04/22 06:53 06/04/22 06:53 06/04/22 06:53 06/04/22 08:00 06/04/22 08:00 06/04/22 08:00 Period Temp Pulse Resp BP Sys/Coles Pulse Ox O2 Del Method O2 Flow Rate Last 24 Hr 97.6 F-98.2 F 64-86 16-20 118-153/61-74 90-94 Nasal Cannula- Nasal Cannula, Bubble Humidifier 2-2 Intake and Output 06/03/22 06/04/22 06/04/22 21:59 05:59 13:59 Intake Total 1080 Output Total 600 475 Balance 480 -475 Weight 81.732 kg Intake & Output: Intake & Output 06/03/22 06/04/22 06/04/22 21:59 05:59 13:59 Intake Total 1080 Output Total 600 475 Balance 480 -475 Weight 81.732 kg Intake: Oral 1080 Output: Urine Catheter Amount 600 475 Other: Meal Dinner Percent of Meal Consumed 75% Feeding Ability Assist with Tray Set Up Urine Appearance Clear Clear Uretheral (Araujo) Clear Clear Urine Color Pale Dark Margarita Uretheral (Araujo) Pale Dark Yellow Urine Odor Normal Strong Uretheral (Araujo) Normal Normal OBJ DATA Labs CBC & Chem 7: 05/21/22 05:38 05/23/22 05:30 Meds: Medications Acetaminophen (Acetaminophen 325 Mg Tablet) 650 mg PO Q6HP PRN; Protocol PRN Reason: Per Pain Protocol/Fever > 101 Last Admin: 05/31/22 23:15 Dose: 650 mg Al Hydrox/Mg Hydrox/Simethicone (Mag Hydrox/Al Hydrox/Simeth 30 Ml Oral.Susp) 30 ml PO Q4-6HP PRN PRN Reason: Dyspepsia Last Admin: 05/20/22 10:53 Dose: 30 ml Amitriptyline HCl (Amitriptyline 25 Mg Tablet) 25 mg PO QDAY RICK Last Admin: 06/04/22 08:55 Dose: 25 mg Artificial Tears (Carboxymethylcellulose Sodium 1 Each Droper.Gel) 1 each OP Q6H PRN PRN Reason: Dry Eye(s) Baclofen (Baclofen 10 Mg Tablet) 5 mg PO TIDP PRN PRN Reason: hiccups Last Admin: 05/28/22 23:26 Dose: 5 mg Belladonna Alkaloids/Opium (Opium/Belladonna Alkaloids 30 Mg Supp.Rect) 30 mg [place] Q4HP PRN PRN Reason: BLADDER SPASMS Docusate Sodium (Docusate Sodium 100 Mg Capsule) [address] [facility] Last Admin: 06/04/22 08:55 Dose: 100 mg Doxazosin Mesylate (Doxazosin 4 Mg Tablet) [address] [facility] Last Admin: 06/04/22 08:55 Dose: 4 mg Finasteride (Finasteride 5 Mg Tablet) [address] [facility] Last Admin: 06/04/22 08:55 Dose: 5 mg Lactulose (Lactulose 20 Gm/30 Ml Oral.Eve) 20 gm PO DAILYP PRN PRN Reason: Constipation Lorazepam (Lorazepam 2 Mg/Ml Vial) 0 mg IV Q1HP PRN; Protocol PRN Reason: ANXIETY/SEDATION Mineral Oil (Mineral Oil 1 Dose Enema) 1 dose [place] ONCE PRN PRN Reason: Constipation Morphine Sulfate (Morphine 4 Mg/Ml Vial) 2 - 6 mg IV Q1HP PRN; Protocol PRN Reason: Per Pain Protocol Ondansetron HCl (Ondansetron 4 Mg/2 Ml Vial) 4 mg IV Q6HP PRN PRN Reason: Nausea And Vomiting Oxycodone HCl (Oxycodone Hcl 5 Mg Tablet) 5 mg PO Q6HP PRN; Protocol PRN Reason: Pain Last Admin: 06/04/22 05:38 Dose: 5 mg Prednisone (Prednisone 20 Mg Tablet) [address] [facility] Last Admin: 06/04/22 08:55 Dose: 40 mg Senna (Sennosides 1 Tablet) [address] [facility] Last Admin: 06/03/22 21:56 Dose: 2 tab Sodium Chloride (0.9 % Sodium Chloride 10 Ml Syringe) [address] [facility] Last Admin: 06/04/22 05:39 Dose: 10 ml Trazodone HCl (Trazodone Hcl 50 Mg Tablet) 50 mg PO HSP PRN PRN Reason: Insomnia Last Admin: 06/02/22 21:35 Dose: 50 mg A/P Narrative A/P Narrative: Assessment: 81-year-old male with a history of chronic atrial fibrillation, prior CVA, hypertension admitted for a subacute upper gastrointestinal hemorrhage. Work-up at an outside hospital in [facility] included an EGD which revealed a ulcerated gastric neoplasm.CT demonstrated a 4.7 cm mass near the stomach and presumed necrotic retroperitoneal lymph nodes. Pathology confirmedc gastric adenocarcinoma. The patient was discharged back to [facility] in [place] for placement. The patient is currently on comfort cares awaiting placement for hospice. Plan Comfort cares. Awaiting placement. Time Spent With Patient Time: Total time spent is greater than 50% in coordination of care (as documented) at patient's floor/unit and/or counseling patient: QUALITY Stroke Symptom Onset Unknown: No VTE Deep Vein Thrombosis/Pulmonary Embolism Present on Admission: No
[2022-06-04] MEDS: traZODone HCL 50 MG TABLET PO PRN (22:18)
[2022-06-04] MEDS: SENNOSIDES 1 TABLET PO SCH (22:18)
[2022-06-05] MEDS: 0.9 % SODIUM CHLORIDE 10 ML SYRINGE IV SCH ×2 (05:33→15:38)
[2022-06-05] MEDS: AMITRIPTYLINE 25 MG TABLET PO SCH (08:23)
[2022-06-05] MEDS: predniSONE 20 MG TABLET PO SCH (08:23)
[2022-06-05] MEDS: DOXAZOSIN 4 MG TABLET PO SCH (08:23)
[2022-06-05] MEDS: FINASTERIDE 5 MG TABLET PO SCH (08:23)
[2022-06-05] MEDS: DOCUSATE SODIUM 100 MG CAPSULE PO SCH ×2 (08:23→21:10)
--- NOTE | 2022-06-05 10:38 | Internal Med Progress Note ---
SUBJECTIVE Subjective Patient information: Note initiated : 06/05/22 at 10:37 am Service Date, if different from initiated Date: [] Patient: Nirmala Zhong a 81 y/o M admitted on 05/19/22 for GI Bleed, Rule out Stroke. Chief Complaint: [] Principal diagnosis: GI bleed due to gastric adenocarcinoma Interval history: Mr. Zhong is a 81 year old M with a complex past medical history significant for chronic atrial fibrillation on amiodarone, Eliquis, prior CVA, and hypertension who presented to our hospital with severe anemia from a subacute upper gastrointestinal hemorrhage. He was transferred to [facility] for higher level of care. He underwent EGD on 05/10 which showed a gastric ulcerating neoplasm that was injected and cauterized. CT demonstrated 4.7 cm mass near the stomach and a presumed necrotic lymph node within the retroperitoneum. Pathology confirmed gastric adenocarcinoma. Of note he was transfused total of 3 units of packed red blood cells. His Eliquis was held. His hospital course was complicated by acute hypoxemic respiratory failure in the CT of the chest revealed pulmonary fibrosis that was believed to be in the setting of amiodarone as he was on this medication for approximately 4 years. It was recommended he follow-up with embedded software development engineer at the [facility] for further ILD work-up. He was placed on prednisone and IV Lasix. He is now on prednisone 40 mg p.o. daily x1 month with PCP prophylaxis. He also completed a course of Unasyn for suspected aspiration pneumonia. His hospital course was further complicated by acute/subacute multifocal ischemic stroke thought to be in the s etting of an embolism from atrial fibrillation. He was found to have right- sided weakness, mild dysphagia, mild aphasia and right neglect as well as cognitive deficits. MRI demonstrated numerous foci of restricted diffusion scattered throughout both cerebral and cerebellar hemisphere largest within the left occipital lobe. The patient's TTE was performed and revealed preserved EF but severe pulmonary hypertension thought to be due to pulmonary fibrosis. He also has symptomatic internal carotid stenosis and there were discussions with vascular surgery and ongoing goals of care discussion. He has been discharged back to her facility [place] and he will need snf facility placement. He is to follow-up with his primary care at the [facility] he is can establish oncology follow-up. 05/20: The patient remains medically status quo. We will touch base with social work and case management tomorrow morning to see what options are for snf facility. 05/21: Patient's been troubled by hiccups which have been occurring intermittently for a few months. Discussion of goals of care, patient does not want to pursue aggressive treatment for his gastric cancer, leaning towards hospice, likely will need placement. He prefers the [facility] SNF. 05/22: Patient is working with occupational therapy. Complaining of some pain in his legs. Right hand and forearm are still weak. Discussed his goals of care. For now he would like to focus on stroke rehab to try to regain function, though ultimately he would like a transition to hospice in the future. 05/23 Sitting up eating breakfast. No overnight event or new complaints. 05/24 No changes overnight. Patient seems to be feeling well. Denies cough or shortness of breath. 05/25 Patient states he had a good night sleep last night. No overnight or new complaints. 05/26 Patient sitting up in bed eating breakfast. Seems to be in good spirits today. No changes. 05/27 For sleep but otherwise no new complaints. No change in status. 05/28 Patient says his back pain is much better due to the heating pad. No overnight event or sooner complaints. Awaiting placement. 05/29: Patient is complaining of constipations. Otherwise pending placement. 05/30: Patient denies any pain or discomfort. Pending placement. 05/31: Patient denies any pain or discomfort. Care conference this afternoon. 06/01: Being switched to comfort care only after the care conference on 05/31. No other major overnight events. Pending placement. 06/02: Continue comfort care measures only. Pending placement. 06/03: Patient feels comfortable, no changes to medical management. Pending placement. 06/04: Intermittent abdominal pain, felt feverish overnight but no documented fever. No changes, awaiting bed at [facility] contracted facility for hospice. 06/05: No changes to management, awaiting placement for hospice cares. Head: Atraumatic, normal inspection. Eyes: normal appearance, no scleral icterus. Neck: full ROM Respiratory: no respiratory distress. Cardiovascular: normal rate and rhythm, S1, S2. GI/Abdominal: soft, nontender, no guarding. Extremities: full range of motion, nontender. Neurological: CN II-XII intact, intact motor, intact sensation. Psychiatric: normal mood. Skin: warm, normal color Constitutional Vitals: Vital Signs Temp Pulse Resp BP Pulse Ox O2 Del Method O2 Flow Rate 97.7 F 70 20 149/77 92 2 06/05/22 08:00 06/05/22 08:00 06/05/22 08:00 06/05/22 08:00 06/05/22 08:00 06/05/22 08:00 06/05/22 08:00 Period Temp Pulse Resp BP Sys/Coles Pulse Ox O2 Del Method O2 Flow Rate Last 24 Hr 97.7 F-98.6 F 70-85 20-20 143-149/72-77 92-94 Nasal Cannula-Nasal Cannula 2-2 Intake and Output 06/04/22 06/05/22 06/05/22 21:59 05:59 13:59 Intake Total 237 320 Output Total 600 450 Balance -363 -130 Intake & Output: Intake & Output 06/04/22 06/05/22 06/05/22 21:59 05:59 13:59 Intake Total 237 320 Output Total 600 450 Balance -363 -130 Intake: Oral 237 320 Output: Urine Catheter Amount 600 450 Other: Meal Dinner Percent of Meal Consumed 50% Feeding Ability Assist with Tray Set Up Urine Appearance Clear Clear Uretheral (Araujo) Clear Urine Color Light Margarita Yellow Uretheral (Araujo) Bright Yellow OBJ DATA Labs CBC & Chem 7: 05/21/22 05:38 05/23/22 05:30 Meds: Medications Acetaminophen (Acetaminophen 325 Mg Tablet) 650 mg PO Q6HP PRN; Protocol PRN Reason: Per Pain Protocol/Fever > 101 Last Admin: 05/31/22 23:15 Dose: 650 mg Al Hydrox/Mg Hydrox/Simethicone (Mag Hydrox/Al Hydrox/Simeth 30 Ml Oral.Susp) 30 ml PO Q4-6HP PRN PRN Reason: Dyspepsia Last Admin: 05/20/22 10:53 Dose: 30 ml Amitriptyline HCl (Amitriptyline 25 Mg Tablet) 25 mg PO QDAY [facility]IK[facility] Last Admin: 06/05/22 08:23 Dose: 25 mg Artificial Tears (Carboxymethylcellulose Sodium 1 Each Droper.Gel) 1 each OP Q6H PRN PRN Reason: Dry Eye(s) Baclofen (Baclofen 10 Mg Tablet) 5 mg PO TIDP PRN PRN Reason: hiccups Last Admin: 05/28/22 23:26 Dose: 5 mg Belladonna Alkaloids/Opium (Opium/Belladonna Alkaloids 30 Mg Supp.Rect) 30 mg [place] Q4HP PRN PRN Reason: BLADDER SPASMS Docusate Sodium (Docusate Sodium 100 Mg Capsule) 100 mg PO BID [facility] Last Admin: 06/05/22 08:23 Dose: 100 mg Doxazosin Mesylate (Doxazosin 4 Mg Tablet) 4 mg PO QDAY [facility] Last Admin: 06/05/22 08:23 Dose: 4 mg Finasteride (Finasteride 5 Mg Tablet) 5 mg PO QDAY [facility] Last Admin: 06/05/22 08:23 Dose: 5 mg Lactulose (Lactulose 20 Gm/30 Ml Oral.Eve) 20 gm PO DAILYP PRN PRN Reason: Constipation Lorazepam (Lorazepam 2 Mg/Ml Vial) 0 mg IV Q1HP PRN; Protocol PRN Reason: ANXIETY/SEDATION Mineral Oil (Mineral Oil 1 Dose Enema) 1 dose [place] ONCE PRN PRN Reason: Constipation Morphine Sulfate (Morphine 4 Mg/Ml Vial) 2 - 6 mg IV Q1HP PRN; Protocol PRN Reason: Per Pain Protocol Ondansetron HCl (Ondansetron 4 Mg/2 Ml Vial) 4 mg IV Q6HP PRN PRN Reason: Nausea And Vomiting Oxycodone HCl (Oxycodone Hcl 5 Mg Tablet) 5 mg PO Q6HP PRN; Protocol PRN Reason: Pain Last Admin: 06/04/22 19:11 Dose: 5 mg Prednisone (Prednisone 20 Mg Tablet) 40 mg PO DAILY [facility] Last Admin: 06/05/22 08:23 Dose: 40 mg Senna (Sennosides 1 Tablet) 2 tab PO HS [facility] Last Admin: 06/04/22 22:18 Dose: 2 tab Sodium Chloride (0.9 % Sodium Chloride 10 Ml Syringe) 10 ml IV Q8 [facility] Last Admin: 06/05/22 05:33 Dose: Not Given Trazodone HCl (Trazodone Hcl 50 Mg Tablet) 50 mg PO HSP PRN PRN Reason: Insomnia Last Admin: 06/04/22 22:18 Dose: 50 mg A/P Narrative A/P Narrative: Assessment: 81-year-old male with a history of chronic atrial fibrillation, prior CVA, hypertension admitted for a subacute upper gastrointestinal hemorrhage. Work-up at an outside hospital in [facility] included an EGD which revealed a ulcerated gastric neoplasm.CT demonstrated a 4.7 cm mass near the stomach and presumed necrotic retroperitoneal lymph nodes. Pathology confirmedc gastric adenocarcinoma. The patient was discharged back to [facility] in [place] for placement. The patient is currently on comfort cares awaiting placement for hospice. Plan -Comfort cares. -Awaiting placement for hospice. Time Spent With Patient Time: Total time spent is greater than 50% in coordination of care (as documented) at patient's floor/unit and/or counseling patient: QUALITY Stroke Symptom Onset Unknown: No VTE Deep Vein Thrombosis/Pulmonary Embolism Present on Admission: No
[2022-06-05] MEDS: SENNOSIDES 1 TABLET PO SCH (21:09)
[2022-06-05] MEDS: traZODone HCL 50 MG TABLET PO PRN (21:10)
[2022-06-05] MEDS: oxyCODONE HCL 5 MG TABLET PO PRN (21:10)
[2022-06-06] MEDS: oxyCODONE HCL 5 MG TABLET PO PRN ×3 (07:01→21:25)
[2022-06-06] MEDS: DOCUSATE SODIUM 100 MG CAPSULE PO SCH ×2 (08:29→21:24)
[2022-06-06] MEDS: FINASTERIDE 5 MG TABLET PO SCH (08:30)
[2022-06-06] MEDS: DOXAZOSIN 4 MG TABLET PO SCH (08:30)
[2022-06-06] MEDS: predniSONE 20 MG TABLET PO SCH (08:30)
[2022-06-06] MEDS: AMITRIPTYLINE 25 MG TABLET PO SCH (08:30)
--- NOTE | 2022-06-06 10:41 | Internal Med Progress Note ---
SUBJECTIVE Subjective Patient information: Note initiated : 06/06/22 at 10:40 am Service Date, if different from initiated Date: [] Patient: Nirmala Zhong a 81 y/o M admitted on 05/19/22 for GI Bleed, Rule out Stroke. Chief Complaint: [] Principal diagnosis: GI bleed due to gastric adenocarcinoma Interval history: Mr. Zhong is a 81 year old M with a complex past medical history significant for chronic atrial fibrillation on amiodarone, Eliquis, prior CVA, and hypertension who presented to our hospital with severe anemia from a subacute upper gastrointestinal hemorrhage. He was transferred to [facility] for higher level of care. He underwent EGD on 05/10 which showed a gastric ulcerating neoplasm that was injected and cauterized. CT demonstrated 4.7 cm mass near the stomach and a presumed necrotic lymph node within the retroperitoneum. Pathology confirmed gastric adenocarcinoma. Of note he was transfused total of 3 units of packed red blood cells. His Eliquis was held. His hospital course was complicated by acute hypoxemic respiratory failure in the CT of the chest revealed pulmonary fibrosis that was believed to be in the setting of amiodarone as he was on this medication for approximately 4 years. It was recommended he follow-up with damascener at the [place] for further ILD work-up. He was placed on prednisone and IV Lasix. He is now on prednisone 40 mg p.o. daily x1 month with PCP prophylaxis. He also completed a course of Unasyn for suspected aspiration pneumonia. His hospital course was further complicated by acute/subacute multifocal ischemic stroke thought to be in the s etting of an embolism from atrial fibrillation. He was found to have right- sided weakness, mild dysphagia, mild aphasia and right neglect as well as cognitive deficits. MRI demonstrated numerous foci of restricted diffusion scattered throughout both cerebral and cerebellar hemisphere largest within the left occipital lobe. The patient's TTE was performed and revealed preserved EF but severe pulmonary hypertension thought to be due to pulmonary fibrosis. He also has symptomatic internal carotid stenosis and there were discussions with vascular surgery and ongoing goals of care discussion. He has been discharged back to her facility [place] and he will need assisted facility placement. He is to follow-up with his primary care at the [place] he is can establish oncology follow-up. 05/20: The patient remains medically status quo. We will touch base with social work and case management tomorrow morning to see what options are for assisted facility. 05/21: Patient's been troubled by hiccups which have been occurring intermittently for a few months. Discussion of goals of care, patient does not want to pursue aggressive treatment for his gastric cancer, leaning towards hospice, likely will need placement. He prefers the [place] SN[facility]. 05/22: Patient is working with occupational therapy. Complaining of some pain in his legs. Right hand and forearm are still weak. Discussed his goals of care. For now he would like to focus on stroke rehab to try to regain function, though ultimately he would like a transition to hospice in the future. 05/23 Sitting up eating breakfast. No overnight event or new complaints. 05/24 No changes overnight. Patient seems to be feeling well. Denies cough or shortness of breath. 05/25 Patient states he had a good night sleep last night. No overnight or new complaints. 05/26 Patient sitting up in bed eating breakfast. Seems to be in good spirits today. No changes. 05/27 For sleep but otherwise no new complaints. No change in status. 05/28 Patient says his back pain is much better due to the heating pad. No overnight event or sooner complaints. Awaiting placement. 05/29: Patient is complaining of constipations. Otherwise pending placement. 05/30: Patient denies any pain or discomfort. Pending placement. 05/31: Patient denies any pain or discomfort. Care conference this afternoon. 06/01: Being switched to comfort care only after the care conference on 05/31. No other major overnight events. Pending placement. 06/02: Continue comfort care measures only. Pending placement. 06/03: Patient feels comfortable, no changes to medical management. Pending placement. 06/04: Intermittent abdominal pain, felt feverish overnight but no documented fever. No changes, awaiting bed at [place] contracted facility for hospice. 06/05: No changes to management, awaiting placement for hospice cares. 06/06: Awaiting placement for hospice. Head: Atraumatic, normal inspection. Eyes: normal appearance, no scleral icterus. Neck: full ROM Respiratory: no respiratory distress. Cardiovascular: normal rate and rhythm, S1, S2. GI/Abdominal: soft, nontender, no guarding. Extremities: full range of motion, nontender. Neurological: CN II-XII intact, intact motor, intact sensation. Psychiatric: normal mood. Skin: warm, normal color Constitutional Vitals: Vital Signs Temp Pulse Resp BP Pulse Ox O2 Del Method O2 Flow Rate 97.8 F 63 26 H 130/67 91 2 06/06/22 07:05 06/06/22 07:05 06/06/22 07:05 06/06/22 07:05 06/06/22 07:05 06/06/22 07:05 06/06/22 07:05 Period Temp Pulse Resp BP Sys/Coles Pulse Ox O2 Del Method O2 Flow Rate Last 24 Hr 97.8 F-97.8 F 63-86 18-26 130-136/67-68 91-91 High Flow Nasal Cannula-Nasal Cannula 2-2 Intake and Output 06/05/22 06/06/22 06/06/22 21:59 05:59 13:59 Intake Total 300 200 Output Total 600 375 Balance -300 -175 Intake & Output: Intake & Output 06/05/22 06/06/22 06/06/22 21:59 05:59 13:59 Intake Total 300 200 Output Total 600 375 Balance -300 -175 Intake: Oral 300 200 Output: Urine Catheter Amount 600 375 Other: Meal Lunch Percent of Meal Consumed 75% Urine Appearance Clear Uretheral (Araujo) Clear Clear Urine Color Yellow Yellow Uretheral (Araujo) Bright Yellow Yellow Pale Stool Size Large Stool Color Brown Stool Consistency Formed OBJ DATA Labs CBC & Chem 7: 05/21/22 05:38 05/23/22 05:30 Meds: Medications Acetaminophen (Acetaminophen 325 Mg Tablet) 650 mg PO Q6HP PRN; Protocol PRN Reason: Per Pain Protocol/Fever > 101 Last Admin: 05/31/22 23:15 Dose: 650 mg Al Hydrox/Mg Hydrox/Simethicone (Mag Hydrox/Al Hydrox/Simeth 30 Ml Oral.Susp) 30 ml PO Q4-6HP PRN PRN Reason: Dyspepsia Last Admin: 05/20/22 10:53 Dose: 30 ml Amitriptyline HCl (Amitriptyline 25 Mg Tablet) 25 mg PO QDAY RICK Last Admin: 06/06/22 08:30 Dose: 25 mg Artificial Tears (Carboxymethylcellulose Sodium 1 Each Droper.Gel) 1 each OP Q6H PRN PRN Reason: Dry Eye(s) Baclofen (Baclofen 10 Mg Tablet) 5 mg PO TIDP PRN PRN Reason: hiccups Last Admin: 05/28/22 23:26 Dose: 5 mg Belladonna Alkaloids/Opium (Opium/Belladonna Alkaloids 30 Mg Supp.Rect) 30 mg OR Q4HP PRN PRN Reason: BLADDER SPASMS Docusate Sodium (Docusate Sodium 100 Mg Capsule) 100 mg PO BID [facility] Last Admin: 06/06/22 08:29 Dose: 100 mg Doxazosin Mesylate (Doxazosin 4 Mg Tablet) 4 mg PO QDAY [facility] Last Admin: 06/06/22 08:30 Dose: 4 mg Finasteride (Finasteride 5 Mg Tablet) 5 mg PO QDAY [facility] Last Admin: 06/06/22 08:30 Dose: 5 mg Lactulose (Lactulose 20 Gm/30 Ml Oral.Eve) 20 gm PO DAILYP PRN PRN Reason: Constipation Lorazepam (Lorazepam 2 Mg/Ml Vial) 0 mg IV Q1HP PRN; Protocol PRN Reason: ANXIETY/SEDATION Mineral Oil (Mineral Oil 1 Dose Enema) 1 dose OR ONCE PRN PRN Reason: Constipation Morphine Sulfate (Morphine 4 Mg/Ml Vial) 2 - 6 mg IV Q1HP PRN; Protocol PRN Reason: Per Pain Protocol Ondansetron HCl (Ondansetron 4 Mg/2 Ml Vial) 4 mg IV Q6HP PRN PRN Reason: Nausea And Vomiting Oxycodone HCl (Oxycodone Hcl 5 Mg Tablet) 5 mg PO Q6HP PRN; Protocol PRN Reason: Pain Last Admin: 06/06/22 07:01 Dose: 5 mg Prednisone (Prednisone 20 Mg Tablet) 40 mg PO DAILY [facility] Last Admin: 06/06/22 08:30 Dose: 40 mg Senna (Sennosides 1 Tablet) 2 tab PO HS [facility] Last Admin: 06/05/22 21:09 Dose: 2 tab Trazodone HCl (Trazodone Hcl 50 Mg Tablet) 50 mg PO HSP PRN PRN Reason: Insomnia Last Admin: 06/05/22 21:10 Dose: 50 mg A/P Narrative A/P Narrative: Assessment: 81-year-old male with a history of chronic atrial fibrillation, prio r CVA, hypertension admitted for a subacute upper gastrointestinal hemorrhage. Work-up at an outside hospital in [facility] included an EGD which revealed a ulcerated gastric neoplasm.CT demonstrated a 4.7 cm mass near the stomach and presumed necrotic retroperitoneal lymph nodes. Pathology confirmedc gastric adenocarcinoma. The patient was discharged back to [facility] in [place] for placement. The patient is currently on comfort cares awaiting placement for hospice. Plan -Comfort cares. -Awaiting placement for hospice. Time Spent With Patient Time: Total time spent is greater than 50% in coordination of care (as documented) at patient's floor/unit and/or counseling patient: QUALITY Stroke Symptom Onset Unknown: No VTE Deep Vein Thrombosis/Pulmonary Embolism Present on Admission: No
[2022-06-06] MEDS: SENNOSIDES 1 TABLET PO SCH (21:25)
[2022-06-06] MEDS: BACLOFEN 10 MG TABLET PO PRN (21:25)
[2022-06-06] MEDS: traZODone HCL 50 MG TABLET PO PRN (21:25)
--- NOTE | 2022-06-07 08:10 | Internal Med Progress Note ---
SUBJECTIVE Subjective Patient information: Note initiated : 06/07/22 at 8:10 am Service Date, if different from initiated Date: [] Patient: Nirmala Zhong a 81 y/o M admitted on 05/19/22 for GI Bleed, Rule out Stroke. Chief Complaint: [] Principal diagnosis: GI bleed due to gastric adenocarcinoma Interval history: Mr. Zhong is a 81 year old M with a complex past medical history significant for chronic atrial fibrillation on amiodarone, Eliquis, prior CVA, and hypertension who presented to our hospital with severe anemia from a subacute upper gastrointestinal hemorrhage. He was transferred to [facility] for higher level of care. He underwent EGD on 05/10 which showed a gastric ulcerating neoplasm that was injected and cauterized. CT demonstrated 4.7 cm mass near the stomach and a presumed necrotic lymph node within the retroperitoneum. Pathology confirmed gastric adenocarcinoma. Of note he was transfused total of 3 units of packed red blood cells. His Eliquis was held. His hospital course was complicated by acute hypoxemic respiratory failure in the CT of the chest revealed pulmonary fibrosis that was believed to be in the setting of amiodarone as he was on this medication for approximately 4 years. It was recommended he follow-up with immigration manager at the [place] for further ILD work-up. He was placed on prednisone and IV Lasix. He is now on prednisone 40 mg p.o. daily x1 month with PCP prophylaxis. He also completed a course of Unasyn for suspected aspiration pneumonia. His hospital course was further complicated by acute/subacute multifocal ischemic stroke thought to be in the se tting of an embolism from atrial fibrillation. He was found to have right-sided weakness, mild dysphagia, mild aphasia and right neglect as well as cognitive deficits. MRI demonstrated numerous foci of restricted diffusion scattered throughout both cerebral and cerebellar hemisphere largest within the left occipital lobe. The patient's TTE was performed and revealed preserved EF but severe pulmonary hypertension thought to be due to pulmonary fibrosis. He also has symptomatic internal carotid stenosis and there were discussions with vascular surgery and ongoing goals of care discussion. He has been discharged back to her facility [place] and he will need fpc facility placement. He is to follow-up with his primary care at the [place] he is can establish oncology follow-up. 05/20: The patient remains medically status quo. We will touch base with social work and case management tomorrow morning to see what options are for fpc facility. 05/21: Patient's been troubled by hiccups which have been occurring intermittently for a few months. Discussion of goals of care, patient does not want to pursue aggressive treatment for his gastric cancer, leaning towards hospice, likely will need placement. He prefers the [facility] SNF. 05/22: Patient is working with occupational therapy. Complaining of some pain in his legs. Right hand and forearm are still weak. Discussed his goals of care. For now he would like to focus on stroke rehab to try to regain function, though ultimately he would like a transition to hospice in the future. 05/23 Sitting up eating breakfast. No overnight event or new complaints. 05/24 No changes overnight. Patient seems to be feeling well. Denies cough or shortness of breath. 05/25 Patient states he had a good night sleep last night. No overnight or new complaints. 05/26 Patient sitting up in bed eating breakfast. Seems to be in good spirits today. No changes. 05/27 For sleep but otherwise no new complaints. No change in status. 05/28 Patient says his back pain is much better due to the heating pad. No overnight event or sooner complaints. Awaiting placement. 05/29: Patient is complaining of constipations. Otherwise pending placement. 05/30: Patient denies any pain or discomfort. Pending placement. 05/31: Patient denies any pain or discomfort. Care conference this afternoon. 06/01: Being switched to comfort care only after the care conference on 05/31. No other major overnight events. Pending placement. 06/02: Continue comfort care measures only. Pending placement. 06/03: Patient feels comfortable, no changes to medical management. Pending placement. 06/04: Intermittent abdominal pain, felt feverish overnight but no documented fever. No changes, awaiting bed at [facility] contracted facility for hospice. 06/05: No changes to management, awaiting placement for hospice cares. 06/06: Awaiting placement for hospice. 06/07: Awaiting placement for hospice. Head: Atraumatic, normal inspection. Eyes: normal appearance, no scleral icterus. Neck: full ROM Respiratory: no respiratory distress. Cardiovascular: normal rate and rhythm, S1, S2. GI/Abdominal: soft, nontender, no guarding. Extremities: full range of motion, nontender. Neurological: CN II-XII intact, intact motor, intact sensation. Psychiatric: normal mood. Skin: warm, normal color Constitutional Vitals: Vital Signs Temp Pulse Resp BP Pulse Ox O2 Del Method O2 Flow Rate 98.5 F 89 28 H 115/62 91 2 06/06/22 18:22 06/06/22 18:22 06/06/22 18:22 06/06/22 18:22 06/06/22 20:00 06/07/22 06:47 06/07/22 06:47 Period Temp Pulse Resp BP Sys/Coles Pulse Ox O2 Del Method O2 Flow Rate Last 24 Hr 97.1 F-98.5 F 69-89 22-28 115-140/57-67 91-94 Nasal Cannula- Nasal Cannula 2-2 Intake and Output 06/06/22 06/07/22 06/07/22 21:59 05:59 13:59 Intake Total 550 Output Total 525 Balance 25 Intake & Output: Intake & Output 06/06/22 06/07/22 06/07/22 21:59 05:59 13:59 Intake Total 550 Output Total 525 Balance 25 Intake: Oral 550 Output: Urine Catheter Amount 525 Other: Urine Appearance Clear Clear Uretheral (Araujo) Clear Urine Color Bright Yellow Yellow Uretheral (Araujo) Bright Yellow OBJ DATA Labs CBC & Chem 7: 05/21/22 05:38 05/23/22 05:30 Meds: Medications Acetaminophen (Acetaminophen 325 Mg Tablet) 650 mg PO Q6HP PRN; Protocol PRN Reason: Per Pain Protocol/Fever > 101 Last Admin: 05/31/22 23:15 Dose: 650 mg Al Hydrox/Mg Hydrox/Simethicone (Mag Hydrox/Al Hydrox/Simeth 30 Ml Oral.Susp) 30 ml PO Q4-6HP PRN PRN Reason: Dyspepsia Last Admin: 05/20/22 10:53 Dose: 30 ml Amitriptyline HCl (Amitriptyline 25 Mg Tablet) 25 mg PO QDAY RICK Last Admin: 06/06/22 08:30 Dose: 25 mg Artificial Tears (Carboxymethylcellulose Sodium 1 Each Droper.Gel) 1 each OP Q6H PRN PRN Reason: Dry Eye(s) Baclofen (Baclofen 10 Mg Tablet) 5 mg PO TIDP PRN PRN Reason: hiccups Last Admin: 06/06/22 21:25 Dose: 5 mg Belladonna Alkaloids/Opium (Opium/Belladonna Alkaloids 30 Mg Supp.Rect) 30 mg GA Q4HP PRN PRN Reason: BLADDER SPASMS Docusate Sodium (Docusate Sodium 100 Mg Capsule) 100 mg PO BID RICK Last Admin: 06/06/22 21:24 Dose: 100 mg Lactulose (Lactulose 20 Gm/30 Ml Oral.Eve) 20 gm PO DAILYP PRN PRN Reason: Constipation Lorazepam (Lorazepam 2 Mg/Ml Vial) 0 mg IV Q1HP PRN; Protocol PRN Reason: ANXIETY/SEDATION Mineral Oil (Mineral Oil 1 Dose Enema) 1 dose GA ONCE PRN PRN Reason: Constipation Morphine Sulfate (Morphine 4 Mg/Ml Vial) 2 - 6 mg IV Q1HP PRN; Protocol PRN Reason: Per Pain Protocol Ondansetron HCl (Ondansetron 4 Mg/2 Ml Vial) 4 mg IV Q6HP PRN PRN Reason: Nausea And Vomiting Oxycodone HCl (Oxycodone Hcl 5 Mg Tablet) 5 mg PO Q6HP PRN; Protocol PRN Reason: Pain Last Admin: 06/06/22 21:25 Dose: 5 mg Senna (Sennosides 1 Tablet) 2 tab PO HS RICK Last Admin: 06/06/22 21:25 Dose: 2 tab Trazodone HCl (Trazodone Hcl 50 Mg Tablet) 50 mg PO HSP PRN PRN Reason: Insomnia Last Admin: 06/06/22 21:25 Dose: 50 mg A/P Narrative A/P Narrative: Assessment: 81-year-old male with a history of chronic atrial fibrillation, prior CVA, hypertension admitted for a subacute upper gastrointestinal hemorrha ge. Work-up at an outside hospital in [facility] included an EGD which revealed a ulcerated gastric neoplasm.CT demonstrated a 4.7 cm mass near the stomach and presumed necrotic retroperitoneal lymph nodes. Pathology confirmedc gastric adenocarcinoma. The patient was discharged back to [facility] in [place] for placement. The patient is currently on comfort cares awaiting placement for hospice. Plan -Comfort cares. -Awaiting placement for hospice. Time Spent With Patient Time: Total time spent is greater than 50% in coordination of care (as documented) at patient's floor/unit and/or counseling patient: QUALITY Stroke Symptom Onset Unknown: No VTE Deep Vein Thrombosis/Pulmonary Embolism Present on Admission: No
[2022-06-07] MEDS: DOCUSATE SODIUM 100 MG CAPSULE PO SCH ×2 (09:05→20:50)
[2022-06-07] MEDS: AMITRIPTYLINE 25 MG TABLET PO SCH (09:05)
--- NOTE | 2022-06-07 12:48 | Internal Med Progress Note ---
SUBJECTIVE Subjective Patient information: Note initiated : 06/07/22 at 12:44 pm Service Date, if different from initiated Date: [] Patient: Nirmala Zhong a 81 y/o M admitted on 05/19/22 for GI Bleed, Rule out Stroke. Chief Complaint: [] Principal diagnosis: GI bleed due to gastric adenocarcinoma Interval history: Mr. Zhong is a 81 year old M with a complex past medical history significant for chronic atrial fibrillation on amiodarone, Eliquis, prior CVA, and hypertension who presented to our hospital with severe anemia from a subacute upper gastrointestinal hemorrhage. He was transferred to [facility] for higher level of care. He underwent EGD on 05/10 which showed a gastric ulcerating neoplasm that was injected and cauterized. CT demonstrated 4.7 cm mass near the stomach and a presumed necrotic lymph node within the retroperitoneum. Pathology confirmed gastric adenocarcinoma. Of note he was transfused total of 3 units of packed red blood cells. His Eliquis was held. His hospital course was complicated by acute hypoxemic respiratory failure in the CT of the chest revealed pulmonary fibrosis that was believed to be in the setting of amiodarone as he was on this medication for approximately 4 years. It was recommended he follow-up with fiberglass tube molder at the [facility] for further ILD work-up. He was placed on prednisone and IV Lasix. He is now on prednisone 40 mg p.o. daily x1 month with PCP prophylaxis. He also completed a course of Unasyn for suspected aspiration pneumonia. His hospital course was further complicated by acute/subacute multifocal ischemic stroke thought to be in the s etting of an embolism from atrial fibrillation. He was found to have right- sided weakness, mild dysphagia, mild aphasia and right neglect as well as cognitive deficits. MRI demonstrated numerous foci of restricted diffusion scattered throughout both cerebral and cerebellar hemisphere largest within the left occipital lobe. The patient's TTE was performed and revealed preserved EF but severe pulmonary hypertension thought to be due to pulmonary fibrosis. He also has symptomatic internal carotid stenosis and there were discussions with vascular surgery and ongoing goals of care discussion. He has been discharged back to her facility [place] and he will need jail facility placement. He is to follow-up with his primary care at the [facility] he is can establish oncology follow-up. 05/20: The patient remains medically status quo. We will touch base with social work and case management tomorrow morning to see what options are for jail facility. 05/21: Patient's been troubled by hiccups which have been occurring intermittently for a few months. Discussion of goals of care, patient does not want to pursue aggressive treatment for his gastric cancer, leaning towards hospice, likely will need placement. He prefers the [facility] SN[facility]. 05/22: Patient is working with occupational therapy. Complaining of some pain in his legs. Right hand and forearm are still weak. Discussed his goals of care. For now he would like to focus on stroke rehab to try to regain function, though ultimately he would like a transition to hospice in the future. 05/23 Sitting up eating breakfast. No overnight event or new complaints. 05/24 No changes overnight. Patient seems to be feeling well. Denies cough or shortness of breath. 05/25 Patient states he had a good night sleep last night. No overnight or new complaints. 05/26 Patient sitting up in bed eating breakfast. Seems to be in good spirits today. No changes. 05/27 For sleep but otherwise no new complaints. No change in status. 05/28 Patient says his back pain is much better due to the heating pad. No overnight event or sooner complaints. Awaiting placement. 05/29: Patient is complaining of constipations. Otherwise pending placement. 05/30: Patient denies any pain or discomfort. Pending placement. 05/31: Patient denies any pain or discomfort. Care conference this afternoon. 06/01: Being switched to comfort care only after the care conference on 05/31. No other major overnight events. Pending placement. 06/02: Continue comfort care measures only. Pending placement. 06/03: Patient feels comfortable, no changes to medical management. Pending placement. 06/04: Intermittent abdominal pain, felt feverish overnight but no documented fever. No changes, awaiting bed at [facility] contracted facility for hospice. 06/05: No changes to management, awaiting placement for hospice cares. 06/06: Awaiting placement for hospice. 06/07: Awaiting placement for hospice. Review of Systems: denies headache/fever/chills/nausea/vomiting/chest or abdominal pain/cough/dyspnea/diarrhea. Otherwise see above. Constitutional Vitals: Vital Signs Temp Pulse Resp BP Pulse Ox O2 Del Method O2 Flow Rate 97.7 F 73 20 115/59 91 2 06/07/22 08:00 06/07/22 08:00 06/07/22 08:00 06/07/22 08:00 06/07/22 08:00 06/07/22 08:30 06/07/22 08:30 Period Temp Pulse Resp BP Sys/Coles Pulse Ox O2 Del Method O2 Flow Rate Last 24 Hr 97.7 F-98.5 F 73-89 20-28 115-140/57-62 91-93 Nasal Cannula- Nasal Cannula 2-2 Intake and Output 06/06/22 06/07/22 06/07/22 21:59 05:59 13:59 Intake Total 550 440 Output Total 525 Balance 25 440 Intake & Output: Intake & Output 06/06/22 06/07/22 06/07/22 21:59 05:59 13:59 Intake Total 550 440 Output Total 525 Balance 25 440 Intake: Oral 550 440 Output: Urine Catheter Amount 525 Other: Meal Breakfast Percent of Meal Consumed 100% Feeding Ability Independent Urine Appearance Clear Clear Clear Uretheral (Araujo) Clear Clear Urine Color Bright Yellow Yellow Bright Yellow Uretheral (Araujo) Bright Yellow Bright Yellow Exam: General: Alert, Awake, No acute Distress, chronically ill-appearing Eyes/N/T: EOMI, Head/Neck: neck supple, CV: Reg today, No murmurs, Pulm: Clear b/l, no wheezing/rhonchi/rales Abd: soft, nontender, +BS x4 Ext: no clubbing/cyanosis/edema Neuro: Alert, generally weak RUE, moves all extremities, Skin: warm/dry OBJ DATA Labs CBC & Chem 7: 05/21/22 05:38 05/23/22 05:30 Meds: Medications Acetaminophen (Acetaminophen 325 Mg Tablet) 650 mg PO Q6HP PRN; Protocol PRN Reason: Per Pain Protocol/Fever > 101 Last Admin: 05/31/22 23:15 Dose: 650 mg Al Hydrox/Mg Hydrox/Simethicone (Mag Hydrox/Al Hydrox/Simeth 30 Ml Oral.Susp) 30 ml PO Q4-6HP PRN PRN Reason: Dyspepsia Last Admin: 05/20/22 10:53 Dose: 30 ml Amitriptyline HCl (Amitriptyline 25 Mg Tablet) 25 mg PO QDAY RICK Last Admin: 06/07/22 09:05 Dose: 25 mg Artificial Tears (Carboxymethylcellulose Sodium 1 Each Droper.Gel) 1 each OP Q6H PRN PRN Reason: Dry Eye(s) Baclofen (Baclofen 10 Mg Tablet) 5 mg PO TIDP PRN PRN Reason: hiccups Last Admin: 06/06/22 21:25 Dose: 5 mg Belladonna Alkaloids/Opium (Opium/Belladonna Alkaloids 30 Mg Supp.Rect) 30 mg CA Q4HP PRN PRN Reason: BLADDER SPASMS Docusate Sodium (Docusate Sodium 100 Mg Capsule) 100 mg PO BID [facility] Last Admin: 06/07/22 09:05 Dose: 100 mg Lactulose (Lactulose 20 Gm/30 Ml Oral.Eve) 20 gm PO DAILYP PRN PRN Reason: Constipation Lorazepam (Lorazepam 2 Mg/Ml Vial) 0 mg IV Q1HP PRN; Protocol PRN Reason: ANXIETY/SEDATION Mineral Oil (Mineral Oil 1 Dose Enema) 1 dose CA ONCE PRN PRN Reason: Constipation Morphine Sulfate (Morphine 4 Mg/Ml Vial) 2 - 6 mg IV Q1HP PRN; Protocol PRN Reason: Per Pain Protocol Ondansetron HCl (Ondansetron 4 Mg/2 Ml Vial) 4 mg IV Q6HP PRN PRN Reason: Nausea And Vomiting Oxycodone HCl (Oxycodone Hcl 5 Mg Tablet) 5 mg PO Q6HP PRN; Protocol PRN Reason: Pain Last Admin: 06/06/22 21:25 Dose: 5 mg Senna (Sennosides 1 Tablet) 2 tab PO HS [facility] Last Admin: 06/06/22 21:25 Dose: 2 tab Trazodone HCl (Trazodone Hcl 50 Mg Tablet) 50 mg PO HSP PRN PRN Reason: Insomnia Last Admin: 06/06/22 21:25 Dose: 50 mg A/P Narrative A/P Narrative: A: *Adenocarcinoma of the stomach with GI hemorrhage -EGD done at the hospital in [facility] -CT with 4.7 cm mass near the stomach and presumed necrotic lymph node in the retroperitoneum -plan for SNF to attempt rehab and then likely hospice if pt fails *Acute blood loss anemia at outside facility: 2/2 above -Required 3 units PRBC. Eliquis stopped during that hospitalization. *Paroxysmal Atrial fibrillation: -Was on amiodarone and apixaban. -Amiodarone stopped secondary to new diagnosis of ILD. -Apixaban stopped secondary to GI bleed *Interstitial lung disease with acute hypoxic respiratory failure: -Found to be hypoxic in [place], CT notable for interstitial lung disease, [place] secondary to amiodarone therapy -on 2LPM by nasal cannula *CVA, Multifocal ischemic thought to be embolic w/right-sided weakness, mild dysphagia/aphasia and right neglect -Diagnosed while hospitalized in [place] -Symptomatic internal carotid stenosis, discussed with vascular surgery, follow-up depending on goals of care for CA. -Would like to pursue skilled therapies to regain function in the short-term Plan: -Continue with PT and OT -Will try to pursue skilled placement for further therapies -Ultimately would like to transition to hospice -Continue to Not use apixaban or amiodarone, discontinued -Continue oxygen as needed, titrate to maintain saturations -ppx: SCD DNR Time Spent With Patient Time: Total time spent is greater than 50% in coordination of care (as documented) at patient's floor/unit and/or counseling patient: QUALITY Stroke Symptom Onset Unknown: No VTE Deep Vein Thrombosis/Pulmonary Embolism Present on Admission: No
[2022-06-07] MEDS: BACLOFEN 10 MG TABLET PO PRN (20:50)
[2022-06-07] MEDS: oxyCODONE HCL 5 MG TABLET PO PRN (20:50)
[2022-06-07] MEDS: SENNOSIDES 1 TABLET PO SCH (20:50)
[2022-06-07] MEDS: traZODone HCL 50 MG TABLET PO PRN (20:51)
[2022-06-08] MEDS: oxyCODONE HCL 5 MG TABLET PO PRN ×2 (02:52→21:22)
--- NOTE | 2022-06-08 07:09 | Internal Med Progress Note ---
SUBJECTIVE Subjective Patient information: Note initiated : 06/08/22 at 7:09 am Service Date, if different from initiated Date: [] Patient: Nirmala Zhong a 81 y/o M admitted on 05/19/22 for GI Bleed, Rule out Stroke. Chief Complaint: [] Principal diagnosis: GI bleed due to gastric adenocarcinoma Interval history: Mr. Zhong is a 81 year old M with a complex past medical history significant for chronic atrial fibrillation on amiodarone, Eliquis, prior CVA, and hypertension who presented to our hospital with severe anemia from a subacute upper gastrointestinal hemorrhage. He was transferred to [facility] for higher level of care. He underwent EGD on 05/10 which showed a gastric ulcerating neoplasm that was injected and cauterized. CT demonstrated 4.7 cm mass near the stomach and a presumed necrotic lymph node within the retroperitoneum. Pathology confirmed gastric adenocarcinoma. Of note he was transfused total of 3 units of packed red blood cells. His Eliquis was held. His hospital course was complicated by acute hypoxemic respiratory failure in the CT of the chest revealed pulmonary fibrosis that was believed to be in the setting of amiodarone as he was on this medication for approximately 4 years. It was recommended he follow-up with loom repairer at the [facility] for further ILD work-up. He was placed on prednisone and IV Lasix. He is now on prednisone 40 mg p.o. daily x1 month with PCP prophylaxis. He also completed a course of Unasyn for suspected aspiration pneumonia. His hospital course was further complicated by acute/subacute multifocal ischemic stroke thought to be in the se tting of an embolism from atrial fibrillation. He was found to have right-sided weakness, mild dysphagia, mild aphasia and right neglect as well as cognitive deficits. MRI demonstrated numerous foci of restricted diffusion scattered throughout both cerebral and cerebellar hemisphere largest within the left occipital lobe. The patient's TTE was performed and revealed preserved EF but severe pulmonary hypertension thought to be due to pulmonary fibrosis. He also has symptomatic internal carotid stenosis and there were discussions with vascular surgery and ongoing goals of care discussion. He has been discharged back to her facility [place] and he will need senior living facility placement. He is to follow-up with his primary care at the [facility] he is can establish oncology follow-up. 05/20: The patient remains medically status quo. We will touch base with social work and case management tomorrow morning to see what options are for senior living facility. 05/21: Patient's been troubled by hiccups which have been occurring intermittently for a few months. Discussion of goals of care, patient does not want to pursue aggressive treatment for his gastric cancer, leaning towards hospice, likely will need placement. He prefers the [facility] SNF. 05/22: Patient is working with occupational therapy. Complaining of some pain in his legs. Right hand and forearm are still weak. Discussed his goals of care. For now he would like to focus on stroke rehab to try to regain function, though ultimately he would like a transition to hospice in the future. 05/23 Sitting up eating breakfast. No overnight event or new complaints. 05/24 No changes overnight. Patient seems to be feeling well. Denies cough or shortness of breath. 05/25 Patient states he had a good night sleep last night. No overnight or new complaints. 05/26 Patient sitting up in bed eating breakfast. Seems to be in good spirits today. No changes. 05/27 For sleep but otherwise no new complaints. No change in status. 05/28 Patient says his back pain is much better due to the heating pad. No overnight event or sooner complaints. Awaiting placement. 05/29: Patient is complaining of constipations. Otherwise pending placement. 05/30: Patient denies any pain or discomfort. Pending placement. 05/31: Patient denies any pain or discomfort. Care conference this afternoon. 06/01: Being switched to comfort care only after the care conference on 05/31. No other major overnight events. Pending placement. 06/02: Continue comfort care measures only. Pending placement. 06/03: Patient feels comfortable, no changes to medical management. Pending placement. 06/04: Intermittent abdominal pain, felt feverish overnight but no documented fever. No changes, awaiting bed at [facility] contracted facility for hospice. 06/05: No changes to management, awaiting placement for hospice cares. 06/06: Awaiting placement for hospice. 06/07: Awaiting placement for hospice. 06/08 No changes overnight. Case management working with family and patient may go home with hospice on Saturday, possibly. Review of Systems: denies headache/fever/chills/nausea/vomiting/chest or abdominal pain/cough/dyspnea/diarrhea. Otherwise see above. Constitutional Vitals: Vital Signs Temp Pulse Resp BP Pulse Ox O2 Del Method O2 Flow Rate 98.2 F 86 17 130/64 94 2 06/07/22 19:44 06/07/22 19:44 06/07/22 19:44 06/07/22 19:44 06/07/22 20:00 06/07/22 20:00 06/07/22 20:00 Period Temp Pulse Resp BP Sys/Coles Pulse Ox O2 Del Method O2 Flow Rate Last 24 Hr 97.7 F-98.2 F 73-86 17-20 115-130/59-64 91-94 Nasal Cannula- Nasal Cannula 2-2 Intake and Output 06/07/22 06/08/22 06/08/22 21:59 05:59 13:59 Intake Total 490 Output Total 675 600 Balance -185 -600 Intake & Output: Intake & Output 06/07/22 06/08/22 06/08/22 21:59 05:59 13:59 Intake Total 490 Output Total 675 600 Balance -185 -600 Intake: Nourishment/Supplement quantity 240 (ml) Oral 250 Output: Urine Catheter Amount 675 Void Amount 600 Other: Meal Dinner yogurt Percent of Meal Consumed 100% 100% Feeding Ability Independent Urine Appearance Clear Clear Uretheral (Araujo) Clear Urine Color Bright Yellow Bright Yellow Uretheral (Araujo) Bright Yellow # Bowel Movements 0 Exam: General: Alert, Awake, No acute Distress, chronically ill-appearing Eyes/N/T: EOMI, Head/Neck: neck supple, CV: Reg today, No murmurs, Pulm: Clear b/l, no wheezing/rhonchi/rales Abd: soft, nontender, +BS x4 Ext: no clubbing/cyanosis/edema Neuro: Alert, generally weak RUE, moves all extremities, Skin: warm/dry OBJ DATA Labs CBC & Chem 7: 05/21/22 05:38 05/23/22 05:30 Meds: Medications Acetaminophen (Acetaminophen 325 Mg Tablet) 650 mg PO Q6HP PRN; Protocol PRN Reason: Per Pain Protocol/Fever > 101 Last Admin: 05/31/22 23:15 Dose: 650 mg Al Hydrox/Mg Hydrox/Simethicone (Mag Hydrox/Al Hydrox/Simeth 30 Ml Oral.Susp) 30 ml PO Q4-6HP PRN PRN Reason: Dyspepsia Last Admin: 05/20/22 10:53 Dose: 30 ml Amitriptyline HCl (Amitriptyline 25 Mg Tablet) 25 mg PO QDAY RICK Last Admin: 06/07/22 09:05 Dose: 25 mg Artificial Tears (Carboxymethylcellulose Sodium 1 Each Droper.Gel) 1 each OP Q6H PRN PRN Reason: Dry Eye(s) Baclofen (Baclofen 10 Mg Tablet) 5 mg PO TIDP PRN PRN Reason: hiccups Last Admin: 06/07/22 20:50 Dose: 5 mg Belladonna Alkaloids/Opium (Opium/Belladonna Alkaloids 30 Mg Supp.Rect) 30 mg RI Q4HP PRN PRN Reason: BLADDER SPASMS Docusate Sodium (Docusate Sodium 100 Mg Capsule) 100 mg PO BID RICK Last Admin: 06/07/22 20:50 Dose: 100 mg Lactulose (Lactulose 20 Gm/30 Ml Oral.Eve) 20 gm PO DAILYP PRN PRN Reason: Constipation Lorazepam (Lorazepam 2 Mg/Ml Vial) 0 mg IV Q1HP PRN; Protocol PRN Reason: ANXIETY/SEDATION Mineral Oil (Mineral Oil 1 Dose Enema) 1 dose RI ONCE PRN PRN Reason: Constipation Morphine Sulfate (Morphine 4 Mg/Ml Vial) 2 - 6 mg IV Q1HP PRN; Protocol PRN Reason: Per Pain Protocol Ondansetron HCl (Ondansetron 4 Mg/2 Ml Vial) 4 mg IV Q6HP PRN PRN Reason: Nausea And Vomiting Oxycodone HCl (Oxycodone Hcl 5 Mg Tablet) 5 mg PO Q6HP PRN; Protocol PRN Reason: Pain Last Admin: 06/08/22 02:52 Dose: 5 mg Senna (Sennosides 1 Tablet) 2 tab PO HS RICK Last Admin: 06/07/22 20:50 Dose: 2 tab Trazodone HCl (Trazodone Hcl 50 Mg Tablet) 50 mg PO HSP PRN PRN Reason: Insomnia Last Admin: 06/07/22 20:51 Dose: 50 mg A/P Narrative A/P Narrative: A: *Adenocarcinoma of the stomach with GI hemorrhage -EGD done at the [facility] in [facility] -CT with 4.7 cm mass near the stomach and presumed necrotic lymph node in the retroperitoneum -plan for SNF to attempt rehab and then likely hospice if pt fails *Acute blood loss anemia at outside facility: 2/2 above -Required 3 units PRBC. Eliquis stopped during that hospitalization. *Paroxysmal Atrial fibrillation: -Was on amiodarone and apixaban. -Amiodarone stopped secondary to new diagnosis of ILD. -Apixaban stopped secondary to GI bleed *Interstitial lung disease with acute hypoxic respiratory failure: -Found to be hypoxic in [place], CT notable for interstitial lung disease, [place] secondary to amiodarone therapy -on 2LPM by nasal cannula *CVA, Multifocal ischemic thought to be embolic w/right-sided weakness, mild dysphagia/aphasia and right neglect -Diagnosed while hospitalized in [place] -Symptomatic internal carotid stenosis, discussed with vascular surgery, follow-up depending on goals of care for CA. -Would like to pursue skilled therapies to regain function in the short-term Plan: -Continue with PT and OT -Will try to pursue skilled placement for further therapies -Ultimately would like to transition to hospice -Continue to Not use apixaban or amiodarone, discontinued -Continue oxygen as needed, titrate to maintain saturations -ppx: SCD DNR Time Spent With Patient Time: Total time spent is greater than 50% in coordination of care (as documented) at patient's floor/unit and/or counseling patient: QUALITY Stroke Symptom Onset Unknown: No VTE Deep Vein Thrombosis/Pulmonary Embolism Present on Admission: No
[2022-06-08] MEDS: DOCUSATE SODIUM 100 MG CAPSULE PO SCH ×2 (08:05→20:05)
[2022-06-08] MEDS: AMITRIPTYLINE 25 MG TABLET PO SCH (08:05)
[2022-06-08] MEDS: ACETAMINOPHEN 325 MG TABLET PO PRN (08:32)
[2022-06-08] MEDS: SENNOSIDES 1 TABLET PO SCH (20:05)
[2022-06-09] MEDS: oxyCODONE HCL 5 MG TABLET PO PRN (03:22)
[2022-06-09] MEDS: morphine 4 MG/ML VIAL IV PRN ×2 (05:21→17:00)
--- NOTE | 2022-06-09 07:36 | Internal Med Progress Note ---
SUBJECTIVE Subjective Patient information: Note initiated : 06/09/22 at 7:34 am Service Date, if different from initiated Date: [] Patient: Nirmala Zhong a 82 y/o M admitted on 05/19/22 for GI Bleed, Rule out Stroke. Chief Complaint: [] Principal diagnosis: GI bleed due to gastric adenocarcinoma Interval history: Mr. Zhong is a 81 year old M with a complex past medical history significant for chronic atrial fibrillation on amiodarone, Eliquis, prior CVA, and hypertension who presented to our hospital with severe anemia from a subacute upper gastrointestinal hemorrhage. He was transferred to [facility] for higher level of care. He underwent EGD on 05/10 which showed a gastric ulcerating neoplasm that was injected and cauterized. CT demonstrated 4.7 cm mass near the stomach and a presumed necrotic lymph node within the retroperitoneum. Pathology confirmed gastric adenocarcinoma. Of note he was transfused total of 3 units of packed red blood cells. His Eliquis was held. His hospital course was complicated by acute hypoxemic respiratory failure in the CT of the chest revealed pulmonary fibrosis that was believed to be in the setting of amiodarone as he was on this medication for approximately 4 years. It was recommended he follow-up with wireless manager at the [facility] for further ILD work-up. He was placed on prednisone and IV Lasix. He is now on prednisone 40 mg p.o. daily x1 month with PCP prophylaxis. He also completed a course of Unasyn for suspected aspiration pneumonia. His hospital course was further complicated by acute/subacute multifocal ischemic stroke thought to be in the se tting of an embolism from atrial fibrillation. He was found to have right-sided weakness, mild dysphagia, mild aphasia and right neglect as well as cognitive deficits. MRI demonstrated numerous foci of restricted diffusion scattered throughout both cerebral and cerebellar hemisphere largest within the left occipital lobe. The patient's TTE was performed and revealed preserved EF but severe pulmonary hypertension thought to be due to pulmonary fibrosis. He also has symptomatic internal carotid stenosis and there were discussions with vascular surgery and ongoing goals of care discussion. He has been discharged back to her facility [place] and he will need senior living facility placement. He is to follow-up with his primary care at the [facility] he is can establish oncology follow-up. 05/20: The patient remains medically status quo. We will touch base with social work and case management tomorrow morning to see what options are for senior living facility. 05/21: Patient's been troubled by hiccups which have been occurring intermittently for a few months. Discussion of goals of care, patient does not want to pursue aggressive treatment for his gastric cancer, leaning towards hospice, likely will need placement. He prefers the [facility] SNF. 05/22: Patient is working with occupational therapy. Complaining of some pain in his legs. Right hand and forearm are still weak. Discussed his goals of care. For now he would like to focus on stroke rehab to try to regain function, though ultimately he would like a transition to hospice in the future. 05/23 Sitting up eating breakfast. No overnight event or new complaints. 05/24 No changes overnight. Patient seems to be feeling well. Denies cough or shortness of breath. 05/25 Patient states he had a good night sleep last night. No overnight or new complaints. 05/26 Patient sitting up in bed eating breakfast. Seems to be in good spirits today. No changes. 05/27 For sleep but otherwise no new complaints. No change in status. 05/28 Patient says his back pain is much better due to the heating pad. No overnight event or sooner complaints. Awaiting placement. 05/29: Patient is complaining of constipations. Otherwise pending placement. 05/30: Patient denies any pain or discomfort. Pending placement. 05/31: Patient denies any pain or discomfort. Care conference this afternoon. 06/01: Being switched to comfort care only after the care conference on 05/31. No other major overnight events. Pending placement. 06/02: Continue comfort care measures only. Pending placement. 06/03: Patient feels comfortable, no changes to medical management. Pending placement. 06/04: Intermittent abdominal pain, felt feverish overnight but no documented fever. No changes, awaiting bed at [facility] contracted facility for hospice. 06/05: No changes to management, awaiting placement for hospice cares. 06/06: Awaiting placement for hospice. 06/07: Awaiting placement for hospice. 06/08 No changes overnight. Case management working with family and patient may go home with hospice on Saturday, possibly. 06/09 Patient states he had poor sleep last night because generalized body aches but feels little better this morning. Review of Systems: denies headache/fever/chills/nausea/vomiting/chest or abdominal pain/cough/dyspnea/diarrhea. Otherwise see above. Constitutional Vitals: Vital Signs Temp Pulse Resp BP Pulse Ox O2 Del Method O2 Flow Rate 97.7 F 73 20 140/73 96 2 06/08/22 18:34 06/08/22 18:34 06/08/22 18:34 06/08/22 18:34 06/08/22 18:34 06/08/22 18:34 06/08/22 18:34 Period Temp Pulse Resp BP Sys/Coles Pulse Ox O2 Del Method O2 Flow Rate Last 24 Hr 97.7 F 73 20-20 140/73 92-96 Nasal Cannula-Nasal Cannula 2-2 Intake and Output 06/08/22 06/09/22 06/09/22 21:59 05:59 13:59 Intake Total 712 300 Output Total 750 850 Balance -38 -550 Intake & Output: Intake & Output 06/08/22 06/09/22 06/09/22 21:59 05:59 13:59 Intake Total 712 300 Output Total 750 850 Balance -38 -550 Intake: Nourishment/Supplement quantity 237 (ml) Oral 475 300 Output: Urine Catheter Amount 750 850 Other: Nourishment/Supplement name Ensure Enlive Urine Appearance Clear Uretheral (Araujo) Clear Urine Color Dark Yellow Bright Yellow Uretheral (Araujo) Bright Yellow Urine Odor Normal Normal Exam: General: Alert, Awake, No acute Distress, chronically ill-appearing Eyes/N/T: EOMI, Head/Neck: neck supple, CV: Reg today, No murmurs, Pulm: Clear b/l, no wheezing/rhonchi/rales Abd: soft, nontender, +BS x4 Ext: no clubbing/cyanosis/edema Neuro: Alert, generally weak RUE, moves all extremities, Skin: warm/dry OBJ DATA Labs CBC & Chem 7: 05/21/22 05:38 05/23/22 05:30 Meds: Medications Acetaminophen (Acetaminophen 325 Mg Tablet) 650 mg PO Q6HP PRN; Protocol PRN Reason: Per Pain Protocol/Fever > 101 Last Admin: 06/08/22 08:32 Dose: 650 mg Al Hydrox/Mg Hydrox/Simethicone (Mag Hydrox/Al Hydrox/Simeth 30 Ml Oral.Susp) 30 ml PO Q4-6HP PRN PRN Reason: Dyspepsia Last Admin: 05/20/22 10:53 Dose: 30 ml Amitriptyline HCl (Amitriptyline 25 Mg Tablet) 25 mg PO QDAY [facility] Last Admin: 06/08/22 08:05 Dose: 25 mg Artificial Tears (Carboxymethylcellulose Sodium 1 Each Droper.Gel) 1 each OP Q6H PRN PRN Reason: Dry Eye(s) Baclofen (Baclofen 10 Mg Tablet) 5 mg PO TIDP PRN PRN Reason: hiccups Last Admin: 06/07/22 20:50 Dose: 5 mg Belladonna Alkaloids/Opium (Opium/Belladonna Alkaloids 30 Mg Supp.Rect) 30 mg SD Q4HP PRN PRN Reason: BLADDER SPASMS Docusate Sodium (Docusate Sodium 100 Mg Capsule) 100 mg PO BID [facility] Last Admin: 06/08/22 20:05 Dose: 100 mg Lactulose (Lactulose 20 Gm/30 Ml Oral.Eve) 20 gm PO DAILYP PRN PRN Reason: Constipation Lorazepam (Lorazepam 2 Mg/Ml Vial) 0 mg IV Q1HP PRN; Protocol PRN Reason: ANXIETY/SEDATION Mineral Oil (Mineral Oil 1 Dose Enema) 1 dose SD ONCE PRN PRN Reason: Constipation Morphine Sulfate (Morphine 4 Mg/Ml Vial) 2 - 6 mg IV Q1HP PRN; Protocol PRN Reason: Per Pain Protocol Last Admin: 06/09/22 05:21 Dose: 4 mg Ondansetron HCl (Ondansetron 4 Mg/2 Ml Vial) 4 mg IV Q6HP PRN PRN Reason: Nausea And Vomiting Oxycodone HCl (Oxycodone Hcl 5 Mg Tablet) 5 mg PO Q6HP PRN; Protocol PRN Reason: Pain Last Admin: 06/09/22 03:22 Dose: 5 mg Senna (Sennosides 1 Tablet) 2 tab PO HS [facility] Last Admin: 06/08/22 20:05 Dose: 2 tab Trazodone HCl (Trazodone Hcl 50 Mg Tablet) 50 mg PO HSP PRN PRN Reason: Insomnia Last Admin: 06/07/22 20:51 Dose: 50 mg A/P Narrative A/P Narrative: A: *Adenocarcinoma of the stomach with GI hemorrhage -EGD done at the hospital in [facility] -CT with 4.7 cm mass near the stomach and presumed necrotic lymph node in the retroperitoneum -plan for SNF to attempt rehab and then likely hospice if pt fails vs home with hospice *Acute blood loss anemia at outside facility: 2/2 above -Required 3 units PRBC. Eliquis stopped during that hospitalization. *Paroxysmal Atrial fibrillation: -Was on amiodarone and apixaban. -Amiodarone stopped secondary to new diagnosis of ILD. -Apixaban stopped secondary to GI bleed *Interstitial lung disease with acute hypoxic respiratory failure: -Found to be hypoxic in [place], [place] notable for interstitial lung disease, [place] secondary to amiodarone therapy -on 2LPM by nasal cannula with good sats *CVA, Multifocal ischemic thought to be embolic w/right-sided weakness, mild dysphagia/aphasia and right neglect -Diagnosed while hospitalized in [place] -Symptomatic internal carotid stenosis, discussed with vascular surgery, follow-up depending on goals of care for [place]. Plan: -Continue with PT and OT -Will try to pursue skilled placement for further therapies vs home with hospice -wean O2 as able -Continue to Not use apixaban or amiodarone, discontinued -Continue oxygen as needed, titrate to maintain saturations -ppx: SCD DNR Time Spent With Patient Time: Total time spent is greater than 50% in coordination of care (as documented) at patient's floor/unit and/or counseling patient: QUALITY Stroke Symptom Onset Unknown: No VTE Deep Vein Thrombosis/Pulmonary Embolism Present on Admission: No
[2022-06-09] MEDS: DOCUSATE SODIUM 100 MG CAPSULE PO SCH ×2 (08:03→21:26)
[2022-06-09] MEDS: AMITRIPTYLINE 25 MG TABLET PO SCH (08:03)
[2022-06-09] MEDS: BACLOFEN 10 MG TABLET PO PRN (19:26)
[2022-06-09] MEDS: traZODone HCL 50 MG TABLET PO PRN (21:26)
[2022-06-09] MEDS: SENNOSIDES 1 TABLET PO SCH (21:26)
[2022-06-10] MEDS: oxyCODONE HCL 5 MG TABLET PO PRN ×2 (00:06→23:52)
--- NOTE | 2022-06-10 07:38 | Internal Med Progress Note ---
SUBJECTIVE Subjective Patient information: Note initiated : 06/10/22 at 7:38 am Service Date, if different from initiated Date: [] Patient: Nirmala Zhong a 82 y/o M admitted on 05/19/22 for GI Bleed, Rule out Stroke. Chief Complaint: [] Principal diagnosis: GI bleed due to gastric adenocarcinoma Interval history: Mr. Zhong is a 81 year old M with a complex past medical history significant for chronic atrial fibrillation on amiodarone, Eliquis, prior CVA, and hypertension who presented to our hospital with severe anemia from a subacute upper gastrointestinal hemorrhage. He was transferred to [facility] for higher level of care. He underwent EGD on 05/10 which showed a gastric ulcerating neoplasm that was injected and cauterized. CT demonstrated 4.7 cm mass near the stomach and a presumed necrotic lymph node within the retroperitoneum. Pathology confirmed gastric adenocarcinoma. Of note he was transfused total of 3 units of packed red blood cells. His Eliquis was held. His hospital course was complicated by acute hypoxemic respiratory failure in the CT of the chest revealed pulmonary fibrosis that was believed to be in the setting of amiodarone as he was on this medication for approximately 4 years. It was recommended he follow-up with linux engineer at the [facility] for further ILD work-up. He was placed on prednisone and IV Lasix. He is now on prednisone 40 mg p.o. daily x1 month with PCP prophylaxis. He also completed a course of Unasyn for suspected aspiration pneumonia. His hospital course was further complicated by acute/subacute multifocal ischemic stroke thought to be in the se tting of an embolism from atrial fibrillation. He was found to have right-sided weakness, mild dysphagia, mild aphasia and right neglect as well as cognitive deficits. MRI demonstrated numerous foci of restricted diffusion scattered throughout both cerebral and cerebellar hemisphere largest within the left occipital lobe. The patient's TTE was performed and revealed preserved EF but severe pulmonary hypertension thought to be due to pulmonary fibrosis. He also has symptomatic internal carotid stenosis and there were discussions with vascular surgery and ongoing goals of care discussion. He has been discharged back to her facility [place] and he will need custodial facility placement. He is to follow-up with his primary care at the [facility] he is can establish oncology follow-up. 05/20: The patient remains medically status quo. We will touch base with social work and case management tomorrow morning to see what options are for custodial facility. 05/21: Patient's been troubled by hiccups which have been occurring intermittently for a few months. Discussion of goals of care, patient does not want to pursue aggressive treatment for his gastric cancer, leaning towards hospice, likely will need placement. He prefers the [facility] SNF. 05/22: Patient is working with occupational therapy. Complaining of some pain in his legs. Right hand and forearm are still weak. Discussed his goals of care. For now he would like to focus on stroke rehab to try to regain function, though ultimately he would like a transition to hospice in the future. 05/23 Sitting up eating breakfast. No overnight event or new complaints. 05/24 No changes overnight. Patient seems to be feeling well. Denies cough or shortness of breath. 05/25 Patient states he had a good night sleep last night. No overnight or new complaints. 05/26 Patient sitting up in bed eating breakfast. Seems to be in good spirits today. No changes. 05/27 For sleep but otherwise no new complaints. No change in status. 05/28 Patient says his back pain is much better due to the heating pad. No overnight event or sooner complaints. Awaiting placement. 05/29: Patient is complaining of constipations. Otherwise pending placement. 05/30: Patient denies any pain or discomfort. Pending placement. 05/31: Patient denies any pain or discomfort. Care conference this afternoon. 06/01: Being switched to comfort care only after the care conference on 05/31. No other major overnight events. Pending placement. 06/02: Continue comfort care measures only. Pending placement. 06/03: Patient feels comfortable, no changes to medical management. Pending placement. 06/04: Intermittent abdominal pain, felt feverish overnight but no documented fever. No changes, awaiting bed at [facility] contracted facility for hospice. 06/05: No changes to management, awaiting placement for hospice cares. 06/06: Awaiting placement for hospice. 06/07: Awaiting placement for hospice. 06/08 No changes overnight. Case management working with family and patient may go home with hospice on Saturday, possibly. 06/09 Patient states he had poor sleep last night because generalized body aches but feels little better this morning. 06/10 Patient says he slept a bit better last night. No other complaints or overnight events. Review of Systems: denies headache/fever/chills/nausea/vomiting/chest or abdominal pain/cough/dyspnea/diarrhea. Otherwise see above. Constitutional Vitals: Vital Signs Temp Pulse Resp BP Pulse Ox O2 Del Method O2 Flow Rate 98.4 F 84 18 138/66 90 3 06/09/22 19:12 06/09/22 19:12 06/09/22 19:12 06/09/22 19:12 06/09/22 19:12 06/09/22 19:35 06/09/22 19:35 Period Temp Pulse Resp BP Sys/Coles Pulse Ox O2 Del Method O2 Flow Rate Last 24 Hr 98.3 F-98.4 F 84-90 18-20 131-138/66-79 90-94 Nasal Cannula- Nasal Cannula 2-3 Intake and Output 06/09/22 06/10/22 06/10/22 21:59 05:59 13:59 Intake Total 360 300 Output Total 150 650 Balance 210 -350 Intake & Output: Intake & Output 06/09/22 06/10/22 06/10/22 21:59 05:59 13:59 Intake Total 360 300 Output Total 150 650 Balance 210 -350 Intake: Oral 360 300 Output: Urine Catheter Amount 150 650 Other: Meal Lunch Percent of Meal Consumed 50% Feeding Ability Assist with Tray Set Up Urine Appearance Clear Uretheral (Araujo) Clear Urine Color Yellow Uretheral (Araujo) Yellow Exam: General: Alert, Awake, No acute Distress, chronically ill-appearing Eyes/N/T: EOMI, Head/Neck: neck supple, CV: Reg today, No murmurs, Pulm: Clear b/l, no wheezing/rhonchi/rales Abd: soft, nontender, +BS x4 Ext: no clubbing/cyanosis/edema Neuro: Alert, generally weak RUE, moves all extremities, Skin: warm/dry OBJ DATA Labs CBC & Chem 7: 05/21/22 05:38 05/23/22 05:30 Meds: Medications Acetaminophen (Acetaminophen 325 Mg Tablet) 650 mg PO Q6HP PRN; Protocol PRN Reason: Per Pain Protocol/Fever > 101 Last Admin: 06/08/22 08:32 Dose: 650 mg Al Hydrox/Mg Hydrox/Simethicone (Mag Hydrox/Al Hydrox/Simeth 30 Ml Oral.Susp) 30 ml PO Q4-6HP PRN PRN Reason: Dyspepsia Last Admin: 05/20/22 10:53 Dose: 30 ml Amitriptyline HCl (Amitriptyline 25 Mg Tablet) 25 mg PO QDAY [facility] Last Admin: 06/09/22 08:03 Dose: 25 mg Artificial Tears (Carboxymethylcellulose Sodium 1 Each Droper.Gel) 1 each OP Q6H PRN PRN Reason: Dry Eye(s) Baclofen (Baclofen 10 Mg Tablet) 5 mg PO TIDP PRN PRN Reason: hiccups Last Admin: 06/09/22 19:26 Dose: 5 mg Belladonna Alkaloids/Opium (Opium/Belladonna Alkaloids 30 Mg Supp.Rect) 30 mg [place] Q4HP PRN PRN Reason: BLADDER SPASMS Docusate Sodium (Docusate Sodium 100 Mg Capsule) 100 mg PO BID [facility] Last Admin: 06/09/22 21:26 Dose: 100 mg Lactulose (Lactulose 20 Gm/30 Ml Oral.Eve) 20 gm PO DAILYP PRN PRN Reason: Constipation Lorazepam (Lorazepam 2 Mg/Ml Vial) 0 mg IV Q1HP PRN; Protocol PRN Reason: ANXIETY/SEDATION Mineral Oil (Mineral Oil 1 Dose Enema) 1 dose [place] ONCE PRN PRN Reason: Constipation Morphine Sulfate (Morphine 4 Mg/Ml Vial) 2 - 6 mg IV Q1HP PRN; Protocol PRN Reason: Per Pain Protocol Last Admin: 06/09/22 17:00 Dose: 2 mg Ondansetron HCl (Ondansetron 4 Mg/2 Ml Vial) 4 mg IV Q6HP PRN PRN Reason: Nausea And Vomiting Oxycodone HCl (Oxycodone Hcl 5 Mg Tablet) 5 mg PO Q6HP PRN; Protocol PRN Reason: Pain Last Admin: 06/10/22 00:06 Dose: 5 mg Senna (Sennosides 1 Tablet) 2 tab PO HS [facility] Last Admin: 06/09/22 21:26 Dose: 2 tab Trazodone HCl (Trazodone Hcl 50 Mg Tablet) 50 mg PO HSP PRN PRN Reason: Insomnia Last Admin: 06/09/22 21:26 Dose: 50 mg A/P Narrative A/P Narrative: A: *Adenocarcinoma of the stomach with GI hemorrhage -EGD done at the hospital in [facility] -CT with 4.7 cm mass near the stomach and presumed necrotic lymph node in the retroperitoneum -plan for SNF to attempt rehab and then likely hospice if pt fails vs home with hospice *Acute blood loss anemia at outside facility: 2/2 above -Required 3 units PRBC. Eliquis stopped during that hospitalization. *Paroxysmal Atrial fibrillation: -Was on amiodarone and apixaban. -Amiodarone stopped secondary to new diagnosis of ILD. -Apixaban stopped secondary to GI bleed *Interstitial lung disease with acute hypoxic respiratory failure: -Found to be hypoxic in [place], CT notable for interstitial lung disease, [place] secondary to amiodarone therapy -on 2LPM by nasal cannula with good sats *CVA, Multifocal ischemic thought to be embolic w/right-sided weakness, mild dysphagia/aphasia and right neglect -Diagnosed while hospitalized in [place] -Symptomatic internal carotid stenosis, discussed with vascular surgery, follow-up depending on goals of care for [place]. Plan: -Continue with PT and OT -Will try to pursue skilled placement for further therapies vs home with hospice -wean O2 as able -Continue to Not use apixaban or amiodarone, discontinued -Continue oxygen as needed, titrate to maintain saturations -ppx: SCD DNR Time Spent With Patient Time: Total time spent is greater than 50% in coordination of care (as documented) at patient's floor/unit and/or counseling patient: QUALITY Stroke Symptom Onset Unknown: No VTE Deep Vein Thrombosis/Pulmonary Embolism Present on Admission: No
[2022-06-10] MEDS: DOCUSATE SODIUM 100 MG CAPSULE PO SCH ×2 (08:38→21:05)
[2022-06-10] MEDS: AMITRIPTYLINE 25 MG TABLET PO SCH (08:38)
--- NOTE | 2022-06-10 09:28 | Discharge Summary ---
Discharge Provider Provider IMPORTANT FOLLOW-UP INFORMATION FOR PCP: Patient information: Note initiated : 06/10/22 at 9:27 am Service Date, if different from initiated Date: [] Patient: Nirmala Zhong a 82 y/o M admitted on 05/19/22 for GI Bleed, Rule out Stroke. Chief Complaint: [] Date of admission: 05/19/22 15:46 Primary care physician: Robbin Horan Consults: 05/22/22 11:28 Consult to Physician [CONS] Routine Comment: snf referral Consulting Provider: [facility] Reason For Exam: Physician to Consult COURSE Hospital Course Hospital course: Principal diagnosis: GI bleed due to gastric adenocarcinoma Interval history: Mr. Zhong is a 81 year old M with a complex past medical history significant for chronic atrial fibrillation on amiodarone, Eliquis, prior CVA, and h ypertension who presented to our hospital with severe anemia from a subacute upper gastrointestinal hemorrhage. He was transferred to [facility] for higher level of care. He underwent EGD on 05/10 which showed a gastric ulcerating neoplasm that was injected and cauterized. CT demonstrated 4.7 cm mass near the stomach and a presumed necrotic lymph node within the retroperitoneum. Pathology confirmed gastric adenocarcinoma. Of note he was transfused total of 3 units of packed red blood cells. His Eliquis was held. His hospital course was complicated by acute hypoxemic respiratory failure in the CT of the chest revealed pulmonary fibrosis that was believed to be in the setting of amiodarone as he was on this medication for approximately 4 years. It was recommended he follow-up with longshore equipment operator at the [place] for further ILD work-up. He was placed on prednisone and IV Lasix. He is now on prednisone 40 mg p.o. daily x1 month with PCP prophylaxis. He also completed a course of Un asyn for suspected aspiration pneumonia. His hospital course was further complicated by acute/subacute multifocal ischemic stroke thought to be in the setting of an embolism from atrial fibrillation. He was found to have right- sided weakness, mild dysphagia, mild aphasia and right neglect as well as cognitive deficits. MRI demonstrated numerous foci of restricted diffusion scattered throughout both cerebral and cerebellar hemisphere largest within the left occipital lobe. The patient's TTE was performed and revealed preserved EF but severe pulmonary hypertension thought to be due to pulmonary fibrosis. He also has symptomatic internal carotid stenosis and there were discussions with vascular surgery and ongoing goals of care discussion. He has been discharged back to [place] facility [place] and he will need usp facility placement. He is to follow-up with his primary care at the [place] he is can establish oncology follow-up. 05/20: The patient remains medically status quo. We will touch base with social work and case management tomorrow morning to see what options are for usp facility. 05/21: Patient's been troubled by hiccups which have been occurring intermittently for a few months. Discussion of goals of care, patient does not want to pursue aggressive treatment for his gastric cancer, leaning towards hospice, likely will need placement. He prefers the [place] SNF. 05/22: Patient is working with occupational therapy. Complaining of some pain in his legs. Right hand and forearm are still weak. Discussed his goals of care. For now he would like to focus on stroke rehab to try to regain function, though ultimately he would like a transition to hospice in the future. 05/23 Sitting up eating breakfast. No overnight event or new complaints. 05/24 No changes overnight. Patient seems to be feeling well. Denies cough or shortness of breath. 05/25 Patient states he had a good night sleep last night. No overnight or new complaints. 05/26 Patient sitting up in bed eating breakfast. Seems to be in good spirits today. No changes. 05/27 For sleep but otherwise no new complaints. No change in status. 05/28 Patient says his back pain is much better due to the heating pad. No overnight event or sooner complaints. Awaiting placement. 05/29: Patient is complaining of constipations. Otherwise pending placement. 05/30: Patient denies any pain or discomfort. Pending placement. 05/31: Patient denies any pain or discomfort. Care conference this afternoon. 06/01: Being switched to comfort care only after the care conference on 05/31. No other major overnight events. Pending placement. 06/02: Continue comfort care measures only. Pending placement. 06/03: Patient feels comfortable, no changes to medical management. Pending placement. 06/04: Intermittent abdominal pain, felt feverish overnight but no documented fever. No changes, awaiting bed at [place] contracted facility for hospice. 06/05: No changes to management, awaiting placement for hospice cares. 06/06: Awaiting placement for hospice. 06/07: Awaiting placement for hospice. 06/08 No changes overnight. Case management working with family and patient may go home with hospice on Saturday, possibly. 06/09 Patient states he had poor sleep last night because generalized body aches but feels little better this morning. 06/10 Patient says he slept a bit better last night. No other complaints or overnight events. 06/11 No new complaints overnight events. Awaiting placement. 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 Eliquis stopped during that hospitalization. *Paroxysmal Atrial fibrillation: -Was on amiodarone and apixaban. -Amiodarone stopped secondary to new diagnosis of ILD. -Apixaban stopped secondary to GI bleed *Interstitial lung disease with acute hypoxic respiratory failure: -Found to be hypoxic in [place] notable for interstitial lung disease, [place] secondary to amiodarone therapy -on 2-3LPM by nasal cannula with good sats *CVA, Multifocal ischemic thought to be embolic w/right-sided weakness, mild dysphagia/aphasia and right neglect -Diagnosed while hospitalized in [place] -Symptomatic internal carotid stenosis, discussed with vascular surgery, follow-up depending on goals of care for CA. Plan: -Continue to Not use apixaban or amiodarone, discontinued -Continue oxygen as needed, titrate to maintain saturations Discharge diagnosis: Adenocarcinoma of the stomach GI bleed upper acute blood loss anemia Secondary discharge diagnosis: Paroxysmal atrial fibrillation interstitial lung disease acute hypoxic respiratory failure history of stroke with multiple embolic right side Time Spent with Patient Time attestation: Total time spent providing and/or coordinating discharge services: Time spent: Greater than 30 minutes EXAM Constitutional Vitals: Temp Pulse Resp BP Pulse Ox O2 Del Method O2 Flow Rate 97.4 F 82 14 139/62 90 3 06/10/22 08:00 06/10/22 08:00 06/10/22 08:00 06/10/22 08:00 06/09/22 19:12 06/10/22 08:00 06/10/22 08:00 Discharge Plan Patient/Caregiver Discharge Instructions Activity: increase activity as tolerated Diet: Dysphagia Level 6 Soft & Bite-Sized Foods Activity Restrictions/Additional Instructions: Follow-up with PCP in 3 to 7 days. Follow-up with hospice. Prescriptions: Continued amitriptyline 25 mg tablet 25 mg PO QDAY amlodipine 10 mg tablet 10 mg PO QDAY atorvastatin 20 mg tablet 20 mg PO QHS doxazosin 4 mg tablet 4 mg PO QDAY metoprolol tartrate 25 mg tablet 37.5 mg PO BID naloxone 4 mg/actuation spray,non-aerosol 4 mg INTRANASAL ONCE PRN (Reason: Allergic Symptoms) magnesium oxide 420 mg tablet 420 mg PO QDAY multivitamin with minerals capsule 1 cap PO QAM lidocaine [Lidoderm] 5 % adhesive patch,medicated 1 patch topical QDAY Qty: 15 0RF Rx Instructions: leave on most painful area for 12 hrs sennosides [senna] 8.6 mg Tablet 8.6 mg PO QHS PRN (Reason: Allergy Symptoms) pantoprazole [Protonix] 40 mg Tablet,Delayed Release (Dr/Ec) 40 mg PO BID colchicine 0.6 mg Tablet 0.6 mg PO BID oxycodone 5 mg Tablet 5 mg PO Q6H PRN (Reason: Pain) Zyrtec 10 mg Capsule 10 mg PO QDAY PRN (Reason: Allergy Symptoms) acetaminophen 325 mg tablet 350 mg PO Q6H albuterol sulfate 90 mcg/actuation HFA aerosol inhaler 1 - 2 puff inhalation Q6H PRN (Reason: shortness of breath or wheezing) Rx Instructions: Bring this with you to your lung function test finasteride [Proscar] 5 mg tablet 5 mg PO QDAY Qty: 90 1RF Discontinued prednisone 20 mg Tablet 40 mg PO DAILY Rx Instructions: FOR ONE MONTH BEGINNING 05/18/22 sulfamethoxazole-trimethoprim [Bactrim DS] 800-160 mg Tablet 1 tab PO DAILY Rx Instructions: PROPHYLAXIS WHILE ON STEROIDS Follow Up Plan Patient Disposition: Xfer SNF Prognosis: Undetermined Rehab Potential: Fair I certify that the patient requires SNF services: Yes QUALITY VTE Deep Vein Thrombosis/Pulmonary Embolism Present on Admission: No
[2022-06-10] MEDS: 0.9 % SODIUM CHLORIDE 10 ML SYRINGE IV SCH ×2 (16:47→21:05)
[2022-06-10] MEDS ORDERED: FLEETS ADULT ENEMA PR PRN (20:36)
[2022-06-10] MEDS ORDERED: POLYETHYLENE GLYCOL 3350 17 GM PACKET PO SCH (21:00)
[2022-06-10] MEDS ORDERED: FLEETS ADULT ENEMA PR SCH (21:00)
[2022-06-10] MEDS: SENNOSIDES 1 TABLET PO SCH (21:04)
[2022-06-10] MEDS: traZODone HCL 50 MG TABLET PO PRN (23:01)
[2022-06-11] MEDS: 0.9 % SODIUM CHLORIDE 10 ML SYRINGE IV SCH ×3 (06:03→20:23)
--- NOTE | 2022-06-11 07:30 | Internal Med Progress Note ---
SUBJECTIVE Subjective Patient information: Note initiated : 06/11/22 at 7:30 am Service Date, if different from initiated Date: [] Patient: Nirmala Zhong a 82 y/o M admitted on 05/19/22 for GI Bleed, Rule out Stroke. Chief Complaint: [] Principal diagnosis: GI bleed due to gastric adenocarcinoma Interval history: Mr. Zhong is a 81 year old M with a complex past medical history significant for chronic atrial fibrillation on amiodarone, Eliquis, prior CVA, and hypertension who presented to our hospital with severe anemia from a subacute upper gastrointestinal hemorrhage. He was transferred to [facility] for higher level of care. He underwent EGD on 05/10 which showed a gastric ulcerating neoplasm that was injected and cauterized. CT demonstrated 4.7 cm mass near the stomach and a presumed necrotic lymph node within the retroperitoneum. Pathology confirmed gastric adenocarcinoma. Of note he was transfused total of 3 units of packed red blood cells. His Eliquis was held. His hospital course was complicated by acute hypoxemic respiratory failure in the CT of the chest revealed pulmonary fibrosis that was believed to be in the setting of amiodarone as he was on this medication for approximately 4 years. It was recommended he follow-up with accountant assistant at the [place] for further ILD work-up. He was placed on prednisone and IV Lasix. He is now on prednisone 40 mg p.o. daily x1 month with PCP prophylaxis. He also completed a course of Unasyn for suspected aspiration pneumonia. His hospital course was further complicated by acute/subacute multifocal ischemic stroke thought to be in the se tting of an embolism from atrial fibrillation. He was found to have right-sided weakness, mild dysphagia, mild aphasia and right neglect as well as cognitive deficits. MRI demonstrated numerous foci of restricted diffusion scattered throughout both cerebral and cerebellar hemisphere largest within the left occipital lobe. The patient's TTE was performed and revealed preserved EF but severe pulmonary hypertension thought to be due to pulmonary fibrosis. He also has symptomatic internal carotid stenosis and there were discussions with vascular surgery and ongoing goals of care discussion. He has been discharged back to her facility [place] and he will need alf facility placement. He is to follow-up with his primary care [place] he is can establish oncology follow-up. 05/20: The patient remains medically status quo. We will touch base with social work and case management tomorrow morning to see what options are for alf facility. 05/21: Patient's been troubled by hiccups which have been occurring intermittently for a few months. Discussion of goals of care, patient does not want to pursue aggressive treatment for his gastric cancer, leaning towards hospice, likely will need placement. He prefers the [place] SNF. 05/22: Patient is working with occupational therapy. Complaining of some pain in his legs. Right hand and forearm are still weak. Discussed his goals of care. For now he would like to focus on stroke rehab to try to regain function, though ultimately he would like a transition to hospice in the future. 05/23 Sitting up eating breakfast. No overnight event or new complaints. 05/24 No changes overnight. Patient seems to be feeling well. Denies cough or shortness of breath. 05/25 Patient states he had a good night sleep last night. No overnight or new complaints. 05/26 Patient sitting up in bed eating breakfast. Seems to be in good spirits today. No changes. 05/27 For sleep but otherwise no new complaints. No change in status. 05/28 Patient says his back pain is much better due to the heating pad. No overnight event or sooner complaints. Awaiting placement. 05/29: Patient is complaining of constipations. Otherwise pending placement. 05/30: Patient denies any pain or discomfort. Pending placement. 05/31: Patient denies any pain or discomfort. Care conference this afternoon. 06/01: Being switched to comfort care only after the care conference on 05/31. No other major overnight events. Pending placement. 06/02: Continue comfort care measures only. Pending placement. 06/03: Patient feels comfortable, no changes to medical management. Pending placement. 06/04: Intermittent abdominal pain, felt feverish overnight but no documented fever. No changes, awaiting bed at [place] contracted facility for hospice. 06/05: No changes to management, awaiting placement for hospice cares. 06/06: Awaiting placement for hospice. 06/07: Awaiting placement for hospice. 06/08 No changes overnight. Case management working with family and patient may go home with hospice on Saturday, possibly. 06/09 Patient states he had poor sleep last night because generalized body aches but feels little better this morning. 06/10 Patient says he slept a bit better last night. No other complaints or overnight events. 06/11 No new complaints overnight events. Awaiting placement. Review of Systems: denies headache/fever/chills/nausea/vomiting/chest or abdominal pain/cough/dyspnea/diarrhea. Otherwise see above. Constitutional Vitals: Vital Signs Temp Pulse Resp BP Pulse Ox O2 Del Method O2 Flow Rate 98.9 F 88 16 144/73 93 3 06/10/22 19:09 06/11/22 06:03 06/11/22 06:03 06/10/22 19:09 06/11/22 06:03 06/11/22 06:03 06/11/22 06:03 Period Temp Pulse Resp BP Sys/Coles Pulse Ox O2 Del Method O2 Flow Rate Last 24 Hr 97.4 F-98.9 F 82-89 14-18 139-144/62-73 93-94 Nasal Cannula- Nasal Cannula 3-3 Intake and Output 06/10/22 06/11/22 06/11/22 21:59 05:59 13:59 Intake Total 120 800 Output Total 600 600 Balance -480 200 Intake & Output: Intake & Output 06/10/22 06/11/22 06/11/22 21:59 05:59 13:59 Intake Total 120 800 Output Total 600 600 Balance -480 200 Intake: Oral 120 800 Output: Urine Catheter Amount 600 600 Other: Meal Lunch Percent of Meal Consumed 75% Urine Appearance Clear Uretheral (Araujo) Clear Urine Color Dark Yellow Uretheral (Araujo) Yellow Urine Odor Normal Stool Size Large Stool Color Brown Stool Consistency Formed # Bowel Movements 1 Exam: General: Alert, Awake, No acute Distress, chronically ill-appearing Eyes/N/T: EOMI, Head/Neck: neck supple, CV: Reg today, No murmurs, Pulm: Clear b/l, no wheezing/rhonchi/rales Abd: soft, nontender, +BS x4 Ext: no clubbing/cyanosis/edema Neuro: Alert, generally weak RUE, moves all extremities, Skin: warm/dry OBJ DATA Labs CBC & Chem 7: 05/21/22 05:38 05/23/22 05:30 Meds: Medications Acetaminophen (Acetaminophen 325 Mg Tablet) 650 mg PO Q6HP PRN; Protocol PRN Reason: Per Pain Protocol/Fever > 101 Last Admin: 06/08/22 08:32 Dose: 650 mg Al Hydrox/Mg Hydrox/Simethicone (Mag Hydrox/Al Hydrox/Simeth 30 Ml Oral.Susp) 30 ml PO Q4-6HP PRN PRN Reason: Dyspepsia Last Admin: 05/20/22 10:53 Dose: 30 ml Amitriptyline HCl (Amitriptyline 25 Mg Tablet) 25 mg PO QDAY [facility] Last Admin: 06/10/22 08:38 Dose: 25 mg Artificial Tears (Carboxymethylcellulose Sodium 1 Each Droper.Gel) 1 each OP Q6H PRN PRN Reason: Dry Eye(s) Baclofen (Baclofen 10 Mg Tablet) 5 mg PO TIDP PRN PRN Reason: hiccups Last Admin: 06/09/22 19:26 Dose: 5 mg Belladonna Alkaloids/Opium (Opium/Belladonna Alkaloids 30 Mg Supp.Rect) 30 mg IA Q4HP PRN PRN Reason: BLADDER SPASMS Docusate Sodium (Docusate Sodium 100 Mg Capsule) 100 mg PO BID [facility] Last Admin: 06/10/22 21:05 Dose: 100 mg Lactulose (Lactulose 20 Gm/30 Ml Oral.Eve) 20 gm PO DAILYP PRN PRN Reason: Constipation Last Admin: 06/10/22 16:53 Dose: 20 gm Lorazepam (Lorazepam 2 Mg/Ml Vial) 0 mg IV Q1HP PRN; Protocol PRN Reason: ANXIETY/SEDATION Mineral Oil (Mineral Oil 1 Dose Enema) 1 dose IA ONCE PRN PRN Reason: Constipation Morphine Sulfate (Morphine 4 Mg/Ml Vial) 2 - 6 mg IV Q1HP PRN; Protocol PRN Reason: Per Pain Protocol Last Admin: 06/09/22 17:00 Dose: 2 mg Ondansetron HCl (Ondansetron 4 Mg/2 Ml Vial) 4 mg IV Q6HP PRN PRN Reason: Nausea And Vomiting Oxycodone HCl (Oxycodone Hcl 5 Mg Tablet) 5 mg PO Q6HP PRN; Protocol PRN Reason: Pain Last Admin: 06/10/22 23:52 Dose: 5 mg Polyethylene Glycol (Polyethylene Glycol 3350 17 Gm Packet) 17 gm PO DAILY [facility] Senna (Sennosides 1 Tablet) 2 tab PO HS [facility] Last Admin: 06/10/22 21:04 Dose: 2 tab Sodium Biphosphate/Sodium Phosphate (Fleets Adult Enema) 1 dose IA Q3-4DAYS PRN PRN Reason: Constipation Sodium Chloride (0.9 % Sodium Chloride 10 Ml Syringe) 10 ml IV Q8 RICK Last Admin: 06/11/22 06:03 Dose: 10 ml Trazodone HCl (Trazodone Hcl 50 Mg Tablet) 50 mg PO HSP PRN PRN Reason: Insomnia Last Admin: 06/10/22 23:01 Dose: 50 mg A/P Narrative A/P Narrative: A: *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 -CT with 4.7 cm mass near the stomach and presumed necrotic lymph node in the retroperitoneum -plan for SNF to attempt rehab and then likely hospice if pt fails vs home with hospice *Acute blood loss anemia at outside facility: 2/2 above -Required 3 units PRBC. Eliquis stopped during that hospitalization. *Paroxysmal Atrial fibrillation: -Was on amiodarone and apixaban. -Amiodarone stopped secondary to new diagnosis of ILD. -Apixaban stopped secondary to GI bleed *Interstitial lung disease with acute hypoxic respiratory failure: -Found to be hypoxic in [place], [place] notable for interstitial lung disease, [place] secondary to amiodarone therapy -on 2-3LPM by nasal cannula with good sats *CVA, Multifocal ischemic thought to be embolic w/right-sided weakness, mild dysphagia/aphasia and right neglect -Diagnosed while hospitalized in [place] -Symptomatic internal carotid stenosis, discussed with vascular surgery, foll ow-up depending on goals of care for CA. Plan: -Continue with PT and OT -Will try to pursue skilled placement for further therapies vs home with hospice -wean O2 as able -Continue to Not use apixaban or amiodarone, discontinued -Continue oxygen as needed, titrate to maintain saturations -ppx: SCD DNR Time Spent With Patient Time: Total time spent is greater than 50% in coordination of care (as documented) at patient's floor/unit and/or counseling patient: QUALITY Stroke Symptom Onset Unknown: No VTE Deep Vein Thrombosis/Pulmonary Embolism Present on Admission: No
[2022-06-11] MEDS: AMITRIPTYLINE 25 MG TABLET PO SCH (08:52)
[2022-06-11] MEDS: POLYETHYLENE GLYCOL 3350 17 GM PACKET PO SCH (08:52)
[2022-06-11] MEDS: DOCUSATE SODIUM 100 MG CAPSULE PO SCH ×2 (08:52→20:22)
[2022-06-11] MEDS: oxyCODONE HCL 5 MG TABLET PO PRN (16:50)
[2022-06-11] MEDS: SENNOSIDES 1 TABLET PO SCH (20:22)
[2022-06-11] MEDS: traZODone HCL 50 MG TABLET PO PRN (20:22)
[2022-06-11] MEDS ORDERED: POLYETHYLENE GLYCOL 3350 17 GM PACKET PO SCH (21:00)
[2022-06-12] MEDS: 0.9 % SODIUM CHLORIDE 10 ML SYRINGE IV SCH ×3 (05:33→20:35)
[2022-06-12] MEDS: ACETAMINOPHEN 325 MG TABLET PO PRN (07:20)
--- NOTE | 2022-06-12 07:26 | Internal Med Progress Note ---
SUBJECTIVE Subjective Patient information: Note initiated : 06/12/22 at 7:26 am Service Date, if different from initiated Date: [] Patient: Nirmala Zhong a 82 y/o M admitted on 05/19/22 for GI Bleed, Rule out Stroke. Chief Complaint: [] Principal diagnosis: GI bleed due to gastric adenocarcinoma Interval history: Mr. Zhong is a 81 year old M with a complex past medical history significant for chronic atrial fibrillation on amiodarone, Eliquis, prior CVA, and hypertension who presented to our hospital with severe anemia from a subacute upper gastrointestinal hemorrhage. He was transferred to [facility] for higher level of care. He underwent EGD on 05/10 which showed a gastric ulcerating neoplasm that was injected and cauterized. CT demonstrated 4.7 cm mass near the stomach and a presumed necrotic lymph node within the retroperitoneum. Pathology confirmed gastric adenocarcinoma. Of note he was transfused total of 3 units of packed red blood cells. His Eliquis was held. His hospital course was complicated by acute hypoxemic respiratory failure in the CT of the chest revealed pulmonary fibrosis that was believed to be in the setting of amiodarone as he was on this medication for approximately 4 years. It was recommended he follow-up with shingle weaver at the [facility] for further ILD work-up. He was placed on prednisone and IV Lasix. He is now on prednisone 40 mg p.o. daily x1 month with PCP prophylaxis. He also completed a course of Unasyn for suspected aspiration pneumonia. His hospital course was further complicated by acute/subacute multifocal ischemic stroke thought to be in the se tting of an embolism from atrial fibrillation. He was found to have right-sided weakness, mild dysphagia, mild aphasia and right neglect as well as cognitive deficits. MRI demonstrated numerous foci of restricted diffusion scattered throughout both cerebral and cerebellar hemisphere largest within the left occipital lobe. The patient's TTE was performed and revealed preserved EF but severe pulmonary hypertension thought to be due to pulmonary fibrosis. He also has symptomatic internal carotid stenosis and there were discussions with vascular surgery and ongoing goals of care discussion. He has been discharged back to her facility [place] and he will need jail facility placement. He is to follow-up with his primary care at the [facility] he is can establish oncology follow-up. 05/20: The patient remains medically status quo. We will touch base with social work and case management tomorrow morning to see what options are for jail facility. 05/21: Patient's been troubled by hiccups which have been occurring intermittently for a few months. Discussion of goals of care, patient does not want to pursue aggressive treatment for his gastric cancer, leaning towards hospice, likely will need placement. He prefers the [facility] SNF. 05/22: Patient is working with occupational therapy. Complaining of some pain in his legs. Right hand and forearm are still weak. Discussed his goals of care. For now he would like to focus on stroke rehab to try to regain function, though ultimately he would like a transition to hospice in the future. 05/23 Sitting up eating breakfast. No overnight event or new complaints. 05/24 No changes overnight. Patient seems to be feeling well. Denies cough or shortness of breath. 05/25 Patient states he had a good night sleep last night. No overnight or new complaints. 05/26 Patient sitting up in bed eating breakfast. Seems to be in good spirits today. No changes. 05/27 For sleep but otherwise no new complaints. No change in status. 05/28 Patient says his back pain is much better due to the heating pad. No overnight event or sooner complaints. Awaiting placement. 05/29: Patient is complaining of constipations. Otherwise pending placement. 05/30: Patient denies any pain or discomfort. Pending placement. 05/31: Patient denies any pain or discomfort. Care conference this afternoon. 06/01: Being switched to comfort care only after the care conference on 05/31. No other major overnight events. Pending placement. 06/02: Continue comfort care measures only. Pending placement. 06/03: Patient feels comfortable, no changes to medical management. Pending placement. 06/04: Intermittent abdominal pain, felt feverish overnight but no documented fever. No changes, awaiting bed at [facility] contracted facility for hospice. 06/05: No changes to management, awaiting placement for hospice cares. 06/06: Awaiting placement for hospice. 06/07: Awaiting placement for hospice. 06/08 No changes overnight. Case management working with family and patient may go home with hospice on Saturday, possibly. 06/09 Patient states he had poor sleep last night because generalized body aches but feels little better this morning. 06/10 Patient says he slept a bit better last night. No other complaints or overnight events. 06/11 No new complaints overnight events. Awaiting placement. 06/12 Patient had a mild fever this morning. Otherwise no new complaints. Review of Systems: denies headache/fever/chills/nausea/vomiting/chest or abdominal pain/cough/dyspnea/diarrhea. Otherwise see above. Constitutional Vitals: Vital Signs Temp Pulse Resp BP Pulse Ox O2 Del Method O2 Flow Rate 100.6 F H 95 H 16 154/72 93 2 06/12/22 07:20 06/11/22 18:58 06/11/22 18:58 06/11/22 18:58 06/11/22 18:58 06/11/22 19:00 06/11/22 19:00 Period Temp Pulse Resp BP Sys/Coles Pulse Ox O2 Del Method O2 Flow Rate Last 24 Hr 97.7 F-100.6 F 85-95 16-20 134-154/72-76 93-93 Nasal Cannula- Nasal Cannula 2-2 Intake and Output 06/11/22 06/12/22 06/12/22 21:59 05:59 13:59 Intake Total 150 Output Total 500 375 Balance -500 -225 Intake & Output: Intake & Output 06/11/22 06/12/22 06/12/22 21:59 05:59 13:59 Intake Total 150 Output Total 500 375 Balance -500 -225 Intake: Oral 150 Output: Urine Catheter Amount 500 375 Other: Urine Appearance Clear Clear Urine Color Bright Yellow Dark Yellow Urine Odor Normal Normal Exam: General: Alert, Awake, No acute Distress, chronically ill-appearing Eyes/N/T: EOMI, Head/Neck: neck supple, CV: Reg today, No murmurs, Pulm: Clear b/l, no wheezing/rhonchi/rales Abd: soft, nontender, +BS x4 Ext: no clubbing/cyanosis/edema Neuro: Alert, generally weak RUE, moves all extremities, Skin: warm/dry OBJ DATA Labs CBC & Chem 7: 05/21/22 05:38 05/23/22 05:30 Meds: Medications Acetaminophen (Acetaminophen 325 Mg Tablet) 650 mg PO Q6HP PRN; Protocol PRN Reason: Per Pain Protocol/Fever > 101 Last Admin: 06/12/22 07:20 Dose: 650 mg Al Hydrox/Mg Hydrox/Simethicone (Mag Hydrox/Al Hydrox/Simeth 30 Ml Oral.Susp) 30 ml PO Q4-6HP PRN PRN Reason: Dyspepsia Last Admin: 05/20/22 10:53 Dose: 30 ml Amitriptyline HCl (Amitriptyline 25 Mg Tablet) 25 mg PO QDAY [facility] Last Admin: 06/11/22 08:52 Dose: 25 mg Artificial Tears (Carboxymethylcellulose Sodium 1 Each Droper.Gel) 1 each OP Q6H PRN PRN Reason: Dry Eye(s) Baclofen (Baclofen 10 Mg Tablet) 5 mg PO TIDP PRN PRN Reason: hiccups Last Admin: 06/09/22 19:26 Dose: 5 mg Belladonna Alkaloids/Opium (Opium/Belladonna Alkaloids 30 Mg Supp.Rect) 30 mg [place] Q4HP PRN PRN Reason: BLADDER SPASMS Docusate Sodium (Docusate Sodium 100 Mg Capsule) 100 mg PO BID [facility] Last Admin: 06/11/22 20:22 Dose: 100 mg Lactulose (Lactulose 20 Gm/30 Ml Oral.Eve) 20 gm PO DAILYP PRN PRN Reason: Constipation Last Admin: 06/10/22 16:53 Dose: 20 gm Lorazepam (Lorazepam 2 Mg/Ml Vial) 0 mg IV Q1HP PRN; Protocol PRN Reason: ANXIETY/SEDATION Mineral Oil (Mineral Oil 1 Dose Enema) 1 dose [place] ONCE PRN PRN Reason: Constipation Morphine Sulfate (Morphine 4 Mg/Ml Vial) 2 - 6 mg IV Q1HP PRN; Protocol PRN Reason: Per Pain Protocol Last Admin: 06/09/22 17:00 Dose: 2 mg Ondansetron HCl (Ondansetron 4 Mg/2 Ml Vial) 4 mg IV Q6HP PRN PRN Reason: Nausea And Vomiting Oxycodone HCl (Oxycodone Hcl 5 Mg Tablet) 5 mg PO Q6HP PRN; Protocol PRN Reason: Pain Last Admin: 06/11/22 16:50 Dose: 5 mg Polyethylene Glycol (Polyethylene Glycol 3350 17 Gm Packet) 17 gm PO DAILY [facility] Last Admin: 06/11/22 08:52 Dose: 17 gm Senna (Sennosides 1 Tablet) 2 tab PO HS [facility] Last Admin: 06/11/22 20:22 Dose: 2 tab Sodium Biphosphate/Sodium Phosphate (Fleets Adult Enema) 1 dose [place] Q3-4DAYS PRN PRN Reason: Constipation Sodium Chloride (0.9 % Sodium Chloride 10 Ml Syringe) 10 ml IV Q8 RICK Last Admin: 06/12/22 05:33 Dose: 10 ml Trazodone HCl (Trazodone Hcl 50 Mg Tablet) 50 mg PO HSP PRN PRN Reason: Insomnia Last Admin: 06/11/22 20:22 Dose: 50 mg A/P Narrative A/P Narrative: A: *Adenocarcinoma of the stomach with GI hemorrhage -EGD done at the hospital in [facility] -CT with 4.7 cm mass near the stomach and presumed necrotic lymph node in the retroperitoneum -plan for SNF to attempt rehab and then likely hospice if pt fails vs home with hospice *Acute blood loss anemia at outside facility: 2/2 above -Required 3 units PRBC. Eliquis stopped during that hospitalization. *Paroxysmal Atrial fibrillation: -Was on amiodarone and apixaban. -Amiodarone stopped secondary to new diagnosis of ILD. -Apixaban stopped secondary to GI bleed *Interstitial lung disease with acute hypoxic respiratory failure: -Found to be hypoxic in [place], CT notable for interstitial lung disease, [place] secondary to amiodarone therapy -on 2-3LPM by nasal cannula with good sats *CVA, Multifocal ischemic thought to be embolic w/right-sided weakness, mild dysphagia/aphasia and right neglect -Diagnosed while hospitalized in [place] -Symptomatic internal carotid stenosis, discussed with vascular surgery, follow-up depending on goals of care for [place]. Plan: -Continue with PT and OT -Will try to pursue skilled placement for further therapies vs home with hospice -wean O2 as able -Continue to Not use apixaban or amiodarone, discontinued -Continue oxygen as needed, titrate to maintain saturations -ppx: SCD DNR Time Spent With Patient Time: Total time spent is greater than 50% in coordination of care (as documented) at patient's floor/unit and/or counseling patient: QUALITY Stroke Symptom Onset Unknown: No VTE Deep Vein Thrombosis/Pulmonary Embolism Present on Admission: No
[2022-06-12] MEDS: POLYETHYLENE GLYCOL 3350 17 GM PACKET PO SCH (08:42)
[2022-06-12] MEDS: DOCUSATE SODIUM 100 MG CAPSULE PO SCH ×2 (08:43→20:35)
[2022-06-12] MEDS: AMITRIPTYLINE 25 MG TABLET PO SCH (08:43)
--- NOTE | 2022-06-12 12:10 | Internal Med Progress Note ---
SUBJECTIVE Subjective Patient information: Note initiated : 06/12/22 at 12:09 pm Service Date, if different from initiated Date: [] Patient: Nirmala Zhong a 82 y/o M admitted on 05/19/22 for GI Bleed, Rule out Stroke. Chief Complaint: [] Principal diagnosis: GI bleed due to gastric adenocarcinoma Interval history: Mr. Zhong is a 81 year old M with a complex past medical history significant for chronic atrial fibrillation on amiodarone, Eliquis, prior CVA, and hypertension who presented to our hospital with severe anemia from a subacute upper gastrointestinal hemorrhage. He was transferred to [facility] for higher level of care. He underwent EGD on 05/10 which showed a gastric ulcerating neoplasm that was injected and cauterized. CT demonstrated 4.7 cm mass near the stomach and a presumed necrotic lymph node within the retroperitoneum. Pathology confirmed gastric adenocarcinoma. Of note he was transfused total of 3 units of packed red blood cells. His Eliquis was held. His hospital course was complicated by acute hypoxemic respiratory failure in the CT of the chest revealed pulmonary fibrosis that was believed to be in the setting of amiodarone as he was on this medication for approximately 4 years. It was recommended he follow-up with bleach packer at the [facility] for further ILD work-up. He was placed on prednisone and IV Lasix. He is now on prednisone 40 mg p.o. daily x1 month with PCP prophylaxis. He also completed a course of Unasyn for suspected aspiration pneumonia. His hospital course was further complicated by acute/subacute multifocal ischemic stroke thought to be in the s etting of an embolism from atrial fibrillation. He was found to have right- sided weakness, mild dysphagia, mild aphasia and right neglect as well as cognitive deficits. MRI demonstrated numerous foci of restricted diffusion scattered throughout both cerebral and cerebellar hemisphere largest within the left occipital lobe. The patient's TTE was performed and revealed preserved EF but severe pulmonary hypertension thought to be due to pulmonary fibrosis. He also has symptomatic internal carotid stenosis and there were discussions with vascular surgery and ongoing goals of care discussion. He has been discharged back to her facility [place] and he will need care home facility placement. He is to follow-up with his primary care at the [facility] he is can establish oncology follow-up. 05/20: The patient remains medically status quo. We will touch base with social work and case management tomorrow morning to see what options are for care home facility. 05/21: Patient's been troubled by hiccups which have been occurring intermittently for a few months. Discussion of goals of care, patient does not want to pursue aggressive treatment for his gastric cancer, leaning towards hospice, likely will need placement. He prefers the [facility] SNF. 05/22: Patient is working with occupational therapy. Complaining of some pain in his legs. Right hand and forearm are still weak. Discussed his goals of care. For now he would like to focus on stroke rehab to try to regain function, though ultimately he would like a transition to hospice in the future. 05/23 Sitting up eating breakfast. No overnight event or new complaints. 05/24 No changes overnight. Patient seems to be feeling well. Denies cough or shortness of breath. 05/25 Patient states he had a good night sleep last night. No overnight or new complaints. 05/26 Patient sitting up in bed eating breakfast. Seems to be in good spirits today. No changes. 05/27 For sleep but otherwise no new complaints. No change in status. 05/28 Patient says his back pain is much better due to the heating pad. No overnight event or sooner complaints. Awaiting placement. 05/29: Patient is complaining of constipations. Otherwise pending placement. 05/30: Patient denies any pain or discomfort. Pending placement. 05/31: Patient denies any pain or discomfort. Care conference this afternoon. 06/01: Being switched to comfort care only after the care conference on 05/31. No other major overnight events. Pending placement. 06/02: Continue comfort care measures only. Pending placement. 06/03: Patient feels comfortable, no changes to medical management. Pending placement. 06/04: Intermittent abdominal pain, felt feverish overnight but no documented fever. No changes, awaiting bed at [facility] contracted facility for hospice. 06/05: No changes to management, awaiting placement for hospice cares. 06/06: Awaiting placement for hospice. 06/07: Awaiting placement for hospice. 06/08 No changes overnight. Case management working with family and patient may go home with hospice on Saturday, possibly. 06/09 Patient states he had poor sleep last night because generalized body aches but feels little better this morning. 06/10 Patient says he slept a bit better last night. No other complaints or overnight events. 06/11 No new complaints overnight events. Awaiting placement. 06/12 Patient had a mild fever this morning. Otherwise no new complaints. 06/13: Awaiting placement, probable discharge to hospice in [place], [place] tomorrow. Physical exam Head: Atraumatic, normal inspection. Eyes: normal appearance, no scleral icterus. Neck: full ROM Respiratory: no respiratory distress. Cardiovascular: normal rate and rhythm, S1, S2. GI/Abdominal: Distended, soft, mild diffuse tenderness, no guarding. Extremities: full range of motion, nontender. Neurological: CN II-XII intact, right upper extremity weakness Psychiatric: normal mood. Skin: warm, normal color Constitutional Vitals: Vital Signs Temp Pulse Resp BP Pulse Ox O2 Del Method O2 Flow Rate 100.6 F H 91 H 22 146/72 90 2 06/12/22 07:20 06/12/22 07:19 06/12/22 07:19 06/12/22 07:19 06/12/22 07:19 06/12/22 07:19 06/12/22 07:19 Period Temp Pulse Resp BP Sys/Coles Pulse Ox O2 Del Method O2 Flow Rate Last 24 Hr 98.8 F-100.6 F 91-95 16- 146-154/72-72 90-93 Nasal Cannula- Nasal Cannula 2-2 Intake and Output 06/11/22 06/12/22 06/12/22 21:59 05:59 13:59 Intake Total 150 Output Total 500 375 Balance -500 -225 Intake & Output: Intake & Output 06/11/22 06/12/22 06/12/22 21:59 05:59 13:59 Intake Total 150 Output Total 500 375 Balance -500 -225 Intake: Oral 150 Output: Urine Catheter Amount 500 375 Other: Urine Appearance Clear Clear Urine Color Bright Yellow Dark Yellow Urine Odor Normal Normal OBJ DATA Labs CBC & Chem 7: 05/21/22 05:38 05/23/22 05:30 Meds: Medications Acetaminophen (Acetaminophen 325 Mg Tablet) 650 mg PO Q6HP PRN; Protocol PRN Reason: Per Pain Protocol/Fever > 101 Last Admin: 06/12/22 07:20 Dose: 650 mg Al Hydrox/Mg Hydrox/Simethicone (Mag Hydrox/Al Hydrox/Simeth 30 Ml Oral.Susp) 30 ml PO Q4-6HP PRN PRN Reason: Dyspepsia Last Admin: 05/20/22 10:53 Dose: 30 ml Amitriptyline HCl (Amitriptyline 25 Mg Tablet) 25 mg PO QDAY [facility] Last Admin: 06/12/22 08:43 Dose: 25 mg Artificial Tears (Carboxymethylcellulose Sodium 1 Each Droper.Gel) 1 each OP Q6H PRN PRN Reason: Dry Eye(s) Baclofen (Baclofen 10 Mg Tablet) 5 mg PO TIDP PRN PRN Reason: hiccups Last Admin: 06/09/22 19:26 Dose: 5 mg Belladonna Alkaloids/Opium (Opium/Belladonna Alkaloids 30 Mg Supp.Rect) 30 mg [place] Q4HP PRN PRN Reason: BLADDER SPASMS Docusate Sodium (Docusate Sodium 100 Mg Capsule) 100 mg PO BID [facility] Last Admin: 06/12/22 08:43 Dose: 100 mg Lactulose (Lactulose 20 Gm/30 Ml Oral.Eve) 20 gm PO DAILYP PRN PRN Reason: Constipation Last Admin: 06/10/22 16:53 Dose: 20 gm Lorazepam (Lorazepam 2 Mg/Ml Vial) 0 mg IV Q1HP PRN; Protocol PRN Reason: ANXIETY/SEDATION Mineral Oil (Mineral Oil 1 Dose Enema) 1 dose [place] ONCE PRN PRN Reason: Constipation Morphine Sulfate (Morphine 4 Mg/Ml Vial) 2 - 6 mg IV Q1HP PRN; Protocol PRN Reason: Per Pain Protocol Last Admin: 06/09/22 17:00 Dose: 2 mg Ondansetron HCl (Ondansetron 4 Mg/2 Ml Vial) 4 mg IV Q6HP PRN PRN Reason: Nausea And Vomiting Oxycodone HCl (Oxycodone Hcl 5 Mg Tablet) 5 mg PO Q6HP PRN; Protocol PRN Reason: Pain Last Admin: 06/11/22 16:50 Dose: 5 mg Polyethylene Glycol (Polyethylene Glycol 3350 17 Gm Packet) 17 gm PO DAILY [facility] Last Admin: 06/12/22 08:42 Dose: 17 gm Senna (Sennosides 1 Tablet) 2 tab PO HS [facility] Last Admin: 06/11/22 20:22 Dose: 2 tab Sodium Biphosphate/Sodium Phosphate (Fleets Adult Enema) 1 dose [place] Q3-4DAYS PRN PRN Reason: Constipation Sodium Chloride (0.9 % Sodium Chloride 10 Ml Syringe) 10 ml IV Q8 RICK Last Admin: 06/12/22 05:33 Dose: 10 ml Trazodone HCl (Trazodone Hcl 50 Mg Tablet) 50 mg PO HSP PRN PRN Reason: Insomnia Last Admin: 06/11/22 20:22 Dose: 50 mg A/P Narrative A/P Narrative: Assessment: 81-year-old male with a history of chronic atrial fibrillation, prior CVA, hypertension admitted for a subacute upper gastrointestinal hemorrhage. Work-up at an outside hospital in [facility] included an EGD which revealed a ulcerated gastric neoplasm.CT demonstrated a 4.7 cm mass near the stomach and presumed necrotic retroperitoneal lymph nodes. Pathology confirmedc gastric adenocarcinoma. The patient was discharged back to [facility] in [place] for placement. The patient is currently on comfort cares awaiting placement for hospice. Plan -Comfort cares. -Awaiting placement for hospice. Time Spent With Patient Time: Total time spent is greater than 50% in coordination of care (as documented) at patient's floor/unit and/or counseling patient: QUALITY Stroke Symptom Onset Unknown: No VTE Deep Vein Thrombosis/Pulmonary Embolism Present on Admission: No
[2022-06-12] MEDS: oxyCODONE HCL 5 MG TABLET PO PRN ×2 (13:31→20:35)
[2022-06-12] MEDS: SENNOSIDES 1 TABLET PO SCH (20:35)
[2022-06-12] MEDS: traZODone HCL 50 MG TABLET PO PRN (20:36)
[2022-06-12] MEDS: morphine 4 MG/ML VIAL IV PRN (22:21)
[2022-06-13] MEDS: 0.9 % SODIUM CHLORIDE 10 ML SYRINGE IV SCH ×3 (05:54→20:01)
[2022-06-13] MEDS: DOCUSATE SODIUM 100 MG CAPSULE PO SCH ×2 (09:14→20:01)
[2022-06-13] MEDS: POLYETHYLENE GLYCOL 3350 17 GM PACKET PO SCH (09:14)
[2022-06-13] MEDS: AMITRIPTYLINE 25 MG TABLET PO SCH (09:15)
[2022-06-13] MEDS: oxyCODONE HCL 5 MG TABLET PO PRN (17:35)
[2022-06-13] MEDS: SENNOSIDES 1 TABLET PO SCH (20:01)
[2022-06-13] MEDS: traZODone HCL 50 MG TABLET PO PRN (20:01)
[2022-06-14] MEDS: 0.9 % SODIUM CHLORIDE 10 ML SYRINGE IV SCH (06:11)
[2022-06-14] MEDS: POLYETHYLENE GLYCOL 3350 17 GM PACKET PO SCH (09:07)
[2022-06-14] MEDS: DOCUSATE SODIUM 100 MG CAPSULE PO SCH (09:07)
[2022-06-14] MEDS: AMITRIPTYLINE 25 MG TABLET PO SCH (09:08)
[2022-06-14] MEDS: oxyCODONE HCL 5 MG TABLET PO PRN (09:14)
--- NOTE | 2022-06-14 10:24 | Discharge Summary ---
Discharge Provider Provider IMPORTANT FOLLOW-UP INFORMATION FOR PCP: Patient information: Note initiated : 06/14/22 at 10:21 am Service Date, if different from initiated Date: [] Patient: Nirmala Zhong a 82 y/o M admitted on 05/19/22 for GI Bleed, Rule out Stroke. Chief Complaint: [] Date of admission: 05/19/22 15:46 Discharge date: 06/14/22 Primary care physician: Robbin Horan Consults: 05/22/22 11:28 Consult to Physician [CONS] Routine Comment: snf referral Consulting Provider: [facility] Reason For Exam: Physician to Consult COURSE Hospital Course Hospital course: Mr. Zhong is a 81 year old M with a complex past medical history significant for chronic atrial fibrillation on amiodarone, Eliquis, prior CVA, and hypertension who presented to our hospital with severe anemia from a subacute upper gastrointestinal hemorrhage. He was transferred to [facility] for higher level of care. He underwent EGD on 05/10 which showed a gastric ul cerating neoplasm that was injected and cauterized. CT demonstrated 4.7 cm mass near the stomach and a presumed necrotic lymph node within the retroperitoneum. Pathology confirmed gastric adenocarcinoma. Of note he was transfused total of 3 units of packed red blood cells. His Eliquis was held. His hospital course was complicated by acute hypoxemic respiratory failure in the CT of the chest revealed pulmonary fibrosis that was believed to be in the setting of amiodarone as he was on this medication for approximately 4 years. It was recommended he follow-up with hearing aid mechanic at the [facility] for further ILD work-up. He was placed on prednisone and IV Lasix. He is now on prednisone 40 mg p.o. daily x1 month with PCP prophylaxis. He also completed a course of Unasyn for suspected aspiration pneumonia. His hospital course was further complicated by acute/subacute multifocal ischemic stroke thought to be in the setting of an embolism from atrial fibrillation. He was found to have right- sided weakness, mild dysphagia, mild aphasia and right neglect as well as cognitive deficits. MRI demonstrated numerous foci of restricted diffusion scattered throughout both cerebral and cerebellar hemisphere largest within the left occipital lobe. The patient's TTE was performed and revealed preserved EF but severe pulmonary hypertension thought to be due to pulmonary fibrosis. He also has symptomatic internal carotid stenosis and there were discussions with vascular surgery and ongoing goals of care discussion. He has been discharged back to her facility as [place] and he will need snf facility placement. He is to follow-up with his primary care at the [facility] he is can establish oncology follow-up. 05/20: The patient remains medically status quo. We will touch base with social work and case management tomorrow morning to see what options are for snf facility. 05/21: Patient's been troubled by hiccups which have been occurring intermittently for a few months. Discussion of goals of care, patient does not want to pursue aggressive treatment for his gastric cancer, leaning towards hospice, likely will need placement. He prefers the [facility] SN[facility]. 05/22: Patient is working with occupational therapy. Complaining of some pain in his legs. Right hand and forearm are still weak. Discussed his goals of care. For now he would like to focus on stroke rehab to try to regain function, though ultimately he would like a transition to hospice in the future. 05/23 Sitting up eating breakfast. No overnight event or new complaints. 05/24 No changes overnight. Patient seems to be feeling well. Denies cough or shortness of breath. 05/25 Patient states he had a good night sleep last night. No overnight or new complaints. 05/26 Patient sitting up in bed eating breakfast. Seems to be in good spirits today. No changes. 05/27 For sleep but otherwise no new complaints. No change in status. 05/28 Patient says his back pain is much better due to the heating pad. No overnight event or sooner complaints. Awaiting placement. 05/29: Patient is complaining of constipations. Otherwise pending placement. 05/30: Patient denies any pain or discomfort. Pending placement. 05/31: Patient denies any pain or discomfort. Care conference this afternoon. 06/01: Being switched to comfort care only after the care conference on 05/31. No other major overnight events. Pending placement. 06/02: Continue comfort care measures only. Pending placement. 06/03: Patient feels comfortable, no changes to medical management. Pending placement. 06/04: Intermittent abdominal pain, felt feverish overnight but no documented fever. No changes, awaiting bed at [facility] contracted facility for hospice. 06/05: No changes to management, awaiting placement for hospice cares. 06/06: Awaiting placement for hospice. 06/07: Awaiting placement for hospice. 06/08 No changes overnight. Case management working with family and patient may go home with hospice on Saturday, possibly. 06/09 Patient states he had poor sleep last night because generalized body aches but feels little better this morning. 06/10 Patient says he slept a bit better last night. No other complaints or overnight events. 06/11 No new complaints overnight events. Awaiting placement. 06/12 Patient had a mild fever this morning. Otherwise no new complaints. 06/13 Awaiting placement, probable discharge to hospice in [place], [place] tomorrow. 06/14 Discharged to SNF for hospice cares. Physical exam Head: Atraumatic, normal inspection. Eyes: normal appearance, no scleral icterus. Neck: full ROM Respiratory: no respiratory distress. Cardiovascular: normal rate and rhythm, S1, S2. GI/Abdominal: Distended, soft, mild diffuse tenderness, no guarding. Extremities: full range of motion, nontender. Neurological: CN II-XII intact, right upper extremity weakness Psychiatric: normal mood. Skin: warm, normal color Discharge diagnosis: Gastric neoplasm Secondary discharge diagnosis: Upper gastrointestinal hemorrhage Time Spent with Patient Time attestation: Total time spent providing and/or coordinating discharge services: Time spent: Greater than 30 minutes EXAM Constitutional Vitals: Temp Pulse Resp BP Pulse Ox O2 Del Method O2 Flow Rate 98.7 F 94 H 16 118/66 90 2 06/14/22 07:06/14/22 07:06/14/22 07:06/14/22 07:06/14/22 07:06/14/22 07:06/14/22 07:24 Discharge Plan Patient/Caregiver Discharge Instructions Activity: increase activity as tolerated Diet: Dysphagia Level 6 Soft & Bite-Sized Foods Activity Restrictions/Additional Instructions: Follow-up with PCP in 3 to 7 days. Follow-up with hospice. Prescriptions: New amitriptyline 25 mg Tablet 25 mg PO QDAY Qty: 30 0RF oxycodone 5 mg Tablet 5 mg PO Q6HP PRN (Reason: Pain) Qty: 12 0RF Continued amitriptyline 25 mg tablet 25 mg PO QDAY oxycodone 5 mg Tablet 5 mg PO Q6H PRN (Reason: Pain) Discontinued amlodipine 10 mg tablet 10 mg PO QDAY atorvastatin 20 mg tablet 20 mg PO QHS doxazosin 4 mg tablet 4 mg PO QDAY metoprolol tartrate 25 mg tablet 37.5 mg PO BID naloxone 4 mg/actuation spray,non-aerosol 4 mg INTRANASAL ONCE PRN (Reason: Allergic Symptoms) magnesium oxide 420 mg tablet 420 mg PO QDAY multivitamin with minerals capsule 1 cap PO QAM lidocaine [Lidoderm] 5 % adhesive patch,medicated 1 patch topical QDAY Qty: 15 0RF Rx Instructions: leave on most painful area for 12 hrs sennosides [senna] 8.6 mg Tablet 8.6 mg PO QHS PRN (Reason: Allergy Symptoms) prednisone 20 mg Tablet 40 mg PO DAILY Rx Instructions: FOR ONE MONTH BEGINNING 05/18/22 sulfamethoxazole-trimethoprim [Bactrim DS] 800-160 mg Tablet 1 tab PO DAILY Rx Instructions: PROPHYLAXIS WHILE ON STEROIDS pantoprazole [Protonix] 40 mg Tablet,Delayed Release (Dr/Ec) 40 mg PO BID colchicine 0.6 mg Tablet 0.6 mg PO BID Zyrtec 10 mg Capsule 10 mg PO QDAY PRN (Reason: Allergy Symptoms) acetaminophen 325 mg tablet 350 mg PO Q6H albuterol sulfate 90 mcg/actuation HFA aerosol inhaler 1 - 2 puff inhalation Q6H PRN (Reason: shortness of breath or wheezing) Rx Instructions: Bring this with you to your lung function test finasteride [Proscar] 5 mg tablet 5 mg PO QDAY Qty: 90 1RF Follow Up Plan Patient Disposition: Xfer SNF Prognosis: Undetermined Rehab Potential: Fair I certify that the patient requires SNF services: Yes Discharge Orders: Discharge Order (Routine); Ordered 06/14/22 Ordered By: Gonzalez Salguero QUALITY VTE Deep Vein Thrombosis/Pulmonary Embolism Present on Admission: No
== END 2022-06-14 11:50 | DRG 951 ==
LOC: MEDSUR 15:46
PROVIDERS: ADMIT Student in an Organized Health Care Education/Training Program; ATTEND Student in an Organized Health Care Education/Training Program